=== PATIENT | female | born 1970 | race Caucasian/White ===

== ENCOUNTER → 2016-09-25 | Outpatient (REF) | payer OTHER ==
[~2016-09-25] MED LIST: AMIT25TA PO; AVASINJ IV; CYMB60CA3 PO; DICY1CAP8 PO; DIPH25CA PO; DOCU100C PO; HYDR12.55 PO; HYDR25TAB PO; LINZ145C PO; LISI40TAB PO; MIRA3350 PO; MULT1TAB10 PO; OXYC-299 PO; PANT40TA2 PO; PEG1POW PO; PERC5TAB6 PO; PROP40TA PO; PROT1TAB2 PO; PROTPAK PO; ULTR50TA PO; VITA100072 PO; VITMTA PO; XELO1TAB PO; [UNRECOGNIZED DRUG - CODE] OR; gas x OR; inderal OR; percocet OR; vitamin D OR
== END ==
LOC: M LAB REF 13:01
PROVIDERS: ATTEND Internal Medicine Medical Oncology
DX: C18.9 Malignant neoplasm of colon, unspecified (principal)

== ENCOUNTER 2016-10-09 16:52 | Inpatient (IN) | payer OTHER ==
[~2016-10-09] VITALS: Ht 157.5 cm; Wt 60.0 kg
[2016-10-09] MEDS ORDERED: ONDANSETRON 4MG/2ML VIAL (J2405) As Ordered ONE (18:41)
[2016-10-09] MEDS ORDERED: MORPHINE 4 MG/ML 1ML SYRINGE As Ordered ONE ×4 (18:41→23:43)
[2016-10-09 18:54] LABS: BASO # 0.1 K/mm3 (0.0-0.2); BASO % 1.6 % (0.0-1.0); EOS # 0.3 K/mm3 (0.0-0.50); EOS % 3.8 % (0.0-3.0); LARGE UNSTAINED CELL # 0.3 K/mm3 (0.0-0.4); LARGE UNSTAINED CELL % 4.2 % (0.0-4.0); LYMPH # 2.4 K/mm3 (1.5-4.5); LYMPH % 29.1 % (24.0-44.0); MEAN CORPUSCULAR HEMOGLOBIN 35.5 pg (27.0-33.0); MEAN CORPUSCULAR HGB CONC 33.8 g/dl (32.0-36.5); MONO # 0.6 K/mm3 (0.0-0.8); MONO % 8.2 % (0.0-5.0); NEUTROPHILS # 3.8 K/mm3 (1.8-7.7); NEUTROPHILS % 53.1 % (36.0-66.0); PLATELET COUNT, AUTOMATED 276 k/mm3 (150-450); RED CELL DISTRIBUTION WIDTH 16.9 % (11.5-14.5); WHITE BLOOD COUNT 7.2 K/mm3 (4.0-10.0)
[2016-10-09 19:07] LABS: ALBUMIN 4.3 GM/DL (3.2-5.2); ALBUMIN/GLOBULIN RATIO 1.39 (1.00-1.93); ALKALINE PHOSPHATASE 69 U/L (45-117); ALT/SGPT 23 U/L (12-78); ANION GAP 15 MEQ/L (8-16); AST/SGOT 24 U/L (15-37); BILIRUBIN,DIRECT < 0.1 MG/DL (0.0-0.2); BILIRUBIN,TOTAL 0.4 MG/DL (0.2-1.0); BLOOD UREA NITROGEN 9 MG/DL (7-18); CALCIUM LEVEL 9.7 MG/DL (8.5-10.1); CARBON DIOXIDE LEVEL 22 MEQ/L (21-32); CHLORIDE LEVEL 102 MEQ/L (98-107); CREATININE FOR GFR 1.15 MG/DL (0.55-1.02); GLOMERULAR FILTRATION RATE 53.8 (>58); GLUCOSE, FASTING 107 MG/DL (70-105); POTASSIUM SERUM 3.7 MEQ/L (3.5-5.1); SODIUM LEVEL 139 MEQ/L (136-145); TOTAL PROTEIN 7.4 GM/DL (6.4-8.2)
[2016-10-09 19:10] LABS: ADD MORPHOLOGY? YES
[2016-10-09 19:11] LABS: ANISOCYTOSIS 1+
[2016-10-09] MEDS ORDERED: GASTROGRAFIN SOLUTION 30ML (Q9963) As Ordered ONE (19:36)
[2016-10-09] MEDS ORDERED: ISOVUE-370 76% 100ML VIAL (Q9967) As Ordered ONE (21:21)
--- NOTE | 2016-10-09 22:30 | REPUSA ---
CT of the abdomen and pelvis with contrast Clinical statement: Pain. Technique: Multiple axial CT images were obtained from the base of the lungs through the floor of the pelvis utilizing 5 mm axial slices after administration of oral and nonionic intravenous contrast. C oronal and sagittal reconstructions were also obtained. Comparison: 06/19/2016. Findings: Chest: The visualized lung bases are clear. Abdomen: The liver, spleen, pancreas, right kidney, gallbladder, and adrenal glands are unremarkable. There is hypoperfusion of the left kidney with moderately severe left-sided hydronephrosis. There is a left hydroureter extending to the region just above the iliac bifurcation. At this site, there is a left retroperitoneal soft tissue mass measuring 3.0 x 3.3 cm, causing mass effect on the ureter. In retrospect, this lesion was likely present on the prior study but only measure 2.2 x 1.9 cm, and was far less appreciable at that time. On the prior exam there is no evidence of hydronephrosis. No kidn ey stones identified. The aorta is within normal limits. There is no evidence of abdominal lymphadeno fide or ascites. Pelvis: The bowel is unremarkable, with no obstructive or inflammatory changes. The appendix is carmen l. The urinary bladder is within normal limits. The other pelvic structures appear grossly intact. Th ere is no evidence of pelvic lymphadenopathy or ascites. Bones: There are no suspicious osseous abnormalities seen. Impression: 1. Moderately severe left-sided hydronephrosis and hydroureter, with the site of obstruction secondar y to a left retroperitoneal mass which has increased in size since the prior study of 06/19/2016. Biop sy of this mass should be considered. 2. The right renal collecting system is unremarkable at this time. 3. No obstructive or inflammatory bowel changes.
[2016-10-09] MEDS ORDERED: LISI40TAB PO (23:40)
[2016-10-09] MEDS ORDERED: LINZ290C PO (23:40)
[2016-10-09] MEDS ORDERED: OXYC-299 PO (23:40)
[2016-10-09] MEDS ORDERED: HYDR25TAB PO (23:40)
[2016-10-10] VITALS (8 sets, daily range): BP systolic 131–162; BP diastolic 63–95
[2016-10-10] MEDS ORDERED: ONDANSETRON 4MG/2ML VIAL (J2405) IV PRN ×2 (00:45→17:45)
[2016-10-10] MEDS ORDERED: PERCOCET 5MG/325MG TAB PO PRN (00:45)
[2016-10-10] MEDS ORDERED: HYDROmorphone 2 MG TAB PO PRN (00:45)
[2016-10-10] MEDS ORDERED: PERCOCET 5MG/325MG TAB As Ordered ONE (01:04)
--- NOTE | 2016-10-10 01:31 | EDDOCDS ---
Physician Documentation [facility] Name: Tresa Goff Age: 46 yrs Sex: Female : 1970 Arrival Date: 10/09/2016 Time: 16:52 Bed Admit Hold Private MD: Kyle Hodgson MD Disposition: 10/09 23:19 Critical Care: Critical care not applicable. pc Disposition: 10/09/16 23:22 Hospitalization ordered by Keena Segura for Inpatient Admission. Preliminary diagnosis are Other hydronephrosis - compressive at level of left iliac bifurcation due to retroperitoneal soft tissue mass, Malignant neoplasm of colon - metastatic to liver, lung. - Bed requested for 5 Clark. - Status is Inpatient Admission. cf2 - Condition is Stable. - Problem is new. - Symptoms have improved. HPI: 18:25 This 46 yrs old Female presents to ER via Walkin/Carried/Asstd with pc complaints of constipation. 18:25 The history is obtained from the patient. She was seen by her GI clinic today for pc ongoing constipation. She has colon Ca, now metastatic to her lung, liver and multiple intraabdominal lymph nodes. She has been constipated for 3 weeks and was started on both lactulose and Linzess 2 weeks ago but has not had a bowel movement in 12 days. She has nausea but has not had any vomiting. The PA that saw her at the clinic today sent her in for a CT scan to rule out an obstruction, despite the lack of clinical evidence of the same but has not done any plain films to date. Historical: - Allergies: Chantix; - Home Meds: 1. Cymbalta 60 mg Oral cpDR 1 cap once daily (Last dose: 10/08/2016 18:30) 2. hydrochlorothiazide 25 mg Oral tab every other day (Last dose: 10/09/2016 07:00) 3. inderal 40mg twice a day (Last dose: 10/09/2016 07:00) 4. Linzess oral 1 cap as needed Has been taking whenever she goes 2-3 days without a BM &#13(Last dose: 10/09/2016 07:00) 5. lisinopril 40 mg Oral tab 1 tab once daily (Last dose: 10/09/2016 07:00) 6. OxyContin 10 mg Oral Tb12 1 tab every 12 hours (Last dose: 10/09/2016 06:30) 7. Percocet 5-325 mg Oral tab every 4-6 hours (Last dose: 10/09/2016 14:00) 8. Protonix 40 mg Oral TbEC 1 tab 2 times per day (Last dose: 10/09/2016 07:00) 9. Avastin intravenous monthly Dec last dose 10. Stool Softener oral nightly 11. multivitamin Oral tab daily - PMHx: Depression; Hypertension; IBS; Cancer, Colon; - PSHx: Hemorrhoidectomy; Breast Augmentation; Colon Resection; infusaport; - The history from nurses notes was reviewed: and I agree with what is documented. - Social history: Smoking status: Electronic cigarettes No barriers to communication noted, The patient speaks fluent Cameroonian, Speaks appropriately for age, Preferred Language: Cam[place]onian. - : The pt / caregiver states he / she is not on anticoagulants. Home medication list is obtained from the patient. - Hospitalizations: : No recent hospitalization is reported. - Exposure Risk Screening:: None identified. - Immunization history:: All immunizations up-to-date. - Family history: Not pertinent. - Social history:: the patient is a non-smoker, the patient drinks alcohol, socially. [employer]: 17:48 2, Living 2, LMP N/A - lf1 ROS: 18:29 All systems are negative except as listed. pc Exam: 18:29 General Appearance: the patient is in anxious, sitting cross-legged, leaning forward pc with forehead on the stretcher. 18:29 EENT: normal eye inspection, ears, nose and throat normal, pharynx normal, mucous membranes moist 18:29 Neck: The exam reveals no acute abnormalities. ROM is normal and painless. No nuchal rigidity is noted.. 18:29 Respiratory: no respiratory distress, normal breath sounds. 18:29 CVS: regular pulse rate, regular rhythm, normal S1 and S2, no murmurs, strong peripheral pulses. 18:29 Abdomen: soft, no organomegaly, severe tenderness to light palpation in all quadrants, voluntary guarding is elicited in all quadrants, bowel sounds diminished. 18:29 Back: normal inspection. 18:29 Skin: skin color is normal, warm, dry. 18:29 Extremities: The extremities have a grossly normal appearance, are non-tender, without acute ROM abnormalities. 18:29 Neuro: oriented x 3, cranial nerves normal as tested, no motor deficits, no sensory deficits. Vital Signs: 16:54 BP 193 / 106; Pulse 94; Resp 18 S; Temp 99.0(O); Pulse Ox 99% on R/A; Weight 60.33 kg / dd6 133 lbs (R); Height 5 ft. 2 in. (157.48 cm) (R); 18:48 BP 170 / 101; Pulse 92; Resp 25; Pulse Ox 100% on R/A; jmv 19:24 BP 179 / 117 (auto/); nn1 19:25 Pulse 80 MON; Pulse Ox 100% ; nn1 22:45 BP 136 / 94; Pulse 119; Resp 20; Temp 98.8(O); Pulse Ox 96% on R/A; Pain 4/10; jmv 10/10 01:29 BP 132 / 78; Pulse 98; Resp 16; Temp 98.5; Pulse Ox 99% on R/A; Pain 3/10; cf2 10/09 16:54 Body Mass Index 24.33 (60.33 kg, 157.48 cm) dd6 10/09 18:48 RN notified of BP jmv 22:45 PT states that when she moves her pain lvl is about an 8/10 notified RN [facility] MDM: 18:08 Abdomen, Flat\E\Upright,PA Chest Ordered. EDMS 18:26 Financial registration complete. gb 18:29 Differential Diagnosis: abdominal pain, constipation, metastatic colon Ca. Plan: albs, pc meds, imaging. 18:34 IV Saline Lock ordered. pc 18:35 morphine 4 mg IVP every 30 minutes; Document pain score/vitals after each dose (Hold if pc SBP < 90mmHg) x2 ordered. 18:35 Ondansetron 4 mg IVP once ordered. pc 18:36 CBC with Diff Ordered. EDMS 18:36 MED Profile Ordered. EDMS 18:36 Liver Profile Ordered. EDMS 19:13 RBC MORPH PROF NO CHARGE Ordered. EDMS 19:13 CBC with Diff Reviewed. pc 19:13 MED Profile Reviewed. pc 19:13 Liver Profile Reviewed. pc 19:13 RBC MORPH PROF NO CHARGE Reviewed. pc 19:27 CT ABD & PELVIS: IV and Oral Contrast Ordered. EDMS 19:35 Diatrizoate Meglumine & Sodium Liquid 10 ml PO once; mix in 290cc of water; 1st cup at nn1 1950; 2nd cup at 2020 ordered. 19:47 [facility] Payment Agreement was scanned into [employer] and attached to record. gb 22:38 Vital Signs ordered. pc 22:42 morphine 4 mg IVP every 30 minutes; Document pain score/vitals after each dose (Hold if pc SBP < 90mmHg) x2 ordered. 22:51 BED REQUEST+ADM ordered. EDMS 22:51 Data reviewed: old medical records, vital signs, nurses notes, lab test results, all pc radiology studies and available results. Test interpretation: LAB - all labs as ordered have been reviewed, interpreted and considered in the overall management of the clinical presentation; X-RAY - interpreted by Radiologist and personally reviewed, 3-view abdomen series; no acute disease, interpreted by Radiologist and personally reviewed, Abdomen/Pelvis CT; severe left hydronephrosis due to ureteric compression from a 3.5cm retroperitoneal soft tissue mass at the level of the iliac bifurcation. Liver lesions noted but not reported by Radiology. 23:19 The patient has been re-examined and re-evaluated. The patient's symptoms have mildly pc improved after treatment. Physician consultation: Dr. Errol Garcia regarding patient's condition, and he advises she requires admission fro pain control, for an IR consult with view to a left Nephrostomy tube tomorrow and he will see in consult. 23:19 Physician consultation: Dr. Keena Segura regarding admission. Disposition: The pc historical points, examination findings, and any diagnostic results supporting the provided diagnosis, were discussed with the patient or legal guardian. The need for further work-up and/or treatment in the hospital was explained. 10/10 00:16 Admission / Observation Status ordered. EDMS 00:42 NPO DIET ordered. EDMS 00:43 BASIC METABOLIC PROFILE Ordered. EDMS 00:43 COMPLETE BLOOD COUNT Ordered. EDMS 01:07 oxyCODONE-acetaminophen 5 mg-325 mg 1 tabs PO once ordered. cf2 Administered Medications: 10/09 18:54 Drug: morphine 4 mg [morphine 4 mg/mL intravenous cartridge (1 mL)] Route: IVP; Site: mb9 right antecubital; 18:54 Drug: Ondansetron 4 mg [ondansetron HCl 2 mg/mL intravenous solution (2 mL)] Route: mb9 IVP; Site: right antecubital; 19:27 Drug: morphine 4 mg [morphine 4 mg/mL intravenous cartridge (1 mL)] Route: IVP; Site: nn1 right antecubital; 21:11 Drug: Diatrizoate Meglumine & Sodium 10 ml [diatrizoate meglumine and diat.sodium 66 nn1 %-10 % oral solution (10 mL)] Route: PO; 23:10 Drug: morphine 4 mg [morphine 4 mg/mL intravenous cartridge (1 mL)] Route: IVP; Site: cf2 left antecubital; 23:59 Drug: morphine 4 mg [morphine 4 mg/mL intravenous cartridge (1 mL)] Route: IVP; Site: cf2 left antecubital; 10/10 01:08 Drug: oxyCODONE-acetaminophen 1 tabs [oxycodone-acetaminophen 5 mg-325 mg tablet (1 cf2 tabs)] Route: PO; Signatures: Dispatcher [employer] EDMS Balbir Lubin MD MD pc [facility] RN Kristin Chaves, Reg Reg gb Oralia Mccabe RN RN lf1 Dennis Sears RN RN mb9 Rosa Stanton RN RN nn1 Karyn Durán,RN RN cf2 The chart was reviewed and I authenticate all verbal orders and agree with the evaluation and treatment provided.Corrections: (The following items were deleted from the chart) 10/09 18:29 17:48 PMHx: colon camcer; lf1 pc 18:40 17:48 Home Meds: Xeloda 3-500mg in am and 2 500 mg at hs x14 days ( start tomorrow) mb9 oral tab; lf1 Attachments: 19:47 [facility] Payment Agreement gb MTDD
--- NOTE | 2016-10-10 01:31 | EDDOCDS ---
Nurse's Notes [facility] Name: Tresa Goff Age: 46 yrs Sex: Female : 1970 Arrival Date: 10/09/2016 Time: 16:52 Bed Admit Hold Private MD: Kyle Hodgson MD Diagnosis: Other hydronephrosis-compressive at level of left iliac bifurcation due to retroperitoneal soft tissue mass;Malignant neoplasm of colon-metastatic to liver, lung Presentation: 10/09 17:39 Presenting complaint: Patient states: Lower left abdominal pain that began 3 weeks ago. lf1 Pt reports that she has been constipated for 11 days and was seen in [facility] [place] office and told to report to the ED for evaluation. Pt reports history of Colorectal Cancer and previous resection of that area. Pain is currently 10/10 with nausea. Adult Sepsis Screening: The patient does not have new or worsening altered mentation. Patient has a respiratory rate of greater than or equal to 22 (1 point). Systolic blood pressure is greater than 100. Patient has a qSOFA score of 1- Negative Sepsis Screen. Suicide/Homicide risk assessment- the patient denies having any suicidal and/or homicidal ideations and does not present with any other emotional, behavioral or mental health complaints. Status: Patient is not a registered nurse surgical services or dependent. Transition of care: patient was received from a primary care office; [facility] . 17:39 Acuity: YUSUF Level 2 lf1 17:39 Method Of Arrival: Walkin/Carried/Asstd 1 17:57 Acuity: YUSUF Level 3 kcs Triage Assessment: 17:48 General: Appears distressed, ill, Behavior is anxious, restless. Pain: Location: left lf1 upper quadrant and left lower quadrant Pain currently is 10 out of 10 on a pain scale. Quality of pain is described as throbbing. HIV screening NA for this visit Offered previously. Neurological: Level of Consciousness is awake, alert, Oriented to person, place, time. EENT: No deficits noted. Respiratory: Respiratory effort is pursed lip, Respiratory pattern is hyperventilation. GI: Reports constipation, lower abdominal pain, upper abdominal pain, nausea. Derm: Skin is clammy. 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 Cymbalta 60 mg Oral cpDR 1 cap once daily (Last dose: 10/08/2016 18:30) 2. hydrochlorothiazide 25 mg Oral tab every other day (Last dose: 10/09/2016 07:00) 3. inderal 40mg twice a day (Last dose: 10/09/2016 07:00) 4. Linzess oral 1 cap as needed Has been taking whenever she goes 2-3 days without a BM &#13(Last dose: 10/09/2016 07:00) 5. lisinopril 40 mg Oral tab 1 tab once daily (Last dose: 10/09/2016 07:00) 6. OxyContin 10 mg Oral Tb12 1 tab every 12 hours (Last dose: 10/09/2016 06:30) 7. Percocet 5-325 mg Oral tab every 4-6 hours (Last dose: 10/09/2016 14:00) 8. Protonix 40 mg Oral TbEC 1 tab 2 times per day (Last dose: 10/09/2016 07:00) 9. Avastin intravenous monthly Dec last dose 10. Stool Softener oral nightly 11. multivitamin Oral tab daily - PMHx: Depression; Hypertension; IBS; Cancer, Colon; - PSHx: Hemorrhoidectomy; Breast Augmentation; Colon Resection; infusaport; - The history from nurses notes was reviewed: and I agree with what is documented. - Social history: Smoking status: Electronic cigarettes No barriers to communication noted, The patient speaks fluent Moroccan, Speaks appropriately for age, Preferred Language: Moroccan. - : The pt / caregiver states he / she is not on anticoagulants. Home medication list is obtained from the patient. - Hospitalizations: : No recent hospitalization is reported. - Exposure Risk Screening:: None identified. - Immunization history:: All immunizations up-to-date. - Family history: Not pertinent. - Social history:: the patient is a non-smoker, the patient drinks alcohol, socially. Screenin/25 01:08 Screening information is obtained from the patient. Fall risk: No risks identified. cf2 Assistance ADL's: requires no assistance with activities of daily living. Abuse/DV Screen: The patient / caregiver reports he/she is: not in a situation that causes fear, pain or injury. Nutritional screening: No deficits noted. Advance Directives: Further advance directive information is declined. home support is adequate. Assessment: 10/09 18:20 General: Appears distressed, Behavior is fussy. mb9 18:20 Pain: Location: abdomen Pain currently is 10 out of 10 on a pain scale. Respiratory: mb9 Airway is patent Respiratory effort is even, unlabored, Breath sounds are clear bilaterally. GI: Abdomen is flat, non- distended other this RN is unable to assess pt's abd at this time. pt is bent over the at the waist with a heating pad on her abd. pt reports the pain is to much to lye flat at this time. 19:15 General: Patient doubled over in pain. Patient reports morphine did not help with pain, nn1 states pain medications have not been relieving pain. . Pain: Location: abdomen Pain currently is 10 out of 10 on a pain scale. GI: Abdomen is non- distended Reports gaseousness. Derm: Skin is pink, warm & dry. 19:44 General: Patient drinking gastrografin per orders. Patient reports mild relief of pain nn1 at this time. . 21:11 General: Appears in no apparent distress, comfortable, Behavior is appropriate for age, nn1 cooperative, Patient reports feeling more comfortable at this time. Patient awaiting CT. . 21:41 General: Patient to CT. Reports pain became worse when she had to lie flat for scans. nn1 Patient has heating pad and pillows, positioned for comfort. . Respiratory: Airway is patent Respiratory effort is even, unlabored, Respiratory pattern is regular. Derm: Skin is pink, warm & dry. 10/10 01:08 GI: Abd is soft Abd is tender to palpation X 4 quads. cf2 Vital Signs: 10/09 16:54 BP 193 / 106; Pulse 94; Resp 18 S; Temp 99.0(O); Pulse Ox 99% on R/A; Weight 60.33 kg dd6 (R); Height 5 ft. 2 in. (157.48 cm) (R); 18:48 BP 170 / 101; Pulse 92; Resp 25; Pulse Ox 100% on R/A; jmv 19:24 BP 179 / 117 (auto/); nn1 19:25 Pulse 80 MON; Pulse Ox 100% ; nn1 22:45 BP 136 / 94; Pulse 119; Resp 20; Temp 98.8(O); Pulse Ox 96% on R/A; Pain 4/10; jmv 10/10 01:29 BP 132 / 78; Pulse 98; Resp 16; Temp 98.5; Pulse Ox 99% on R/A; Pain 3/10; cf2 10/09 16:54 Body Mass Index 24.33 (60.33 kg, 157.48 cm) dd6 10/09 18:48 RN notified of BP jmv 22:45 PT states that when she moves her pain lvl is about an 8/10 notified RN meeta Vitals: 16:54 Log In Time: October 09, 2016 at 16:52. dd6 ED Course: 16:53 Patient visited by Willie Campbell PCA. dd6 16:53 Kyle Hodgson is Private Physician. dd6 16:53 Patient moved to Waiting dd6 16:54 Patient moved to Pre RCE dd6 17:43 Triage Initiated lf1 17:58 gang leader notified of pt. status, will move pt. s soon as bed is cleaned. . lf1 18:11 Balbir Lubin MD is Attending Physician. pc 18:11 Patient moved to 6 pc 18:18 Patient visited by Balbir Lubin MD. pc 18:50 Patient visited by Dennis Sears RN. mb9 18:55 Inserted saline lock: 18 gauge in left antecubital area and blood collected. The mb9 patient tolerated the procedure well. 19:03 Patient visited by Jc Hagen PCA. kb5 19:47 [facility] Payment Agreement was scanned into [employer] and attached to record. gb 20:05 Patient visited by Balbir Lubin MD. pc 21:06 Patient visited by Rosa Stanton,ANI. nn1 21:42 Patient visited by Rosa Stanton,ANI. nn1 22:30 Patient visited by Torie Lancaster, RN. sls1 22:47 Patient visited by Hilton Condon PCA. jmv 22:50 Karyn Durán,RN is Primary Nurse. cf2 22:51 Patient visited by Karyn Durán,RN. cf2 23:22 Keena Segura is Hospitalizing Provider. pc 23:24 Patient moved to 7 jmv 23:24 CT ABD & PELVIS: IV and Oral Contrast Returned. EDMS 23:25 Patient visited by Karyn Durán RN. cf2 23:27 Patient moved to Admit Hold tmm1 10/10 01:07 Patient visited by Karyn Durán RN. cf2 01:08 No procedures done that require assistance. cf2 01:09 Patient visited by Karyn Durán RN. cf2 01:09 The patient / caregiver is instructed regarding the plan of care and ED course. cf2 01:26 Patient visited by Karyn Durán RN. cf2 01:28 Patient visited by Karyn Durán RN. cf2 01:31 Patient visited by Karyn Durán RN. cf2 Administered Medications: 10/09 18:54 Drug: morphine 4 mg [morphine 4 mg/mL intravenous cartridge (1 mL)] Route: IVP; Site: mb9 right antecubital; 18:54 Drug: Ondansetron 4 mg [ondansetron HCl 2 mg/mL intravenous solution (2 mL)] Route: mb9 IVP; Site: right antecubital; 19:27 Drug: morphine 4 mg [morphine 4 mg/mL intravenous cartridge (1 mL)] Route: IVP; Site: nn1 right antecubital; 21:11 Drug: Diatrizoate Meglumine & Sodium 10 ml [diatrizoate meglumine and diat.sodium 66 nn1 %-10 % oral solution (10 mL)] Route: PO; 23:10 Drug: morphine 4 mg [morphine 4 mg/mL intravenous cartridge (1 mL)] Route: IVP; Site: cf2 left antecubital; 23:59 Drug: morphine 4 mg [morphine 4 mg/mL intravenous cartridge (1 mL)] Route: IVP; Site: cf2 left antecubital; 10/10 01:08 Drug: oxyCODONE-acetaminophen 1 tabs [oxycodone-acetaminophen 5 mg-325 mg tablet (1 cf2 tabs)] Route: PO; Order Results: Lab Order: CBC with Diff; SPEC'M 10/09/16 18:30 Test: WHITE BLOOD COUNT; Value: 7.2; Range: 4.0-10.0; Units: K/mm3; Status: F Test: RED BLOOD COUNT; Value: 4.26; Range: 4.00-5.40; Units: M/mm3; Status: F Test: HEMOGLOBIN; Value: 15.1; Range: 12.0-16.0; Units: g/dl; Status: F Test: HEMATOCRIT; Value: 44.7; Range: 36.0-47.0; Units: %; Status: F Test: MEAN CORPUSCULAR VOLUME; Value: 105.0; Range: 80.0-96.0; Abnormal: Above high normal; Units: fl; Status: F Test: MEAN CORPUSCULAR HEMOGLOBIN; Value: 35.5; Range: 27.0-33.0; Abnormal: Above high normal; Units: pg; Status: F Test: MEAN CORPUSCULAR HGB CONC; Value: 33.8; Range: 32.0-36.5; Units: g/dl; Status: F Test: RED CELL DISTRIBUTION WIDTH; Value: 16.9; Range: 11.5-14.5; Abnormal: Above high normal; Units: %; Status: F Test: PLATELET COUNT, AUTOMATED; Value: 276; Range: 150-450; Units: k/mm3; Status: F Test: NEUTROPHILS %; Value: 53.1; Range: 36.0-66.0; Units: %; Status: F Test: LYMPH %; Value: 29.1; Range: 24.0-44.0; Units: %; Status: F Test: MONO %; Value: 8.2; Range: 0.0-5.0; Abnormal: Above high normal; Units: %; Status: F Test: EOS %; Value: 3.8; Range: 0.0-3.0; Abnormal: Above high normal; Units: %; Status: F Test: BASO %; Value: 1.6; Range: 0.0-1.0; Abnormal: Above high normal; Units: %; Status: F Test: LARGE UNSTAINED CELL %; Value: 4.2; Range: 0.0-4.0; Abnormal: Above high normal; Units: %; Status: F Test: NEUTROPHILS #; Value: 3.8; Range: 1.8-7.7; Units: K/mm3; Status: F Test: LYMPH #; Value: 2.4; Range: 1.5-4.5; Units: K/mm3; Status: F Test: MONO #; Value: 0.6; Range: 0.0-0.8; Units: K/mm3; Status: F Test: EOS #; Value: 0.3; Range: 0.0-0.50; Units: K/mm3; Status: F Test: BASO #; Value: 0.1; Range: 0.0-0.2; Units: K/mm3; Status: F Test: LARGE UNSTAINED CELL #; Value: 0.3; Range: 0.0-0.4; Units: K/mm3; Status: F Lab Order: MED Profile; SPEC'M 10/09/16 18:30 Test: GLUCOSE, FASTING; Value: 107; Range: 70-105; Abnormal: Above high normal; Units: MG/DL; Status: F Test: BLOOD UREA NITROGEN; Value: 9; Range: 7-18; Units: MG/DL; Status: F Test: CREATININE FOR GFR; Value: 1.15; Range: 0.55-1.02; Abnormal: Above high normal; Units: MG/DL; Status: F Test: GLOMERULAR FILTRATION RATE; Value: 53.8; Range: >58; Abnormal: Below low normal; Status: F Test: SODIUM LEVEL; Value: 139; Range: 136-145; Units: MEQ/L; Status: F Test: POTASSIUM SERUM; Value: 3.7; Range: 3.5-5.1; Units: MEQ/L; Status: F Test: CHLORIDE LEVEL; Value: 102; Range: 98-107; Units: MEQ/L; Status: F Test: CARBON DIOXIDE LEVEL; Value: 22; Range: 21-32; Units: MEQ/L; Status: F Test: ANION GAP; Value: 15; Range: 8-16; Units: MEQ/L; Status: F Test: CALCIUM LEVEL; Value: 9.7; Range: 8.5-10.1; Units: MG/DL; Status: F Test Note: ; Units are mL/min/1.73 m2 Chronic Kidney Disease Staging per NKF: Stage I & II GFR >=60 Normal to Mildly Decreased Stage III GFR 30-59 Moderately Decreased Stage IV GFR 15-29 Severely Decreased Stage V GFR <15 Very Little GFR Left ESRD GFR <15 on RESEARCH ENVIRONMENTAL ENGINEER Lab Order: Liver Profile; SPEC'M 10/09/16 18:30 Test: AST/SGOT; Value: 24; Range: 15-37; Units: U/L; Status: F Test: ALT/SGPT; Value: 23; Range: 12-78; Units: U/L; Status: F Test: ALKALINE PHOSPHATASE; Value: 69; Range: 45-117; Units: U/L; Status: F Test: BILIRUBIN,TOTAL; Value: 0.4; Range: 0.2-1.0; Units: MG/DL; Status: F Test: BILIRUBIN,DIRECT; Value: < 0.1; Range: 0.0-0.2; Units: MG/DL; Status: F Test: TOTAL PROTEIN; Value: 7.4; Range: 6.4-8.2; Units: GM/DL; Status: F Test: ALBUMIN; Value: 4.3; Range: 3.2-5.2; Units: GM/DL; Status: F Test: ALBUMIN/GLOBULIN RATIO; Value: 1.39; Range: 1.00-1.93; Status: F Lab Order: RBC MORPH PROF NO CHARGE; SPEC'M 10/09/16 18:30 Test: ANISOCYTOSIS; Value: 1+; Status: F Test: MACROCYTOSIS; Value: 1+; Status: F Test: PLATELET ESTIMATE; Value: NORMAL; Range: NORMAL; Status: F Radiology Order: CT ABD & PELVIS: IV and Oral Contrast Test: CT ABD & PELVIS: IV and Oral Contrast REASON FOR EXAMINATION: known colon Ca, increased pain; ; CT of the abdomen and pelvis with contrast; Clinical statement: Pain.; Technique: Multiple axial CT images were obtained from the base of the lungs through the floor of the; pelvis utilizing 5 mm axial slices after administration of oral and nonionic intravenous contrast. C; oronal and sagittal reconstructions were also obtained.; Comparison: 06/19/2016.; Findings:; Chest: The visualized lung bases are clear.; Abdomen: The liver, spleen, pancreas, right kidney, gallbladder, and adrenal glands are unremarkable.; There is hypoperfusion of the left kidney with moderately severe left-sided hydronephrosis. There is; a left hydroureter extending to the region just above the iliac bifurcation. At this site, there is; a left retroperitoneal soft tissue mass measuring 3.0 x 3.3 cm, causing mass effect on the ureter. In; retrospect, this lesion was likely present on the prior study but only measure 2.2 x 1.9 cm, and was; far less appreciable at that time. On the prior exam there is no evidence of hydronephrosis. No kidn; ey stones identified. The aorta is within normal limits. There is no evidence of abdominal lymphadeno; fide or ascites.; Pelvis: The bowel is unremarkable, with no obstructive or inflammatory changes. The appendix is carmen; l. The urinary bladder is within normal limits. The other pelvic structures appear grossly intact. Th; ere is no evidence of pelvic lymphadenopathy or ascites.; Bones: There are no suspicious osseous abnormalities seen.; Impression:; 1. Moderately severe left-sided hydronephrosis and hydroureter, with the site of obstruction secondar; y to a left retroperitoneal mass which has increased in size since the prior study of 06/19/2016. Biop; sy of this mass should be considered.; 2. The right renal collecting system is unremarkable at this time.; 3. No obstructive or inflammatory bowel changes.; ; Outcome: 10/09 23:22 Decision to Hospitalize by Provider. pc 10/10 01:08 CT Study completed. Property :Personal belongings accompany Pt. cf2 01:29 Discharge Assessment: Patient awake, alert and oriented x 3. No cognitive and/or cf2 functional deficits noted. Patient verbalized understanding of disposition instructions. Patient awake and alert. patient administered narcotics - yes. Patient was admitted to the hospital or transferred to another facility. The following High Risk Discharge criteria are identified: None. Admitted 5 [place]. Condition: stable. 01:31 Patient left the ED. cf2 Signatures: Dispatcher [employer] EDMS Balbir Lubin MD MD pc Sleeman, Kacey RN RN Kristin Pearson, Reg Reg gb Jc Hagen, STONE PAVER STONE PAVER kb5 Oralia MccabeRN RN lf1 Willie Campbell, STONE PAVER STONE PAVER dd6 Torie Lancaster RN RN sls1 Mary Paniagua, STONE PAVER STONE PAVER tmm1 Dennis Sears,RN RN mb9 Rosa StantonRN RN nn1 Karyn DuránRN RN cf2 Hilton Condon, STONE PAVER STONE PAVER jmv Corrections: (The following items were deleted from the chart) 10/09 18:29 17:48 PMHx: colon camcer; lf1 pc 18:40 17:48 Home Meds: Xeloda 3-500mg in am and 2 500 mg at hs x14 days ( start tomorrow) mb9 oral tab; lf1 18:50 18:48 BP 170 / 101; Pulse 92bpm; Resp 25bpm; Pulse Ox 100% RA; meeta hodgev MTDD
--- NOTE | 2016-10-10 01:44 | HPEPDOC ---
General Date of Admission Oct 10, 2016 at 00:13 Primary Care Physician: Kyle Hodgson MD Attending Physician: KEENA SEGURA Chief Complaint The patient is a 46-year-old female admitted with a reason for visit of Hydronephrosis Of Left Kidney. Source: Patient, Family Exam Limitations: No limitations History of Present Illness Ms. Goff is a 46-year-old female who comes emergency department with progressively worsening left-sided flank pain that began approximately 3 weeks ago. She felt that this was originally a flareup of her IBS, and she has been taking progressively more doses of opiate pain medication, therefore she has now become constipated, and feels that it has probably been about 11 days since her last bowel movement, and she had presumed that the increasing pain was from this superimposed on her IBS. She reports that she has tried a variety of constipation medications, none of which truly give her relief. Finally, she could not take it anymore and came into the ED for evaluation. A CT scan of the abdomen and pelvis was performed which revealed a left retroperitoneal mass causing left hydroureter and hydronephrosis. Dr. Garcia of urology was contacted by the ED physician, and it sounds like the plan is to admit the patient and place a left percutaneous nephrostomy drain. The patient used to see Dr. Patel as her oncologist, however her new oncologist is now Dr. Ervin CAREY. the patient just had a restaging PET scan in August which was suspicious for metastatic disease to the lungs and to her liver, she apparently is scheduled to start a new round of chemotherapy on Saturday. I would recommend contacting Dr. Mueller in the morning for more guidance on how to proceed with evaluating this new retroperitoneal mass Home Medications Scheduled Duloxetine Hcl (Cymbalta) 60 Mg Cap 60 MG PO DAILY (Reported) TAKES AT DINNERTIME Hydrochlorothiazide (Hydrochlorothiazide) 25 Mg Tab 25 MG PO Q2D (Reported) Linaclotide Base (Linzess) 290 Mcg Cap 290 MCG PO DAILY (Reported) Lisinopril (Lisinopril) 40 Mg Tab 40 MG PO DAILY (Reported) Oxycodone HCl (Oxycontin) 10 Mg Tab 10 MG PO BID (Reported) Pantoprazole Sodium (Pantoprazole Sodium) 40 Mg Tab 40 MG PO BID (Reported) Propranolol HCl (Propranolol HCl) 40 Mg Tab 40 MG PO BID (Reported) Scheduled PRN Oxycodone/Acetaminophen (Percocet 5-325 mg) 1 Tab Tab 1 TAB PO Q6H PRN PRN PAIN (Reported) Allergies Coded Allergies: No Known Drug Allergy (Unverified Allergy, Unknown, 12/21/12) Varenicline ([facility] Past Medical History Medical History Stage IV adenocarcinoma of the colon, a recent PET scan and August 2016 revealed metastases to liver and lung History of migraines Hypertension Hyperlipidemia IBS constipation type Chemotherapy associated neuropathy Surgical History Breast augmentation 2002 Hemorrhoidectomies 2 Colon resection Fdthsl-h-[id number] placement Family History Family History Father had hypertension, diabetes, dementia. Mother had hypertension, diabetes, thyroid disease. She has a sister with melanoma Social History * Smoker: non-smoker Alcohol: rarely Drugs: denies Psychosocial History: No pertinent psych hx Review of Symptoms Constitutional: Reports: Malaise, Denies: Chills, Fever, Night Sweats ENT: Denies: Dysphagia, Ear Pain, Head Aches Skin: Denies: Breakdown, Lesions, Rash Pulmonary: Denies: Cough, Dyspnea Cardiovascular: Denies: Chest Pain, Lt Headedness, Orthopnea, Palpitations, Paroxysmal Noc. Dyspnea Gastrointestinal: Reports: Abdominal Pain, Constipation, Nausea, Denies: Diarrhea, Vomiting Genitourinary: Denies: Dysuria, Frequency, Incontinence, Retention Hematologic: Denies: Bleeding Excessively, Bruising Psych: Reports: Mood Normal, Denies: Depression, Memory Issues Physical Examination General Exam: Positive: Alert, Cooperative, Mild Distress Eye Exam: Positive: Conjunctiva & lids normal, EOMI, Negative: Sclera icteric ENT Exam: Positive: Atraumatic, Mucous membr. moist/pink, Pharynx Normal Neck Exam: Positive: Supple, Negative: JVD, thyromegaly Chest Exam: Positive: Clear to auscultation, Normal air movement Heart Exam: Positive: Normal S1, Normal S2, Regular Rhythm, Tachycardic, Negative: Murmurs, Rubs Abdomen Exam: Positive: BS Hypoactive, Soft, Tenderness (especially along the left flank), Negative: Hepatospenomegaly, Mass Extremity Exam: Positive: Normal pulses, Negative: Clubbing, Cyanosis, Edema Skin Exam: Positive: Nl turgor and temperature, Negative: Breakdown, Lesion Psych Exam: Positive: Mental status NL, Mood NL, Oriented x 3 Vital Signs Blood pressure 177/94, pulse 82, respirations 20, temperature 98.0, pulse ox 95 % on room air, weight 45 kg, height 5 feet 2 inches, BMI 18 Laboratory Data Labs 24H Laboratory Tests 2 10/09/16 18:30: Aspartate Amino Transf (AST/SGOT) 24, Alanine Aminotransferase (ALT/SGPT) 23, Alkaline Phosphatase 69, Total Bilirubin 0.4, Direct Bilirubin < 0.1, Albumin 4.3, Albumin/Globulin Ratio 1.39, Anion Gap 15, Anisocytosis 1+, White Blood Count 7.2, Red Blood Count 4.26, Hemoglobin 15.1, Hematocrit 44.7, Mean Corpuscular Volume 105.0H, Mean Corpuscular Hemoglobin 35.5H, Mean Corpuscular Hemoglobin Concent 33.8, Red Cell Distribution Width 16.9H, Platelet Count 276, Neutrophils (%) (Auto) 53.1, Lymphocytes (%) (Auto) 29.1, Monocytes (%) (Auto) 8.2H, Eosinophils (%) (Auto) 3.8H, Basophils (%) (Auto) 1.6H, Neutrophils # ( Auto) 3.8, Lymphocytes # (Auto) 2.4, Monocytes # (Auto) 0.6, Eosinophils # (Auto ) 0.3, Basophils # (Auto) 0.1, Calcium Level 9.7, Glomerular Filtration Rate 53.8L, Large Unclassified Cells # 0.3, Large Unclassified Cells % 4.2H, Macrocytosis 1+, Platelet Estimate NORMAL, Total Protein 7.4 CBC/BMP Laboratory Tests 10/09/16 18:30 Red Blood Count 4.26, Mean Corpuscular Volume 105.0 H, Mean Corpuscular Hemoglobin 35.5 H, Mean Corpuscular Hemoglobin Concent 33.8, Red Cell Distribution Width 16.9 H, Neutrophils (%) (Auto) 53.1, Lymphocytes (%) (Auto) 29.1, Monocytes (%) (Auto) 8.2 H, Eosinophils (%) (Auto) 3.8 H, Basophils (%) ( Auto) 1.6 H, Neutrophils # (Auto) 3.8, Lymphocytes # (Auto) 2.4, Monocytes # ( Auto) 0.6, Eosinophils # (Auto) 0.3, Basophils # (Auto) 0.1 Assessment/Plan Problems: (1) Hydronephrosis of left kidney Status: Acute (2) Retroperitoneal mass Status: Acute (3) Acute kidney injury Status: Acute (4) Abdominal pain Status: Acute (5) Hyperlipidemia Status: Chronic (6) Hypertension Status: Chronic (7) Pulmonary nodules Status: Chronic (8) History of colon cancer, stage IV Status: Chronic (9) Irritable bowel syndrome with constipation Status: Chronic Plan / VTE VTE Prophylaxis Ordered?: Yes (Lovenox) Plan Plan Will admit the patient to [facility]. Urology was artery contacted by the ED physician, and it appears the plan is to place a percutaneous nephrostomy drain. Pain control at this time will be achieved with her usual home dose of Oxycodone 10 mg by mouth twice a day, with Percocet and oral Dilaudid as necessary for breakthrough pain. She was administered IV Dilaudid during her previous hospitalization, and this proved to be much too strong for her. Regarding her constipation, and does not appear that she has significant amount of retained stool on CT scan, and it is anticipated that she will require fewer narcotics after the placement of the nephrostomy drain, therefore she'll be given Senokot S twice a day at this time; more aggressive measures can be taken if it continues to be an issue. I would recommend contacting Dr. Mueller in the morning as the patient is scheduled to start chemotherapy next week, to determine if any additional measures need to be taken to evaluate this left retroperitoneal mass and/or if her chemotherapy plan would need to be adjusted based on her current situation. Otherwise, we'll keep the patient nothing by mouth at this time in anticipation of procedure. CESILIA is secondary to acute obstruction of left ureter by retroperitoneal mass, no additional medical measures regarding this will be necessary. She has not had any leukocytosis, fevers, or other constitutional symptoms indicating a pyelonephritis, therefore no empiric antibiotics will be started at this time GME ATTESTATION GME ATTESTATION My preceptor for this patient encounter was physically present in the building during the encounter and was fully available. As needed, all aspects of the patient interview, examination, medical decision making process, and medical care plan development were reviewed and approved by the preceptor. Preceptor is aware and concurs with the plan as stated in the body of this note and will attest to such by his/her cosignature. ATTENDING NOTE I, Keena Segura, have seen and examined the above patient and agree with the assessment and plan as documented above by Dr. eRed. IRA REED DO Oct 10, 2016 01:13 KEENA SEGURA Oct 10, 2016 02:29
--- NOTE | 2016-10-10 06:07 | REP ---
ABDOMINAL SERIES: Supine erect views of the abdomen demonstrate no free air and no evidence for bowel obstruction. Surgical sutures are seen in the pelvis. An accompanying view of the chest demonstrates no acute infiltrate. The heart is normal in size. There is a left MediPort catheter with the tip in the superior vena cava. IMPRESSION: No evidence of free air or obstruction. Signed by Tio العلي MD 10/11/2016 12:45 P
[2016-10-10] MEDS ORDERED: MIRA33504 PO (06:40)
[2016-10-10 07:31] LABS: RED CELL DISTRIBUTION WIDTH 15.2 % (11.5-14.5); WHITE BLOOD COUNT 6.5 K/mm3 (4.0-10.0)
[2016-10-10 07:44] LABS: CALCIUM LEVEL 9.3 MG/DL (8.5-10.1); CREATININE FOR GFR 1.19 MG/DL (0.55-1.02); GLOMERULAR FILTRATION RATE 51.8 (>58); POTASSIUM SERUM 3.6 MEQ/L (3.5-5.1)
[2016-10-10 07:48] LABS: MEAN CORPUSCULAR HEMOGLOBIN 36.4 pg (27.0-33.0); MEAN CORPUSCULAR VOLUME 103.8 fl (80.0-96.0)
[2016-10-10] MEDS: ENOXAPARIN 40 MG/0.4 ML SYRINGE (J1650) SC SCH ×2 (08:58→09:00)
[2016-10-10] MEDS: PROPRANOLOL 20 MG TAB PO SCH ×2 (08:59→21:00)
[2016-10-10] MEDS: PANTOPRAZOLE 40MG TAB (PROTONIX) PO SCH ×2 (08:59→20:59)
[2016-10-10] MEDS: LISINOPRIL 40 MG TAB PO SCH (08:59)
[2016-10-10] MEDS: SENOKOT S TAB PO SCH ×2 (08:59→20:59)
[2016-10-10] MEDS: PERCOCET 5MG/325MG TAB PO PRN ×3 (09:00→19:44)
[2016-10-10] MEDS ORDERED: oxyCODONE 10 MG CR TAB PO SCH (09:00)
[2016-10-10] MEDS: MORPHINE 4 MG/ML 1ML SYRINGE IV PRN ×3 (10:53→19:03)
--- NOTE | 2016-10-10 11:46 | IPNPDOC ---
Assessment/Plan Date Seen The patient was seen on 10/10/16. Problems Problems: (1) Hydronephrosis of left kidney Status: Acute Problem Specific Plan: Consult Specialist, Monitor Clinically Problem Text: I contacted Dr Garcia, who states he will see the pt. He wants IR to do nephrostomy tube placement. This is ordered and I spoke to Dr Hinson who will do the procedure today. Pt getting pain control. I contacted the pt's oncologist Dr Mueller who states she would still be planning on initiating chemotherapy on Saturday if the pt is out of the hospital. (2) Retroperitoneal mass Status: Acute Problem Specific Plan: Consult Specialist, Monitor Clinically Problem Text: See above. (3) Acute kidney injury Status: Acute Problem Specific Plan: Consult Specialist, Monitor Clinically Problem Text: See above. (4) Abdominal pain Status: Acute Problem Specific Plan: Consult Specialist, Monitor Clinically Problem Text: See above. (5) History of colon cancer, stage IV Status: Chronic Problem Specific Plan: Monitor Clinically Problem Text: Pt follows with her oncologist Dr Mueller and also in [place]. Recent PET scan in August with mets to liver and lung. She was planning on starting chemotherapy on Saturday. I contacted the pt's oncologist Dr Mueller who states she would still be planning on initiating chemotherapy on Saturday if the pt is out of the hospital. (6) Hyperlipidemia Status: Chronic (7) Hypertension Status: Chronic (8) Pulmonary nodules Status: Chronic (9) Irritable bowel syndrome with constipation Status: Chronic Plan / VTE VTE Prophylaxis Ordered?: Yes (Lovenox) Subjective Review of Systems CC/HPI The patient is a 46-year-old female admitted with a reason for visit of Hydronephrosis Of Left Kidney. Events since last encounter Pt with abd pain. Denies CP, SOB. Constitutional: Denies: Chills, Fever Pulmonary: Denies: Dyspnea Cardiovascular: Denies: Chest Pain, Palpitations Gastrointestinal: Reports: Abdominal Pain, Denies: Nausea, Vomiting Objective Physical Examination General Exam: Positive: Alert, Cooperative, No Acute Distress Eye Exam: Positive: Conjunctiva & lids normal, EOMI, Negative: Sclera icteric ENT Exam: Positive: Atraumatic, Mucous membr. moist/pink, Pharynx Normal Neck Exam: Positive: Supple, Negative: JVD, thyromegaly Chest Exam: Positive: Clear to auscultation, Normal air movement Heart Exam: Positive: Normal S1, Normal S2, Regular Rhythm, Negative: Murmurs, Rubs Abdomen Exam: Positive: BS Hypoactive, Soft, Tenderness (Diffuse, especially along the left flank), Negative: Hepatospenomegaly, Mass Extremity Exam: Positive: Normal pulses, Negative: Clubbing, Cyanosis, Edema Skin Exam: Positive: Nl turgor and temperature, Negative: Breakdown, Lesion Psych Exam: Positive: Mental status NL, Mood NL, Oriented x 3 Vital Signs/I&O Vital Signs Date Time Temp Pulse Resp B/P Pulse Ox O2 Delivery O2 Flow Rate FiO2 10/10/16 11:03 18 10/10/16 08:59 102 156/63 10/10/16 06:16 96.9 98 Room Air I&O- Last 24 Hours up to 6 AM 10/10/16 06:00 Intake Total 0 ml Balance 0 ml Laboratory Data Labs 24H Laboratory Tests 2 10/09/16 18:30: Aspartate Amino Transf (AST/SGOT) 24, Alanine Aminotransferase (ALT/SGPT) 23, Alkaline Phosphatase 69, Total Bilirubin 0.4, Direct Bilirubin < 0.1, Albumin 4.3, Albumin/Globulin Ratio 1.39, Anion Gap 15, Anisocytosis 1+, White Blood Count 7.2, Red Blood Count 4.26, Hemoglobin 15.1, Hematocrit 44.7, Mean Corpuscular Volume 105.0H, Mean Corpuscular Hemoglobin 35.5H, Mean Corpuscular Hemoglobin Concent 33.8, Red Cell Distribution Width 16.9H, Platelet Count 276, Neutrophils (%) (Auto) 53.1, Lymphocytes (%) (Auto) 29.1, Monocytes (%) (Auto) 8.2H, Eosinophils (%) (Auto) 3.8H, Basophils (%) (Auto) 1.6H, Neutrophils # ( Auto) 3.8, Lymphocytes # (Auto) 2.4, Monocytes # (Auto) 0.6, Eosinophils # (Auto ) 0.3, Basophils # (Auto) 0.1, Calcium Level 9.7, Glomerular Filtration Rate 53.8L, Large Unclassified Cells # 0.3, Large Unclassified Cells % 4.2H, Macrocytosis 1+, Platelet Estimate NORMAL, Total Protein 7.4 10/10/16 06:34: Anion Gap 11, Calcium Level 9.3, Glomerular Filtration Rate 51.8L, Blood Urea Nitrogen 9, Creatinine 1.19H, Sodium Level 140, Potassium Level 3.6, Chloride Level 101, Carbon Dioxide Level 28 CBC/BMP Laboratory Tests 10/09/16 18:30 Red Blood Count 4.26, Mean Corpuscular Volume 105.0 H, Mean Corpuscular Hemoglobin 35.5 H, Mean Corpuscular Hemoglobin Concent 33.8, Red Cell Distribution Width 16.9 H, Neutrophils (%) (Auto) 53.1, Lymphocytes (%) (Auto) 29.1, Monocytes (%) (Auto) 8.2 H, Eosinophils (%) (Auto) 3.8 H, Basophils (%) ( Auto) 1.6 H, Neutrophils # (Auto) 3.8, Lymphocytes # (Auto) 2.4, Monocytes # ( Auto) 0.6, Eosinophils # (Auto) 0.3, Basophils # (Auto) 0.1 10/10/16 06:34 Red Blood Count 4.08, Mean Corpuscular Volume 103.8 H, Mean Corpuscular Hemoglobin 36.4 H, Mean Corpuscular Hemoglobin Concent 35.0, Red Cell Distribution Width 15.2 H, Calcium Level 9.3 Benito Gutierrez Oct 10, 2016 11:46
[2016-10-10] MEDS ORDERED: cefTRIAXone SOD 1 GM VIAL (J0696) As Ordered ONE (16:08)
[2016-10-10] MEDS ORDERED: SODIUM BICARBONATE 8.4% INJ 50MEQ 50 ML VIAL As Ordered ONE (16:32)
[2016-10-10] MEDS ORDERED: ISOVUE-300 61% 50ML VIAL (Q9967) As Ordered ONE (16:33)
[2016-10-10] MEDS ORDERED: fentaNYL 100 MCG/2 ML INJECTION (J3010) As Ordered ONE ×2 (16:34→17:40)
[2016-10-10] MEDS ORDERED: MIDAZOLAM INJ 2 MG/2 ML VIAL (J2250) As Ordered ONE (16:34)
[2016-10-10] MEDS ORDERED: LIDOCAINE 2% MDV 20 ML VIAL As Ordered ONE (16:36)
[2016-10-10] MEDS: fentaNYL 100 MCG/2 ML INJECTION (J3010) IV PRN ×3 (17:43→18:24)
[2016-10-10] MEDS ORDERED: LR 1,000 ML IV SCH (17:45)
[2016-10-10] MEDS ORDERED: METOCLOPRAMIDE INJ 10MG/2ML VIAL (J2765) IV PRN (17:45)
--- NOTE | 2016-10-10 18:14 | REPKIM ---
CLINICAL HISTORY: Patient with metastatic colon ca, hepatic lesions, left pelvic mass presents with left flank pain and hydronephrosis. The referring service has asked a nephrostomy catheter placement on the left. PROCEDURE: 1. Ultrasound of the left kidney 2. Nephrostogram 3. Nephrostomy urinary diversion tube placement INTERVENTIONALIST: Augusto Hinson MD SEDATION: Sedation and analgesia was provided by the Anesthesiology Dept. EBL: 5 mL CONTRAST: 10 mL Isovue 300 FLUORO TIME: 3.9 minutes DEVICE USED: Nephrostomy Resolve catheter 8.5F Lot#[id number] Description of procedure: The risks, benefits, and alternatives of the procedure were discussed with the patient and informed written consent was obtained. The patient was brought to the interventional radiology suite where a timeout procedure was performed. Patient received 1gm Rocephin IV. The patient was placed in the prone position. The left kristen was prepped and draped in the usual sterile fashion. Ultrasound of the left kidney showed severe hydronephrosis and thinning of the renal cortex. Using ultrasound and fluoroscopic guidance, a 21-gauge Accustick needle was percutaneously introduced into the mid to lower pole posterior calyx. Using this access, an Accustick catheter was introduced with its tip positioned in the renal pelvis. Initial aspirate revealed cloudy urine. A sample blood tinged urine. A sample of urine sent for c/s. Contrast was injected. This showed the proximal ureter is tortuous with complete obstruction involving the distal ureter at the L5 level. An 8.5-Palauan nephrostomy catheter was introduced over the guidewire. The guidewire was withdrawn and the distal end of the catheter was formed in the renal pelvis. Contrast was gently hand injected confirming satisfactory catheter positioning. The nephrostomy drainage catheter was then secured to the skin with 2-0 suture and covered with a sterile dressing. The nephrostomy urinary diversion catheter was flushed and connected to a gravity bag. The patient tolerated the procedure well with no immediate complications. This procedure was performed using ultrasound and fluoroscopy. Dr. Hinson was present. IMPRESSION: 1. Severe hydronephrosis and thinning of the renal cortex on the left. 2. Nephrostogram demonstrates complete obstruction involving the distal ureter at the L5 level. Patient with a history of metastatic colon ca with left pelvic mass in the left retroperitoneal lymph node region. 3. Successful placement of 8.5-Palauan percutaneous nephrostomy urinary diversion tube on the left. Plan: A sample of urine sent for UA and culture. Findings discussed via phone with Dr. Rivera. Routine catheter exchange in approximately 10 weeks or earlier if signs of tube dysfunction were to occur. cc: DO Errol Lopez MD Florence P Arnold, MD [facility] CENTERJames
[2016-10-10] MEDS: DULoxetine 30 MG CAP (CYMBALTA) PO SCH (19:03)
[2016-10-10] MEDS: oxyCODONE 15 MG CR TAB PO SCH (21:00)
[2016-10-11] MEDS: PERCOCET 5MG/325MG TAB PO PRN ×3 (05:25→17:39)
[2016-10-11] MEDS: cefTRIAXone SOD 1 GM in D5W MINI-BAG PLUS 50 ML IV SCH (05:25)
[2016-10-11 06:00] VITALS: BP 124/81
[2016-10-11 06:57] LABS: MEAN CORPUSCULAR HEMOGLOBIN 36.1 pg (27.0-33.0); MEAN CORPUSCULAR HGB CONC 33.3 g/dl (32.0-36.5); MEAN CORPUSCULAR VOLUME 108.4 fl (80.0-96.0); RED CELL DISTRIBUTION WIDTH 16.6 % (11.5-14.5); WHITE BLOOD COUNT 7.8 K/mm3 (4.0-10.0)
[2016-10-11 07:06] LABS: CALCIUM LEVEL 9.4 MG/DL (8.5-10.1); CREATININE FOR GFR 1.14 MG/DL (0.55-1.02); GLOMERULAR FILTRATION RATE 54.4 (>58); POTASSIUM SERUM 4.2 MEQ/L (3.5-5.1)
[2016-10-11] MEDS: PANTOPRAZOLE 40MG TAB (PROTONIX) PO SCH ×2 (08:30→21:12)
[2016-10-11] MEDS: oxyCODONE 15 MG CR TAB PO SCH ×2 (08:30→21:13)
[2016-10-11] MEDS: SENOKOT S TAB PO SCH ×2 (08:31→21:12)
[2016-10-11] MEDS: PROPRANOLOL 20 MG TAB PO SCH ×2 (08:31→21:14)
--- NOTE | 2016-10-11 08:39 | IPNPDOC ---
Assessment/Plan Date Seen The patient was seen on 10/11/16. Problems Problems: (1) UTI (urinary tract infection) Status: Acute Problem Text: D2 ceftriaxone 125 U/A TNTC WBC 10/10 UCX P (2) Hydronephrosis of left kidney Status: Acute Problem Specific Plan: Consult Specialist, Monitor Clinically Problem Text: I contacted Dr Garcia, who states he will see the pt. He wants IR to do nephrostomy tube placement. This is ordered and I spoke to Dr Hinson who will do the procedure today. Pt getting pain control. I contacted the pt's oncologist Dr Mueller who states she would still be planning on initiating chemotherapy on Saturday if the pt is out of the hospital. 10/11 - Pt is s/p nephrostomy tube placement, on IV rocephin, UC pending. Afebrile, nl WBC. d/w Dr. Garcia-stable to d/c per him, plan d/c in AM pending UCX results (3) Retroperitoneal mass Status: Acute Problem Specific Plan: Consult Specialist, Monitor Clinically Problem Text: See above. (4) Acute kidney injury Status: Acute Response to Treatment: Stable Problem Specific Plan: Consult Specialist, Monitor Clinically Problem Text: Minimal change in renal function since arrival. (5) Abdominal pain Status: Acute Problem Specific Plan: Consult Specialist, Monitor Clinically Problem Text: See above. (6) History of colon cancer, stage IV Status: Chronic Problem Specific Plan: Monitor Clinically Problem Text: Pt follows with her oncologist Dr Mueller and also in [place]. Recent PET scan in August with mets to liver and lung. She was planning on starting chemotherapy on Saturday. I contacted the pt's oncologist Dr Mueller who states she would still be planning on initiating chemotherapy on Saturday if the pt is out of the hospital. (7) Hypertension Status: Chronic (8) Irritable bowel syndrome with constipation Status: Chronic Plan / VTE VTE Prophylaxis Ordered?: Yes (Lovenox) Subjective Review of Systems CC/HPI Pt without new concerns. Pain is controlled. She is tolerating a regular diet. drainage from urostomy bag serosanguinous General: Denies: Fatigue Constitutional: Denies: Chills, Fever ENT: Denies: Head Aches Pulmonary: Denies: Cough, Dyspnea Cardiovascular: Denies: Chest Pain, Palpitations Gastrointestinal: Denies: Diarrhea, Nausea, Vomiting Musculoskeletal: Denies: Neck Pain Neurological: Denies: Weakness Psych: Reports: Mood Normal Objective Physical Examination General Exam: Positive: Alert, Cooperative, No Acute Distress Neck Exam: Positive: Supple Chest Exam: Positive: Clear to auscultation, Normal air movement Heart Exam: Positive: Normal S1, Normal S2, Regular Rhythm, Negative: Murmurs, Rubs Abdomen Exam: Positive: Normal bowel sounds, Other (nephrostomy tube L mid back ), Soft, Tenderness (Diffuse, especially along the left flank), Negative: Hepatospenomegaly, Mass Extremity Exam: Positive: Normal pulses, Negative: Clubbing, Cyanosis, Edema Skin Exam: Positive: Nl turgor and temperature, Negative: Breakdown, Lesion Psych Exam: Positive: Mental status NL, Mood NL, Oriented x 3 Vital Signs/I&O Vital Signs Date Time Temp Pulse Resp B/P Pulse Ox O2 Delivery O2 Flow Rate FiO2 10/11/16 08:31 126/78 10/11/16 08:30 18 10/11/16 06:00 95.3 82 100 Room Air I&O- Last 24 Hours up to 6 AM 10/11/16 06:00 Intake Total 410 ml Output Total 0 ml Balance 410 ml Laboratory Data Labs 24H Laboratory Tests 2 10/11/16 06:34: Anion Gap 6L, Blood Urea Nitrogen 8, Creatinine 1.14H, Sodium Level 140, Potassium Level 4.2, Chloride Level 102, Carbon Dioxide Level 32, Calcium Level 9.4, Glomerular Filtration Rate 54.4L CBC/BMP Laboratory Tests 10/11/16 06:34 Calcium Level 9.4, Red Blood Count 3.89 L, Mean Corpuscular Volume 108.4 H, Mean Corpuscular Hemoglobin 36.1 H, Mean Corpuscular Hemoglobin Concent 33.3, Red Cell Distribution Width 16.6 H Microbiology Microbiology 10/10/16 Urine Culture, Received Pending CAITLIN BREAUX PA-C Oct 11, 2016 08:39 Abraham Bui M.D. Oct 11, 2016 16:58
[2016-10-11] MEDS ORDERED: hydroCHLOROthiazide 25 MG TAB PO SCH (09:00)
[2016-10-11] MEDS: LISINOPRIL 40 MG TAB PO SCH (09:00)
[2016-10-11] MEDS: ENOXAPARIN 40 MG/0.4 ML SYRINGE (J1650) SC SCH (09:00)
[2016-10-11 14:00] VITALS: BP 111/68
[2016-10-11] MEDS: DULoxetine 30 MG CAP (CYMBALTA) PO SCH (17:39)
[2016-10-11 22:00] VITALS: BP 109/63
[2016-10-12] MEDS: PERCOCET 5MG/325MG TAB PO PRN ×4 (01:43→15:36)
--- NOTE | 2016-10-12 02:32 | EDDOCDS ---
Nurse's Notes [facility] Name: Tresa Goff Age: 46 yrs Sex: Female : 1970 Arrival Date: 10/09/2016 Time: 16:52 Bed Admit Hold Private MD: Kyle Hodgson MD Diagnosis: Other hydronephrosis-compressive at level of left iliac bifurcation due to retroperitoneal soft tissue mass;Malignant neoplasm of colon-metastatic to liver, lung Presentation: 10/09 17:39 Presenting complaint: Patient states: Lower left abdominal pain that began 3 weeks ago. lf1 Pt reports that she has been constipated for 11 days and was seen in [facility] office and told to report to the ED for evaluation. Pt reports history of Colorectal Cancer and previous resection of that area. Pain is currently 10/10 with nausea. Adult Sepsis Screening: The patient does not have new or worsening altered mentation. Patient has a respiratory rate of greater than or equal to 22 (1 point). Systolic blood pressure is greater than 100. Patient has a qSOFA score of 1- Negative Sepsis Screen. Suicide/Homicide risk assessment- the patient denies having any suicidal and/or homicidal ideations and does not present with any other emotional, behavioral or mental health complaints. 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 Transition of care: patient was received from a primary care office; [facility] . 17:39 Acuity: YUSUF Level 2 lf1 17:39 Method Of Arrival: Walkin/Carried/Asstd 1 17:57 Acuity: YUSUF Level 3 kcs Triage Assessment: 17:48 General: Appears distressed, ill, Behavior is anxious, restless. Pain: Location: left lf1 upper quadrant and left lower quadrant Pain currently is 10 out of 10 on a pain scale. Quality of pain is described as throbbing. HIV screening NA for this visit Offered previously. Neurological: Level of Consciousness is awake, alert, Oriented to person, place, time. EENT: No deficits noted. Respiratory: Respiratory effort is pursed lip, Respiratory pattern is hyperventilation. GI: Reports constipation, lower abdominal pain, upper abdominal pain, nausea. Derm: Skin is clammy. 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 Cymbalta 60 mg Oral cpDR 1 cap once daily (Last dose: 10/08/2016 18:30) 2. hydrochlorothiazide 25 mg Oral tab every other day (Last dose: 10/09/2016 07:00) 3. inderal 40mg twice a day (Last dose: 10/09/2016 07:00) 4. Linzess oral 1 cap as needed Has been taking whenever she goes 2-3 days without a BM &#13(Last dose: 10/09/2016 07:00) 5. lisinopril 40 mg Oral tab 1 tab once daily (Last dose: 10/09/2016 07:00) 6. OxyContin 10 mg Oral Tb12 1 tab every 12 hours (Last dose: 10/09/2016 06:30) 7. Percocet 5-325 mg Oral tab every 4-6 hours (Last dose: 10/09/2016 14:00) 8. Protonix 40 mg Oral TbEC 1 tab 2 times per day (Last dose: 10/09/2016 07:00) 9. Avastin intravenous monthly Dec last dose 10. Stool Softener oral nightly 11. multivitamin Oral tab daily - PMHx: Depression; Hypertension; IBS; Cancer, Colon; - PSHx: Hemorrhoidectomy; Breast Augmentation; Colon Resection; infusaport; - The history from nurses notes was reviewed: and I agree with what is documented. - Social history: Smoking status: Electronic cigarettes No barriers to communication noted, The patient speaks fluent Bermudian, Speaks appropriately for age, Preferred Language: Bermudian. - : The pt / caregiver states he / she is not on anticoagulants. Home medication list is obtained from the patient. - Hospitalizations: : No recent hospitalization is reported. - Exposure Risk Screening:: None identified. - Immunization history:: All immunizations up-to-date. - Family history: Not pertinent. - Social history:: the patient is a non-smoker, the patient drinks alcohol, socially. Screenin/25 01:08 Screening information is obtained from the patient. Fall risk: No risks identified. cf2 Assistance ADL's: requires no assistance with activities of daily living. Abuse/DV Screen: The patient / caregiver reports he/she is: not in a situation that causes fear, pain or injury. Nutritional screening: No deficits noted. Advance Directives: Further advance directive information is declined. home support is adequate. Assessment: 10/09 18:20 General: Appears distressed, Behavior is fussy. mb9 18:20 Pain: Location: abdomen Pain currently is 10 out of 10 on a pain scale. Respiratory: mb9 Airway is patent Respiratory effort is even, unlabored, Breath sounds are clear bilaterally. GI: Abdomen is flat, non- distended other this RN is unable to assess pt's abd at this time. pt is bent over the at the waist with a heating pad on her abd. pt reports the pain is to much to lye flat at this time. 19:15 General: Patient doubled over in pain. Patient reports morphine did not help with pain, nn1 states pain medications have not been relieving pain. . Pain: Location: abdomen Pain currently is 10 out of 10 on a pain scale. GI: Abdomen is non- distended Reports gaseousness. Derm: Skin is pink, warm & dry. 19:44 General: Patient drinking gastrografin per orders. Patient reports mild relief of pain nn1 at this time. . 21:11 General: Appears in no apparent distress, comfortable, Behavior is appropriate for age, nn1 cooperative, Patient reports feeling more comfortable at this time. Patient awaiting CT. . 21:41 General: Patient to CT. Reports pain became worse when she had to lie flat for scans. nn1 Patient has heating pad and pillows, positioned for comfort. . Respiratory: Airway is patent Respiratory effort is even, unlabored, Respiratory pattern is regular. Derm: Skin is pink, warm & dry. 10/10 01:08 GI: Abd is soft Abd is tender to palpation X 4 quads. cf2 Vital Signs: 10/09 16:54 BP 193 / 106; Pulse 94; Resp 18 S; Temp 99.0(O); Pulse Ox 99% on R/A; Weight 60.33 kg dd6 (R); Height 5 ft. 2 in. (157.48 cm) (R); 18:48 BP 170 / 101; Pulse 92; Resp 25; Pulse Ox 100% on R/A; jmv 19:24 BP 179 / 117 (auto/); nn1 19:25 Pulse 80 MON; Pulse Ox 100% ; nn1 22:45 BP 136 / 94; Pulse 119; Resp 20; Temp 98.8(O); Pulse Ox 96% on R/A; Pain 4/10; jmv 10/10 01:29 BP 132 / 78; Pulse 98; Resp 16; Temp 98.5; Pulse Ox 99% on R/A; Pain 3/10; cf2 10/09 16:54 Body Mass Index 24.33 (60.33 kg, 157.48 cm) dd6 10/09 18:48 RN notified of BP jmv 22:45 PT states that when she moves her pain lvl is about an 8/10 notified RN meeta Vitals: 16:54 Log In Time: October 09, 2016 at 16:52. dd6 ED Course: 16:53 Patient visited by Willie Campbell PCA. dd6 16:53 Kyle Hodgson is Private Physician. dd6 16:53 Patient moved to Waiting dd6 16:54 Patient moved to Pre RCE dd6 17:43 Triage Initiated lf1 17:58 play leader notified of pt. status, will move pt. s soon as bed is cleaned. . lf1 18:11 Balbir Lubin MD is Attending Physician. pc 18:11 Patient moved to 6 pc 18:18 Patient visited by Balbir Lubin MD. pc 18:50 Patient visited by Dennis Sears RN. mb9 18:55 Inserted saline lock: 18 gauge in left antecubital area and blood collected. The mb9 patient tolerated the procedure well. 19:03 Patient visited by Jc Hagen PCA. kb5 19:47 [facility] Payment Agreement was scanned into [employer] and attached to record. gb 20:05 Patient visited by Balbir Lubin MD. pc 21:06 Patient visited by Rosa Stanton,ANI. nn1 21:42 Patient visited by Rosa Stanton,ANI. nn1 22:30 Patient visited by Torie Lancaster, RN. sls1 22:47 Patient visited by Hilton Condon PCA. jmv 22:50 Karyn Durán,RN is Primary Nurse. cf2 22:51 Patient visited by Karyn Durán,RN. cf2 23:22 Keena Segura is Hospitalizing Provider. pc 23:24 Patient moved to 7 jmv 23:24 CT ABD & PELVIS: IV and Oral Contrast Returned. EDMS 23:25 Patient visited by Karyn Durán RN. cf2 23:27 Patient moved to Admit Hold tmm1 10/10 01:07 Patient visited by Karyn Durán RN. cf2 01:08 No procedures done that require assistance. cf2 01:09 Patient visited by Karyn Durán RN. cf2 01:09 The patient / caregiver is instructed regarding the plan of care and ED course. cf2 01:26 Patient visited by Karyn Durán RN. cf2 01:28 Patient visited by Karyn Durán RN. cf2 01:31 Patient visited by Karyn Durán RN. cf2 Administered Medications: 10/09 18:54 Drug: morphine 4 mg [morphine 4 mg/mL intravenous cartridge (1 mL)] Route: IVP; Site: mb9 right antecubital; 18:54 Drug: Ondansetron 4 mg [ondansetron HCl 2 mg/mL intravenous solution (2 mL)] Route: mb9 IVP; Site: right antecubital; 19:27 Drug: morphine 4 mg [morphine 4 mg/mL intravenous cartridge (1 mL)] Route: IVP; Site: nn1 right antecubital; 21:11 Drug: Diatrizoate Meglumine & Sodium 10 ml [diatrizoate meglumine and diat.sodium 66 nn1 %-10 % oral solution (10 mL)] Route: PO; 23:10 Drug: morphine 4 mg [morphine 4 mg/mL intravenous cartridge (1 mL)] Route: IVP; Site: cf2 left antecubital; 23:59 Drug: morphine 4 mg [morphine 4 mg/mL intravenous cartridge (1 mL)] Route: IVP; Site: cf2 left antecubital; 10/10 01:08 Drug: oxyCODONE-acetaminophen 1 tabs [oxycodone-acetaminophen 5 mg-325 mg tablet (1 cf2 tabs)] Route: PO; Order Results: Lab Order: CBC with Diff; SPEC'M 10/09/16 18:30 Test: WHITE BLOOD COUNT; Value: 7.2; Range: 4.0-10.0; Units: K/mm3; Status: F Test: RED BLOOD COUNT; Value: 4.26; Range: 4.00-5.40; Units: M/mm3; Status: F Test: HEMOGLOBIN; Value: 15.1; Range: 12.0-16.0; Units: g/dl; Status: F Test: HEMATOCRIT; Value: 44.7; Range: 36.0-47.0; Units: %; Status: F Test: MEAN CORPUSCULAR VOLUME; Value: 105.0; Range: 80.0-96.0; Abnormal: Above high normal; Units: fl; Status: F Test: MEAN CORPUSCULAR HEMOGLOBIN; Value: 35.5; Range: 27.0-33.0; Abnormal: Above high normal; Units: pg; Status: F Test: MEAN CORPUSCULAR HGB CONC; Value: 33.8; Range: 32.0-36.5; Units: g/dl; Status: F Test: RED CELL DISTRIBUTION WIDTH; Value: 16.9; Range: 11.5-14.5; Abnormal: Above high normal; Units: %; Status: F Test: PLATELET COUNT, AUTOMATED; Value: 276; Range: 150-450; Units: k/mm3; Status: F Test: NEUTROPHILS %; Value: 53.1; Range: 36.0-66.0; Units: %; Status: F Test: LYMPH %; Value: 29.1; Range: 24.0-44.0; Units: %; Status: F Test: MONO %; Value: 8.2; Range: 0.0-5.0; Abnormal: Above high normal; Units: %; Status: F Test: EOS %; Value: 3.8; Range: 0.0-3.0; Abnormal: Above high normal; Units: %; Status: F Test: BASO %; Value: 1.6; Range: 0.0-1.0; Abnormal: Above high normal; Units: %; Status: F Test: LARGE UNSTAINED CELL %; Value: 4.2; Range: 0.0-4.0; Abnormal: Above high normal; Units: %; Status: F Test: NEUTROPHILS #; Value: 3.8; Range: 1.8-7.7; Units: K/mm3; Status: F Test: LYMPH #; Value: 2.4; Range: 1.5-4.5; Units: K/mm3; Status: F Test: MONO #; Value: 0.6; Range: 0.0-0.8; Units: K/mm3; Status: F Test: EOS #; Value: 0.3; Range: 0.0-0.50; Units: K/mm3; Status: F Test: BASO #; Value: 0.1; Range: 0.0-0.2; Units: K/mm3; Status: F Test: LARGE UNSTAINED CELL #; Value: 0.3; Range: 0.0-0.4; Units: K/mm3; Status: F Lab Order: MED Profile; SPEC'M 10/09/16 18:30 Test: GLUCOSE, FASTING; Value: 107; Range: 70-105; Abnormal: Above high normal; Units: MG/DL; Status: F Test: BLOOD UREA NITROGEN; Value: 9; Range: 7-18; Units: MG/DL; Status: F Test: CREATININE FOR GFR; Value: 1.15; Range: 0.55-1.02; Abnormal: Above high normal; Units: MG/DL; Status: F Test: GLOMERULAR FILTRATION RATE; Value: 53.8; Range: >58; Abnormal: Below low normal; Status: F Test: SODIUM LEVEL; Value: 139; Range: 136-145; Units: MEQ/L; Status: F Test: POTASSIUM SERUM; Value: 3.7; Range: 3.5-5.1; Units: MEQ/L; Status: F Test: CHLORIDE LEVEL; Value: 102; Range: 98-107; Units: MEQ/L; Status: F Test: CARBON DIOXIDE LEVEL; Value: 22; Range: 21-32; Units: MEQ/L; Status: F Test: ANION GAP; Value: 15; Range: 8-16; Units: MEQ/L; Status: F Test: CALCIUM LEVEL; Value: 9.7; Range: 8.5-10.1; Units: MG/DL; Status: F Test Note: ; Units are mL/min/1.73 m2 Chronic Kidney Disease Staging per NKF: Stage I & II GFR >=60 Normal to Mildly Decreased Stage III GFR 30-59 Moderately Decreased Stage IV GFR 15-29 Severely Decreased Stage V GFR <15 Very Little GFR Left ESRD GFR <15 on OIL PROGRAM COMPLIANCE SPECIALIST Lab Order: Liver Profile; SPEC'M 10/09/16 18:30 Test: AST/SGOT; Value: 24; Range: 15-37; Units: U/L; Status: F Test: ALT/SGPT; Value: 23; Range: 12-78; Units: U/L; Status: F Test: ALKALINE PHOSPHATASE; Value: 69; Range: 45-117; Units: U/L; Status: F Test: BILIRUBIN,TOTAL; Value: 0.4; Range: 0.2-1.0; Units: MG/DL; Status: F Test: BILIRUBIN,DIRECT; Value: < 0.1; Range: 0.0-0.2; Units: MG/DL; Status: F Test: TOTAL PROTEIN; Value: 7.4; Range: 6.4-8.2; Units: GM/DL; Status: F Test: ALBUMIN; Value: 4.3; Range: 3.2-5.2; Units: GM/DL; Status: F Test: ALBUMIN/GLOBULIN RATIO; Value: 1.39; Range: 1.00-1.93; Status: F Lab Order: RBC MORPH PROF NO CHARGE; SPEC'M 10/09/16 18:30 Test: ANISOCYTOSIS; Value: 1+; Status: F Test: MACROCYTOSIS; Value: 1+; Status: F Test: PLATELET ESTIMATE; Value: NORMAL; Range: NORMAL; Status: F Radiology Order: CT ABD & PELVIS: IV and Oral Contrast Test: CT ABD & PELVIS: IV and Oral Contrast REASON FOR EXAMINATION: known colon Ca, increased pain; ; CT of the abdomen and pelvis with contrast; Clinical statement: Pain.; Technique: Multiple axial CT images were obtained from the base of the lungs through the floor of the; pelvis utilizing 5 mm axial slices after administration of oral and nonionic intravenous contrast. C; oronal and sagittal reconstructions were also obtained.; Comparison: 06/19/2016.; Findings:; Chest: The visualized lung bases are clear.; Abdomen: The liver, spleen, pancreas, right kidney, gallbladder, and adrenal glands are unremarkable.; There is hypoperfusion of the left kidney with moderately severe left-sided hydronephrosis. There is; a left hydroureter extending to the region just above the iliac bifurcation. At this site, there is; a left retroperitoneal soft tissue mass measuring 3.0 x 3.3 cm, causing mass effect on the ureter. In; retrospect, this lesion was likely present on the prior study but only measure 2.2 x 1.9 cm, and was; far less appreciable at that time. On the prior exam there is no evidence of hydronephrosis. No kidn; ey stones identified. The aorta is within normal limits. There is no evidence of abdominal lymphadeno; fide or ascites.; Pelvis: The bowel is unremarkable, with no obstructive or inflammatory changes. The appendix is carmen; l. The urinary bladder is within normal limits. The other pelvic structures appear grossly intact. Th; ere is no evidence of pelvic lymphadenopathy or ascites.; Bones: There are no suspicious osseous abnormalities seen.; Impression:; 1. Moderately severe left-sided hydronephrosis and hydroureter, with the site of obstruction secondar; y to a left retroperitoneal mass which has increased in size since the prior study of 06/19/2016. Biop; sy of this mass should be considered.; 2. The right renal collecting system is unremarkable at this time.; 3. No obstructive or inflammatory bowel changes.; ; Outcome: 10/09 23:22 Decision to Hospitalize by Provider. pc 10/10 01:08 CT Study completed. Property :Personal belongings accompany Pt. cf2 01:29 Discharge Assessment: Patient awake, alert and oriented x 3. No cognitive and/or cf2 functional deficits noted. Patient verbalized understanding of disposition instructions. Patient awake and alert. patient administered narcotics - yes. Patient was admitted to the hospital or transferred to another facility. The following High Risk Discharge criteria are identified: None. Admitted 5 [place]. Condition: stable. 01:31 Patient left the ED. cf2 Signatures: Dispatcher [employer] EDMS Balbir Lubin MD MD pc Sleeman, Kacey RN RN Kristin Pearson, Reg Reg gb Jc Hagen, CLOUD AUTOMATION TESTER CLOUD AUTOMATION TESTER kb5 Oralia MccabeRN RN lf1 Willie Campbell, CLOUD AUTOMATION TESTER CLOUD AUTOMATION TESTER dd6 Torie Lancaster RN RN sls1 Mary Paniagua, CLOUD AUTOMATION TESTER CLOUD AUTOMATION TESTER tmm1 Dennis Sears,RN RN mb9 Rosa StantonRN RN nn1 Karyn DuránRN RN cf2 Hilton Condon, CLOUD AUTOMATION TESTER CLOUD AUTOMATION TESTER jmv Corrections: (The following items were deleted from the chart) 10/09 18:29 17:48 PMHx: colon camcer; lf1 pc 18:40 17:48 Home Meds: Xeloda 3-500mg in am and 2 500 mg at hs x14 days ( start tomorrow) mb9 oral tab; lf1 18:50 18:48 BP 170 / 101; Pulse 92bpm; Resp 25bpm; Pulse Ox 100% RA; meeta hodgev Chart Complete MTDD
--- NOTE | 2016-10-12 02:32 | EDDOCDS ---
Physician Documentation [facility] Name: Tresa Goff Age: 46 yrs Sex: Female : 1970 Arrival Date: 10/09/2016 Time: 16:52 Bed Admit Hold Private MD: Kyle Hodgson MD Disposition: 10/09 23:19 Critical Care: Critical care not applicable. pc Disposition: 10/09/16 23:22 Hospitalization ordered by Keena Segura for Inpatient Admission. Preliminary diagnosis are Other hydronephrosis - compressive at level of left iliac bifurcation due to retroperitoneal soft tissue mass, Malignant neoplasm of colon - metastatic to liver, lung. - Bed requested for 5 Clark. - Status is Inpatient Admission. cf2 - Condition is Stable. - Problem is new. - Symptoms have improved. HPI: 18:25 This 46 yrs old Female presents to ER via Walkin/Carried/Asstd with pc complaints of constipation. 18:25 The history is obtained from the patient. She was seen by her GI clinic today for pc ongoing constipation. She has colon Ca, now metastatic to her lung, liver and multiple intraabdominal lymph nodes. She has been constipated for 3 weeks and was started on both lactulose and Linzess 2 weeks ago but has not had a bowel movement in 12 days. She has nausea but has not had any vomiting. The PA that saw her at the clinic today sent her in for a CT scan to rule out an obstruction, despite the lack of clinical evidence of the same but has not done any plain films to date. Historical: - Allergies: Chantix; - Home Meds: 1. Cymbalta 60 mg Oral cpDR 1 cap once daily (Last dose: 10/08/2016 18:30) 2. hydrochlorothiazide 25 mg Oral tab every other day (Last dose: 10/09/2016 07:00) 3. inderal 40mg twice a day (Last dose: 10/09/2016 07:00) 4. Linzess oral 1 cap as needed Has been taking whenever she goes 2-3 days without a BM &#13(Last dose: 10/09/2016 07:00) 5. lisinopril 40 mg Oral tab 1 tab once daily (Last dose: 10/09/2016 07:00) 6. OxyContin 10 mg Oral Tb12 1 tab every 12 hours (Last dose: 10/09/2016 06:30) 7. Percocet 5-325 mg Oral tab every 4-6 hours (Last dose: 10/09/2016 14:00) 8. Protonix 40 mg Oral TbEC 1 tab 2 times per day (Last dose: 10/09/2016 07:00) 9. Avastin intravenous monthly Dec last dose 10. Stool Softener oral nightly 11. multivitamin Oral tab daily - PMHx: Depression; Hypertension; IBS; Cancer, Colon; - PSHx: Hemorrhoidectomy; Breast Augmentation; Colon Resection; infusaport; - The history from nurses notes was reviewed: and I agree with what is documented. - Social history: Smoking status: Electronic cigarettes No barriers to communication noted, The patient speaks fluent [place], Speaks appropriately for age, Preferred Language: [place]. - : The pt / caregiver states he / she is not on anticoagulants. Home medication list is obtained from the patient. - Hospitalizations: : No recent hospitalization is reported. - Exposure Risk Screening:: None identified. - Immunization history:: All immunizations up-to-date. - Family history: Not pertinent. - Social history:: the patient is a non-smoker, the patient drinks alcohol, socially. 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 pc Exam: 18:29 General Appearance: the patient is in anxious, sitting cross-legged, leaning forward pc with forehead on the stretcher. 18:29 EENT: normal eye inspection, ears, nose and throat normal, pharynx normal, mucous membranes moist 18:29 Neck: The exam reveals no acute abnormalities. ROM is normal and painless. No nuchal rigidity is noted.. 18:29 Respiratory: no respiratory distress, normal breath sounds. 18:29 CVS: regular pulse rate, regular rhythm, normal S1 and S2, no murmurs, strong peripheral pulses. 18:29 Abdomen: soft, no organomegaly, severe tenderness to light palpation in all quadrants, voluntary guarding is elicited in all quadrants, bowel sounds diminished. 18:29 Back: normal inspection. 18:29 Skin: skin color is normal, warm, dry. 18:29 Extremities: The extremities have a grossly normal appearance, are non-tender, without acute ROM abnormalities. 18:29 Neuro: oriented x 3, cranial nerves normal as tested, no motor deficits, no sensory deficits. Vital Signs: 16:54 BP 193 / 106; Pulse 94; Resp 18 S; Temp 99.0(O); Pulse Ox 99% on R/A; Weight 60.33 kg / dd6 133 lbs (R); Height 5 ft. 2 in. (157.48 cm) (R); 18:48 BP 170 / 101; Pulse 92; Resp 25; Pulse Ox 100% on R/A; jmv 19:24 BP 179 / 117 (auto/); nn1 19:25 Pulse 80 MON; Pulse Ox 100% ; nn1 22:45 BP 136 / 94; Pulse 119; Resp 20; Temp 98.8(O); Pulse Ox 96% on R/A; Pain 4/10; jmv 10/10 01:29 BP 132 / 78; Pulse 98; Resp 16; Temp 98.5; Pulse Ox 99% on R/A; Pain 3/10; cf2 10/09 16:54 Body Mass Index 24.33 (60.33 kg, 157.48 cm) dd6 10/09 18:48 RN notified of BP jmv 22:45 PT states that when she moves her pain lvl is about an 8/[address] [facility] MDM: 18:08 Abdomen, Flat\E\Upright,PA Chest Ordered. EDMS 18:26 Financial registration complete. gb 18:29 Differential Diagnosis: abdominal pain, constipation, metastatic colon Ca. Plan: albs, pc meds, imaging. 18:34 IV Saline Lock ordered. pc 18:35 morphine 4 mg IVP every 30 minutes; Document pain score/vitals after each dose (Hold if pc SBP < 90mmHg) x2 ordered. 18:35 Ondansetron 4 mg IVP once ordered. pc 18:36 CBC with Diff Ordered. EDMS 18:36 MED Profile Ordered. EDMS 18:36 Liver Profile Ordered. EDMS 19:13 RBC MORPH PROF NO CHARGE Ordered. EDMS 19:13 CBC with Diff Reviewed. pc 19:13 MED Profile Reviewed. pc 19:13 Liver Profile Reviewed. pc 19:13 RBC MORPH PROF NO CHARGE Reviewed. pc 19:27 CT ABD & PELVIS: IV and Oral Contrast Ordered. EDMS 19:35 Diatrizoate Meglumine & Sodium Liquid 10 ml PO once; mix in 290cc of water; 1st cup at nn1 1950; 2nd cup at 2020 ordered. 19:47 [facility] [place] Agreement was scanned into [employer] and attached to record. gb 22:38 Vital Signs ordered. pc 22:42 morphine 4 mg IVP every 30 minutes; Document pain score/vitals after each dose (Hold if pc SBP < 90mmHg) x2 ordered. 22:51 BED REQUEST+ADM ordered. EDMS 22:51 Data reviewed: old medical records, vital signs, nurses notes, lab test results, all pc radiology studies and available results. Test interpretation: LAB - all labs as ordered have been reviewed, interpreted and considered in the overall management of the clinical presentation; X-RAY - interpreted by Radiologist and personally reviewed, 3-view abdomen series; no acute disease, interpreted by Radiologist and personally reviewed, Abdomen/Pelvis CT; severe left hydronephrosis due to ureteric compression from a 3.5cm retroperitoneal soft tissue mass at the level of the iliac bifurcation. Liver lesions noted but not reported by Radiology. 23:19 The patient has been re-examined and re-evaluated. The patient's symptoms have mildly pc improved after treatment. Physician consultation: Dr. Errol Garcia regarding patient's condition, and he advises she requires admission fro pain control, for an IR consult with view to a left Nephrostomy tube tomorrow and he will see in consult. 23:19 Physician consultation: Dr. Keena Segura regarding admission. Disposition: The pc historical points, examination findings, and any diagnostic results supporting the provided diagnosis, were discussed with the patient or legal guardian. The need for further work-up and/or treatment in the hospital was explained. 10/10 00:16 Admission / Observation Status ordered. EDMS 00:42 NPO DIET ordered. EDMS 00:43 BASIC METABOLIC PROFILE Ordered. EDMS 00:43 COMPLETE BLOOD COUNT Ordered. EDMS 01:07 oxyCODONE-acetaminophen 5 mg-325 mg 1 tabs PO once ordered. cf2 Administered Medications: 10/09 18:54 Drug: morphine 4 mg [morphine 4 mg/mL intravenous cartridge (1 mL)] Route: IVP; Site: mb9 right antecubital; 18:54 Drug: Ondansetron 4 mg [ondansetron HCl 2 mg/mL intravenous solution (2 mL)] Route: mb9 IVP; Site: right antecubital; 19:27 Drug: morphine 4 mg [morphine 4 mg/mL intravenous cartridge (1 mL)] Route: IVP; Site: nn1 right antecubital; 21:11 Drug: Diatrizoate Meglumine & Sodium 10 ml [diatrizoate meglumine and diat.sodium 66 nn1 %-10 % oral solution (10 mL)] Route: PO; 23:10 Drug: morphine 4 mg [morphine 4 mg/mL intravenous cartridge (1 mL)] Route: IVP; Site: cf2 left antecubital; 23:59 Drug: morphine 4 mg [morphine 4 mg/mL intravenous cartridge (1 mL)] Route: IVP; Site: cf2 left antecubital; 10/10 01:08 Drug: oxyCODONE-acetaminophen 1 tabs [oxycodone-acetaminophen 5 mg-325 mg tablet (1 cf2 tabs)] Route: PO; Signatures: Dispatcher [employer] EDMS Balbir Lubin MD MD pc [facility] RN Kristin Chaves, Reg Reg gb Oralia Mccabe RN RN lf1 Dennis Sears RN RN mb9 Rosa Stanton RN RN nn1 Karyn Durán,RN RN cf2 The chart was reviewed and I authenticate all verbal orders and agree with the evaluation and treatment provided.Corrections: (The following items were deleted from the chart) 10/09 18:29 17:48 PMHx: colon camcer; lf1 pc 18:40 17:48 Home Meds: Xeloda 3-500mg in am and 2 500 mg at hs x14 days ( start tomorrow) mb9 oral tab; lf1 Attachments: 19:47 [facility] [place] gb Chart Complete MTDD
--- NOTE | 2016-10-12 02:32 | EDDOCDS ---
Physician Documentation [facility] Name: Tresa Goff Age: 46 yrs Sex: Female : 1970 Arrival Date: 10/09/2016 Time: 16:52 Bed Admit Hold Private MD: Kyle Hodgson MD Disposition: 10/09 23:19 Critical Care: Critical care not applicable. pc Disposition: 10/09/16 23:22 Hospitalization ordered by Keena Segura for Inpatient Admission. Preliminary diagnosis are Other hydronephrosis - compressive at level of left iliac bifurcation due to retroperitoneal soft tissue mass, Malignant neoplasm of colon - metastatic to liver, lung. - Bed requested for 5 Clark. - Status is Inpatient Admission. cf2 - Condition is Stable. - Problem is new. - Symptoms have improved. HPI: 18:25 This 46 yrs old Female presents to ER via Walkin/Carried/Asstd with pc complaints of constipation. 18:25 The history is obtained from the patient. She was seen by her GI clinic today for pc ongoing constipation. She has colon Ca, now metastatic to her lung, liver and multiple intraabdominal lymph nodes. She has been constipated for 3 weeks and was started on both lactulose and Linzess 2 weeks ago but has not had a bowel movement in 12 days. She has nausea but has not had any vomiting. The PA that saw her at the clinic today sent her in for a CT scan to rule out an obstruction, despite the lack of clinical evidence of the same but has not done any plain films to date. Historical: - Allergies: Chantix; - Home Meds: 1. Cymbalta 60 mg Oral cpDR 1 cap once daily (Last dose: 10/08/2016 18:30) 2. hydrochlorothiazide 25 mg Oral tab every other day (Last dose: 10/09/2016 07:00) 3. inderal 40mg twice a day (Last dose: 10/09/2016 07:00) 4. Linzess oral 1 cap as needed Has been taking whenever she goes 2-3 days without a BM &#13(Last dose: 10/09/2016 07:00) 5. lisinopril 40 mg Oral tab 1 tab once daily (Last dose: 10/09/2016 07:00) 6. OxyContin 10 mg Oral Tb12 1 tab every 12 hours (Last dose: 10/09/2016 06:30) 7. Percocet 5-325 mg Oral tab every 4-6 hours (Last dose: 10/09/2016 14:00) 8. Protonix 40 mg Oral TbEC 1 tab 2 times per day (Last dose: 10/09/2016 07:00) 9. Avastin intravenous monthly Dec last dose 10. Stool Softener oral nightly 11. multivitamin Oral tab daily - PMHx: Depression; Hypertension; IBS; Cancer, Colon; - PSHx: Hemorrhoidectomy; Breast Augmentation; Colon Resection; infusaport; - The history from nurses notes was reviewed: and I agree with what is documented. - Social history: Smoking status: Electronic cigarettes No barriers to communication noted, The patient speaks fluent [place], Speaks appropriately for age, Preferred Language: [place]. - : The pt / caregiver states he / she is not on anticoagulants. Home medication list is obtained from the patient. - Hospitalizations: : No recent hospitalization is reported. - Exposure Risk Screening:: None identified. - Immunization history:: All immunizations up-to-date. - Family history: Not pertinent. - Social history:: the patient is a non-smoker, the patient drinks alcohol, socially. 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 pc Exam: 18:29 General Appearance: the patient is in anxious, sitting cross-legged, leaning forward pc with forehead on the stretcher. 18:29 EENT: normal eye inspection, ears, nose and throat normal, pharynx normal, mucous membranes moist 18:29 Neck: The exam reveals no acute abnormalities. ROM is normal and painless. No nuchal rigidity is noted.. 18:29 Respiratory: no respiratory distress, normal breath sounds. 18:29 CVS: regular pulse rate, regular rhythm, normal S1 and S2, no murmurs, strong peripheral pulses. 18:29 Abdomen: soft, no organomegaly, severe tenderness to light palpation in all quadrants, voluntary guarding is elicited in all quadrants, bowel sounds diminished. 18:29 Back: normal inspection. 18:29 Skin: skin color is normal, warm, dry. 18:29 Extremities: The extremities have a grossly normal appearance, are non-tender, without acute ROM abnormalities. 18:29 Neuro: oriented x 3, cranial nerves normal as tested, no motor deficits, no sensory deficits. Vital Signs: 16:54 BP 193 / 106; Pulse 94; Resp 18 S; Temp 99.0(O); Pulse Ox 99% on R/A; Weight 60.33 kg / dd6 133 lbs (R); Height 5 ft. 2 in. (157.48 cm) (R); 18:48 BP 170 / 101; Pulse 92; Resp 25; Pulse Ox 100% on R/A; jmv 19:24 BP 179 / 117 (auto/); nn1 19:25 Pulse 80 MON; Pulse Ox 100% ; nn1 22:45 BP 136 / 94; Pulse 119; Resp 20; Temp 98.8(O); Pulse Ox 96% on R/A; Pain 4/10; jmv 10/10 01:29 BP 132 / 78; Pulse 98; Resp 16; Temp 98.5; Pulse Ox 99% on R/A; Pain 3/10; cf2 10/09 16:54 Body Mass Index 24.33 (60.33 kg, 157.48 cm) dd6 10/09 18:48 RN notified of BP jmv 22:45 PT states that when she moves her pain lvl is about an 8/10 notified RN [facility] MDM: 18:08 Abdomen, Flat\E\Upright,PA Chest Ordered. EDMS 18:26 Financial registration complete. gb 18:29 Differential Diagnosis: abdominal pain, constipation, metastatic colon Ca. Plan: albs, pc meds, imaging. 18:34 IV Saline Lock ordered. pc 18:35 morphine 4 mg IVP every 30 minutes; Document pain score/vitals after each dose (Hold if pc SBP < 90mmHg) x2 ordered. 18:35 Ondansetron 4 mg IVP once ordered. pc 18:36 CBC with Diff Ordered. EDMS 18:36 MED Profile Ordered. EDMS 18:36 Liver Profile Ordered. EDMS 19:13 RBC MORPH PROF NO CHARGE Ordered. EDMS 19:13 CBC with Diff Reviewed. pc 19:13 MED Profile Reviewed. pc 19:13 Liver Profile Reviewed. pc 19:13 RBC MORPH PROF NO CHARGE Reviewed. pc 19:27 CT ABD & PELVIS: IV and Oral Contrast Ordered. EDMS 19:35 Diatrizoate Meglumine & Sodium Liquid 10 ml PO once; mix in 290cc of water; 1st cup at nn1 1950; 2nd cup at 2020 ordered. 19:47 [facility] [place] was scanned into [employer] and attached to record. gb 22:38 Vital Signs ordered. pc 22:42 morphine 4 mg IVP every 30 minutes; Document pain score/vitals after each dose (Hold if pc SBP < 90mmHg) x2 ordered. 22:51 BED REQUEST+ADM ordered. EDMS 22:51 Data reviewed: old medical records, vital signs, nurses notes, lab test results, all pc radiology studies and available results. Test interpretation: LAB - all labs as ordered have been reviewed, interpreted and considered in the overall management of the clinical presentation; X-RAY - interpreted by Radiologist and personally reviewed, 3-view abdomen series; no acute disease, interpreted by Radiologist and personally reviewed, Abdomen/Pelvis CT; severe left hydronephrosis due to ureteric compression from a 3.5cm retroperitoneal soft tissue mass at the level of the iliac bifurcation. Liver lesions noted but not reported by Radiology. 23:19 The patient has been re-examined and re-evaluated. The patient's symptoms have mildly pc improved after treatment. Physician consultation: Dr. Errol Garcia regarding patient's condition, and he advises she requires admission fro pain control, for an IR consult with view to a left Nephrostomy tube tomorrow and he will see in consult. 23:19 Physician consultation: Dr. Keena Segura regarding admission. Disposition: The pc historical points, examination findings, and any diagnostic results supporting the provided diagnosis, were discussed with the patient or legal guardian. The need for further work-up and/or treatment in the hospital was explained. 10/10 00:16 Admission / Observation Status ordered. EDMS 00:42 NPO DIET ordered. EDMS 00:43 BASIC METABOLIC PROFILE Ordered. EDMS 00:43 COMPLETE BLOOD COUNT Ordered. EDMS 01:07 oxyCODONE-acetaminophen 5 mg-325 mg 1 tabs PO once ordered. cf2 Administered Medications: 10/09 18:54 Drug: morphine 4 mg [morphine 4 mg/mL intravenous cartridge (1 mL)] Route: IVP; Site: mb9 right antecubital; 18:54 Drug: Ondansetron 4 mg [ondansetron HCl 2 mg/mL intravenous solution (2 mL)] Route: mb9 IVP; Site: right antecubital; 19:27 Drug: morphine 4 mg [morphine 4 mg/mL intravenous cartridge (1 mL)] Route: IVP; Site: nn1 right antecubital; 21:11 Drug: Diatrizoate Meglumine & Sodium 10 ml [diatrizoate meglumine and diat.sodium 66 nn1 %-10 % oral solution (10 mL)] Route: PO; 23:10 Drug: morphine 4 mg [morphine 4 mg/mL intravenous cartridge (1 mL)] Route: IVP; Site: cf2 left antecubital; 23:59 Drug: morphine 4 mg [morphine 4 mg/mL intravenous cartridge (1 mL)] Route: IVP; Site: cf2 left antecubital; 10/10 01:08 Drug: oxyCODONE-acetaminophen 1 tabs [oxycodone-acetaminophen 5 mg-325 mg tablet (1 cf2 tabs)] Route: PO; Signatures: Dispatcher [employer] EDMS Balbir Lubin MD MD pc [facility] RN Kristin Chaves, Reg Reg gb Oralia Mccabe RN RN lf1 Dennis Sears RN RN mb9 Rosa Stanton RN RN nn1 Karyn Durán,RN RN cf2 The chart was reviewed and I authenticate all verbal orders and agree with the evaluation and treatment provided.Corrections: (The following items were deleted from the chart) 10/09 18:29 17:48 PMHx: colon camcer; lf1 pc 18:40 17:48 Home Meds: Xeloda 3-500mg in am and 2 500 mg at hs x14 days ( start tomorrow) mb9 oral tab; lf1 Attachments: 19:47 [facility] [place] gb Chart Complete MTDD
[2016-10-12 06:00] VITALS: BP 110/60
[2016-10-12] MEDS: cefTRIAXone SOD 1 GM in D5W MINI-BAG PLUS 50 ML IV SCH (06:02)
[2016-10-12 07:12] LABS: CALCIUM LEVEL 9.3 MG/DL (8.5-10.1); CREATININE FOR GFR 1.14 MG/DL (0.55-1.02); GLOMERULAR FILTRATION RATE 54.4 (>58); POTASSIUM SERUM 3.8 MEQ/L (3.5-5.1)
[2016-10-12 07:15] LABS: MEAN CORPUSCULAR HEMOGLOBIN 35.9 pg (27.0-33.0); MEAN CORPUSCULAR HGB CONC 33.7 g/dl (32.0-36.5); MEAN CORPUSCULAR VOLUME 106.3 fl (80.0-96.0); RED CELL DISTRIBUTION WIDTH 16.4 % (11.5-14.5); WHITE BLOOD COUNT 7.8 K/mm3 (4.0-10.0)
[2016-10-12] MEDS ORDERED: OXYC15TA66 PO (09:33)
[2016-10-12] MEDS ORDERED: CEFD300CAP PO (09:33)
[2016-10-12] MEDS ORDERED: PERCOCET PO (09:33)
[2016-10-12 09:37] VITALS: BP 110/60
[2016-10-12] MEDS: PANTOPRAZOLE 40MG TAB (PROTONIX) PO SCH (09:37)
[2016-10-12] MEDS: PROPRANOLOL 20 MG TAB PO SCH (09:37)
[2016-10-12] MEDS: oxyCODONE 15 MG CR TAB PO SCH (09:37)
[2016-10-12] MEDS: LISINOPRIL 40 MG TAB PO SCH (09:37)
[2016-10-12] MEDS: SENOKOT S TAB PO SCH (09:37)
[2016-10-12] MEDS: ENOXAPARIN 40 MG/0.4 ML SYRINGE (J1650) SC SCH (09:38)
[2016-10-12 14:00] VITALS: BP 111/70
--- NOTE | 2016-10-12 15:54 | DSES ---
DATE OF ADMISSION: 10/10/2016 DATE OF DISCHARGE: 10/12/2016 PRIMARY CARE PHYSICIAN: Dr. Kyle Hodgson CONSULTANTS: Interventional radiology. HISTORY: This is a 46-year-old female patient of Dr. Hodgson's, who is admitted to the hospital after coming to the emergency room complaining of worsening left flank pain that began approximately 3 weeks ago. She had attributed this to irritable bowel syndrome (IBS). She had been taking more opiate pain medications. Upon evaluation in the emergency room, CT of the abdomen and pelvis was performed, suggestive of a left retroperitoneal mass, causing left hydroureter and hydronephrosis. Dr. Garcia of urology was contacted by the emergency room. He recommended admission and placement of a left percutaneous nephrostomy tube by interventional radiology. Dr. Montenegro, her previous oncologist, and now Dr. Mueller, were made aware of her admission. She is scheduled to start a new round of chemotherapy on October 15, secondary to suspicion for metastatic disease based on PET scan. She has a known history of stage IV adenocarcinoma to the colon with metastasis to the liver and lung. During her hospitalization, she has remained medically stable. Percutaneous nephrostomy tube was placed. Culture was sent to the lab. The results of this are pending, although I did speak with the lab this morning. After 24 hours there was no growth. The shop laborer feels at this point there is also no growth, although they will continue to monitor the culture. I will followup on this tomorrow. She has been afebrile without any leukocytosis since admission. She has been on intravenous (IV) Rocephin. I will transition her to cefdinir at time of discharge. Her pain is controlled with OxyContin 15 mg twice a day as well as oxycodone one to two tablets as needed for breakthrough pain, which she is using sporadically. I have counseled her on the importance of a routine bowel are regimen to maintain regular bowel movements. Encouraged routine activity to help promote this. She does have followup again scheduled for October 15, with Dr. Mueller, her oncologist. She does not have any other questions or concerns. DIAGNOSES: 1. Stage IV metastatic colon cancer. 2. Hydronephrosis of the left kidney secondary to a retroperitoneal mass. 3. Acute kidney injury. 4. Urinary tract infection. 5. Abdominal pain. 6. Hypertension. DISCHARGE MEDICATIONS: - OxyContin 15 mg by mouth twice a day - oxycodone 5/325 one tablet every 4 hours as needed for pain - cefdinir 300 mg by mouth twice a day - Cymbalta 60 mg by mouth daily - hydrochlorothiazide 25 mg every other day - Linzess 290 mcg by mouth daily - lisinopril 40 mg by mouth daily - Protonix 40 mg by mouth twice a day - MiraLax one capful daily as needed for constipation - propranolol 40 mg by mouth twice a day DISCHARGE PLAN: Followup with Dr. Hodgson in 1 week. Followup with her oncologist as scheduled. Her activity should be as tolerated. She should use caution with lifting, turning, tugging, pulling. Advised no lifting over 10 pounds secondary to the nephrostomy tube. I have requested nursing to consult and educate her on percutaneous nephrostomy tube dressing changes as well as bag drainage. Her diet should be regular.
== END 2016-10-12 15:40 | disposition home or self-care (01) | DRG 690 ==
LOC: M ED 16:52 → M ED INP 10-10 00:13 → M MS5PR 10-10 01:50
PROVIDERS: ADMIT Hospitalist; ATTEND Family Medicine
PROC: 0T9130Z Drainage of Left Kidney with Drainage Device, Percutaneous Approach (ICD-10-PCS; principal; 2016-10-10)
PROC: 0T913ZX Drainage of Left Kidney, Percutaneous Approach, Diagnostic (ICD-10-PCS; 2016-10-10)
DX: N13.6 Pyonephrosis (principal); C78.7 Secondary malignant neoplasm of liver and intrahepatic bile duct; C34.90 Malignant neoplasm of unspecified part of unspecified bronchus or lung; C18.9 Malignant neoplasm of colon, unspecified; N17.9 Acute kidney failure, unspecified; E78.5 Hyperlipidemia, unspecified; I10 Essential (primary) hypertension; K58.1 Irritable bowel syndrome with constipation; Z79.891 Long term (current) use of opiate analgesic; Z79.899 Other long term (current) drug therapy; Z90.49 Acquired absence of other specified parts of digestive tract

== ENCOUNTER → 2016-10-15 | Outpatient (REF) | payer OTHER ==
[~2016-10-15] MED LIST changes: +CEFD300CAP PO; +LINZ290C PO; +MIRA33504 PO; +OXYC15TA66 PO; +PERCOCET PO
== END ==
LOC: M LAB REF 12:27
PROVIDERS: ATTEND Internal Medicine Medical Oncology
DX: C18.9 Malignant neoplasm of colon, unspecified (principal)

== ENCOUNTER → 2016-11-13 | Outpatient (REF) | payer OTHER | LOC: M LAB REF 11:28 | PROVIDERS: ATTEND Internal Medicine Medical Oncology | DX: C18.9 Malignant neoplasm of colon, unspecified (principal) ==

== ENCOUNTER → 2016-12-13 | Outpatient (CLI) | payer OTHER ==
[~2016-12-13] MED LIST changes: +CIPROFLOXACIN 500 MG TAB As Ordered ONE; +ISOVUE-300 61% 50ML VIAL (Q9967) As Ordered ONE; +LIDOCAINE 2% MDV 20 ML VIAL As Ordered ONE; +SODIUM BICARBONATE 8.4% INJ 50MEQ 50 ML VIAL As Ordered ONE
--- NOTE | 2016-12-13 16:12 | REPKIM ---
CLINICAL HISTORY: Patient with metastatic colon ca, hepatic lesions, left sided hydronephrosis due to retroperitoneal pelvic (lymphatic) mass has a nephrostomy urinary diversion tube. Patient is s/p chemotherapy. Patient presents for a follow up Nephrostogram and nephrostomy tube change. PROCEDURE PERFORMED: Nephrostogram, Nephrostomy Drainage Catheter Change INTERVENTIONALIST: Augusto Hinson MD CONSENT: The risks, benefits and alternatives to the procedure were explained to the patient and informed written consent was obtained. EBL: 2 mL MEDICATIONS: Local Lidocaine and Cipro CONTRAST: 14 mL Isovue 300 FLUORO TIME: 0.7 minutes DEVICE USED: 8.5F Resolve catheter Lot #[id number] PROCEDURE/FINDINGS: NEPHROSTOGRAM: The patient was brought to the interventional radiology suite where a timeout procedure was performed. The patient was placed in the prone position. The existing indwelling catheter and left flank prepped and draped in the usual sterile fashion. Contrast was injected through the existing nephrostomy catheter and DSA images were obtained. This showed the pelvicalyceal system has decompressed. There is persistent obstruction involving the distal ureter at the L5 level. There is no antegrade flow of contrast into the urinary bladder. NEPHROSTOMY DRAINAGE CATHETER CHANGE: A guidewire was advanced into the renal pelvis. The existing PCN was unlocked and removed. Then a new 8.5-Korean nephrostomy drainage catheter was advanced over the guidewire. The guidewire was removed and the distal loop of the catheter formed in the renal pelvic. Contrast was gently hand injected, confirming satisfactory drainage catheter positioning. The nephrostomy urinary diversion catheter was flushed and connected to a gravity bag. The patient tolerated the procedure well with no immediate complications. This procedure was performed using fluoroscopy. IMPRESSION: 1. Nephrostogram demonstrates the pelvicalyceal system has decompressed. There is persistent distal ureter obstruction at the L5 level. 2. Successful nephrostomy urinary diversion tube change on the left as discussed above. Plan: Routine maintenance catheter check/change in approximately 10 weeks or earlier if signs of tube dysfunction were to occur. cc: DO Errol Lopez MD Florence P Arnold, MD MTDD
== END | disposition home or self-care (01) ==
LOC: M IRPRO 09:34
DX: N13.39 Other hydronephrosis (principal); C18.9 Malignant neoplasm of colon, unspecified; C79.9 Secondary malignant neoplasm of unspecified site
CPT/HCPCS: 50435; C1729; C1769; Q9967

== ENCOUNTER → 2016-12-18 | Outpatient (REF) | payer OTHER ==
[~2016-12-18] MED LIST changes: -CIPROFLOXACIN 500 MG TAB As Ordered ONE; -ISOVUE-300 61% 50ML VIAL (Q9967) As Ordered ONE; -LIDOCAINE 2% MDV 20 ML VIAL As Ordered ONE; -SODIUM BICARBONATE 8.4% INJ 50MEQ 50 ML VIAL As Ordered ONE
== END ==
LOC: M LAB REF 12:43
PROVIDERS: ATTEND Internal Medicine Medical Oncology
DX: C18.9 Malignant neoplasm of colon, unspecified (principal)

== ENCOUNTER → 2017-01-01 | Outpatient (CLI) | payer OTHER ==
[~2017-01-01] MED LIST changes: +GASTROGRAFIN SOLUTION 30ML (Q9963) As Ordered ONE; +ISOVUE-370 76% 100ML VIAL (Q9967) As Ordered ONE
--- NOTE | 2017-01-02 05:54 | REP ---
Clinical: History of colorectal cancer for follow up. Technique: Axial contrast enhanced images from the lung bases to the pubic symphysis using oral and 100 ml Isovue 370 intravenous contrast material with coronal and sagittal re-formations. Comparison: 10/09/2016, 06/19/2016 Findings: Lung bases demonstrate nodular density in the right lower lobe (image 11 and left lower lobe (image 3) concerning for metastatic disease. Two vague hypodense lesions within the right lobe measuring roughly 1.5 and 1.0 cm diameter representing a change compared to 06/19/2016 and concerning for hepatic metastatic disease. Spleen, pancreas, gallbladder, bilateral adrenal glands and right kidney are normal. Left kidney demonstrates hydronephrosis with nephrostomy via the left flank. Evaluation of the enteric system demonstrates partial resection and anastomoses at the level of the rectosigmoid with adjacent subtle stranding and possible small nonspecific lymph nodes. There is no evidence for bowel obstruction. Normal terminal ileum and appendix identified in the right lower quadrant. The pelvis demonstrates normal bladder and age-appropriate uterus/adnexa. No pelvic fluid. Atherosclerotic changes of the aorta and vasculature noted without aneurysm. Within the pelvis at the level of the bifurcation of the left internal/external iliac artery is a mass/area of conglomerate pathologic lymph nodes currently measuring approximately 2.8 cm maximal diameter and is similar to 10/09/2016 (images 68 - 74). This area of mass/adenopathy is the presumed cause for left obstructive hydroureteronephrosis. Impression: 1. Two vague hepatic hypodensities suspicious for metastatic disease representing change compared to 06/19/2016. 2. Small pulmonary nodules suspicious for metastatic disease. 3. Conglomerate pathologic adenopathy/mass in the left hemipelvis measuring approximately 2.8 cm maximal diameter and causing obstructive hydroureteronephrosis. 4. Subtle stranding adjacent to the sigmoid colon in the region of prior resection is nonspecific. Signed by Radhames Roberts MD 01/02/2017 05:45 A
--- NOTE | 2017-01-03 01:38 | REP ---
Clinical: History of colorectal cancer for follow up. Comparison: 01/19/2015. Technique: Axial contrast enhanced images from the thoracic inlet to the upper abdomen using 100 ml Isovue 370 intravenous contrast material with coronal and sagittal re-formations. Findings: Chronic COPD/emphysematous changes are appreciated including predominately by apical bullae and scattered fibrosis/scarring. Few small scattered solid nodular densities are appreciated bilaterally (images 28, 31, 47, 53, 67, 69, 74, 79, 87). Most prominent such lesion is identified in the left lower lobe (image 79) and measures approximately 8 mm diameter. No focal consolidation, pleural effusion or pneumothorax. No obvious significant axillary or hilar/mediastinal adenopathy noted. Heart and pericardium appear relatively normal / stable. Surrounding musculoskeletal structures without focal osseous abnormality. Bilateral mammoplasty noted. Limited upper abdomen demonstrates stable bilateral adrenal glands and evidence for left hydronephrosis and nephrostomy. Impression: 1. Chronic COPD/emphysematous changes and scattered scarring. 2. Small scattered solid densities measuring up to 8 mm concerning for metastatic disease given the patient's history of colorectal cancer. Signed by Radhames Roberts MD 01/03/2017 01:30 A
== END ==
LOC: M RAD 08:01
PROVIDERS: ATTEND Internal Medicine Medical Oncology
DX: Z85.038 Personal history of other malignant neoplasm of large intestine (principal); J44.9 Chronic obstructive pulmonary disease, unspecified; R91.8 Other nonspecific abnormal finding of lung field
CPT/HCPCS: 71260; 74178; Q9963; Q9967

== ENCOUNTER → 2017-01-02 | Outpatient (REF) | payer OTHER ==
[~2017-01-02] MED LIST changes: -GASTROGRAFIN SOLUTION 30ML (Q9963) As Ordered ONE; -ISOVUE-370 76% 100ML VIAL (Q9967) As Ordered ONE
== END ==
LOC: M LAB REF 13:15
PROVIDERS: ATTEND Internal Medicine Medical Oncology
DX: C18.9 Malignant neoplasm of colon, unspecified (principal)

== ENCOUNTER → 2017-01-10 | Outpatient (CLI) | payer OTHER ==
[~2017-01-10] MED LIST changes: +CIPROFLOXACIN 500 MG TAB As Ordered ONE; +ISOVUE-300 61% 50ML VIAL (Q9967) As Ordered ONE; +SODIUM BICARBONATE 8.4% INJ 50MEQ 50 ML VIAL As Ordered ONE
--- NOTE | 2017-01-10 18:28 | REPKIM ---
CLINICAL HISTORY: Patient with metastatic colon ca, hepatic lesions, left sided hydronephrosis due to retroperitoneal pelvic (lymphatic) mass has a nephrostomy urinary diversion tube. Patient is receiving ongoing chemotherapy. Patient presents with left flank pain and hematuria. PROCEDURE PERFORMED: Nephrostogram, Nephrostomy Drainage Catheter Change INTERVENTIONALIST: Augusto Hinson MD SECURITY SYSTEM TECHNICIAN: PARDEEP Nielson IV CONSENT: The risks, benefits and alternatives to the procedure were explained to the patient and informed written consent was obtained. EBL: 1 mL MEDICATIONS: Local Lidocaine and Cipro 500 mg PO CONTRAST: 7 mL Isovue 300 FLUORO TIME: 0.8 minutes DEVICE USED: 10F Resolve catheter Lot #[id number] PROCEDURE/FINDINGS: NEPHROSTOGRAM: The patient was brought to the interventional radiology suite where a timeout procedure was performed. The patient was placed in the prone position. The existing indwelling catheter and left flank prepped and draped in the usual sterile fashion. A sample of the urine from the left kidney sent for c/s. Contrast was injected through the existing nephrostomy catheter and images were obtained. This showed the existing nephrostomy catheter is patent with its tip in the accessed calyx. There is persistent obstruction involving the distal ureter at the L5 level. There is no antegrade flow of contrast into the urinary bladder. NEPHROSTOMY DRAINAGE CATHETER CHANGE/UPSIZE: A guidewire was advanced into the renal pelvis. The existing PCN was unlocked and removed. Then a 10-Azeri nephrostomy drainage catheter was advanced over the guidewire. The guidewire was removed and the distal loop of the catheter formed in the renal pelvic. Contrast was gently hand injected, confirming satisfactory drainage catheter positioning. The nephrostomy urinary diversion catheter was flushed and connected to a gravity bag. The patient tolerated the procedure well with no immediate complications. This procedure was performed using fluoroscopy. IMPRESSION: Successful nephrostomy urinary diversion tube change/upsize on the left as discussed above. Nephrostogram demonstrates persistent distal ureter obstruction at the L5 level. A sample of urine sent for culture. Plan: Routine maintenance catheter check/change in approximately 8-10 weeks or earlier if signs of tube dysfunction were to occur. cc: DO Errol Lopez MD Florence P Arnold, MD MTDD
== END | disposition home or self-care (01) ==
LOC: M IRPRO 08:10
DX: N13.1 Hydronephrosis with ureteral stricture, not elsewhere classified (principal); R10.9 Unspecified abdominal pain; R31.9 Hematuria, unspecified
CPT/HCPCS: 50435; 87070; 87075; 87205; C1729; C1769; Q9967

== ENCOUNTER → 2017-01-29 | Outpatient (REF) | payer OTHER ==
[~2017-01-29] MED LIST changes: -CIPROFLOXACIN 500 MG TAB As Ordered ONE; -ISOVUE-300 61% 50ML VIAL (Q9967) As Ordered ONE; -SODIUM BICARBONATE 8.4% INJ 50MEQ 50 ML VIAL As Ordered ONE
== END ==
LOC: M LAB REF 13:10
PROVIDERS: ATTEND Internal Medicine Medical Oncology
DX: C18.9 Malignant neoplasm of colon, unspecified (principal)

== ENCOUNTER → 2017-02-12 | Outpatient (REF) | payer OTHER ==
[2017-02-12 13:27] LABS: MAGNESIUM LEVEL 1.3 MG/DL (1.8-2.4)
[2017-02-12 13:41] LABS: CARCINOEMBRYONIC ANTIGEN 3.2 NG/ML (<2.5)
== END ==
LOC: M LAB REF 12:19
PROVIDERS: ATTEND Internal Medicine Medical Oncology
DX: C18.9 Malignant neoplasm of colon, unspecified (principal)

== ENCOUNTER → 2017-02-26 | Outpatient (REF) | payer OTHER | LOC: M LAB REF 13:52 | PROVIDERS: ATTEND Internal Medicine Medical Oncology | DX: C26.0 Malignant neoplasm of intestinal tract, part unspecified (principal) ==

== ENCOUNTER → 2017-03-05 | Outpatient (CLI) | payer OTHER ==
[~2017-03-05] MED LIST changes: +GASTROGRAFIN SOLUTION 30ML (Q9963) As Ordered ONE; +ISOVUE-370 76% 100ML VIAL (Q9967) As Ordered ONE
== END ==
LOC: M RAD 07:26
PROVIDERS: ATTEND Internal Medicine Medical Oncology
DX: Z85.038 Personal history of other malignant neoplasm of large intestine (principal); K76.89 Other specified diseases of liver; J44.9 Chronic obstructive pulmonary disease, unspecified
CPT/HCPCS: 71260; 74178; Q9963; Q9967

== ENCOUNTER → 2017-03-06 | Outpatient (CLI) | payer OTHER ==
[~2017-03-06] MED LIST changes: +CIPROFLOXACIN 500 MG TAB As Ordered ONE; -GASTROGRAFIN SOLUTION 30ML (Q9963) As Ordered ONE; +ISOVUE-300 61% 50ML VIAL (Q9967) As Ordered ONE; -ISOVUE-370 76% 100ML VIAL (Q9967) As Ordered ONE
--- NOTE | 2017-03-06 19:29 | REPKIM ---
CLINICAL HISTORY: Colon ca, left sided hydronephrosis due to what appears to be retroperitoneal pelvic conglomerate LNs has a nephrostomy urinary diversion tube. Patient is receiving ongoing chemotherapy. The nephrostomy catheter needs to be changed for maintenance. PROCEDURE PERFORMED: Nephrostogram, Nephrostomy Drainage Catheter Change INTERVENTIONALIST: Augusto Hinson MD CONSENT: The risks, benefits and alternatives to the procedure were explained to the patient and informed written consent was obtained. EBL: 1 mL MEDICATIONS: Local Lidocaine and Cipro 500 mg PO CONTRAST: 10 mL Isovue 300 FLUORO TIME: 1.0 minute DEVICE USED: 10F Resolve catheter PROCEDURE/FINDINGS: NEPHROSTOGRAM: The patient was brought to the interventional radiology suite where a timeout procedure was performed. The patient was placed in the prone position. The existing indwelling catheter and left flank prepped and draped in the usual sterile fashion. Contrast was injected through the existing nephrostomy catheter and images were obtained. This showed the existing nephrostomy catheter is patent with its tip in the renal pelvis. The pelvicalyceal system has decompressed. There is persistent obstruction involving the distal ureter at the L5 level. There is no free antegrade flow of contrast into the urinary bladder. NEPHROSTOMY DRAINAGE CATHETER CHANGE: A guidewire was advanced into the renal pelvis. The existing PCN was unlocked and removed. Then a new 10-Frisian nephrostomy drainage catheter was advanced over the guidewire. The guidewire was removed and the distal loop of the catheter formed in the renal pelvic. Contrast was gently hand injected, confirming satisfactory drainage catheter positioning. The nephrostomy urinary diversion catheter was flushed and connected to a gravity bag. The patient tolerated the procedure well with no immediate complications. This procedure was performed using fluoroscopy. IMPRESSION: Successful nephrostomy urinary diversion tube change on the left as discussed above. Nephrostogram demonstrates persistent distal ureter obstruction at the L5 level. Plan: Routine maintenance catheter check/change in approximately 8-10 weeks or earlier if signs of tube dysfunction were to occur. cc: DO Kacy Lopez MD [facility] HOSPITALJames
== END | disposition home or self-care (01) ==
LOC: M IRPRO 12:29
DX: N13.1 Hydronephrosis with ureteral stricture, not elsewhere classified (principal); C18.9 Malignant neoplasm of colon, unspecified
CPT/HCPCS: 50435; C1729; C1769; Q9967

== ENCOUNTER → 2017-03-12 | Outpatient (REF) | payer OTHER ==
[~2017-03-12] MED LIST changes: -CIPROFLOXACIN 500 MG TAB As Ordered ONE; -ISOVUE-300 61% 50ML VIAL (Q9967) As Ordered ONE
== END ==
LOC: M LAB REF 13:14
PROVIDERS: ATTEND Internal Medicine Medical Oncology
DX: C18.9 Malignant neoplasm of colon, unspecified (principal)

== ENCOUNTER → 2017-03-22 | Outpatient (CLI) | payer OTHER ==
[~2017-03-22] MED LIST changes: +BIOT50004 PO; +CHOL4POW4 PO; +DEXI60CA2 PO; -DOCU100C PO; +DOCU100C16 PO; +DOXY-278 PO; +LOMO2.5T PO; +MISO100T22 PO; +MULTCAP11 PO; +OXYC-141 PO; -OXYC-299 PO; +OXYC1TAB23 PO; +PERC5TAB12 PO; -PERC5TAB6 PO; +PROC10TA PO; +SUCR1TA PO; -ULTR50TA PO; +ULTR50TA8 PO; +[UNRECOGNIZED DRUG - CODE] IM
--- NOTE | 2017-03-22 16:17 | REP ---
Clinical: Pain. Thrombus. Technique: العلي scale and color Doppler evaluation using linear high frequency transducer. Findings: Ultrasound examination of the right upper extremity deep venous structures demonstrates normal compressibility, flow, and sonographic characteristics through the visualized jugular, subclavian, axillary, and brachial veins. Cephalic vein is incompletely evaluated due to a presumed decreased caliber. A small thrombus is identified in the antecubital fossa likely basilic vein thrombus. Impression: Small thrombus in the basilic vein within the antecubital fossa should be correlated with the patient's symptoms. Signed by Radhames Roberts MD 03/22/2017 04:09 P
== END ==
LOC: M RAD 15:17
PROVIDERS: ATTEND Family Medicine
DX: I82.619 Acute embolism and thrombosis of superficial veins of unspecified upper extremity (principal)

== ENCOUNTER → 2017-04-09 | Outpatient (REF) | payer OTHER ==
[2017-04-09 14:37] LABS: MAGNESIUM LEVEL 1.8 MG/DL (1.8-2.4)
[2017-04-12 09:59] LABS: CARCINOEMBRYONIC ANTIGEN 1.8 NG/ML (<2.5)
== END ==
LOC: M LAB REF 13:39
PROVIDERS: ATTEND Internal Medicine Medical Oncology
DX: C18.9 Malignant neoplasm of colon, unspecified (principal)

== ENCOUNTER → 2017-04-25 | Outpatient (CLI) | payer OTHER ==
[~2017-04-25] MED LIST changes: +CIPROFLOXACIN 500 MG TAB As Ordered ONE; +ISOVUE-300 61% 50ML VIAL (Q9967) As Ordered ONE
--- NOTE | 2017-04-26 17:03 | REP ---
The procedure was performed under the direct supervision of Dr. العلي CLINICAL HISTORY: Colon cancer, Hydronephrosis PROCEDURE: Fluoro guidance for left nephrostomy drainage catheter exchange. Medications: Cipro 500 mg p.o. EBL: Less than 1 ml FLUORO TIME: 2.9 minutesCONTRAST: 10 ml of Isovue 300DEVICE USED: 10 F Nephrostomy (Resolve) catheter The risks and benefits of the procedure were explained to the patient and informed consent was obtained. The patient was brought into the interventional radiology suite. A time out procedure was performed. The patient was placed in the prone position . The existing indwelling catheter and the area surrounding the insertion site were prepped and draped in a sterile fashion. Contrast was injected through the existing 10-Hungarian Nephrostomy catheter. The catheter is in good position. The existing catheter was unlocked and removed over the guide wire. A new 10-Hungarian nephrostomy catheter was advanced over the guide wire. The guidewire was removed and the distal loop of the nephrostomy drainage catheter was formed and locked in the renal pelvis. Contrast was injected, confirming satisfactory drainage catheter position. The drainage catheter exit site was covered with sterile dressing. The nephrostomy drainage catheter was flushed and connected to gravity drainage bag. The patient tolerated the procedure well and there were no immediate complications. This procedure was performed using fluoroscopy. Impression: Successful exchange of nephrostomy urinary diversion tube on the left as discussed above. Plan: Routine catheter exchange and approximately 10-12 weeks or earlier if signs of tube dysfunction were to occur. Reviewed by MARY ALICE Rivera 04/25/2017 04:44 PSigned by Tio العلي MD 04/26/2017 04:54 P
== END ==
LOC: M RADPRO 07:37
PROVIDERS: ATTEND Radiology Diagnostic Radiology
DX: C18.9 Malignant neoplasm of colon, unspecified (principal); N13.30 Unspecified hydronephrosis; Z87.891 Personal history of nicotine dependence; Z88.8 Allergy status to other drugs, medicaments and biological substances; Z79.899 Other long term (current) drug therapy
CPT/HCPCS: 50435; 75984; C1729; C1769; Q9967

== ENCOUNTER → 2017-05-07 | Outpatient (REF) | payer OTHER ==
[~2017-05-07] MED LIST changes: -CIPROFLOXACIN 500 MG TAB As Ordered ONE; -ISOVUE-300 61% 50ML VIAL (Q9967) As Ordered ONE
[2017-05-07 14:15] LABS: MAGNESIUM LEVEL 1.5 MG/DL (1.8-2.4)
[2017-05-07 14:25] LABS: CARCINOEMBRYONIC ANTIGEN 1.8 NG/ML (<2.5)
== END ==
LOC: M LAB REF 13:39
PROVIDERS: ATTEND Internal Medicine Medical Oncology
DX: C18.9 Malignant neoplasm of colon, unspecified (principal)

== ENCOUNTER → 2017-05-29 | Outpatient (REF) | payer OTHER | LOC: M LAB REF 21:00 | PROVIDERS: ATTEND Internal Medicine Medical Oncology | DX: C18.9 Malignant neoplasm of colon, unspecified (principal) ==

== ENCOUNTER → 2017-06-04 | Outpatient (CLI) | payer OTHER ==
--- NOTE | 2017-06-05 06:04 | REP ---
KUB: Two views presented. History: Sitz marker study. Day 5 post injection. Findings: Two views of the abdomen demonstrate a left-sided percutaneous nephrostomy tube and umbilical jewelry. There is an anastomotic suture line in the central pelvis suggesting a colon anastomosis. No sitz markers are visible on today's radiographs in the abdomen. Impression: None of the sitz markers are visible. Bowel gas pattern is unremarkable. Percutaneous left nephrostomy tube and anastomotic suture line visible. Signed by Rodo Aguirre MD 06/05/2017 09:08 A
== END ==
LOC: M RAD 08:00
PROVIDERS: ATTEND Internal Medicine Gastroenterology
DX: C19 Malignant neoplasm of rectosigmoid junction (principal)

== ENCOUNTER → 2017-06-04 | Outpatient (REF) | payer OTHER ==
[2017-06-04 14:26] LABS: MAGNESIUM LEVEL 1.2 MG/DL (1.8-2.4)
[2017-06-04 14:41] LABS: CARCINOEMBRYONIC ANTIGEN 2.3 NG/ML (<2.5)
== END ==
LOC: M LAB REF 13:57
PROVIDERS: ATTEND Internal Medicine Medical Oncology
DX: C18.9 Malignant neoplasm of colon, unspecified (principal)

== ENCOUNTER → 2017-06-07 | Outpatient (CLI) | payer OTHER ==
[~2017-06-07] MED LIST changes: +GASTROGRAFIN SOLUTION 30ML (Q9963) As Ordered ONE; +ISOVUE-370 76% 100ML VIAL (Q9967) As Ordered ONE
--- NOTE | 2017-06-07 13:56 | REP ---
CT CHEST WITH IV CONTRAST: HISTORY: Metastatic colon carcinoma post-treatment. Comparison chest CT study March 05, 2017 and January 19, [address] CONTRAST DOSE: 100 mL of Isovue [address] FINDINGS: Lung window settings demonstrate multiple bilateral noncalcified lung nodules which are generally ginette bronchovascular an irregularly marginated. In general these appear slightly larger than on the March 05, 2017 study suggesting progression of metastatic disease. They are all small however, the largest measuring 8 mm. Most of these are new when compared with 2014 prior study. No new lesion is seen since the most recent prior study. No pleural or pericardial effusion is seen. No hilar or mediastinal mass or adenopathy is observed. A left-sided [id number] catheter is seen. The patient is status post bilateral breast augmentation. Bone window settings show no bony destructive lesion. There is advanced emphysematous change and with bolus formation in the apices bilaterally. Some pleuroparenchymal fibrosis is noted in the right apex unchanged. IMPRESSION: Multiple bilateral pulmonary nodules slightly increased in size but not number when compared with the March 05, 2017 prior study. Progressive pulmonary metastases must be suspected. Signed by Rodo Aguirre MD 06/07/2017 03:22 P
--- NOTE | 2017-06-07 14:19 | REP ---
CT ABDOMEN PELVIS WITHOUT AND WITH IV CONTRAST, WITH ORAL CONTRAST: HISTORY: Metastatic colon carcinoma post treatment. Comparison study March 05, 2017. Comparison PET/CT September 05, 2016. The patient is status post left colon resection. CT CONTRAST DOSE: 100 mL of Isovue 370 intravenously. FINDINGS: The previously visible left common iliac mary ellen mass measures 18 mm in AP dimension x 24 mm right to left x 21 mm craniocaudal. This is unchanged in AP dimension but appears wider in right to left dimension than on the prior study. There are two new adjacent lymph nodes which each measure 7 mm. There are two or three left periaortic and celiac axis lymph nodes which are normal in size and unchanged. The previously noted right hepatic lobe liver lesion measures 12 x 13 mm. This is a little larger. There is a new lesion medial to this in the right lobe of the liver measuring 14 mm. There is a 1 cm lesion posteriorly in the right lobe which was visible previously and unchanged. No other focal liver lesion is appreciated. There is a percutaneous nephrostomy catheter in place in the left renal pelvis as before. The kidneys enhance symmetrically. No renal mass is observed. Pelvic CT images demonstrate retroversion and retroflexion of the uterus as before. No uterine abnormality is seen. Left colonic anastomoses is unremarkable. No pelvic adenopathy is appreciated. IMPRESSION: There is one new small liver lesion consistent with progression of metastatic disease. Slight progression is seen in the left common iliac mary ellen mass. Signed by Rodo Aguirre MD 06/07/2017 03:22 P
== END ==
LOC: M RAD 10:59
PROVIDERS: ATTEND Internal Medicine Medical Oncology
DX: C18.9 Malignant neoplasm of colon, unspecified (principal); K76.9 Liver disease, unspecified; R91.8 Other nonspecific abnormal finding of lung field
CPT/HCPCS: 71260; 74178; Q9963; Q9967

== ENCOUNTER → 2017-06-18 | Outpatient (REF) | payer OTHER ==
[~2017-06-18] MED LIST changes: -GASTROGRAFIN SOLUTION 30ML (Q9963) As Ordered ONE; -ISOVUE-370 76% 100ML VIAL (Q9967) As Ordered ONE
[2017-06-18 10:29] LABS: CARCINOEMBRYONIC ANTIGEN 2.6 NG/ML (<2.5)
[2017-06-18 11:08] LABS: MAGNESIUM LEVEL 1.1 MG/DL (1.8-2.4)
== END ==
LOC: M LAB REF 09:53
PROVIDERS: ATTEND Internal Medicine Medical Oncology
DX: Z85.038 Personal history of other malignant neoplasm of large intestine (principal)

== ENCOUNTER 2017-07-01 18:51 | Inpatient (IN) | payer OTHER ==
[~2017-07-01] VITALS: Ht 157.5 cm; Wt 48.6 kg
[~2017-07-01 18:51] MED LIST changes: -BIOT50004 PO; -CHOL4POW4 PO; -DEXI60CA2 PO; -LOMO2.5T PO; -MISO100T22 PO; -OXYC1TAB23 PO; -PROC10TA PO; -SUCR1TA PO
[2017-07-01] MEDS ORDERED: DEXI60CA2 PO (19:17)
[2017-07-01] MEDS ORDERED: SUCR1TA PO (19:17)
[2017-07-01] MEDS: MORPHINE 4 MG/ML 1ML SYRINGE IV PRN ×3 (20:01→20:25)
[2017-07-01] MEDS ORDERED: ONDANSETRON 4MG/2ML VIAL (J2405) IV ONE (20:30)
[2017-07-01] MEDS ORDERED: NS 500 ML IV ONE (21:00)
[2017-07-01] MEDS ORDERED: HYDROmorphone HCL 1 MG/ML SYRINGE (J1170) IV ONE (21:15)
[2017-07-01 21:16] LABS: BASO # 0.1 10^3/uL (0.0-0.2); BASO % 0.5 % (0.0-1.0); EOS % 0.3 % (0.0-3.0); IMMATURE GRANULOCYTE % 0.8 % (0-0); LYMPH # 1.8 10^3/uL (1.5-4.5); LYMPH % 16.6 % (24.0-44.0); MEAN CORPUSCULAR HEMOGLOBIN 31.1 pg (27.0-33.0); MEAN CORPUSCULAR HGB CONC 33.5 g/dl (32.0-36.5); MEAN CORPUSCULAR VOLUME 92.8 fl (80.0-96.0); MONO % 8.8 % (0.0-5.0); NEUTROPHILS # 7.9 10^3/uL (1.8-7.7); PLATELET COUNT, AUTOMATED 775 10^3/uL (150-450); RED CELL DISTRIBUTION WIDTH 18.8 % (11.5-14.5); WHITE BLOOD COUNT 10.9 10^3/uL (4.0-10.0)
[2017-07-01 21:31] LABS: ALBUMIN 2.6 GM/DL (3.2-5.2); ALBUMIN/GLOBULIN RATIO 0.79 (1.00-1.93); ALKALINE PHOSPHATASE 157 U/L (45-117); ALT/SGPT 14 U/L (12-78); ANION GAP 11 MEQ/L (8-16); AST/SGOT 16 U/L (15-37); BILIRUBIN,DIRECT < 0.1 MG/DL (0.0-0.2); BILIRUBIN,TOTAL 0.3 MG/DL (0.2-1.0); BLOOD UREA NITROGEN 6 MG/DL (7-18); CARBON DIOXIDE LEVEL 24 MEQ/L (21-32); CHLORIDE LEVEL 100 MEQ/L (98-107); CREATININE FOR GFR 0.81 MG/DL (0.55-1.02); GLOMERULAR FILTRATION RATE > 60.0 (>58); GLUCOSE, FASTING 116 MG/DL (70-105); POTASSIUM SERUM 3.8 MEQ/L (3.5-5.1); SODIUM LEVEL 135 MEQ/L (136-145); TOTAL PROTEIN 5.9 GM/DL (6.4-8.2)
[2017-07-01] MEDS ORDERED: ISOVUE-370 76% 100ML VIAL (Q9967) As Ordered ONE (22:08)
[2017-07-01] MEDS ORDERED: MORPHINE 4 MG/ML 1ML SYRINGE IV ONE ×2 (22:45→23:30)
--- NOTE | 2017-07-01 22:50 | REPUSA ---
CT of the abdomen and pelvis with contrast Clinical statement: Pain. Colon cancer. Technique: Multiple axial CT images were obtained from the base of the lungs through the floor of the pelvis utilizing 5 mm axial slices after administration of oral and nonionic intravenous contrast. C oronal and sagittal reconstructions were also obtained. Comparison: 10/09/2016. Findings: Chest: The visualized lung bases are clear. Abdomen: There are two hypodense solid lesions within segment of the liver. The larger lesion loca alejandra in the more posteriorly measures 1.9 x 1.5 cm. There is a lesion posteriorly, measuring 1.3 x 2.2 cm. The central lesion measures 1.4 x 1.3 cm. These lesions of stable in size since the prior study. The spleen, pancreas, kidneys, gallbladder, and adrenal glands are unremarkable. An external left ne phrostomy catheter is in place. The aorta demonstrates moderate atherosclerosis without evidence of a neurysm or dissection. There is no evidence of abdominal lymphadenopathy or ascites. Pelvis: The bowel is unremarkable, with no obstructive or inflammatory changes. The urinary bladder i s within normal limits. The other pelvic structures appear grossly intact. There is no evidence of pe lvic lymphadenopathy or ascites. Bones: There are no suspicious osseous abnormalities seen. Impression: 1. Left renal nephrostomy tube is in place. No evidence of hydronephrosis. The right renal collecting system is unremarkable. 2. Several hyperdense lesions in the lower right lobe of the liver. These are stable. Continued follo w-up is recommended. 3. No obstructive or inflammatory bowel changes. 4. No evidence of lymphadenopathy.
[2017-07-01] MEDS ORDERED: NS 1,000 ML IV SCH (23:56)
[2017-07-02] VITALS (8 sets, daily range): BP systolic 141–171; BP diastolic 87–106
[2017-07-02] MEDS ORDERED: VITMTA PO (00:19)
[2017-07-02] MEDS ORDERED: PROC10TA PO (00:19)
[2017-07-02] MEDS ORDERED: OXYC15TA66 PO (00:19)
[2017-07-02] MEDS ORDERED: CHOL4POW4 PO (00:19)
[2017-07-02] MEDS ORDERED: BIOT50004 PO (00:19)
[2017-07-02] MEDS ORDERED: MISO100T22 PO (00:19)
[2017-07-02] MEDS ORDERED: LOMO2.5T PO (00:19)
[2017-07-02] MEDS ORDERED: OXYC1TAB23 PO (00:19)
[2017-07-02] MEDS ORDERED: miSOPROStol 100 MCG TAB (S0191) PO PRN (00:45)
[2017-07-02] MEDS ORDERED: NS 1,000 ML IV SCH (00:45)
[2017-07-02] MEDS ORDERED: MORPHINE 4 MG/ML 1ML SYRINGE IV ONE (00:45)
[2017-07-02] MEDS ORDERED: diphenhydrAMINE INJ 50MG/ML VIAL (J1200) IV PRN (01:00)
[2017-07-02] MEDS ORDERED: NALOXONE INJ 0.4 MG/1 ML VIAL (J2310) IV PRN (01:00)
[2017-07-02] MEDS ORDERED: ONDANSETRON 4MG/2ML VIAL (J2405) IV PRN (01:00)
[2017-07-02] MEDS ORDERED: NALBUPHINE HCL 10 MG/ML AMP (J2300) IV PRN (01:00)
[2017-07-02] MEDS ORDERED: EPIDURAL/PCA KEYS XX PRN (01:00)
[2017-07-02] MEDS ORDERED: ACETAMINOPHEN TAB 650MG DOSE (2X325MG) PO PRN (01:00)
[2017-07-02] MEDS: cefTRIAXone SOD 1 GM in D5W 50 ML IV SCH (01:04)
[2017-07-02] MEDS: KCL 20MEQ in NS 1000ML 1,000 ML IV SCH ×3 (03:53→19:50)
[2017-07-02] MEDS: MORPHINE 1MG/ML IN 0.9% NACL 100ML IV BAG IV PRN ×2 (03:55→13:44)
[2017-07-02 05:38] LABS: BASO # 0.1 10^3/uL (0.0-0.2); BASO % 0.4 % (0.0-1.0); EOS % 0.4 % (0.0-3.0); LYMPH # 1.8 10^3/uL (1.5-4.5); LYMPH % 15.6 % (24.0-44.0); MEAN CORPUSCULAR HEMOGLOBIN 30.3 pg (27.0-33.0); MEAN CORPUSCULAR VOLUME 94.7 fl (80.0-96.0); MONO # 0.8 10^3/uL (0.0-0.8); MONO % 6.9 % (0.0-5.0); NEUTROPHILS # 8.5 10^3/uL (1.8-7.7); NEUTROPHILS % 75.7 % (36.0-66.0); PLATELET COUNT, AUTOMATED 699 10^3/uL (150-450); RED CELL DISTRIBUTION WIDTH 19.1 % (11.5-14.5); WHITE BLOOD COUNT 11.2 10^3/uL (4.0-10.0)
[2017-07-02 06:10] LABS: ANION GAP 5 MEQ/L (8-16); BLOOD UREA NITROGEN 5 MG/DL (7-18); CALCIUM LEVEL 8.9 MG/DL (8.5-10.1); CARBON DIOXIDE LEVEL 29 MEQ/L (21-32); CHLORIDE LEVEL 102 MEQ/L (98-107); CREATININE FOR GFR 0.81 MG/DL (0.55-1.02); GLOMERULAR FILTRATION RATE > 60.0 (>58); GLUCOSE, FASTING 114 MG/DL (70-105); POTASSIUM SERUM 3.7 MEQ/L (3.5-5.1); SODIUM LEVEL 136 MEQ/L (136-145); T UPTAKE 35 % (30-39); THYROXINE (T4) 7.7 UG/DL (4.5-12.0)
--- NOTE | 2017-07-02 07:40 | HPE ---
DATE OF ADMISSION: 07/02/2017 Time patient was seen was at 0030 hours. PRIMARY CARE PROVIDER: Dr. Hodgson GASTROINTESTINAL (GI) PHYSICIAN: Dr. Sung ONCOLOGIST: Dr. Mueller CHIEF COMPLAINT: Severe abdominal pain. 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 Per patient she does have chronic abdominal pain from irritable bowel syndrome which is both the diarrhea and constipation type. In addition, back in September she also had a nephrostomy tube placed in due to scar tissue in the ureter. However, this pain is different per patient. She describes it as the most severe pain she has ever had and it happened four days ago after she had a bowel movement. The patient stated that she initially had constipation for two weeks and after the bowel movement the pain started. However, the patient denies any black or tarry stools. She admits to some redness on the stool due to hemorrhoids which she does have chronically. Otherwise, her last chemotherapy was two weeks ago with Fluorouracil ( 5-FU) and classified chemomedications. The patient describes the pain as gas like. Also she states that she has not been eating well for many months and has not had any solid foods for about a month. She also complains about difficulty to urinate and there is some burning on urination. The patient complains about being unable to completely empty her bladder. She does have an appointment to see Dr. Sung tomorrow to followup on her GI symptoms. Otherwise she denies any fever or chills, denies any chest pain , admits to chronic shortness of breath from cancer and chemotherapy. The patient received morphine 4 mg three times in the emergency room, also Dilaudid 1 mg, as well as half liter of normal saline bolus and Zofran 4 mg. ALLERGIES: No known drug allergies. Home medications: Biotin 5000 mcg 1 PO daily Cholestyramine 4 G PO bid PRN for diarrhea Dexilant 60 mg po daily Lomotil 1 tab po qid prn Cymbalta 60 mg PO qpm HCTZ 12.5 mg po daily Linzess 290 mcg po daily prn Lisinopril 20 mg po daily Misoprostol 100 mcg po qid prn multivitatmin 1 tab po qhs oxycodone 15 mg po q8h percocet 2 tab po q 4h PRN Prochlorperazine 10 mg PO q6H prn Propranolol 40 mg PO bid Carafate 1 Gm PO AC PRN PAST MEDICAL HISTORY: 1. Irritable bowel syndrome both diarrhea and constipation type. 2. Stage IV adenocarcinoma of the colon with metastases to the liver and lung. 3. Hypertension. 4. Hyperlipidemia. 5. Hydronephrosis status post nephrostomy tube placement. PAST SURGICAL HISTORY: 1. Colonoscopy with Dr. Sung in 2015. 2. Colon resection. 3. Infusaport placement. 4. Breast augmentation. 5. Hemorrhoidectomy times two. 6. Nephrostomy tube placement in September and she was supposed to have a replacement this . SOCIAL HISTORY: The patient smokes Vapor and uses 6 mg nicotine each time. She denies any alcohol usage. FAMILY HISTORY: The patient stated that hypertension, diabetes, dementia runs in the family. Father also has a thyroid disease. Sister had a melanoma. REVIEW OF SYSTEMS: The patient states she lost 40 pounds in three months while she on chemotherapy. She denies any fever or chills, denies any sick contacts or recent traveling . HEENT: Denies any changes with vision, smell, hearing or taste that is abnormal from the chemotherapy. Denies any trouble swallowing. CARDIOVASCULAR: Denies any chest pain, admits to chronic shortness of breath. PULMONARY: Admits to chronic shortness of breath. The patient does have metastases to the lungs. GASTROINTESTINAL: The patient does have chronic irritable bowel syndrome and this causes her chronic abdominal pain. She admits to hemorrhoids as well. Admits to chronic nausea due to chemotherapy and she could not tolerated any solid food for at least one month. GENITOURINARY (): The patient did have hydronephrosis due to tumor and has been in the process to have a stent placed so she can have the nephrostomy tube removed; she denies any blood in the urine; however. MUSCULOSKELETAL: Denies any pain anywhere else. ENDOCRINE: Denies any heat or cold intolerance. Denies any polydipsia or polyuria. HEMATOLOGY/ONCOLOGY: The patient does have Stage IV adenocarcinoma of the colon. She has metastases to the liver and lung and has been undergoing chemotherapy with the last therapy roughly two weeks ago. She follows with Dr. Mueller. PSYCHIATRIC: Denies any anxiety or depression. NEUROLOGY: The patient does have chemotherapy induced neuropathy with numbness and tingling in the extremities. PHYSICAL EXAMINATION: VITAL SIGNS: Temperature 97.9, pulse 125, respirations 20, blood pressure 155/ 108 with oxygen satting at 99% on room air. GENERAL: The patient is a frail looking middle aged female who looks slightly older than her stated age. She was awake, alert and oriented times three. She does not appear to be in distress. HEENT/NECK: Normocephalic atraumatic. Extraocular muscles intact. Moist mucous membranes. Neck is supple. No neck lymphadenopathy. CARDIOVASCULAR: Tachycardic, normal S1, S2. No murmurs. LUNGS: Clear to auscultation bilaterally. No wheezes, rales or rhonchi. ABDOMEN: Positive bowel sounds . Soft, moderately tender to palpation in all four quadrants. No peritoneal signs. No ecchymosis. EXTREMITIES: No edema, clubbing or cyanosis. SKIN: Warm and dry. NEUROLOGIC: Cranial nerves II - XII intact. No focal neurological deficits. LABORATORY DATA: WBC 10.9, hemoglobin 12.9, hematocrit 38.7, platelet count elevated 775. MCV 92.8, immature granulocyte percentage was 0.8, neutrophil percentage 73, lymphocytes 16.6, monocyte 8.8, 0.1 immature granulocyte number and 7.9 neutrophil number. Sodium 135, potassium 3.8, chloride 100, bicarbonate 24, anion gap 11, BUN 6, creatinine 0.81, GFR greater than 60, fasting glucose 116, lactic acid 2.8, total bilirubin 0.3, direct bilirubin less than 0.1. AST 16, ALT 14, alkaline phosphatase 157, total protein 5.9, albumin 5.6, lactase 445. Urinalysis shows turbid urine, 2+ protein, 1+ blood, 3+ leukocyte esterase. WBC was too many to count, RBC 28, 2+ bacteria. The patient had a CT of the abdomen with intravenous (IV) contrast only showing left renal nephrostomy tube in place. No evidence of hydronephrosis. Right renal collecting system is unremarkable. Several hyperdense lesions in the lower right lobe of the liver which are stable. No evidence of lymph abnormality. No obstructive or inflammatory bowel changes. ASSESSMENT AND PLAN: This is a 47-year-old female with past medical history of stage IV colon cancer with metastases to the liver and lung undergoing chemotherapy, irritable bowel syndrome, hydronephrosis status post nephrostomy tube placement back in September who presented with: 1. Worsening abdominal pain likely secondary to underlying cancer versus irritable bowel syndrome. Dr. Smith from general surgery has been consulted and recommended continued current therapy and supportive management and pain management, likely no surgery. He also recommended a clear liquid diet, continue the patient on intravenous (IV) fluids and advance her diet as tolerated. The patient has been placed on pain controlled anesthesia (AUDIT CONTROL CLERK) as well for better pain control. 2. Possible pyelonephritis with a positive urinalysis (UA). UA has been repeated ; however, she does have elevated platelets at 775 and elevated CRP. The patient also has elevated lactic acid at 2.8. Will start the patient on Losartan 1 gram IV every 24 hours and continue to monitor the patient. Continue to followup with blood culture and urine culture. If cultures are negative will consider to hold antibiotics. 3. Tachycardic with a heart rate of 125. This is likely secondary to pain. Will continue AUDIT CONTROL CLERK. 4. Elevated red cell distribution width (RDW) and platelet count. This is likely secondary to cancer versus an infection versus inflammatory etiologies. Continue to trend with daily complete blood count (CBC). 5. Elevated lipase at 445. This is likely secondary to prerenal azotemia from poor oral intake. 6. Stage IV adenocarcinoma of the colon with metastases to the liver and lungs. Continue to monitor. The patient's previous chemotherapy was roughly two weeks ago. The patient does follow with Dr. Mueller. 7. History of hypertension. Will hold blood pressure medications for now due to suspected pyelonephritis and will continue them as needed if the patient's kidney function does not worsen. 8. Hyperlipidemia. The patient is not on any medication. Continue to monitor. Will likely need further outpatient records. 9. Chemotherapy associated neuropathy. Continue to monitor. 10. History of hydronephrosis status post nephrostomy tube placement. The patient will have it replaced this , will continue to monitor. The patient stated that she will possibly have a stent placed as well. 11. Deep venous thrombosis (DVT) prophylaxis. On Lovenox. 12. Fluids, electrolytes and diet. Continue the patient on normal saline at a rate of 100 mL per hour. Continue to keep potassium around 4. The patient may have a clear liquid diet and advance as tolerated. DISPOSITION: The patient has severe abdominal pain that was intractable. The patient has been placed on AUDIT CONTROL CLERK. Will continue to monitor her, continue supportive therapy per general surgery for now. At this time will treat the suspected pyelonephritis with antibiotics. The patient has been discussed with attending, Dr. Harris. My preceptor for this patient encounter was Dr. Harris. The preceptor was physically present in the building during the encounter and was fully available as needed. All aspects of the patient interview, examination, medical decision making process, and medical care plan development were reviewed and approved by the preceptor. The preceptor is aware and concurs with the plan as stated in the body of this note and will attest to such by his/her co-signature. I have both independently examined this patient as well as reviewed the H&P. I have discussed in detail with the resident the findings and plan of treatment as documented in the residents note. I will continue to follow the patient and offer further guidance to the patients care as necessary during this hospital stay. Meghan BARROS
--- NOTE | 2017-07-02 07:43 | CR ---
SURGICAL CONSULTATION: Date of consultation is 07/02/2017. Reason for consultation is abdominal pain. History of the present illness: The patient is a pleasant, 47-year-old woman who presented to the emergency department complaining of severe abdominal pain for 4 days, worsening in intensity. Her history is significant for a sigmoid colectomy in August of 2014 for an advanced colon carcinoma with involved pericolonic lymph nodes and soft tissues. She underwent 6 months of chemotherapy by her report and was then placed on maintenance chemotherapy, which was continued. She subsequently was found to have metastatic disease. She had developed obstruction of her left ureter and had a nephrostomy tube placed. She was also apparently noted to have lung and liver metastases and she went back on a more rigorous chemotherapy in October of 2016. This had been continued through her most recent dose, which was on 06/18/2017. Patient also reports a history of irritable bowel syndrome with both diarrhea and constipation as features. She has variable symptoms. She reports that she had gone for perhaps a week without a bowel movement and then had one 4 days ago, which is what apparently triggered her current increase in pain. She describes having had the bowel movement but that it was mushy like pudding and has had pain since then. She denies any fevers or chills. She has had some nausea and vomiting. She reports that the pain has just been worsening over the last few days. She reports that her appetite has been off significantly and she has been taking very little orally for at least 2 days. She has not noticed any passage of blood. ALLERGY: Patient reports a problem with increased blood pressure on VARENICLINE. Her home medications include: - OxyContin 15 mg by mouth every 8 hours - and Percocet 5/325 tablets two every 4 hours, which she has been taking regularly. She is also on: - Cymbalta - propranolol - lisinopril - hydrochlorothiazide - Linzess - Dexilant - Carafate - cholestyramine as needed - misoprostol - Lomotil as needed - prochlorperazine as needed for nausea - Biotin - and a multivitamin. Surgical history is significant for her sigmoid resection. She has had a left nephrostomy tube placed. She has had bilateral breast augmentation. She has had prior hemorrhoidectomy. Medical history is significant for her metastatic colon cancer. She has a history of hypertension, asthma, headaches, and anxiety and depression. Her physical exam shows a reported height of 5 feet 2 inches with a weight of 45 kg. Her most recent vital signs show her to be afebrile with a tachycardia in the 120s and respiratory rate of 16-18. Blood pressure has been approximately 140-150 systolic. Patient is sitting propped up on the stretcher holding a pillow over her abdomen. She is alert and conversant. She seems knowledgeable about her medical condition. Sclerae are anicteric. Mucous membranes are perhaps somewhat tacky. The neck is supple. Heart exam reveals her to be somewhat tachycardiac, perhaps at a 100-110. She has generally clear breath sounds. The abdomen is nondistended. She does have some bowel sounds present. She exhibits significant voluntary guarding and is very apprehensive about palpation of her abdomen. Her abdomen is soft. I do not identify a hernia. Extremities are thin. Laboratory studies today show a white count of 10.9 with a differential showing 73% neutrophils, 70% lymphocytes, 9% monocytes. Hemoglobin is 13 with a hematocrit of 38 and platelet count is 775,000. Chemistry profile shows sodium of 135 and otherwise normal electrolytes. Her BUN is 6 with a creatinine 0.8 and her glucose is 116. Liver function tests are normal with the exception of an alkaline phosphatase of 157. Total protein is 5.9 with an albumin of 2.6. Her lipase is 445. Lactic acid is 2.8. Her urinalysis I believe done off of her nephrostomy tube urine shows a specific gravity 1.01 with 2+ protein, 1+ blood, 3+ leukocyte esterase, too numerous to count white cells and 28 red cells per high-power field. Imaging: Patient had a CT scan of the abdomen and pelvis. This showed some postoperative changes with evidence for a colorectal anastomosis. She has several hypodense lesions in the liver. There is a nephrostomy tube in place in the left kidney with no evidence of hydronephrosis. The small and large bowel are without obvious obstruction and there is no sign of free fluid or free air to suggest perforation. Impression is severe abdominal pain of not entirely clear etiology. She has chronic pain at baseline and uses OxyContin and regular dosing of Percocet for this. She reports problems with both diarrhea and constipation as part of her irritable bowel syndrome. She indicates that she feels her problem is spasms of the bowel following her most recent bowel movement, which was 4 days ago. She certainly has no radiographic evidence of an acute abdominal process that would require any sort of surgical intervention. There is a question as to whether there may be a urinary tract infection on the left associated with her nephrostomy but I doubt this is the etiology of her discomfort. Recommendations: I would focus on management of her pain primarily. I think it would be alright to allow her some clear liquids and if she tolerates these for one or two meals then to advance her diet as she sees fit. I will leave the decision regarding antibiotics to the hospitalist. PAPO
[2017-07-02] MEDS: PROPRANOLOL 20 MG TAB PO SCH ×2 (08:34→20:01)
[2017-07-02] MEDS: SENOKOT S TAB PO SCH ×2 (08:34→20:04)
[2017-07-02] MEDS: PANTOPRAZOLE 40MG TAB (PROTONIX) PO SCH (08:35)
[2017-07-02] MEDS: ENOXAPARIN 40 MG/0.4 ML SYRINGE (J1650) SC SCH (08:36)
[2017-07-02] MEDS ORDERED: ENTER DRUG NAME HERE (PATIENT'S OWN MED) PO SCH (09:00)
--- NOTE | 2017-07-02 10:02 | IPNPDOC ---
Subjective Date Seen The patient was seen on 07/02/17. Subjective Chief Complaint/HPI The patient is a 47-year-old female admitted with a reason for visit of Uti, Abdominal Pain. Events since last encounter Pt c/o poorly controlled abd pain which dramatically worsened 4 days prior to her presentation and after having a large pudding like BM. States that she has not eaten well and a month, probably during that time hasn't even had a meal, but her lack of appetite got particularly worse after her abd pain increased. She assoc this with chemo, nausea, altered food taste. General: Denies: Fatigue Constitutional: Denies: Chills, Fever ENT: Denies: Head Aches Pulmonary: Denies: Dyspnea, Cough Cardiovascular: Denies: Chest Pain, Palpitations Gastrointestinal: Denies: Nausea, Vomiting, Diarrhea Neurological: Denies: Weakness Psych: Reports: Mood Normal Objective Physical Examination General Exam: Positive: Alert, No Acute Distress ENT Exam: Positive: Mucous membr. moist/pink Chest Exam: Positive: Clear to auscultation, Normal air movement Heart Exam: Positive: Tachycardic, Regular Rhythm Telemetry: Positive: Tachycardia Abdomen Exam: Positive: Normal bowel sounds, Soft, Tenderness (diffusely with gentle palpation. ) Extremity Exam: Negative: Edema Psych Exam: Positive: Mental status NL, Mood NL Assessment /Plan Problems (1) Abdominal pain Status: Acute Response to Treatment: Stable Discussed With: Nurse, Patient Problem Specific Plan: Consult Specialist, Monitor Clinically, Repeat Labs Problem Text: Pt with intactable abd pain on BEAD INSPECTOR morphine which she is tolerating, she has maxed out her dose and c/o poor pain control, however on exam the only potential indication for poor pain control is tachycardia. She appears comfortable in bed, converses appropriate, and there is no guarding of the abdomen. I will address this further with my attending today. Dr Smith has seen the pt, rec medical mgmt, not surgical intervention appropriate. Rec clear liquids for 2 meals then advance her diet as tolerated. She is eager to eat. (2) Metastatic colon cancer in female Status: Chronic Response to Treatment: Stable Problem Specific Plan: Monitor Clinically Problem Text: Follows with Onc in outpt setting. (3) Tachycardia Status: Acute Discussed With: Nurse, Patient Problem Text: Propranolol 40 mg twice daily, rate remains in the 120s, this is her home dose medication and may need to be titrated. (4) History of hydronephrosis Status: Chronic Response to Treatment: Stable Problem Specific Plan: Monitor Clinically Problem Text: Has stent in place, scan appears without any persistent hydronephrosis. (5) UTI (urinary tract infection) Status: Acute Problem Text: Ceftriaxone IV D2 - cultures pending. Plan/VTE VTE Prophylaxis Ordered?: Yes Plan Anticipated Discharge: Home Family Medicine Attending Note: I saw and examined Ms. Goff, discussed with YUE Hernandez. Agree with their note as documented. Her pain seems to be out of proportion with her objective signs and exam. Unfortunately, I suspect this means that is in some way related to her cancer rather than a urinary issue. I added dicyclomine to her regimen as well as advancing her diet at surgery's recommendation and the patient's request. I also consulted Pain Management for assistance on finding a regimen that she can be made more comfortable on and can be converted to orals so she can be discharged in time for her anticipated trip to [place] that is planned for 8 days from now. VS, I&O, 24H, [facility] Vital Signs/I&O Vital Signs Date Time Temp Pulse Resp B/P (MAP) Pulse Ox O2 Delivery O2 Flow Rate FiO2 07/02/17 08:34 134 153/96 07/02/17 08:01 22 98 Room Air 07/02/17 08:00 98.3 07/02/17 00:10 98.0 Laboratory Data 24H LABS Laboratory Tests 2 07/01/17 19:18: Immature Granulocyte % (Auto) 0.8H, White Blood Count 10.9H, Red Blood Count 4.15, Hemoglobin 12.9, Hematocrit 38.5, Mean Corpuscular Volume 92.8, Mean Corpuscular Hemoglobin 31.1, Mean Corpuscular Hemoglobin Concent 33.5, Red Cell Distribution Width 18.8H, Platelet Count 775H, Neutrophils (%) (Auto) 73.0H, Lymphocytes (%) (Auto) 16.6L, Monocytes (%) (Auto) 8.8H, Eosinophils (%) (Auto) 0.3, Basophils (%) (Auto) 0.5, Neutrophils # (Auto) 7.9H, Lymphocytes # (Auto) 1.8, Monocytes # (Auto) 1.0H, Eosinophils # (Auto) 0.0, Basophils # (Auto) 0.1, Immature Granulocyte # (Auto) 0.1H, Nucleated Red Blood Cells % (auto) 0.0, Anion Gap 11, Glomerular Filtration Rate > 60.0, Lactic Acid Level 2.8*H, Calcium Level 9.0, Aspartate Amino Transf (AST/SGOT) 16, Alanine Aminotransferase (ALT/SGPT) 14, Alkaline Phosphatase 157H, Total Bilirubin 0.3, Direct Bilirubin < 0.1, Total Protein 5.9L, Albumin 2.6L, Albumin/Globulin Ratio 0.79L, Lipase 445H 07/01/17 22:08: Urine Appearance TURBIDH, Urine Color YELLOW, Urine pH 7.0, Urine Specific [place] 1.014, Urine Protein 2+H, Urine Glucose (UA) NEGATIVE, Urine Ketones NEGATIVE, Urine Urobilinogen 0.2, Urine Bilirubin NEGATIVE, Urine Leukocyte Esterase 3+H, Urine Blood 1+H, Urine Nitrite NEGATIVE, Urine WBC (Auto) TNTCH, Urine RBC (Auto) 28H, Urine Hyaline Casts (Auto) 0, Urine Bacteria (Auto) 2+H, Urine Squamous Epithelial Cells 0, Urine Sperm (Auto) 07/02/17 05:22: Immature Granulocyte % (Auto) 1.0H, White Blood Count 11.2H, Red Blood Count 3.96L, Hemoglobin 12.0, Hematocrit 37.5, Mean Corpuscular Volume 94.7, Mean Corpuscular Hemoglobin 30.3, Mean Corpuscular Hemoglobin Concent 32.0, Red Cell Distribution Width 19.1H, Platelet Count 699H, Neutrophils (%) (Auto) 75.7H, Lymphocytes (%) (Auto) 15.6L, Monocytes (%) (Auto) 6.9H, Eosinophils (%) (Auto) 0.4, Basophils (%) (Auto) 0.4, Neutrophils # (Auto) 8.5H, Lymphocytes # (Auto) 1.8, Monocytes # (Auto) 0.8, Eosinophils # (Auto) 0.0, Basophils # (Auto) 0.1, Immature Granulocyte # (Auto) 0.1H, Nucleated Red Blood Cells % (auto) 0.0, Anion Gap 5L, Glomerular Filtration Rate > 60.0, Calcium Level 8.9, Blood Urea Nitrogen 5L, Creatinine 0.81, Sodium Level 136, Potassium Level 3.7, Chloride Level 102, Carbon Dioxide Level 29, Thyroid Stimulating Hormone (TSH) 2.510, Free Thyroxine Index 2.7, Thyroxine (T4) 7.7, Triiodothyronine (T3) Uptake 35 07/02/17 05:55: Urine Appearance HAZY, Urine Color YELLOW, Urine pH 8.0, Urine Specific [place] 1.016, Urine Protein NEGATIVE, Urine Glucose (UA) NEGATIVE, Urine Ketones NEGATIVE, Urine Urobilinogen 0.2, Urine Bilirubin NEGATIVE, Urine Leukocyte Esterase 3+H, Urine Blood 2+H, Urine Nitrite NEGATIVE, Urine WBC (Auto) 56H, Urine RBC (Auto) 9H, Urine Hyaline Casts (Auto) 0, Urine Bacteria (Auto) 1+H, Urine Squamous Epithelial Cells 0, Urine Sperm (Auto) , Urine Mucus (Auto) SMALL CBC/BMP Laboratory Tests 07/01/17 19:18 Red Blood Count 4.15, Mean Corpuscular Volume 92.8, Mean Corpuscular Hemoglobin 31.1, Mean Corpuscular Hemoglobin Concent 33.5, Red Cell Distribution Width 18.8 H, Neutrophils (%) (Auto) 73.0 H, Lymphocytes (%) (Auto) 16.6 L, Monocytes (%) (Auto) 8.8 H, Eosinophils (%) (Auto) 0.3, Basophils (%) (Auto) 0.5, Neutrophils # (Auto) 7.9 H, Lymphocytes # (Auto) 1.8, Monocytes # (Auto) 1.0 H, Eosinophils # (Auto) 0.0, Basophils # (Auto) 0.1 07/02/17 05:22 Red Blood Count 3.96 L, Mean Corpuscular Volume 94.7, Mean Corpuscular Hemoglobin 30.3, Mean Corpuscular Hemoglobin Concent 32.0, Red Cell Distribution Width 19.1 H, Neutrophils (%) (Auto) 75.7 H, Lymphocytes (%) (Auto ) 15.6 L, Monocytes (%) (Auto) 6.9 H, Eosinophils (%) (Auto) 0.4, Basophils (%) (Auto) 0.4, Neutrophils # (Auto) 8.5 H, Lymphocytes # (Auto) 1.8, Monocytes # ( Auto) 0.8, Eosinophils # (Auto) 0.0, Basophils # (Auto) 0.1, Calcium Level 8.9 Microbiology Microbiology 07/02/17 Blood Culture, Received Pending 07/02/17 Blood Culture, Received Pending 07/02/17 Urine Culture, Received Pending 07/01/17 Urine Culture, Received Pending CAITLIN BREAUX PA-C Jul 02, 2017 10:02 Jarek San MD Jul 03, 2017 07:20
[2017-07-02] MEDS: MORPHINE 30 MG TAB **MSIR PO PRN ×2 (17:49→22:30)
[2017-07-02] MEDS: DICYCLOMINE 10 MG CAP PO SCH (18:00)
--- NOTE | 2017-07-02 18:22 | CR ---
DATE OF CONSULTATION: 07/02/2017 REFERRING PHYSICIAN: Jarek San MD CHIEF COMPLAINT: Abdominal pain. HISTORY OF PRESENT ILLNESS: Tresa is a pleasant 47-year-old female who was admitted early this morning with severe abdominal pain. 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 The patient is opioid tolerant and at home receiving 105 mg of oxycodone daily. The patient states that this has not been helping over the past month. She is taking 12 tablets of Percocet 5/325, exceeding acetaminophen daily safe intake. She is using OxyContin 15 mg three times a day. Upon entry into room the patient is writhing in pain holding her stomach. Family is at bedside. IV access has been lost due to infiltrate within the past 1/2 hour. The patient does have an Urubit-I-Mnoy. Describes pain as wave like spasms across her abdomen. Last bowel movement was 4 days ago and after this bowel movement she began to have excruciating pain. She does have a nephrostomy tube in place. PAST MEDICAL HISTORY: Irritable bowel syndrome, both diarrhea and constipation type. Stage IV adenocarcinoma of the colon with metastasis to the liver and lung. Hypertension. Hyperlipidemia. Hydronephrosis, status post nephrostomy tube placement. PAST SURGICAL HISTORY: Colonoscopy with Dr. Sung in 2015. Colon resection. Yxakav-X-Dkak placement. Breast augmentation. Hemorrhoidectomy times two. Nephrostomy tube placement in September 2016. That is apparently due for replacement soon. SOCIAL HISTORY: Supportive family. Denies illicit drug use. Denies alcohol use. Smokes Vapor and uses 6 mg of nicotine each time. FAMILY HISTORY: Hypertension, diabetes, dementia, thyroid disease, melanoma. REVIEW OF SYSTEMS: Recent loss of approximately 40 pounds. Denies fever or chills. HEENT: Denies vision or hearing changes. Cardiovascular: Denies chest pain. Does report some shortness of breath. Pulmonary: Chronic shortness of breath. Gastrointestinal: Chronic irritable bowel syndrome. Hemorrhoids. Constant nausea. Unable to tolerate solids over the past month. : History of hydronephrosis with nephrostomy tube. Endocrine: Denies heat or cold intolerance. Denies polydipsia or polyuria. Neurology: Reporting neuropathy with numbness and tingling in the extremities. PHYSICAL EXAMINATION: Awake, alert, in obvious pain, pleasant. Vitals: 98.4, 92, 18, BP 150/90, pulse ox is 100% on room air. Cardiac: S1, S2. Normal rate and rhythm. Respiratory: Lung sounds clear. Respirations nonlabored. Abdomen is soft and nontender. ASSESSMENT: 1. Abdominal pain. 2. Metastatic adenocarcinoma cancer (CA) of the colon. PLAN: Recommend MSIR 30 mg by mouth stat and may repeat times one in 4 hours if no improvement. Recommend valium 5 mg every 6 hours as needed. Consider using this on a scheduled basis. 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 Thank you for allowing us to participate in your patient's care. If we can be of any further assistance please do not hesitate to contact me at the pain center. Sincerely, [facility]
[2017-07-02] MEDS: diazePAM 5 MG TAB PO PRN (18:48)
[2017-07-02] MEDS: MORPHINE 2 MG/ML 1ML SYRINGE IV PRN (19:51)
[2017-07-02] MEDS: DULoxetine 30 MG CAP (CYMBALTA) PO SCH (20:01)
[2017-07-02] MEDS: SIMETHICONE 80 MG CHEW TAB PO PRN (20:01)
[2017-07-02] MEDS: PROCHLORPERAZINE 5 MG TAB (S0183) PO PRN (20:01)
[2017-07-02] MEDS: MULTIVITAMINS/MINERALS THERAP 1 TAB PO SCH (20:04)
[2017-07-02] MEDS: oxyCODONE 20 MG CR TAB PO SCH (21:06)
[2017-07-03] VITALS (8 sets, daily range): BP systolic 147–181; BP diastolic 95–110
[2017-07-03] MEDS: cefTRIAXone SOD 1 GM in D5W 50 ML IV SCH (00:11)
[2017-07-03] MEDS: MORPHINE 2 MG/ML 1ML SYRINGE IV PRN ×2 (00:11→08:02)
[2017-07-03] MEDS: DICYCLOMINE 10 MG CAP PO SCH ×4 (00:11→17:46)
[2017-07-03] MEDS: KCL 20MEQ in NS 1000ML 1,000 ML IV SCH ×3 (05:28→22:22)
[2017-07-03] MEDS: oxyCODONE 20 MG CR TAB PO SCH ×2 (05:28→14:01)
[2017-07-03 05:55] LABS: BASO # 0.1 10^3/uL (0.0-0.2); BASO % 0.6 % (0.0-1.0); EOS # 0.1 10^3/uL (0.0-0.50); EOS % 0.4 % (0.0-3.0); IMMATURE GRANULOCYTE % 0.6 % (0-0); LYMPH % 15.8 % (24.0-44.0); MEAN CORPUSCULAR HEMOGLOBIN 30.6 pg (27.0-33.0); MEAN CORPUSCULAR HGB CONC 32.1 g/dl (32.0-36.5); MEAN CORPUSCULAR VOLUME 95.1 fl (80.0-96.0); MONO % 8.2 % (0.0-5.0); NEUTROPHILS # 9.4 10^3/uL (1.8-7.7); NEUTROPHILS % 74.4 % (36.0-66.0); PLATELET COUNT, AUTOMATED 561 10^3/uL (150-450); RED CELL DISTRIBUTION WIDTH 19.5 % (11.5-14.5); WHITE BLOOD COUNT 12.6 10^3/uL (4.0-10.0)
[2017-07-03 06:03] LABS: ANION GAP 6 MEQ/L (8-16); BLOOD UREA NITROGEN 3 MG/DL (7-18); CALCIUM LEVEL 8.4 MG/DL (8.5-10.1); CARBON DIOXIDE LEVEL 26 MEQ/L (21-32); CHLORIDE LEVEL 109 MEQ/L (98-107); CREATININE FOR GFR 0.46 MG/DL (0.55-1.02); GLOMERULAR FILTRATION RATE > 60.0 (>58); GLUCOSE, FASTING 100 MG/DL (70-105); MAGNESIUM LEVEL 1.5 MG/DL (1.8-2.4); POTASSIUM SERUM 4.3 MEQ/L (3.5-5.1); SODIUM LEVEL 141 MEQ/L (136-145)
[2017-07-03] MEDS: diazePAM 5 MG TAB PO PRN ×2 (08:22→14:41)
[2017-07-03] MEDS: PANTOPRAZOLE 40MG TAB (PROTONIX) PO SCH (08:22)
[2017-07-03] MEDS: SENOKOT S TAB PO SCH ×2 (08:23→21:48)
[2017-07-03] MEDS: ENOXAPARIN 40 MG/0.4 ML SYRINGE (J1650) SC SCH (08:23)
[2017-07-03] MEDS: PROPRANOLOL 20 MG TAB PO SCH ×2 (08:28→21:48)
[2017-07-03] MEDS: PROCHLORPERAZINE 5 MG TAB (S0183) PO PRN (08:28)
--- NOTE | 2017-07-03 09:32 | IPNPDOC ---
Subjective Date Seen The patient was seen on 07/03/17. Subjective Chief Complaint/HPI The patient is a 47-year-old female admitted with a reason for visit of Uti, Abdominal Pain. Events since last encounter Pt continues to have significant abd pain. Pt was seen by pain mgmt yesterday who made some changes to medication regimen. Pt denies SOB, CP. Constitutional: Denies: Chills, Fever Pulmonary: Denies: Dyspnea Cardiovascular: Denies: Chest Pain Gastrointestinal: Reports: Abdominal Pain Objective Physical Examination General Exam: Positive: Alert, No Acute Distress ENT Exam: Positive: Mucous membr. moist/pink Chest Exam: Positive: Clear to auscultation, Normal air movement Heart Exam: Positive: Tachycardic, Regular Rhythm Telemetry: Positive: Tachycardia Abdomen Exam: Positive: Normal bowel sounds, Soft, Tenderness (diffusely with gentle palpation. ) Extremity Exam: Negative: Edema Psych Exam: Positive: Mental status NL, Mood NL Assessment /Plan Problems (1) Abdominal pain Status: Acute Response to Treatment: Stable Discussed With: Nurse, Patient Problem Specific Plan: Consult Specialist, Monitor Clinically, Repeat Labs Problem Text: 07/03 - Pt was seen by pain management who gave MSIR 30 mg one time, started morphine 2mg q4 prn for breakthrough pain, started OxyContin 20 mg three times a day, and started valium 5 mg every 6 hours as needed. Pain management discussed possibly increasing the morphine to 4mg q4h prn. Pt continues have abd pain, and feels pain meds not covering her pain. Will increase the morphine to 4 mg q 4hrs per pain mgmt's recommendation. Also will have nursing contact pain mgmt to notify that pt's pain is not controlled to see if they can reassess and give additional input. Pt with intactable abd pain on SHEET METAL OPERATOR morphine which she is tolerating, she has maxed out her dose and c/o poor pain control, however on exam the only potential indication for poor pain control is tachycardia. She appears comfortable in bed, converses appropriate, and there is no guarding of the abdomen. I will address this further with my attending today. Dr Smith has seen the pt, rec medical mgmt, not surgical intervention appropriate. Rec clear liquids for 2 meals then advance her diet as tolerated. She is eager to eat. (2) Metastatic colon cancer in female Status: Chronic Response to Treatment: Stable Problem Specific Plan: Monitor Clinically Problem Text: Follows with Onc in outpt setting. (3) Hypomagnesemia Status: Acute Problem Specific Plan: Monitor Clinically, Repeat Labs Problem Text: 07/03 - Mag 1.5. Will give mag runs x 2. Recheck mag in AM. (4) Tachycardia Status: Acute Discussed With: Nurse, Patient Problem Text: 07/03 - HR appears to be trending down over the past day and appears between 90s to 140s past 24 hrs. Propranolol 40 mg twice daily, rate remains in the 120s, this is her home dose medication and may need to be titrated. (5) History of hydronephrosis Status: Chronic Response to Treatment: Stable Problem Specific Plan: Monitor Clinically Problem Text: Has stent in place, scan appears without any persistent hydronephrosis. (6) UTI (urinary tract infection) Status: Acute Problem Text: Ceftriaxone IV D2 - cultures pending. Plan/VTE VTE Prophylaxis Ordered?: Yes Plan Anticipated Discharge: Home Family Medicine Attending Note: I saw and examined Ms. Goff, discussed with YUE Bonds. Agree with their note as documented. I asked Mrs. Goff how she was doing on the new pain regimen as recommended by pain management. She reports she is still in significant discomfort although it has improved things a little bit. She states that the MS Contin she received as a one-time dose last night seemed to do better than anything for her pain. Based on this I' m going to convert her regimen entirely to morphine. We will see how this does for her and make further adjustments as needed. (manager of digital) VS, I&O, 24H, Fishbone Vital Signs/I&O Vital Signs Date Time Temp Pulse Resp B/P (MAP) Pulse Ox O2 Delivery O2 Flow Rate FiO2 07/03/17 08:28 105 162/102 07/03/17 08:12 18 07/03/17 08:02 Room Air 07/03/17 08:00 99.3 95 07/02/17 00:10 98.0 I&O- Last 24 Hours up to 6 AM 07/04/17 06:00 Intake Total 240 ml Output Total 475 ml Balance -235 ml Laboratory Data 24H LABS Laboratory Tests 2 07/03/17 05:30: Immature Granulocyte % (Auto) 0.6H, White Blood Count 12.6H, Red Blood Count 3.50L, Hemoglobin 10.7L, Hematocrit 33.3L, Mean Corpuscular Volume 95.1, Mean Corpuscular Hemoglobin 30.6, Mean Corpuscular Hemoglobin Concent 32.1, Red Cell Distribution Width 19.5H, Platelet Count 561H, Neutrophils (%) (Auto) 74.4H, Lymphocytes (%) (Auto) 15.8L, Monocytes (%) (Auto) 8.2H, Eosinophils (%) (Auto) 0.4, Basophils (%) (Auto) 0.6, Neutrophils # (Auto) 9.4H, Lymphocytes # (Auto) 2.0, Monocytes # (Auto) 1.0H, Eosinophils # (Auto) 0.1, Basophils # (Auto) 0.1, Immature Granulocyte # (Auto) 0.1H, Nucleated Red Blood Cells % (auto) 0.0, Anion Gap 6L, Glomerular Filtration Rate > 60.0, Blood Urea Nitrogen 3L, Creatinine 0.46L, Sodium Level 141, Potassium Level 4.3, Chloride Level 109H, Carbon Dioxide Level 26, Calcium Level 8.4L, Magnesium Level 1.5L CBC/BMP Laboratory Tests 07/03/17 05:30 Red Blood Count 3.50 L, Mean Corpuscular Volume 95.1, Mean Corpuscular Hemoglobin 30.6, Mean Corpuscular Hemoglobin Concent 32.1, Red Cell Distribution Width 19.5 H, Neutrophils (%) (Auto) 74.4 H, Lymphocytes (%) (Auto ) 15.8 L, Monocytes (%) (Auto) 8.2 H, Eosinophils (%) (Auto) 0.4, Basophils (%) (Auto) 0.6, Neutrophils # (Auto) 9.4 H, Lymphocytes # (Auto) 2.0, Monocytes # ( Auto) 1.0 H, Eosinophils # (Auto) 0.1, Basophils # (Auto) 0.1, Calcium Level 8.4 L Microbiology Microbiology 07/02/17 Blood Culture - Preliminary, Resulted No growth after 24 hours . All specim... 07/02/17 Blood Culture - Preliminary, Resulted No growth after 24 hours . All specim... 07/02/17 Urine Culture, Received Pending 07/01/17 Urine Culture, Received Pending Benito Gutierrez Jul 03, 2017 09:32 Jarek San MD Jul 05, 2017 14:02
[2017-07-03] MEDS: MORPHINE 4 MG/ML 1ML SYRINGE IV PRN ×3 (10:39→20:07)
[2017-07-03] MEDS: MAG SULF 1GM/100ML (MAG RUN) 1 GM in APPROPRIATE DILUENT 1 EA IV SCH ×2 (10:44→12:15)
[2017-07-03] MEDS: diazePAM 5 MG TAB PO SCH (18:19)
[2017-07-03] MEDS: MULTIVITAMINS/MINERALS THERAP 1 TAB PO SCH (21:48)
[2017-07-03] MEDS: DULoxetine 30 MG CAP (CYMBALTA) PO SCH (21:48)
[2017-07-03] MEDS: MORPHINE 30 MG SA TAB PO SCH (21:49)
[2017-07-04] VITALS: BP 172/106
[2017-07-04] MEDS: cefTRIAXone SOD 1 GM in D5W 50 ML IV SCH (00:14)
[2017-07-04] MEDS: HYOSCYAMINE SULFATE 0.125 MG SUBL TABLET SL SCH ×4 (00:15→18:34)
[2017-07-04] MEDS: diazePAM 5 MG TAB PO SCH ×4 (00:15→18:34)
[2017-07-04] MEDS: MORPHINE 4 MG/ML 1ML SYRINGE IV PRN (00:17)
[2017-07-04] MEDS ORDERED: MORPHINE 2 MG/ML 1ML SYRINGE IV ONE (01:30)
[2017-07-04 04:00] VITALS: BP 175/105
[2017-07-04] MEDS: MORPHINE 10 MG/ML 1ML VIAL IV PRN ×8 (04:05→19:58)
[2017-07-04 07:03] LABS: MEAN CORPUSCULAR HEMOGLOBIN 30.9 pg (27.0-33.0); MEAN CORPUSCULAR HGB CONC 32.6 g/dl (32.0-36.5); PLATELET COUNT, AUTOMATED 484 10^3/uL (150-450); WHITE BLOOD COUNT 16.3 10^3/uL (4.0-10.0)
[2017-07-04 07:07] LABS: POSITIVE DIFF POS FLAG
[2017-07-04 07:08] LABS: ADD MANUAL DIFFER YES; DIFF SLIDE NUMBER 47
[2017-07-04 07:18] LABS: ANION GAP 6 MEQ/L (8-16); BLOOD UREA NITROGEN 2 MG/DL (7-18); CALCIUM LEVEL 8.3 MG/DL (8.5-10.1); CARBON DIOXIDE LEVEL 27 MEQ/L (21-32); CHLORIDE LEVEL 105 MEQ/L (98-107); CREATININE FOR GFR 0.47 MG/DL (0.55-1.02); GLOMERULAR FILTRATION RATE > 60.0 (>58); GLUCOSE, FASTING 91 MG/DL (70-105); POTASSIUM SERUM 4.4 MEQ/L (3.5-5.1); SODIUM LEVEL 138 MEQ/L (136-145)
[2017-07-04 08:00] VITALS: BP 145/99
[2017-07-04] MEDS: KCL 20MEQ in NS 1000ML 1,000 ML IV SCH ×3 (08:00→16:59)
[2017-07-04] MEDS: PROPRANOLOL 20 MG TAB PO SCH ×2 (08:11→21:12)
[2017-07-04] MEDS: ENOXAPARIN 40 MG/0.4 ML SYRINGE (J1650) SC SCH (08:11)
[2017-07-04] MEDS: PANTOPRAZOLE 40MG TAB (PROTONIX) PO SCH (08:12)
[2017-07-04] MEDS: MORPHINE 30 MG SA TAB PO SCH ×3 (08:12→21:11)
[2017-07-04] MEDS: SENOKOT S TAB PO SCH ×2 (08:12→21:10)
--- NOTE | 2017-07-04 09:49 | IPNPDOC ---
Subjective Date Seen The patient was seen on 07/04/17. Subjective Chief Complaint/HPI The patient is a 47-year-old female admitted with a reason for visit of Uti, Abdominal Pain. Events since last encounter Pt cont to c/o persistently poor pain control. She states she gets relief from morphine 6 mg, but that it doesn't last long enough. Pain Mgmt has seen the pt and is managing pain control at this time. She notes that her pain is in her abd in the usual location. Last BM was 7 days ago. She is not eating well. She also is unable to get much sleep d/t poor pain control. General: Denies: Fatigue Constitutional: Denies: Chills, Fever ENT: Denies: Head Aches Pulmonary: Denies: Dyspnea, Cough Cardiovascular: Denies: Chest Pain, Palpitations Gastrointestinal: Reports: Abdominal Pain, Denies: Nausea, Vomiting Psych: Reports: Mood Normal Objective Physical Examination General Exam: Positive: Alert, No Acute Distress ENT Exam: Positive: Mucous membr. moist/pink Chest Exam: Positive: Clear to auscultation, Normal air movement Heart Exam: Positive: Tachycardic (rate 106), Regular Rhythm Telemetry: Positive: Tachycardia Abdomen Exam: Positive: BS Hypoactive, Soft, Tenderness (diffusely with gentle palpation. ) Extremity Exam: Negative: Edema Psych Exam: Positive: Mental status NL, Mood NL Assessment /Plan Problems (1) Abdominal pain Status: Acute Response to Treatment: Stable Discussed With: Nurse, Patient Problem Specific Plan: Consult Specialist, Monitor Clinically, Repeat Labs Problem Text: 07/04 - Pt cont to c/o poor pain control, Ace LAW, spoke with Pain Mgmt this morning, who rec increased the morphine IV 6 mg from every 3 h to every 2 h as needed for pain relief. I have made this change as requested. 07/03 - Pt was seen by pain management who gave MSIR 30 mg one time, started morphine 2mg q4 prn for breakthrough pain, started OxyContin 20 mg three times a day, and started valium 5 mg every 6 hours as needed. Pain management discussed possibly increasing the morphine to 4mg q4h prn. Pt continues have abd pain, and feels pain meds not covering her pain. Will increase the morphine to 4 mg q 4hrs per pain mgmt's recommendation. Also will have nursing contact pain mgmt to notify that pt's pain is not controlled to see if they can reassess and give additional input. Pt with intactable abd pain on FIRE ALARM INSTALLER morphine which she is tolerating, she has maxed out her dose and c/o poor pain control, however on exam the only potential indication for poor pain control is tachycardia. She appears comfortable in bed, converses appropriate, and there is no guarding of the abdomen. I will address this further with my attending today. Dr Smith has seen the pt, rec medical mgmt, not surgical intervention appropriate. Rec clear liquids for 2 meals then advance her diet as tolerated. She is eager to eat. (2) Metastatic colon cancer in female Status: Chronic Response to Treatment: Stable Problem Specific Plan: Monitor Clinically Problem Text: Follows with Onc in outpt setting. (3) Hypomagnesemia Status: Acute Problem Specific Plan: Monitor Clinically, Repeat Labs Problem Text: 07/04 - Mg 1.9 07/03 - Mag 1.5. Will give mag runs x 2. Recheck mag in AM. (4) Tachycardia Status: Acute Discussed With: Nurse, Patient Problem Text: 07/03 - HR appears to be trending down over the past day and appears between 90s to 140s past 24 hrs. Propranolol 40 mg twice daily, rate remains in the 120s, this is her home dose medication and may need to be titrated. (5) History of hydronephrosis Status: Chronic Response to Treatment: Stable Problem Specific Plan: Monitor Clinically Problem Text: Has stent in place, scan appears without any persistent hydronephrosis. (6) UTI (urinary tract infection) Status: Acute Problem Text: Ceftriaxone IV D3 - cultures pending. Her WBC is trending upward as well, no fevers documented. May need to consider reimaging her abd. Plan/VTE VTE Prophylaxis Ordered?: Yes Plan Anticipated Discharge: Home Family Medicine Attending Note: I saw and examined Ms. Goff, discussed with YUE Hernandez. Agree with their note as documented. Ms. Goff reports that the MS Contin is helping better than the OxyContin was. She reported to Caitlin earlier that the when necessary morphine was not lasting long enough. The frequency of this was changed. My intention is to calculate the amount of when necessary morphine she received over the last 24 hours tomorrow. I'll add much of this to her long-acting morphine and see if we can reduce her reliance on short acting. 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 mechanic) VS, I&O, 24H, Fishbone Vital Signs/I&O Vital Signs Date Time Temp Pulse Resp B/P (MAP) Pulse Ox O2 Delivery O2 Flow Rate FiO2 07/04/17 08:12 16 07/04/17 08:11 101 161/105 07/04/17 07:13 98 Room Air 07/04/17 04:00 98.9 07/02/17 00:10 98.0 Laboratory Data 24H LABS Laboratory Tests 2 07/04/17 06:37: Nucleated Red Blood Cells % (auto) 0.0, Neutrophils 91H, Lymphocytes (Manual) 8L , Monocytes (Manual) 1, Platelet Estimate NORMAL, Red Blood Cell Morphology NORMAL, Anion Gap 6L, Glomerular Filtration Rate > 60.0, Blood Urea Nitrogen 2L , Creatinine 0.47L, Sodium Level 138, Potassium Level 4.4, Chloride Level 105, Carbon Dioxide Level 27, Calcium Level 8.3L, Magnesium Level 1.9 CBC/BMP Laboratory Tests 07/04/17 06:37 Red Blood Count 3.59 L, Mean Corpuscular Volume 95.0, Mean Corpuscular Hemoglobin 30.9, Mean Corpuscular Hemoglobin Concent 32.6, Red Cell Distribution Width 19.0 H, Calcium Level 8.3 L Microbiology Microbiology 07/02/17 Blood Culture - Preliminary, Resulted No Growth after 48 hours. All Specime... 07/02/17 Blood Culture - Preliminary, Resulted No Growth after 48 hours. All Specime... 07/02/17 Urine Culture - Preliminary, Resulted Enterobacter Cloacae Complex 07/01/17 Urine Culture, Received Pending CAITLIN BREAUX PA-C Jul 04, 2017 09:49 Jarek San MD Jul 05, 2017 14:04
[2017-07-04 12:00] VITALS: BP 158/95
[2017-07-04 16:00] VITALS: BP 140/93
--- NOTE | 2017-07-04 17:40 | REP ---
The procedure was performed under the direct supervision of Dr. العلي CLINICAL HISTORY: Colon cancer left ureteral obstruction PROCEDURE: Left nephrostomy catheter exchange. EBL: Zero FLUORO TIME: 2 minutesCONTRAST: 48 mlDEVICE USED: 10 F Nephrostomy (Resolve) catheter Lot# [id number] The risks and benefits of the procedure were explained to the patient and informed consent was obtained. The patient was brought into the interventional radiology suite. A time of procedure was performed. The patient was placed in the right lateral recumbent position . The existing indwelling catheter and the area surrounding the insertion site were prepped and draped in a sterile fashion. Contrast was injected through the existing left Nephrostomy catheter. Images demonstrate the catheter to be in good placement. The existing catheter was unlocked and removed over the guide wire. A new 10-Telugu valve catheter was advanced over the guide wire. The guidewire was removed and the distal loop of the nephrostomy drainage catheter was formed and locked in the renal pelvis. Contrast was injected, confirming satisfactory drainage catheter positioned. The drainage catheter exit site was covered with sterile dressing. The nephrostomy drainage catheter was flushed and connected to gravity drainage bag. The patient tolerated the procedure well and there were no immediate complications. This procedure was performed using fluoroscopy. Impression: Successful exchange of nephrostomy urinary diversion tube on the left As discussed above. Plan: Routine catheter exchange and approximately 10-12 weeks or earlier if signs of tube dysfunction were to occur. Reviewed by MARY ALICE Rivera 07/04/2017 05:00 PSigned by Tio العلي MD 07/04/2017 05:31 P
[2017-07-04] MEDS: SUCRALFATE 1 GM TAB PO PRN (18:34)
[2017-07-04 20:00] VITALS: BP 120/83
[2017-07-04] MEDS: MULTIVITAMINS/MINERALS THERAP 1 TAB PO SCH (21:11)
[2017-07-04] MEDS: DULoxetine 30 MG CAP (CYMBALTA) PO SCH (21:12)
[2017-07-05] VITALS: BP 125/89
[2017-07-05] MEDS: cefTRIAXone SOD 1 GM in D5W 50 ML IV SCH (00:02)
[2017-07-05] MEDS: diazePAM 5 MG TAB PO SCH ×4 (00:03→18:19)
[2017-07-05] MEDS: HYOSCYAMINE SULFATE 0.125 MG SUBL TABLET SL SCH ×4 (00:03→18:18)
[2017-07-05] MEDS: MORPHINE 10 MG/ML 1ML VIAL IV PRN ×9 (00:10→20:04)
[2017-07-05] MEDS: KCL 20MEQ in NS 1000ML 1,000 ML IV SCH ×3 (01:47→16:53)
[2017-07-05 04:00] VITALS: BP 119/74
[2017-07-05 06:01] LABS: ANION GAP 4 MEQ/L (8-16); BLOOD UREA NITROGEN 2 MG/DL (7-18); CARBON DIOXIDE LEVEL 28 MEQ/L (21-32); CHLORIDE LEVEL 108 MEQ/L (98-107); CREATININE FOR GFR 0.46 MG/DL (0.55-1.02); GLOMERULAR FILTRATION RATE > 60.0 (>58); GLUCOSE, FASTING 91 MG/DL (70-105); MAGNESIUM LEVEL 1.8 MG/DL (1.8-2.4); POTASSIUM SERUM 4.5 MEQ/L (3.5-5.1); SODIUM LEVEL 140 MEQ/L (136-145)
[2017-07-05 06:05] LABS: BASO # 0.1 10^3/uL (0.0-0.2); BASO % 0.4 % (0.0-1.0); EOS # 0.2 10^3/uL (0.0-0.50); EOS % 1.1 % (0.0-3.0); IMMATURE GRANULOCYTE % 0.8 % (0-0); LYMPH # 1.6 10^3/uL (1.5-4.5); LYMPH % 12.2 % (24.0-44.0); MEAN CORPUSCULAR HEMOGLOBIN 31.1 pg (27.0-33.0); MEAN CORPUSCULAR HGB CONC 32.2 g/dl (32.0-36.5); MEAN CORPUSCULAR VOLUME 96.6 fl (80.0-96.0); MONO # 1.4 10^3/uL (0.0-0.8); MONO % 10.7 % (0.0-5.0); NEUTROPHILS # 9.9 10^3/uL (1.8-7.7); NEUTROPHILS % 74.8 % (36.0-66.0); PLATELET COUNT, AUTOMATED 387 10^3/uL (150-450); RED CELL DISTRIBUTION WIDTH 19.3 % (11.5-14.5); WHITE BLOOD COUNT 13.3 10^3/uL (4.0-10.0)
[2017-07-05 08:00] VITALS: BP 126/87
[2017-07-05] MEDS: SENOKOT S TAB PO SCH ×2 (08:32→21:40)
[2017-07-05] MEDS: PANTOPRAZOLE 40MG TAB (PROTONIX) PO SCH (08:32)
[2017-07-05] MEDS: MORPHINE 30 MG SA TAB PO SCH (08:33)
[2017-07-05] MEDS: ENOXAPARIN 40 MG/0.4 ML SYRINGE (J1650) SC SCH (08:33)
[2017-07-05] MEDS: PROPRANOLOL 20 MG TAB PO SCH ×2 (08:45→21:40)
[2017-07-05] MEDS ORDERED: BISACODYL 10 MG SUPP PR ONE (10:30)
--- NOTE | 2017-07-05 10:38 | IPNPDOC ---
Subjective Date Seen The patient was seen on 07/05/17. Subjective Chief Complaint/HPI The patient is a 47-year-old female admitted with a reason for visit of Uti, Abdominal Pain. Events since last encounter Pt c/o continued poor pain control. She states that her pain relief lasts about 90 minutes and she isn't due for another dose of as needed pain relief for 120 minutes. She also c/o inability to pass gas, alhtough she feels as though she needs to. General: Denies: Fatigue Constitutional: Denies: Fever Pulmonary: Denies: Dyspnea, Cough Cardiovascular: Denies: Chest Pain, Palpitations Gastrointestinal: Reports: Abdominal Pain, Denies: Nausea, Vomiting Neurological: Reports: Weakness Psych: Reports: Mood Normal Objective Physical Examination General Exam: Positive: Alert, No Acute Distress ENT Exam: Positive: Mucous membr. moist/pink Chest Exam: Positive: Clear to auscultation, Normal air movement Heart Exam: Positive: Tachycardic (rate 106), Regular Rhythm Telemetry: Positive: Tachycardia Abdomen Exam: Positive: Normal bowel sounds, Soft, Tenderness (diffusely with gentle palpation. ) Extremity Exam: Negative: Edema Psych Exam: Positive: Mental status NL, Mood NL Assessment /Plan Problems (1) Abdominal pain Status: Acute Response to Treatment: Stable Discussed With: Nurse, Patient Problem Specific Plan: Consult Specialist, Monitor Clinically, Repeat Labs Problem Text: 07/05 - Pt mgmt adjusted per Dr San yesterday. She is on MS Contin 30 mg q8, will change to 45 mg, cont IV 6 mg q2h, she used 66 mg of IV morphine in the last 24 hours. 07/04 - Pt cont to c/o poor pain control, Ace LAW, spoke with Pain Mgmt this morning, who rec increased the morphine IV 6 mg from every 3 h to every 2 h as needed for pain relief. I have made this change as requested. 07/03 - Pt was seen by pain management who gave MSIR 30 mg one time, started morphine 2mg q4 prn for breakthrough pain, started OxyContin 20 mg three times a day, and started valium 5 mg every 6 hours as needed. Pain management discussed possibly increasing the morphine to 4mg q4h prn. Pt continues have abd pain, and feels pain meds not covering her pain. Will increase the morphine to 4 mg q 4hrs per pain mgmt's recommendation. Also will have nursing contact pain mgmt to notify that pt's pain is not controlled to see if they can reassess and give additional input. Pt with intactable abd pain on SERVOMECHANISM ASSEMBLER morphine which she is tolerating, she has maxed out her dose and c/o poor pain control, however on exam the only potential indication for poor pain control is tachycardia. She appears comfortable in bed, converses appropriate, and there is no guarding of the abdomen. I will address this further with my attending today. Dr Smith has seen the pt, rec medical mgmt, not surgical intervention appropriate. Rec clear liquids for 2 meals then advance her diet as tolerated. She is eager to eat. (2) Metastatic colon cancer in female Status: Chronic Response to Treatment: Stable Problem Specific Plan: Monitor Clinically Problem Text: Follows with Onc in outpt setting. (3) Hypomagnesemia Status: Acute Problem Specific Plan: Monitor Clinically, Repeat Labs Problem Text: 07/04 - Mg 1.9 07/03 - Mag 1.5. Will give mag runs x 2. Recheck mag in AM. (4) Tachycardia Status: Acute Discussed With: Nurse, Patient Problem Text: 07/03 - HR appears to be trending down over the past day and appears between 90s to 140s past 24 hrs. Propranolol 40 mg twice daily, rate remains in the 120s, this is her home dose medication and may need to be titrated. (5) History of hydronephrosis Status: Chronic Response to Treatment: Stable Problem Specific Plan: Monitor Clinically Problem Text: Has stent in place, scan appears without any persistent hydronephrosis. (6) UTI (urinary tract infection) Status: Acute Problem Text: Ceftriaxone IV D3 - cultures pending. Her WBC is trending upward as well, no fevers documented. May need to consider reimaging her abd. Plan/VTE VTE Prophylaxis Ordered?: Yes Plan Anticipated Discharge: Home Family Medicine Attending Note: I saw and examined Ms. Goff, discussed with YUE Hernandez. Agree with their note as documented. I saw her this afternoon after her first dose of the 45 mg MS Contin. She was resting comfortably when I entered the room. She was easily arousable. She reported she had not slept in some time and was comfortable enough that she could sleep well. She has only used one dose of when necessary morphine. I think were certainly on the right track with her regimen. We'll continue to monitor. 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) VS, I&O, 24H, Aryabone Vital Signs/I&O Vital Signs Date Time Temp Pulse Resp B/P (MAP) Pulse Ox O2 Delivery O2 Flow Rate FiO2 07/05/17 08:59 18 94 Room Air 07/05/17 08:45 103 126/87 07/05/17 08:00 97.6 07/02/17 00:10 98.0 I&O- Last 24 Hours up to 6 AM 07/06/17 05:59 Intake Total 800 ml Balance 800 ml Laboratory Data 24H LABS Laboratory Tests 2 07/05/17 05:31: Immature Granulocyte % (Auto) 0.8H, White Blood Count 13.3H, Red Blood Count 3.25L, Hemoglobin 10.1L, Hematocrit 31.4L, Mean Corpuscular Volume 96.6H, Mean Corpuscular Hemoglobin 31.1, Mean Corpuscular Hemoglobin Concent 32.2, Red Cell Distribution Width 19.3H, Platelet Count 387, Neutrophils (%) (Auto) 74.8H, Lymphocytes (%) (Auto) 12.2L, Monocytes (%) (Auto) 10.7H, Eosinophils (%) (Auto ) 1.1, Basophils (%) (Auto) 0.4, Neutrophils # (Auto) 9.9H, Lymphocytes # (Auto ) 1.6, Monocytes # (Auto) 1.4H, Eosinophils # (Auto) 0.2, Basophils # (Auto) 0.1 , Immature Granulocyte # (Auto) 0.1H, Nucleated Red Blood Cells % (auto) 0.0, Anion Gap 4L, Glomerular Filtration Rate > 60.0, Blood Urea Nitrogen 2L, Creatinine 0.46L, Sodium Level 140, Potassium Level 4.5, Chloride Level 108H, Carbon Dioxide Level 28, Calcium Level 8.0L, Magnesium Level 1.8 CBC/BMP Laboratory Tests 07/05/17 05:31 Red Blood Count 3.25 L, Mean Corpuscular Volume 96.6 H, Mean Corpuscular Hemoglobin 31.1, Mean Corpuscular Hemoglobin Concent 32.2, Red Cell Distribution Width 19.3 H, Neutrophils (%) (Auto) 74.8 H, Lymphocytes (%) (Auto ) 12.2 L, Monocytes (%) (Auto) 10.7 H, Eosinophils (%) (Auto) 1.1, Basophils (% ) (Auto) 0.4, Neutrophils # (Auto) 9.9 H, Lymphocytes # (Auto) 1.6, Monocytes # (Auto) 1.4 H, Eosinophils # (Auto) 0.2, Basophils # (Auto) 0.1, Calcium Level 8.0 L Microbiology Microbiology 07/02/17 Blood Culture - Preliminary, Resulted No Growth after 72 hours. All specime... 07/02/17 Blood Culture - Preliminary, Resulted No Growth after 72 hours. All specime... 07/02/17 Urine Culture - Final, Complete Enterobacter Cloacae Complex Enterococcus Faecalis 07/01/17 Urine Culture - Final, Complete Enterobacter Cloacae Complex CAITLIN BREAUX PA-C Jul 05, 2017 10:38 Jarek San MD Jul 05, 2017 15:11
[2017-07-05 12:00] VITALS: BP 124/84
[2017-07-05] MEDS: MORPHINE 15 MG SA TAB PO SCH ×2 (13:04→21:39)
[2017-07-05 16:00] VITALS: BP 125/84
[2017-07-05] MEDS ORDERED: LevoFLOXacin 500 MG TABLET PO ONE (16:30)
[2017-07-05] MEDS: SUCRALFATE 1 GM TAB PO PRN (19:53)
[2017-07-05 20:00] VITALS: BP 109/78
[2017-07-05] MEDS: DULoxetine 30 MG CAP (CYMBALTA) PO SCH (21:38)
[2017-07-05] MEDS: MULTIVITAMINS/MINERALS THERAP 1 TAB PO SCH (21:39)
[2017-07-06] VITALS: BP 127/76
[2017-07-06] MEDS: KCL 20MEQ in NS 1000ML 1,000 ML IV SCH ×4 (00:34→23:52)
[2017-07-06] MEDS: diazePAM 5 MG TAB PO SCH ×5 (00:34→23:51)
[2017-07-06] MEDS: HYOSCYAMINE SULFATE 0.125 MG SUBL TABLET SL SCH ×5 (00:34→23:51)
[2017-07-06] MEDS: MORPHINE 10 MG/ML 1ML VIAL IV PRN ×4 (01:03→11:52)
[2017-07-06 04:00] VITALS: BP 127/78
[2017-07-06] MEDS: MORPHINE 15 MG SA TAB PO SCH (05:42)
[2017-07-06 05:58] LABS: BASO % 0.3 % (0.0-1.0); EOS # 0.2 10^3/uL (0.0-0.50); EOS % 1.6 % (0.0-3.0); IMMATURE GRANULOCYTE % 0.6 % (0-0); LYMPH # 1.6 10^3/uL (1.5-4.5); LYMPH % 12.9 % (24.0-44.0); MEAN CORPUSCULAR HEMOGLOBIN 31.5 pg (27.0-33.0); MEAN CORPUSCULAR HGB CONC 32.2 g/dl (32.0-36.5); MEAN CORPUSCULAR VOLUME 97.7 fl (80.0-96.0); MONO # 1.1 10^3/uL (0.0-0.8); NEUTROPHILS # 9.1 10^3/uL (1.8-7.7); NEUTROPHILS % 75.6 % (36.0-66.0); PLATELET COUNT, AUTOMATED 341 10^3/uL (150-450); RED CELL DISTRIBUTION WIDTH 19.1 % (11.5-14.5)
[2017-07-06 06:24] LABS: ANION GAP 5 MEQ/L (8-16); BLOOD UREA NITROGEN 4 MG/DL (7-18); CALCIUM LEVEL 8.1 MG/DL (8.5-10.1); CARBON DIOXIDE LEVEL 26 MEQ/L (21-32); CHLORIDE LEVEL 109 MEQ/L (98-107); CREATININE FOR GFR 0.41 MG/DL (0.55-1.02); GLOMERULAR FILTRATION RATE > 60.0 (>58); GLUCOSE, FASTING 95 MG/DL (70-105); MAGNESIUM LEVEL 1.6 MG/DL (1.8-2.4); POTASSIUM SERUM 4.9 MEQ/L (3.5-5.1); SODIUM LEVEL 140 MEQ/L (136-145)
[2017-07-06 08:00] VITALS: BP 125/68
[2017-07-06] MEDS: ENOXAPARIN 40 MG/0.4 ML SYRINGE (J1650) SC SCH (09:04)
[2017-07-06] MEDS: PANTOPRAZOLE 40MG TAB (PROTONIX) PO SCH (09:04)
[2017-07-06] MEDS: SENOKOT S TAB PO SCH ×2 (09:04→21:04)
[2017-07-06] MEDS: PROPRANOLOL 20 MG TAB PO SCH ×2 (09:04→21:04)
[2017-07-06] MEDS: SIMETHICONE 80 MG CHEW TAB PO PRN (09:06)
[2017-07-06] MEDS ORDERED: BISACODYL 10 MG SUPP PR PRN (09:30)
[2017-07-06 12:00] VITALS: BP 137/85
[2017-07-06] MEDS ORDERED: fentaNYL 75 MCG/HR PATCH TOP SCH (13:00)
[2017-07-06] MEDS ORDERED: FENTANYL REMOVAL DOCUMENTATION MISC XX SCH (13:00)
[2017-07-06] MEDS ORDERED: MAGNESIUM CITRATE 300 ML BTL PO ONE (14:00)
[2017-07-06] MEDS ORDERED: MAGNESIUM CITRATE 300 ML BTL PO PRN (15:00)
[2017-07-06] MEDS: MORPHINE 10MG/0.5ML ORAL CONCENTRATE SOLUTION U/D SL PRN ×3 (15:29→23:03)
[2017-07-06 20:00] VITALS: BP 118/79
[2017-07-06] MEDS: DULoxetine 30 MG CAP (CYMBALTA) PO SCH (21:03)
[2017-07-06] MEDS: MULTIVITAMINS/MINERALS THERAP 1 TAB PO SCH (21:04)
--- NOTE | 2017-07-06 22:32 | IPNPDOC ---
Subjective Date Seen The patient was seen on 07/06/17. Subjective Chief Complaint/HPI The patient is a 47-year-old female admitted with a reason for visit of Uti, Abdominal Pain. Events since last encounter Patient is uncomfortable this morning, sitting upright on her bed. Patient complains of abdominal pain throughout her entire abdomen and also flank pain. She states that she feels that she is constipated and has a lot of pain from gas. She feels that pain medications are not addressing the underlying problem. She wonders whether taking a bowel prep to clean out her bowels would be appropriate. She feels that after urinating, she has more pain in the abdomen. Patient still plans on going to [place] on Saturday. General: Denies: Normal Appetite (she has no appetite, does not feel like eating) Constitutional: Denies: Chills, Fever, Night Sweats Pulmonary: Denies: Dyspnea, Cough Cardiovascular: Denies: Chest Pain, Palpitations, Orthopnea, Paroxysmal Noc. Dyspnea, Lt Headedness Gastrointestinal: Reports: Abdominal Pain, Constipation Genitourinary: Reports: Retention (feels that she is retaining urine after urination) Objective Physical Examination General Exam: Positive: Alert, No Acute Distress ENT Exam: Positive: Mucous membr. moist/pink Chest Exam: Positive: Clear to auscultation, Normal air movement Heart Exam: Positive: Tachycardic (rate 106), Regular Rhythm Telemetry: Positive: Tachycardia Abdomen Exam: Positive: Normal bowel sounds, Soft, Tenderness (diffusely with gentle palpation. ) Extremity Exam: Negative: Edema Psych Exam: Positive: Mental status NL, Mood NL Assessment /Plan Problems (1) Abdominal pain Status: Acute Response to Treatment: Stable Discussed With: Nurse, Patient Problem Specific Plan: Consult Specialist, Monitor Clinically, Repeat Labs Problem Text: 07/07/17 - The fentanyl didn't really work for her. It took her pain down to perhaps 7/10 at the best. We discussed options and I will put her back on MS Contin which seemed to work better for her than anything. I will put her on MS Contin 60mg TID with Roxanol 10mg SL Q2h prn breakthrough pain. Will see how this works for her. 07/06/2017- anticipate discharge pending adequate pain control. We will start transitioning her off of IV pain medications. We will start trial of fentanyl patch and Roxanol. 07/05 - Pt mgmt adjusted per Dr San yesterday. She is on MS Contin 30 mg q8, will change to 45 mg, cont IV 6 mg q2h, she used 66 mg of IV morphine in the last 24 hours. 07/04 - Pt cont to c/o poor pain control, Ace LAW, spoke with Pain Mgmt this morning, who rec increased the morphine IV 6 mg from every 3 h to every 2 h as needed for pain relief. I have made this change as requested. 07/03 - Pt was seen by pain management who gave MSIR 30 mg one time, started morphine 2mg q4 prn for breakthrough pain, started OxyContin 20 mg three times a day, and started valium 5 mg every 6 hours as needed. Pain management discussed possibly increasing the morphine to 4mg q4h prn. Pt continues have abd pain, and feels pain meds not covering her pain. Will increase the morphine to 4 mg q 4hrs per pain mgmt's recommendation. Also will have nursing contact pain mgmt to notify that pt's pain is not controlled to see if they can reassess and give additional input. Pt with intactable abd pain on WATER WE[employer] DRILL[employer] morphine which she is tolerating, she has maxed out her dose and c/o poor pain control, however on exam the only potential indication for poor pain control is tachycardia. She appears comfortable in bed, converses appropriate, and there is no guarding of the abdomen. I will address this further with my attending today. Dr Smith has seen the pt, rec medical mgmt, not surgical intervention appropriate. Rec clear liquids for 2 meals then advance her diet as tolerated. She is eager to eat. (2) Irritable bowel syndrome Status: Chronic Discussed With: Patient Problem Text: She continues to have abdominal cramping after she has a BM or urinates. I have tried her on dicyclomine 10mg QID (which she also takes at home ), but this didn't help. I tried I Levsin 0.125 mg by mouth TID, but this didn' t help much. I increased it to 0.25mg TID with still not much response. I will try maxing this out at 0.5mg TID. If this doesn't help, then we should probably stop the bowel antispasmodics. I have a suspicion that the problem is in her pelvic diaphragm or tay muscle anyway. (3) Metastatic colon cancer in female Status: Chronic Response to Treatment: Stable Problem Specific Plan: Monitor Clinically Problem Text: Follows with Onc in outpt setting. Dr. Mueller will do further investigations of the etiology of her symptoms after she returns from her trip. (4) Hypomagnesemia Status: Acute Problem Specific Plan: Monitor Clinically, Repeat Labs Problem Text: Mg is good today, but has been fluctuating. Continue to monitor. (5) Tachycardia Status: Acute Discussed With: Nurse, Patient Problem Text: She continues to have a mild, probably physiologic from pain, tachycardia. Continue to monitor. (6) History of hydronephrosis Status: Chronic Response to Treatment: Stable Problem Specific Plan: Monitor Clinically Problem Text: Has stent in place, scan appears without any persistent hydronephrosis. (7) UTI (urinary tract infection) Status: Acute Problem Text: Culture from her nephrostomy showed Enterobacter cloaca any Enterobacter faecalis. As far as I can tell she was given only 1 dose of Levaquin 2 days ago. I don't understand why she is not still on antibiotics, therefore I will restart them today. Plan/VTE VTE Prophylaxis Ordered?: Yes (Lovenox) Plan Anticipated Discharge: Home VS, I&O, 24H, Fishbone Vital Signs/I&O Vital Signs Date Time Temp Pulse Resp B/P (MAP) Pulse Ox O2 Delivery O2 Flow Rate FiO2 07/06/17 06:54 22 07/06/17 06:36 97 07/06/17 04:00 97.5 97 127/78 (94) Room Air 07/02/17 00:10 98.0 Laboratory Data 24H LABS Laboratory Tests 2 07/06/17 05:40: Immature Granulocyte % (Auto) 0.6H, White Blood Count 12.0H, Red Blood Count 3.11L, Hemoglobin 9.8L, Hematocrit 30.4L, Mean Corpuscular Volume 97.7H, Mean Corpuscular Hemoglobin 31.5, Mean Corpuscular Hemoglobin Concent 32.2, Red Cell Distribution Width 19.1H, Platelet Count 341, Neutrophils (%) (Auto) 75.6H, Lymphocytes (%) (Auto) 12.9L, Monocytes (%) (Auto) 9.0H, Eosinophils (%) (Auto) 1.6, Basophils (%) (Auto) 0.3, Neutrophils # (Auto) 9.1H, Lymphocytes # (Auto) 1.6, Monocytes # (Auto) 1.1H, Eosinophils # (Auto) 0.2, Basophils # (Auto) 0.0, Immature Granulocyte # (Auto) 0.1H, Nucleated Red Blood Cells % (auto) 0.0, Anion Gap 5L, Glomerular Filtration Rate > 60.0, Blood Urea Nitrogen 4#L, Creatinine 0.41L, Sodium Level 140, Potassium Level 4.9, Chloride Level 109H, Carbon Dioxide Level 26, Calcium Level 8.1L, Magnesium Level 1.6L CBC/BMP Laboratory Tests 07/06/17 05:40 Red Blood Count 3.11 L, Mean Corpuscular Volume 97.7 H, Mean Corpuscular Hemoglobin 31.5, Mean Corpuscular Hemoglobin Concent 32.2, Red Cell Distribution Width 19.1 H, Neutrophils (%) (Auto) 75.6 H, Lymphocytes (%) (Auto ) 12.9 L, Monocytes (%) (Auto) 9.0 H, Eosinophils (%) (Auto) 1.6, Basophils (%) (Auto) 0.3, Neutrophils # (Auto) 9.1 H, Lymphocytes # (Auto) 1.6, Monocytes # ( Auto) 1.1 H, Eosinophils # (Auto) 0.2, Basophils # (Auto) 0.0, Calcium Level 8.1 L Microbiology Microbiology 07/02/17 Blood Culture - Preliminary, Resulted No Growth after 72 hours. All specime... 07/02/17 Blood Culture - Preliminary, Resulted No Growth after 72 hours. All specime... 07/02/17 Urine Culture - Final, Complete Enterobacter Cloacae Complex Enterococcus Faecalis 07/01/17 Urine Culture - Final, Complete Enterobacter Cloacae Complex GME ATTESTATION GME ATTESTATION My preceptor for this patient encounter was physically present in the building during the encounter and was fully available. As needed, all aspects of the patient interview, examination, medical decision making process, and medical care plan development were reviewed and approved by the preceptor. Preceptor is aware and concurs with the plan as stated in the body of this note and will attest to such by his/her cosignature. SAMANTHA VARMA DO Jul 06, 2017 08:42 Jarek San MD Jul 07, 2017 22:19
[2017-07-07] VITALS: BP 132/88
[2017-07-07 04:00] VITALS: BP 133/86
[2017-07-07] MEDS: MORPHINE 10MG/0.5ML ORAL CONCENTRATE SOLUTION U/D SL PRN ×5 (05:27→17:00)
[2017-07-07] MEDS: HYOSCYAMINE SULFATE 0.125 MG SUBL TABLET SL SCH ×4 (05:34→21:57)
[2017-07-07] MEDS: diazePAM 5 MG TAB PO SCH ×3 (05:36→17:00)
[2017-07-07] MEDS: SIMETHICONE 80 MG CHEW TAB PO PRN (07:45)
[2017-07-07 08:00] VITALS: BP 129/89
[2017-07-07] MEDS: SENOKOT S TAB PO SCH ×2 (08:40→21:52)
[2017-07-07] MEDS: PANTOPRAZOLE 40MG TAB (PROTONIX) PO SCH (08:41)
[2017-07-07] MEDS: PROPRANOLOL 20 MG TAB PO SCH ×2 (08:41→21:59)
[2017-07-07 12:00] VITALS: BP 129/88
--- NOTE | 2017-07-07 12:28 | IPNPDOC ---
Subjective Date Seen The patient was seen on 07/07/17. Subjective Chief Complaint/HPI The patient is a 47-year-old female admitted with a reason for visit of Uti, Abdominal Pain. Events since last encounter The fentanyl patch did not work well for her. We gave a full 24 hours, but she still thought she was better off with the MS Contin. I will adjust her regimen and will continue to try to control her pain adequately for her to be discharged in time to catch a flight Saturday. General: Denies: Normal Appetite Constitutional: Denies: Chills, Fever ENT: Reports: Head Aches Pulmonary: Denies: Dyspnea, Cough Cardiovascular: Denies: Chest Pain, Palpitations Gastrointestinal: Reports: Nausea, Abdominal Pain Genitourinary: Denies: Dysuria Psych: Reports: Mood Normal, Anxiety Objective Physical Examination General Exam: Positive: Alert, No Acute Distress ENT Exam: Positive: Mucous membr. moist/pink Chest Exam: Positive: Clear to auscultation, Normal air movement Heart Exam: Positive: Regular Rhythm Telemetry: Positive: Tachycardia Abdomen Exam: Positive: Normal bowel sounds, Soft, Tenderness (diffusely with gentle palpation. It is difficult to tell, but I think it is decreasing some.) Extremity Exam: Negative: Edema Psych Exam: Positive: Mental status NL, Mood NL Assessment /Plan Problems (1) Abdominal pain Status: Acute Response to Treatment: Stable Discussed With: Nurse, Patient Problem Specific Plan: Consult Specialist, Monitor Clinically, Repeat Labs Problem Text: 07/07/17 - The fentanyl did not work very well for her. I put her back on MS Contin with MSIR for breakthrough and we will have to carefully titrate for the right dose. - anticipate discharge pending adequate pain control. We will start transitioning her off of IV pain medications. We will start trial of fentanyl patch and Roxanol. 07/05 - Pt mgmt adjusted per Dr San yesterday. She is on MS Contin 30 mg q8, will change to 45 mg, cont IV 6 mg q2h, she used 66 mg of IV morphine in the last 24 hours. 07/04 - Pt cont to c/o poor pain control, Ace LAW, spoke with Pain Mgmt this morning, who rec increased the morphine IV 6 mg from every 3 h to every 2 h as needed for pain relief. I have made this change as requested. 07/03 - Pt was seen by pain management who gave MSIR 30 mg one time, started morphine 2mg q4 prn for breakthrough pain, started OxyContin 20 mg three times a day, and started valium 5 mg every 6 hours as needed. Pain management discussed possibly increasing the morphine to 4mg q4h prn. Pt continues have abd pain, and feels pain meds not covering her pain. Will increase the morphine to 4 mg q 4hrs per pain mgmt's recommendation. Also will have nursing contact pain mgmt to notify that pt's pain is not controlled to see if they can reassess and give additional input. Pt with intactable abd pain on STONE OPERATOR morphine which she is tolerating, she has maxed out her dose and c/o poor pain control, however on exam the only potential indication for poor pain control is tachycardia. She appears comfortable in bed, converses appropriate, and there is no guarding of the abdomen. I will address this further with my attending today. Dr Smith has seen the pt, rec medical mgmt, not surgical intervention appropriate. Rec clear liquids for 2 meals then advance her diet as tolerated. She is eager to eat. (2) Metastatic colon cancer in female Status: Chronic Response to Treatment: Stable Problem Specific Plan: Monitor Clinically Problem Text: Follows with Onc in outpt setting. (3) Hypomagnesemia Status: Acute Problem Specific Plan: Monitor Clinically, Repeat Labs Problem Text: Her magnesium levels are back in the normal range. No change her current regimen. (4) Tachycardia Status: Acute Discussed With: Nurse, Patient Problem Text: I believe that much of this tachycardia is physiologic from her pain. Were working on pain control. (5) History of hydronephrosis Status: Chronic Response to Treatment: Stable Problem Specific Plan: Monitor Clinically Problem Text: Has stent in place, scan appears without any persistent hydronephrosis. (6) UTI (urinary tract infection) Status: Resolved Problem Text: Ceftriaxone IV D3 - cultures pending. Her WBC is trending upward as well, no fevers documented. May need to consider reimaging her abd. Plan/VTE VTE Prophylaxis Ordered?: Yes Plan Anticipated Discharge: Home VS, I&O, 24H, Fishbone Vital Signs/I&O Vital Signs Date Time Temp Pulse Resp B/P (MAP) Pulse Ox O2 Delivery O2 Flow Rate FiO2 07/07/17 12:00 97.0 105 23 129/88 (102) 96 Room Air 07/02/17 00:10 98.0 I&O- Last 24 Hours up to 6 AM 07/08/17 05:59 Intake Total 1290 ml Output Total 1000 ml Balance 290 ml Laboratory Data 24H LABS Laboratory Tests 2 07/07/17 05:59: Magnesium Level 2.1 Microbiology Microbiology 07/02/17 Blood Culture - Final, Complete NO GROWTH AFTER 5 DAYS 07/02/17 Blood Culture - Final, Complete NO GROWTH AFTER 5 DAYS 07/02/17 Urine Culture - Final, Complete Enterobacter Cloacae Complex Enterococcus Faecalis 07/01/17 Urine Culture - Final, Complete Enterobacter Cloacae Complex Jarek San MD Jul 07, 2017 12:28
[2017-07-07] MEDS: ENOXAPARIN 40 MG/0.4 ML SYRINGE (J1650) SC SCH (15:39)
[2017-07-07] MEDS: MORPHINE 30 MG SA TAB PO SCH ×2 (15:40→21:58)
[2017-07-07 16:00] VITALS: BP 134/80
[2017-07-07] MEDS: CETIRIZINE (ZyrTEC) 10 MG TAB PO SCH (17:43)
[2017-07-07 20:00] VITALS: BP 135/91
[2017-07-07] MEDS: MULTIVITAMINS/MINERALS THERAP 1 TAB PO SCH (21:52)
[2017-07-07] MEDS: DULoxetine 30 MG CAP (CYMBALTA) PO SCH (21:58)
[2017-07-08] VITALS (7 sets, daily range): BP systolic 101–149; BP diastolic 64–96
[2017-07-08] MEDS: MORPHINE 10MG/0.5ML ORAL CONCENTRATE SOLUTION U/D SL PRN ×3 (00:25→14:45)
[2017-07-08] MEDS: LevoFLOXacin 500 MG TABLET PO SCH (05:26)
[2017-07-08] MEDS: diazePAM 5 MG TAB PO SCH ×4 (05:27→17:19)
[2017-07-08 05:58] LABS: MEAN CORPUSCULAR HEMOGLOBIN 30.7 pg (27.0-33.0); MEAN CORPUSCULAR HGB CONC 31.9 g/dl (32.0-36.5); MEAN CORPUSCULAR VOLUME 96.2 fl (80.0-96.0); PLATELET COUNT, AUTOMATED 368 10^3/uL (150-450); RED CELL DISTRIBUTION WIDTH 18.4 % (11.5-14.5); WHITE BLOOD COUNT 9.1 10^3/uL (4.0-10.0)
[2017-07-08 06:29] LABS: ANION GAP 6 MEQ/L (8-16); BLOOD UREA NITROGEN 3 MG/DL (7-18); CALCIUM LEVEL 8.5 MG/DL (8.5-10.1); CARBON DIOXIDE LEVEL 28 MEQ/L (21-32); CHLORIDE LEVEL 105 MEQ/L (98-107); CREATININE FOR GFR 0.45 MG/DL (0.55-1.02); GLOMERULAR FILTRATION RATE > 60.0 (>58); GLUCOSE, FASTING 84 MG/DL (70-105); MAGNESIUM LEVEL 1.9 MG/DL (1.8-2.4); POTASSIUM SERUM 4.4 MEQ/L (3.5-5.1); SODIUM LEVEL 139 MEQ/L (136-145)
[2017-07-08] MEDS: PROPRANOLOL 20 MG TAB PO SCH ×2 (08:20→21:58)
[2017-07-08] MEDS: SENOKOT S TAB PO SCH ×3 (08:21→21:57)
[2017-07-08] MEDS: CETIRIZINE (ZyrTEC) 10 MG TAB PO SCH (08:21)
[2017-07-08] MEDS: MORPHINE 30 MG SA TAB PO SCH (08:21)
[2017-07-08] MEDS: PANTOPRAZOLE 40MG TAB (PROTONIX) PO SCH (08:22)
[2017-07-08] MEDS: ENOXAPARIN 40 MG/0.4 ML SYRINGE (J1650) SC SCH (08:22)
[2017-07-08] MEDS: HYOSCYAMINE SULFATE 0.125 MG SUBL TABLET SL SCH ×3 (09:52→21:58)
[2017-07-08] MEDS ORDERED: MORPHINE 30 MG SA TAB PO SCH (16:00)
--- NOTE | 2017-07-08 16:16 | IPNPDOC ---
Subjective Date Seen The patient was seen on 07/08/17. Subjective Chief Complaint/HPI The patient is a 47-year-old female admitted with a reason for visit of Uti, Abdominal Pain. Events since last encounter The patient was reported to have hallucinations by the patient's nurse last night. She was taken off of Valium. This morning, nurse states that she still seems a little bit drowsy. Patient reports feeling better this morning. She continues to have abdominal pain. She rates her pain as 6.5 out of 10 on a pain scale. Patient believes that her pain could be better controlled. She also continues to have poor appetite. She thinks that she will eat better if she would be allowed to eat small snacks throughout the day as opposed to larger meals. I encouraged her to have her bring her snacks and also for her to ask her snacks from the nursing staff. Patient continues to have small loose bowel movements. Patient is still wanting to be discharged before Saturday so that she can prepare for her trip to [place] on Saturday. I think this is reasonable pending adequate pain control. Constitutional: Denies: Chills, Fever, Night Sweats Pulmonary: Denies: Dyspnea, Cough Cardiovascular: Denies: Chest Pain, Palpitations, Orthopnea, Paroxysmal Noc. Dyspnea, Lt Headedness Gastrointestinal: Reports: Abdominal Pain, Denies: Diarrhea, Constipation Genitourinary: Denies: Dysuria, Frequency, Incontinence, Retention Objective Physical Examination General Exam: Positive: Alert, No Acute Distress ENT Exam: Positive: Mucous membr. moist/pink Chest Exam: Positive: Clear to auscultation, Normal air movement Heart Exam: Positive: Tachycardic (rate 106), Regular Rhythm Telemetry: Positive: Tachycardia Abdomen Exam: Positive: Normal bowel sounds, Soft, Tenderness (diffusely with gentle palpation. ) Extremity Exam: Negative: Edema Psych Exam: Positive: Mental status NL, Mood NL Assessment /Plan Problems (1) Abdominal pain Status: Acute Response to Treatment: Stable Discussed With: Nurse, Patient Problem Specific Plan: Consult Specialist, Monitor Clinically, Repeat Labs Problem Text: 07/08/2017- Because of her excessive sedation and hallucinations with current pain regimen, we will reduce her night dose of MS Contin to 45 mg. The remaining doses will continue at 60 mg throughout the day. She will continue with Roxanol q2h PRN for breakthrough pain. If pain control is adequate throughout today, I believe it is reasonable to have the patient discharged tomorrow morning. Patient understands that she is becoming more tolerant towards stronger doses of medications and that complete resolution of pain is unrealistic. 07/07/17 - The fentanyl didn't really work for her. It took her pain down to perhaps 7/10 at the best. We discussed options and I will put her back on MS Contin which seemed to work better for her than anything. I will put her on MS Contin 60mg TID with Roxanol 10mg SL Q2h prn breakthrough pain. Will see how this works for her. 07/06/2017- anticipate discharge pending adequate pain control. We will start transitioning her off of IV pain medications. We will start trial of fentanyl patch and Roxanol. 07/05 - Pt mgmt adjusted per Dr San yesterday. She is on MS Contin 30 mg q8, will change to 45 mg, cont IV 6 mg q2h, she used 66 mg of IV morphine in the last 24 hours. 07/04 - Pt cont to c/o poor pain control, Ace LAW, spoke with Pain Mgmt this morning, who rec increased the morphine IV 6 mg from every 3 h to every 2 h as needed for pain relief. I have made this change as requested. 07/03 - Pt was seen by pain management who gave MSIR 30 mg one time, started morphine 2mg q4 prn for breakthrough pain, started OxyContin 20 mg three times a day, and started valium 5 mg every 6 hours as needed. Pain management discussed possibly increasing the morphine to 4mg q4h prn. Pt continues have abd pain, and feels pain meds not covering her pain. Will increase the morphine to 4 mg q 4hrs per pain mgmt's recommendation. Also will have nursing contact pain mgmt to notify that pt's pain is not controlled to see if they can reassess and give additional input. Pt with intactable abd pain on INK[employer] MACHINE morphine which she is tolerating, she has maxed out her dose and c/o poor pain control, however on exam the only potential indication for poor pain control is tachycardia. She appears comfortable in bed, converses appropriate, and there is no guarding of the abdomen. I will address this further with my attending today. Dr Smith has seen the pt, rec medical mgmt, not surgical intervention appropriate. Rec clear liquids for 2 meals then advance her diet as tolerated. She is eager to eat. (2) Irritable bowel syndrome Status: Chronic Discussed With: Patient Problem Text: 07/08/2017- patient continued on Levsin at 0.5 mg. 07/07/2017 She continues to have abdominal cramping after she has a BM or urinates. I have tried her on dicyclomine 10mg QID (which she also takes at home ), but this didn't help. I tried I Levsin 0.125 mg by mouth TID, but this didn' t help much. I increased it to 0.25mg TID with still not much response. I will try maxing this out at 0.5mg TID. If this doesn't help, then we should probably stop the bowel antispasmodics. I have a suspicion that the problem is in her pelvic diaphragm or tay muscle anyway. (3) Metastatic colon cancer in female Status: Chronic Response to Treatment: Stable Problem Specific Plan: Monitor Clinically Problem Text: Follows with Onc in outpt setting. Dr. Mueller will do further investigations of the etiology of her symptoms after she returns from her trip. (4) Hypomagnesemia Status: Acute Problem Specific Plan: Monitor Clinically, Repeat Labs Problem Text: 07/08/2017- magnesium WNL. We will continue to monitor. Slightly decreased from yesterday. Item Value Date Time Magnesium Level 2.1 MG/DL 07/07/17 0559 Magnesium Level 1.9 MG/DL 07/08/17 0534 Mg is good today, but has been fluctuating. Continue to monitor. (5) Tachycardia Status: Acute Discussed With: Nurse, Patient Problem Text: She continues to have a mild, probably physiologic from pain, tachycardia. Continue to monitor. (6) History of hydronephrosis Status: Chronic Response to Treatment: Stable Problem Specific Plan: Monitor Clinically Problem Text: Has stent in place, scan appears without any persistent hydronephrosis. (7) UTI (urinary tract infection) Status: Acute Problem Text: Culture from her nephrostomy showed Enterobacter cloaca any Enterobacter faecalis. As far as I can tell she was given only 1 dose of Levaquin 2 days ago. I don't understand why she is not still on antibiotics, therefore I will restart them today. Plan/VTE VTE Prophylaxis Ordered?: Yes (Lovenox) Plan Anticipated Discharge: Home Patient will be transferred from ICU to medical unit. Anticipated discharge tomorrow morning given adequate pain control. VS, I&O, 24H, Fishbone Vital Signs/I&O Vital Signs Date Time Temp Pulse Resp B/P (MAP) Pulse Ox O2 Delivery O2 Flow Rate FiO2 07/08/17 08:21 15 94 Room Air 07/08/17 08:20 102 125/88 07/08/17 04:00 96.7 07/02/17 00:10 98.0 Laboratory Data 24H LABS Laboratory Tests 2 07/08/17 05:34: Nucleated Red Blood Cells % (auto) 0.0, Anion Gap 6L, Glomerular Filtration Rate > 60.0, Blood Urea Nitrogen 3L, Creatinine 0.45L, Sodium Level 139, Potassium Level 4.4, Chloride Level 105, Carbon Dioxide Level 28, Calcium Level 8.5, Magnesium Level 1.9 CBC/BMP Laboratory Tests 07/08/17 05:34 Red Blood Count 3.16 L, Mean Corpuscular Volume 96.2 H, Mean Corpuscular Hemoglobin 30.7, Mean Corpuscular Hemoglobin Concent 31.9 L, Red Cell Distribution Width 18.4 H, Calcium Level 8.5 Microbiology Microbiology 07/02/17 Blood Culture - Final, Complete NO GROWTH AFTER 5 DAYS 07/02/17 Blood Culture - Final, Complete NO GROWTH AFTER 5 DAYS 07/02/17 Urine Culture - Final, Complete Enterobacter Cloacae Complex Enterococcus Faecalis 07/01/17 Urine Culture - Final, Complete Enterobacter Cloacae Complex GME ATTESTATION GME ATTESTATION My preceptor for this patient encounter was physically present in the building during the encounter and was fully available. As needed, all aspects of the patient interview, examination, medical decision making process, and medical care plan development were reviewed and approved by the preceptor. Preceptor is aware and concurs with the plan as stated in the body of this note and will attest to such by his/her cosignature. ATTENDING NOTE Family Medicine Attending Note: I saw Ms. Goff this morning; I discussed her care with Dr. Lopez and I agree with his note as documented. Per overnight night nurse, patient was very sedated - he states her RR was 10 at times and she was confused. Will decrease PM dose of MS Contin and make sure doses are spaced Q8H apart. Continue SL morphine as needed. (KES) SAMANTHA LOPEZ DO Jul 08, 2017 09:59 NATHAN CALDERON MD Jul 08, 2017 16:56
[2017-07-08] MEDS ORDERED: MORPHINE 15 MG SA TAB PO SCH (21:00)
[2017-07-08] MEDS: MULTIVITAMINS/MINERALS THERAP 1 TAB PO SCH ×2 (21:00→21:57)
[2017-07-08] MEDS ORDERED: methylPREDNISolone INJ 125 MG/2 ML VIAL (J2930) IV ONE (21:30)
[2017-07-08] MEDS: DULoxetine 30 MG CAP (CYMBALTA) PO SCH (21:57)
[2017-07-08] MEDS ORDERED: MORPHINE 15 MG SA TAB PO ONE (23:00)
[2017-07-09] VITALS: BP 116/75
[2017-07-09] MEDS: MORPHINE 10MG/0.5ML ORAL CONCENTRATE SOLUTION U/D SL PRN ×7 (00:54→20:53)
[2017-07-09 04:00] VITALS: BP 115/71
[2017-07-09] MEDS: diazePAM 5 MG TAB PO SCH ×2 (06:24)
[2017-07-09] MEDS: LevoFLOXacin 500 MG TABLET PO SCH (06:24)
[2017-07-09] MEDS: MORPHINE 30 MG SA TAB PO SCH ×2 (06:24→14:12)
[2017-07-09 08:00] VITALS: BP 110/77
[2017-07-09] MEDS ORDERED: diazePAM 5 MG TAB PO PRN (09:00)
[2017-07-09 09:05] LABS: BASO % 0.1 % (0.0-1.0); IMMATURE GRANULOCYTE % 0.2 % (0-0); LYMPH # 0.5 10^3/uL (1.5-4.5); MEAN CORPUSCULAR HEMOGLOBIN 30.8 pg (27.0-33.0); MEAN CORPUSCULAR HGB CONC 32.1 g/dl (32.0-36.5); MEAN CORPUSCULAR VOLUME 95.9 fl (80.0-96.0); MONO % 0.3 % (0.0-5.0); NEUTROPHILS % 93.4 % (36.0-66.0); PLATELET COUNT, AUTOMATED 387 10^3/uL (150-450); RED CELL DISTRIBUTION WIDTH 18.1 % (11.5-14.5); WHITE BLOOD COUNT 8.6 10^3/uL (4.0-10.0)
--- NOTE | 2017-07-09 09:09 | IPNPDOC ---
Subjective Date Seen The patient was seen on 07/09/17. Subjective Chief Complaint/HPI The patient is a 47-year-old female admitted with a reason for visit of Uti, Abdominal Pain. Events since last encounter Continues with abdominal pain. describes as spasm and stabbing sensation. + fecal urgency, unrelieved with defecation. + sensation of incomplete emptying of bladder. Constitutional: Denies: Chills, Fever, Night Sweats Pulmonary: Denies: Dyspnea, Cough Cardiovascular: Denies: Chest Pain, Palpitations, Orthopnea, Paroxysmal Noc. Dyspnea, Lt Headedness Gastrointestinal: Reports: Abdominal Pain, Denies: Nausea, Vomiting, Diarrhea, Constipation Genitourinary: Reports: Retention (incomplete emptying), Denies: Dysuria, Frequency, Incontinence Objective Physical Examination General Exam: Positive: Alert, No Acute Distress ENT Exam: Positive: Mucous membr. moist/pink Chest Exam: Positive: Clear to auscultation, Normal air movement Heart Exam: Positive: Tachycardic (rate 106), Regular Rhythm Telemetry: Positive: Tachycardia Abdomen Exam: Positive: Normal bowel sounds, Soft, Tenderness (LLQ and RLQ) Extremity Exam: Negative: Edema Psych Exam: Positive: Mental status NL, Mood NL Assessment /Plan Problems (1) Facial rash Status: Acute Problem Text: 07/09/17 progressive since 07/09 AM-favor 2 levo; therefore, dc-change to ceftriaxone 1 IV QD x 3D, +TA 0.1 o BID (2) UTI (urinary tract infection) Status: Acute Problem Text: c probable 2 urinary retention 07/09 220 cc D2/10 levo 07/02/17 UCX from her nephrostomy Enterobacter cloaca and faecalis-both sens to levo 07/02/17 BCX x 2 NG (3) Abdominal pain Status: Acute Response to Treatment: Stable Discussed With: Nurse, Patient Problem Specific Plan: Consult Specialist, Monitor Clinically, Repeat Labs Problem Text: Continue MS Contin 60/60/45 07/09/2017: increased Roxanol 10 q2H to 15 q1H prn given "no benefit" c 10 mg Long discussion held with patient and family on trip to [place] scheduled for 07/10/17 in the am. Reviewed risks given illness, pain and sedation.confusion with medication. Advised against trip at this time. Patient would like to see how today goes and consider DC later in the day. 07/08/2017- Because of her excessive sedation and hallucinations with current pain regimen, we will reduce her night dose of MS Contin to 45 mg. The remaining doses will continue at 60 mg throughout the day. She will continue with Roxanol q2h PRN for breakthrough pain. If pain control is adequate throughout today, I believe it is reasonable to have the patient discharged tomorrow morning. Patient understands that she is becoming more tolerant towards stronger doses of medications and that complete resolution of pain is unrealistic. 07/07/17 - The fentanyl didn't really work for her. It took her pain down to perhaps 7/10 at the best. We discussed options and I will put her back on MS Contin which seemed to work better for her than anything. I will put her on MS Contin 60mg TID with Roxanol 10mg SL Q2h prn breakthrough pain. Will see how this works for her. 07/06/2017- anticipate discharge pending adequate pain control. We will start transitioning her off of IV pain medications. We will start trial of fentanyl patch and Roxanol. 07/05 - Pt mgmt adjusted per Dr San yesterday. She is on MS Contin 30 mg q8, will change to 45 mg, cont IV 6 mg q2h, she used 66 mg of IV morphine in the last 24 hours. 07/04 - Pt cont to c/o poor pain control, Ace LAW, spoke with Pain Mgmt this morning, who rec increased the morphine IV 6 mg from every 3 h to every 2 h as needed for pain relief. I have made this change as requested. 07/03 - Pt was seen by pain management who gave MSIR 30 mg one time, started morphine 2mg q4 prn for breakthrough pain, started OxyContin 20 mg three times a day, and started valium 5 mg every 6 hours as needed. Pain management discussed possibly increasing the morphine to 4mg q4h prn. Pt continues have abd pain, and feels pain meds not covering her pain. Will increase the morphine to 4 mg q 4hrs per pain mgmt's recommendation. Also will have nursing contact pain mgmt to notify that pt's pain is not controlled to see if they can reassess and give additional input. Pt with intactable abd pain on SALES AGENT morphine which she is tolerating, she has maxed out her dose and c/o poor pain control, however on exam the only potential indication for poor pain control is tachycardia. She appears comfortable in bed, converses appropriate, and there is no guarding of the abdomen. I will address this further with my attending today. Dr Smith has seen the pt, rec medical mgmt, not surgical intervention appropriate. Rec clear liquids for 2 meals then advance her diet as tolerated. She is eager to eat. (4) Irritable bowel syndrome Status: Chronic Discussed With: Patient Problem Text: mixed [id number] by chronic narcotic use 07/09/17: increase hyoscyamine 0.5 to QID (MDD is 1.5 mg), increase diazepam 2.5 q6H prn during day (5 at night) (5) Metastatic colon cancer in female Status: Chronic Response to Treatment: Stable Problem Specific Plan: Monitor Clinically Problem Text: Follows with Onc in outpt setting. Dr. Mueller will do further investigations of the etiology of her symptoms after she returns from her trip. (6) Tachycardia Status: Acute Discussed With: Nurse, Patient Problem Text: She continues to have a mild, probably physiologic from pain, tachycardia. Continue to monitor. (7) History of hydronephrosis Status: Chronic Response to Treatment: Stable Problem Specific Plan: Monitor Clinically Problem Text: Has stent in place, scan appears without any persistent hydronephrosis. Plan/VTE VTE Prophylaxis Ordered?: Yes (Lovenox) Plan Anticipated Discharge: Home VS, I&O, 24H, Fishbone Vital Signs/I&O Vital Signs Date Time Temp Pulse Resp B/P (MAP) Pulse Ox O2 Delivery O2 Flow Rate FiO2 07/09/17 07:55 16 Room Air 07/09/17 04:00 99.0 108 115/71 (86) 92 Laboratory Data 24H LABS Laboratory Tests 2 07/09/17 06:25: Magnesium Level 1.8 07/09/17 08:43: Microbiology Microbiology 07/02/17 Blood Culture - Final, Complete NO GROWTH AFTER 5 DAYS 07/02/17 Blood Culture - Final, Complete NO GROWTH AFTER 5 DAYS 07/02/17 Urine Culture - Final, Complete Enterobacter Cloacae Complex Enterococcus Faecalis 07/01/17 Urine Culture - Final, Complete Enterobacter Cloacae Complex Marcy Moffett Jul 09, 2017 09:09 Abraham Bui M.D. Jul 09, 2017 15:54
[2017-07-09] MEDS: PROPRANOLOL 20 MG TAB PO SCH ×2 (09:22→20:52)
[2017-07-09] MEDS: SENOKOT S TAB PO SCH ×2 (09:22→20:52)
[2017-07-09] MEDS: CETIRIZINE (ZyrTEC) 10 MG TAB PO SCH (09:22)
[2017-07-09] MEDS: ENOXAPARIN 40 MG/0.4 ML SYRINGE (J1650) SC SCH (09:23)
[2017-07-09] MEDS: PANTOPRAZOLE 40MG TAB (PROTONIX) PO SCH (09:23)
[2017-07-09 09:26] LABS: ALBUMIN/GLOBULIN RATIO 0.59 (1.00-1.93); ALKALINE PHOSPHATASE 136 U/L (45-117); ALT/SGPT 16 U/L (12-78); ANION GAP 7 MEQ/L (8-16); AST/SGOT 22 U/L (15-37); BILIRUBIN,TOTAL 0.2 MG/DL (0.2-1.0); BLOOD UREA NITROGEN 4 MG/DL (7-18); CARBON DIOXIDE LEVEL 30 MEQ/L (21-32); CHLORIDE LEVEL 102 MEQ/L (98-107); GLOMERULAR FILTRATION RATE > 60.0 (>58); GLUCOSE, FASTING 157 MG/DL (70-105); SODIUM LEVEL 139 MEQ/L (136-145); TOTAL PROTEIN 5.4 GM/DL (6.4-8.2)
[2017-07-09] MEDS: HYOSCYAMINE SULFATE 0.125 MG SUBL TABLET SL SCH ×2 (12:25→19:09)
[2017-07-09] MEDS: MULTIVITAMINS/MINERALS THERAP 1 TAB PO SCH (20:51)
[2017-07-09] MEDS: DULoxetine 30 MG CAP (CYMBALTA) PO SCH (20:51)
[2017-07-09] MEDS: TRIAMCINOLONE ACET 0.1% OINTMENT 15 GM TOP SCH (20:52)
[2017-07-09 21:00] VITALS: BP 120/57
[2017-07-09] MEDS: MORPHINE 15 MG SA TAB PO SCH (22:17)
[2017-07-10] VITALS (8 sets, daily range): BP systolic 132–161; BP diastolic 62–98
[2017-07-10] MEDS: HYOSCYAMINE SULFATE 0.125 MG SUBL TABLET SL SCH ×5 (00:25→23:30)
[2017-07-10] MEDS: MORPHINE 10MG/0.5ML ORAL CONCENTRATE SOLUTION U/D SL PRN ×5 (01:17→18:25)
[2017-07-10] MEDS: MORPHINE 30 MG SA TAB PO SCH ×3 (06:24→15:03)
[2017-07-10] MEDS: PHENAZOPYRIDINE 100 MG TAB PO SCH ×4 (08:59→21:14)
[2017-07-10] MEDS: cefTRIAXone SOD 1 GM in D5W 50 ML IV SCH (09:02)
[2017-07-10] MEDS: CETIRIZINE (ZyrTEC) 10 MG TAB PO SCH (09:03)
[2017-07-10] MEDS: PANTOPRAZOLE 40MG TAB (PROTONIX) PO SCH (09:03)
[2017-07-10] MEDS: TRIAMCINOLONE ACET 0.1% OINTMENT 15 GM TOP SCH ×2 (09:03→21:16)
[2017-07-10] MEDS: ENOXAPARIN 40 MG/0.4 ML SYRINGE (J1650) SC SCH (09:04)
[2017-07-10] MEDS: SENOKOT S TAB PO SCH ×2 (09:05→21:15)
[2017-07-10] MEDS: PROPRANOLOL 20 MG TAB PO SCH ×2 (09:07→21:14)
[2017-07-10] MEDS: diazePAM 2 MG TAB PO PRN (09:36)
--- NOTE | 2017-07-10 09:52 | IPNPDOC ---
Subjective Date Seen The patient was seen on 07/10/17. Subjective Chief Complaint/HPI The patient is a 47-year-old female admitted with a reason for visit of Uti, Abdominal Pain. Assessment /Plan Assessment Duplicate note entered in error; see other note from 07/10/17. VS, I&O, 24H, Fishbone Vital Signs/I&O Vital Signs Date Time Temp Pulse Resp B/P (MAP) Pulse Ox O2 Delivery O2 Flow Rate FiO2 07/10/17 09:30 20 07/10/17 09:07 108 162/103 07/10/17 06:00 98.4 96 Room Air I&O- Last 24 Hours up to 6 AM 07/11/17 06:00 Intake Total 50 ml Balance 50 ml Laboratory Data Microbiology Microbiology 07/02/17 Blood Culture - Final, Complete NO GROWTH AFTER 5 DAYS 07/02/17 Blood Culture - Final, Complete NO GROWTH AFTER 5 DAYS 07/02/17 Urine Culture - Final, Complete Enterobacter Cloacae Complex Enterococcus Faecalis 07/01/17 Urine Culture - Final, Complete Enterobacter Cloacae Complex Mracy Moffett Jul 10, 2017 09:52 NATHAN CALDERON MD Jul 11, 2017 15:13
[2017-07-10] MEDS ORDERED: SODIUM CHLORIDE 0.9% INJ 10 ML SYR IV PRN (10:00)
--- NOTE | 2017-07-10 10:07 | IPNPDOC ---
Subjective Date Seen The patient was seen on 07/10/17. Subjective Chief Complaint/HPI The patient is a 47-year-old female admitted with a reason for visit of Uti, Abdominal Pain. Events since last encounter Continues with pain. States pain is uncontrolled. Was sedated and slept all night per nursing staff, to point they are requesting REFUGIO monitoring. Valium decreased to 1 mg. c/o sharp, spasm type pain in abdomen. Also with rash to face. States that rash is similar to chemo induced rash in the past. Has been previously treated with Benadryl in the past. Constitutional: Denies: Chills, Fever, Night Sweats Skin: Reports: Rash Pulmonary: Denies: Dyspnea, Cough Cardiovascular: Denies: Chest Pain, Palpitations, Orthopnea, Paroxysmal Noc. Dyspnea, Lt Headedness Gastrointestinal: Reports: Abdominal Pain, Denies: Nausea, Vomiting Musculoskeletal: Denies: Neck Pain, Back Pain, Shoulder Pain, Arm Pain, Hand Pain, Leg Pain, Foot Pain, Joint Pain, Muscle Pain, Spasms, Other Symptoms Neurological: Denies: Weakness, Numbness, Change in speech, Confusion Psych: Reports: Mood Normal, Anxiety, Denies: Depression, Memory Issues Objective Physical Examination General Exam: Positive: Alert, No Acute Distress ENT Exam: Positive: Mucous membr. moist/pink Chest Exam: Positive: Clear to auscultation, Normal air movement Heart Exam: Positive: Tachycardic (rate 106), Regular Rhythm Telemetry: Positive: Tachycardia Abdomen Exam: Positive: Normal bowel sounds, Soft, Tenderness (LLQ and RLQ) Extremity Exam: Negative: Edema Skin Exam: Positive: Rash (Erythema of bilateral cheeks and hands noted) Psych Exam: Positive: Mental status NL, Mood NL Assessment /Plan Problems (1) Facial rash Status: Acute Problem Text: 07/10/17: Benadryl 25 mg po q 6 hrs ordered. 07/09/17 progressive since 07/09 AM - possible drug reaction to levofloxacin, which was discontinued on 07/09/17; apply triamcinolone 0.1 mg BID (2) UTI (urinary tract infection) Status: Acute Problem Text: 07/10/17: started on Rocephin 1 gm IV q 24 hours. Pyridium for bladder spasms. 07/09: D2 levofloxacin; levofloxacin discontinued due to development of rash 07/02/17 UCX from her nephrostomy Enterobacter cloaca and faecalis-both sens to levo 07/02/17 BCX x 2 NG (3) Abdominal pain Status: Acute Response to Treatment: Stable Discussed With: Nurse, Patient Problem Specific Plan: Consult Specialist, Monitor Clinically, Repeat Labs Problem Text: Continue MS Contin 60/60/45 07/09/2017: increased Roxanol 10 q2H to 15 q1H prn given "no benefit" c 10 mg Long discussion held with patient and family on trip to [place] scheduled for 07/10/17 in the am. Reviewed risks given illness, pain and sedation.confusion with medication. Advised against trip at this time. Patient would like to see how today goes and consider DC later in the day. 07/08/2017- Because of her excessive sedation and hallucinations with current pain regimen, we will reduce her night dose of MS Contin to 45 mg. The remaining doses will continue at 60 mg throughout the day. She will continue with Roxanol q2h PRN for breakthrough pain. If pain control is adequate throughout today, I believe it is reasonable to have the patient discharged tomorrow morning. Patient understands that she is becoming more tolerant towards stronger doses of medications and that complete resolution of pain is unrealistic. 07/07/17 - The fentanyl didn't really work for her. It took her pain down to perhaps 7/10 at the best. We discussed options and I will put her back on MS Contin which seemed to work better for her than anything. I will put her on MS Contin 60mg TID with Roxanol 10mg SL Q2h prn breakthrough pain. Will see how this works for her. 07/06/2017- anticipate discharge pending adequate pain control. We will start transitioning her off of IV pain medications. We will start trial of fentanyl patch and Roxanol. 07/05 - Pt mgmt adjusted per Dr San yesterday. She is on MS Contin 30 mg q8, will change to 45 mg, cont IV 6 mg q2h, she used 66 mg of IV morphine in the last 24 hours. 07/04 - Pt cont to c/o poor pain control, Ace LAW, spoke with Pain Mgmt this morning, who rec increased the morphine IV 6 mg from every 3 h to every 2 h as needed for pain relief. I have made this change as requested. 07/03 - Pt was seen by pain management who gave MSIR 30 mg one time, started morphine 2mg q4 prn for breakthrough pain, started OxyContin 20 mg three times a day, and started valium 5 mg every 6 hours as needed. Pain management discussed possibly increasing the morphine to 4mg q4h prn. Pt continues have abd pain, and feels pain meds not covering her pain. Will increase the morphine to 4 mg q 4hrs per pain mgmt's recommendation. Also will have nursing contact pain mgmt to notify that pt's pain is not controlled to see if they can reassess and give additional input. Pt with intactable abd pain on PARTS IDENTIFICATION TECHNICIAN morphine which she is tolerating, she has maxed out her dose and c/o poor pain control, however on exam the only potential indication for poor pain control is tachycardia. She appears comfortable in bed, converses appropriate, and there is no guarding of the abdomen. I will address this further with my attending today. Dr Smith has seen the pt, rec medical mgmt, not surgical intervention appropriate. Rec clear liquids for 2 meals then advance her diet as tolerated. She is eager to eat. (4) Irritable bowel syndrome Status: Chronic Discussed With: Patient Problem Text: Mixed type; chronic; likely worsened by chronic narcotic use 07/10/17: Diazepam decreased to 1 mg due to significant sedation 07/09/17: increase hyoscyamine 0.5 to QID (MDD is 1.5 mg), decrease diazepam 2.5 q6H prn during day (5 at night) (5) Metastatic colon cancer in female Status: Chronic Response to Treatment: Stable Problem Specific Plan: Monitor Clinically Problem Text: Follows with Onc in outpt setting - Dr. Mueller. (6) Tachycardia Status: Acute Discussed With: Nurse, Patient Problem Text: She continues to have a mild, probably physiologic from pain, tachycardia. Continue to monitor. (7) History of hydronephrosis Status: Chronic Response to Treatment: Stable Problem Specific Plan: Monitor Clinically Problem Text: Has stent in place, scan appears without any persistent hydronephrosis. Plan/VTE VTE Prophylaxis Ordered?: Yes (Lovenox) Plan Anticipated Discharge: Home Family Medicine Attending Note: I saw and examined Ms. Goff early this morning ; I discussed her care with LUDIVINA De La Fuente and I agree with her note as documented. Ms. Goff continues to have significant abdominal pain despite trying several different pain regimens (morphine PARTS IDENTIFICATION TECHNICIAN, fentanyl patches, MS contin) but is also becoming very sedated overnight. Patient feels pain is similar to her IBS pain, and does seem to be exacerbated by BMs. Levsin has not been effective for symptoms. She follows with Dr. Sung as an outpatient- I have consulted him to see if anything else can be done to help control her pain. (KES) VS, I&O, 24H, Fishbone Vital Signs/I&O Vital Signs Date Time Temp Pulse Resp B/P (MAP) Pulse Ox O2 Delivery O2 Flow Rate FiO2 07/10/17 09:30 20 07/10/17 09:07 108 162/103 07/10/17 06:00 98.4 96 Room Air I&O- Last 24 Hours up to 6 AM 07/11/17 06:00 Intake Total 50 ml Output Total 0 ml Balance 50 ml Laboratory Data Microbiology Microbiology 07/02/17 Blood Culture - Final, Complete NO GROWTH AFTER 5 DAYS 07/02/17 Blood Culture - Final, Complete NO GROWTH AFTER 5 DAYS 07/02/17 Urine Culture - Final, Complete Enterobacter Cloacae Complex Enterococcus Faecalis 07/01/17 Urine Culture - Final, Complete Enterobacter Cloacae Complex Marcy Moffett Jul 10, 2017 10:07 NATHAN CALDERON MD Jul 10, 2017 15:02
[2017-07-10 10:58] LABS: BASO % 0.2 % (0.0-1.0); EOS # 0.1 10^3/uL (0.0-0.50); EOS % 0.4 % (0.0-3.0); IMMATURE GRANULOCYTE % 0.4 % (0-0); LYMPH # 1.6 10^3/uL (1.5-4.5); LYMPH % 13.6 % (24.0-44.0); MEAN CORPUSCULAR HEMOGLOBIN 31.2 pg (27.0-33.0); MEAN CORPUSCULAR HGB CONC 32.2 g/dl (32.0-36.5); MEAN CORPUSCULAR VOLUME 96.9 fl (80.0-96.0); MONO % 8.5 % (0.0-5.0); NEUTROPHILS # 9.2 10^3/uL (1.8-7.7); NEUTROPHILS % 76.9 % (36.0-66.0); PLATELET COUNT, AUTOMATED 421 10^3/uL (150-450); RED CELL DISTRIBUTION WIDTH 18.2 % (11.5-14.5); WHITE BLOOD COUNT 11.9 10^3/uL (4.0-10.0)
[2017-07-10] MEDS: diphenhydrAMINE 25 MG CAP PO PRN (11:16)
[2017-07-10 11:55] LABS: ALBUMIN 2.1 GM/DL (3.2-5.2); ALBUMIN/GLOBULIN RATIO 0.68 (1.00-1.93); ALKALINE PHOSPHATASE 137 U/L (45-117); ALT/SGPT 19 U/L (12-78); ANION GAP 10 MEQ/L (8-16); AST/SGOT 28 U/L (15-37); BILIRUBIN,TOTAL 0.1 MG/DL (0.2-1.0); BLOOD UREA NITROGEN 6 MG/DL (7-18); CALCIUM LEVEL 8.9 MG/DL (8.5-10.1); CARBON DIOXIDE LEVEL 28 MEQ/L (21-32); CHLORIDE LEVEL 106 MEQ/L (98-107); CREATININE FOR GFR 0.66 MG/DL (0.55-1.02); GLOMERULAR FILTRATION RATE > 60.0 (>58); GLUCOSE, FASTING 111 MG/DL (70-105); POTASSIUM SERUM 3.8 MEQ/L (3.5-5.1); SODIUM LEVEL 144 MEQ/L (136-145); TOTAL PROTEIN 5.2 GM/DL (6.4-8.2)
[2017-07-10] MEDS: DULoxetine 30 MG CAP (CYMBALTA) PO SCH (21:15)
[2017-07-10] MEDS: MULTIVITAMINS/MINERALS THERAP 1 TAB PO SCH (21:15)
[2017-07-10] MEDS: MORPHINE 15 MG SA TAB PO SCH (21:15)
[2017-07-11] MEDS: MORPHINE 10MG/0.5ML ORAL CONCENTRATE SOLUTION U/D SL PRN ×7 (04:38→20:14)
[2017-07-11] MEDS: diazePAM 2 MG TAB PO PRN ×3 (04:46→18:15)
[2017-07-11 06:00] VITALS: BP 144/98
[2017-07-11] MEDS: MORPHINE 30 MG SA TAB PO SCH ×2 (06:16→14:07)
[2017-07-11] MEDS: HYOSCYAMINE SULFATE 0.125 MG SUBL TABLET SL SCH ×3 (06:16→18:15)
[2017-07-11] MEDS: PHENAZOPYRIDINE 100 MG TAB PO SCH ×3 (06:16→22:00)
[2017-07-11] MEDS: CETIRIZINE (ZyrTEC) 10 MG TAB PO SCH (08:58)
[2017-07-11] MEDS: TRIAMCINOLONE ACET 0.1% OINTMENT 15 GM TOP SCH ×2 (08:58→22:49)
[2017-07-11] MEDS: SENOKOT S TAB PO SCH ×2 (08:58→22:48)
[2017-07-11] MEDS: PANTOPRAZOLE 40MG TAB (PROTONIX) PO SCH (08:58)
[2017-07-11] MEDS: PROPRANOLOL 20 MG TAB PO SCH ×2 (08:58→22:48)
[2017-07-11] MEDS: SODIUM CHLORIDE 0.9% INJ 10 ML SYR IV SCH (08:58)
[2017-07-11] MEDS: cefTRIAXone SOD 1 GM in D5W 50 ML IV SCH (08:59)
[2017-07-11] MEDS: ENOXAPARIN 40 MG/0.4 ML SYRINGE (J1650) SC SCH (08:59)
[2017-07-11 14:00] VITALS: BP 136/96
--- NOTE | 2017-07-11 19:06 | IPNPDOC ---
Subjective Date Seen The patient was seen on 07/11/17. Subjective Chief Complaint/HPI The patient is a 47-year-old female admitted with a reason for visit of Uti, Abdominal Pain. Events since last encounter Patient was evaluated by gastroenterology who thought that that she may have carcinomatosis. MRI was ordered and she is awaiting to have an abdominal MRI tonight. Patient had urinary retention last night which required straight cath to relieve. Patient had been able to void today. She continues to have abdominal pain which she states is not adequately controlled. Constitutional: Denies: Chills, Fever, Night Sweats Pulmonary: Denies: Dyspnea, Cough Cardiovascular: Denies: Chest Pain, Palpitations, Orthopnea, Paroxysmal Noc. Dyspnea, Lt Headedness Gastrointestinal: Reports: Abdominal Pain Genitourinary: Reports: Retention (resolved) Objective Physical Examination General Exam: Positive: Alert, No Acute Distress (she appears confortable despite reporting intense abd pain) Eye Exam: Positive: EOMI Chest Exam: Positive: Clear to auscultation, Normal air movement Heart Exam: Positive: Rate Normal, Regular Rhythm, Normal S1, Normal S2, Negative: Murmurs, Rubs Abdomen Exam: Positive: Tenderness Skin Exam: Positive: Rash (Erythema of bilateral cheeks and hands noted) Neuro Exam: Positive: Normal Speech, Sensation Intact Psych Exam: Positive: Mental status NL, Mood NL Assessment /Plan Problems (1) UTI (urinary tract infection) Status: Acute Problem Text: 07/11/17: patient had urinary retention last night, symptoms had resolved today. Continue Rocephin 1gm IV q24hr day #2. 07/10/17: started on Rocephin 1 gm IV q 24 hours. Pyridium for bladder spasms. 07/09: D2 levofloxacin; levofloxacin discontinued due to development of rash 07/02/17 UCX from her nephrostomy Enterobacter cloaca and faecalis-both sens to levo 07/02/17 BCX x 2 NG (2) Abdominal pain Status: Acute Response to Treatment: Stable Discussed With: Nurse, Patient Problem Specific Plan: Consult Specialist, Monitor Clinically, Repeat Labs Problem Text: 07/11/17: Continue MS Contin 60/60/45 and Roxanol 15 q1h. No adjustment to pain medication today. 07/09/2017: increased Roxanol 10 q2H to 15 q1H prn given "no benefit" c 10 mg Long discussion held with patient and family on trip to [place] scheduled for 07/10/17 in the am. Reviewed risks given illness, pain and sedation.confusion with medication. Advised against trip at this time. Patient would like to see how today goes and consider DC later in the day. 07/08/2017- Because of her excessive sedation and hallucinations with current pain regimen, we will reduce her night dose of MS Contin to 45 mg. The remaining doses will continue at 60 mg throughout the day. She will continue with Roxanol q2h PRN for breakthrough pain. If pain control is adequate throughout today, I believe it is reasonable to have the patient discharged tomorrow morning. Patient understands that she is becoming more tolerant towards stronger doses of medications and that complete resolution of pain is unrealistic. 07/07/17 - The fentanyl didn't really work for her. It took her pain down to perhaps 7/10 at the best. We discussed options and I will put her back on MS Contin which seemed to work better for her than anything. I will put her on MS Contin 60mg TID with Roxanol 10mg SL Q2h prn breakthrough pain. Will see how this works for her. 07/06/2017- anticipate discharge pending adequate pain control. We will start transitioning her off of IV pain medications. We will start trial of fentanyl patch and Roxanol. 07/05 - Pt mgmt adjusted per Dr San yesterday. She is on MS Contin 30 mg q8, will change to 45 mg, cont IV 6 mg q2h, she used 66 mg of IV morphine in the last 24 hours. 07/04 - Pt cont to c/o poor pain control, Ace LAW, spoke with Pain Mgmt this morning, who rec increased the morphine IV 6 mg from every 3 h to every 2 h as needed for pain relief. I have made this change as requested. 07/03 - Pt was seen by pain management who gave MSIR 30 mg one time, started morphine 2mg q4 prn for breakthrough pain, started OxyContin 20 mg three times a day, and started valium 5 mg every 6 hours as needed. Pain management discussed possibly increasing the morphine to 4mg q4h prn. Pt continues have abd pain, and feels pain meds not covering her pain. Will increase the morphine to 4 mg q 4hrs per pain mgmt's recommendation. Also will have nursing contact pain mgmt to notify that pt's pain is not controlled to see if they can reassess and give additional input. Pt with intactable abd pain on LABORER SHIPYARD morphine which she is tolerating, she has maxed out her dose and c/o poor pain control, however on exam the only potential indication for poor pain control is tachycardia. She appears comfortable in bed, converses appropriate, and there is no guarding of the abdomen. I will address this further with my attending today. Dr Smith has seen the pt, rec medical mgmt, not surgical intervention appropriate. Rec clear liquids for 2 meals then advance her diet as tolerated. She is eager to eat. (3) Facial rash Status: Acute Problem Text: 09/10/17: continue with benadryl. She continues to have facial rash that is tolerable. 07/10/17: Benadryl 25 mg po q 6 hrs ordered. 07/09/17 progressive since 07/09 AM - possible drug reaction to levofloxacin, which was discontinued on 07/09/17; apply triamcinolone 0.1 mg BID (4) Irritable bowel syndrome Status: Chronic Discussed With: Patient Problem Text: 07/11/17: May consider the addition of Movantic or Relistor, will defer to gastroenterology input. Mixed type; chronic; likely worsened by chronic narcotic use 07/10/17: Diazepam decreased to 1 mg due to significant sedation 07/09/17: increase hyoscyamine 0.5 to QID (MDD is 1.5 mg), decrease diazepam 2.5 q6H prn during day (5 at night) (5) Metastatic colon cancer in female Status: Chronic Response to Treatment: Stable Problem Specific Plan: Monitor Clinically Problem Text: Follows with Onc in outpt setting - Dr. Mueller. (6) Tachycardia Status: Acute Discussed With: Nurse, Patient Problem Text: She continues to have a mild, probably physiologic from pain, tachycardia. Continue to monitor. (7) History of hydronephrosis Status: Chronic Response to Treatment: Stable Problem Specific Plan: Monitor Clinically Problem Text: Has stent in place, scan appears without any persistent hydronephrosis. Plan/VTE VTE Prophylaxis Ordered?: Yes VS, I&O, 24H, Fishbone Vital Signs/I&O Vital Signs Date Time Temp Pulse Resp B/P (MAP) Pulse Ox O2 Delivery O2 Flow Rate FiO2 10/26/17 16:17 20 07/11/17 09:00 Room Air 07/11/17 08:58 112 144/98 07/11/17 06:00 98.4 97 I&O- Last 24 Hours up to 6 AM 07/12/17 06:00 Intake Total 0 ml Output Total 675 ml Balance -675 ml Laboratory Data Microbiology Microbiology 07/02/17 Blood Culture - Final, Complete NO GROWTH AFTER 5 DAYS 07/02/17 Blood Culture - Final, Complete NO GROWTH AFTER 5 DAYS 07/02/17 Urine Culture - Final, Complete Enterobacter Cloacae Complex Enterococcus Faecalis 07/01/17 Urine Culture - Final, Complete Enterobacter Cloacae Complex GME ATTESTATION GME ATTESTATION My preceptor for this patient encounter was physically present in the building during the encounter and was fully available. As needed, all aspects of the patient interview, examination, medical decision making process, and medical care plan development were reviewed and approved by the preceptor. Preceptor is aware and concurs with the plan as stated in the body of this note and will attest to such by his/her cosignature. ATTENDING NOTE Patient was seen and examined in the morning on 07/11/17; I discussed her care with Dr. Lopez and I agree with his note as documented. GI consulted and ordered MRI as above. (KES) SAMANTHA LOPEZ DO Jul 11, 2017 18:45 NATHAN CALDERON MD Jul 12, 2017 12:23
[2017-07-11] MEDS ORDERED: PROHANCE 279.3MG/ML 15ML VIAL (A9576) As Ordered ONE (20:56)
[2017-07-11 22:00] VITALS: BP 135/90
[2017-07-11] MEDS: MULTIVITAMINS/MINERALS THERAP 1 TAB PO SCH (22:48)
[2017-07-11] MEDS: diphenhydrAMINE 25 MG CAP PO PRN (22:48)
[2017-07-11] MEDS: DULoxetine 30 MG CAP (CYMBALTA) PO SCH (22:49)
[2017-07-11] MEDS: MORPHINE 15 MG SA TAB PO SCH (22:49)
[2017-07-12] MEDS: diazePAM 2 MG TAB PO PRN ×4 (00:31→20:39)
[2017-07-12] MEDS: HYOSCYAMINE SULFATE 0.125 MG SUBL TABLET SL SCH ×4 (00:31→18:41)
[2017-07-12] MEDS: MORPHINE 10MG/0.5ML ORAL CONCENTRATE SOLUTION U/D SL PRN ×4 (03:45→20:38)
[2017-07-12] MEDS: MORPHINE 30 MG SA TAB PO SCH ×2 (06:44→14:26)
--- NOTE | 2017-07-12 09:55 | REP ---
MRI ABDOMEN WITH AND WITHOUT CONTRAST: TECHNIQUE: Multiple images obtained in the axial and coronal planes prior to and following the intravenous administration of 10 mL of gadolinium. Correlation made with prior CT exams most recently 07/01/2017. There are moderate bilateral pleural effusion with adjuvant bibasilar atelectasis/infiltrate. Three liver lesions are seen in the inferior aspect of the right lobe, demonstrating mildly hyperintense signal on T2 and hypointense on T1, with heterogeneous enhancement. These are compatible with metastatic lesions. The largest is the most superior and posterior lesion measuring 2.4 cm in maximum diameter. The other two are slightly smaller. No other lesion is seen in the left lobe inferiorly along the fissure for ligamentum teres, measuring 1.8 cm in maximum diameter. Gallbladder is grossly unremarkable. Common bile duct is upper limits of normal in diameter at 7 mm. No pancreatic duct dilatation is seen. Pancreas demonstrates no mass. Spleen and adrenals demonstrate no mass. Right kidney appears unremarkable except for a tiny cyst in the lower pole. There is left renal atrophy with a cyst in the upper pole and a nephrostomy tube present. Subcentimeter periaortic lymph nodes are present. There is a 1 cm lymph node anterior to the aortic bifurcation. This has increased in size since prior studies and may be pathologic. No ascites is seen. IMPRESSION: Moderate bilateral pleural effusions with adjacent atelectasis/infiltrate. Four liver lesions present, three in the right lobe and one in the left lobe, compatible with metastatic lesions. There are subcentimeter periaortic lymph nodes present. There is one lymph node measuring 1 cm in short axis dimension anterior to the aortic bifurcation which has increased in size since prior studies and may be pathologic. Signed by Tio العلي MD 07/12/2017 05:44 P
--- NOTE | 2017-07-12 10:29 | REP ---
MRI PELVIS WITH AND WITHOUT CONTRAST: TECHNIQUE: Multiple sequences obtained in the axial, sagittal, and coronal planes prior to and following the intravenous administration of 10 mL of gadolinium. Correlation made with prior CT exams of the pelvis most recently 07/01/2017 as well as MRI of the pelvis 06/20/2016. Soft tissue mass in the left common iliac artery is again noted, with irregular margins, measuring 2.2 x 3.8 cm. This demonstrates slight increase in size compared to prior CT of 03/05/2017. There is a mass of the left ovary which demonstrates heterogeneous internal signal, hypointense on T1 and slightly hyperintense on T2 with a few small cystic areas in the right side of the mass. There is mild peripheral rim enhancement and some mild heterogeneous internal enhancement. There is mild adjacent free fluid. Differential diagnosis would include benign and malignant etiologies. There is no other evidence of pelvic adenopathy. Urinary bladder is grossly unremarkable. Osseous structures demonstrate no focal bone lesion. IMPRESSION: Left common iliac soft tissue mass as discussed above with very mild increase in size compared to prior CT of February 2017. Left ovarian mass is new since that February 2017 exam and has been present on more recent CT exams. This measures 3.4 x 3.3 x 4.4 cm. Differential diagnosis would include benign and malignant etiologies. There is mild free fluid. Signed by Tio العلي MD 07/12/2017 05:45 P
[2017-07-12] MEDS: cefTRIAXone SOD 1 GM in D5W 50 ML IV SCH (10:31)
[2017-07-12] MEDS: PROPRANOLOL 20 MG TAB PO SCH ×2 (10:32→20:38)
[2017-07-12] MEDS: PANTOPRAZOLE 40MG TAB (PROTONIX) PO SCH (10:32)
[2017-07-12] MEDS: SIMETHICONE 80 MG CHEW TAB PO PRN (10:32)
[2017-07-12] MEDS: SENOKOT S TAB PO SCH ×2 (10:33→20:39)
[2017-07-12] MEDS: diphenhydrAMINE 25 MG CAP PO PRN (10:33)
[2017-07-12] MEDS: TRIAMCINOLONE ACET 0.1% OINTMENT 15 GM TOP SCH ×2 (10:33→20:40)
[2017-07-12] MEDS: CETIRIZINE (ZyrTEC) 10 MG TAB PO SCH (10:33)
[2017-07-12] MEDS: ENOXAPARIN 40 MG/0.4 ML SYRINGE (J1650) SC SCH (10:33)
[2017-07-12] MEDS: SODIUM CHLORIDE 0.9% INJ 10 ML SYR IV SCH (10:44)
--- NOTE | 2017-07-12 15:35 | CR ---
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 The pain is the worst she has ever experienced. It is 10 out of 10 in intensity. The pain occurred suddenly after having a bowel movement. Pain seems to be a little worse on the left side. The patient has been undergoing chemotherapy for her metastatic colon cancer. Patient had a nephrostomy tube on the left due to ureteral involvement of a mass. An MRI of the abdomen and pelvis revealed a complex mass involving the left ovary. MEDICAL HISTORY: 1. Irritable bowel syndrome. 2. Stage IV adenocarcinoma of the colon with mets to the lung and liver. 3. Hypertension. 4. Hyperlipidemia. 5. Hydronephrosis. SURGICAL HISTORY: 1. Colonoscopy 2015 2. Colon resection. 3. Lldyvp-A-Scly placement. 4. Breast augmentation. 5. Hemorrhoidectomy times two. 6. Nephrostomy tube placed September 2016. SOCIAL HISTORY: The patient smokes e-cigarettes. She denies alcohol use. FAMILY HISTORY: Noncontributory. PHYSICAL EXAMINATION: Pulse 122, respiratory rate 18, blood pressure 136/84. She is in no apparent distress. Cachectic appearing female. Head and neck exam normal. Lungs are clear. Heart regular rate and rhythm. Mild tachycardia. Abdomen is soft, she is diffusely tender, but there is no rebound, no guarding, it is nondistended. Extremities nontender. MRI 3 to 4 cm complex lesion involving the left ovary. This mass is new since the prior imaging study earlier 2016. ASSESSMENT: 47-year-old with metastatic stage IV colon cancer presents with abdominal pain and a left ovarian mass. Differential diagnosis includes hemorrhagic cyst of the ovary, or Krukenberg tumor (GI primary metastatic to the ovary). There is a small chance of ovarian torsion. However, I I think torsion is a fairly low likelihood based on the clinical presentation. I would recommend pelvic ultrasound to better delineate characteristics of the left ovarian mass. We will subsequently followup after the imaging returns. PAPO
--- NOTE | 2017-07-12 16:16 | IPNPDOC ---
Subjective Date Seen The patient was seen on 07/12/17. Subjective Chief Complaint/HPI The patient is a 47-year-old female admitted with a reason for visit of Uti, Abdominal Pain. Events since last encounter Patient was seen at patient's bedside this morning. She continues to complain of intense pain in the abdomen. She continues to take Roxanol almost every hour , but reports little relief to her pain symptoms. Pain is located across her lower abdomen, especially in the LLQ. Pain is unchanged from previous days. Patient had a MRI of the abdomen last night. Patient continues to be seen by gastroenterology. She continues to have small bowel movements. Denies urinary retention or dysuria. General: Reports: Normal Appetite, Denies: Chills, Night Sweats, Fatigue, Malaise Skin: Reports: Rash (facial- stable) Pulmonary: Denies: Dyspnea, Cough Cardiovascular: Denies: Chest Pain, Palpitations, Orthopnea, Paroxysmal Noc. Dyspnea, Lt Headedness Gastrointestinal: Reports: Abdominal Pain Genitourinary: Denies: Dysuria, Frequency, Incontinence, Retention Objective Physical Examination General Exam: Positive: Alert, No Acute Distress (she appears confortable despite reporting intense abd pain) Eye Exam: Positive: EOMI Chest Exam: Positive: Clear to auscultation, Normal air movement Heart Exam: Positive: Rate Normal, Regular Rhythm, Normal S1, Normal S2, Negative: Murmurs, Rubs Abdomen Exam: Positive: Tenderness Skin Exam: Positive: Rash (Erythema of bilateral cheeks and hands noted) Neuro Exam: Positive: Normal Speech, Sensation Intact Psych Exam: Positive: Mental status NL, Mood NL Assessment /Plan Problems (1) Ovarian mass, left Status: Chronic Problem Specific Plan: Consult Specialist Problem Text: 07/12/17: Noted on MRI of the pelvis, 3.4 x 3.3 x 4.4 cm. LASTER HAND was consulted. Pelvic US was ordered to further classify the mass. (2) Abdominal pain Status: Acute Response to Treatment: Stable Discussed With: Nurse, Patient Problem Specific Plan: Consult Specialist, Monitor Clinically, Repeat Labs Problem Text: 07/12/17: Continue current pain regimen of MS Contin 60/60/45 and Roxanol 15 q1h. Valium changed to 1mg q4hp. 07/11/17: Continue MS Contin 60/60/45 and Roxanol 15 q1h. No adjustment to pain medication today. 07/09/2017: increased Roxanol 10 q2H to 15 q1H prn given "no benefit" c 10 mg Long discussion held with patient and family on trip to [place] scheduled for 07/10/17 in the am. Reviewed risks given illness, pain and sedation.confusion with medication. Advised against trip at this time. Patient would like to see how today goes and consider DC later in the day. 07/08/2017- Because of her excessive sedation and hallucinations with current pain regimen, we will reduce her night dose of MS Contin to 45 mg. The remaining doses will continue at 60 mg throughout the day. She will continue with Roxanol q2h PRN for breakthrough pain. If pain control is adequate throughout today, I believe it is reasonable to have the patient discharged tomorrow morning. Patient understands that she is becoming more tolerant towards stronger doses of medications and that complete resolution of pain is unrealistic. 07/07/17 - The fentanyl didn't really work for her. It took her pain down to perhaps 7/10 at the best. We discussed options and I will put her back on MS Contin which seemed to work better for her than anything. I will put her on MS Contin 60mg TID with Roxanol 10mg SL Q2h prn breakthrough pain. Will see how this works for her. 07/06/2017- anticipate discharge pending adequate pain control. We will start transitioning her off of IV pain medications. We will start trial of fentanyl patch and Roxanol. 07/05 - Pt mgmt adjusted per Dr San yesterday. She is on MS Contin 30 mg q8, will change to 45 mg, cont IV 6 mg q2h, she used 66 mg of IV morphine in the last 24 hours. 07/04 - Pt cont to c/o poor pain control, Ace LAW, spoke with Pain Mgmt this morning, who rec increased the morphine IV 6 mg from every 3 h to every 2 h as needed for pain relief. I have made this change as requested. 07/03 - Pt was seen by pain management who gave MSIR 30 mg one time, started morphine 2mg q4 prn for breakthrough pain, started OxyContin 20 mg three times a day, and started valium 5 mg every 6 hours as needed. Pain management discussed possibly increasing the morphine to 4mg q4h prn. Pt continues have abd pain, and feels pain meds not covering her pain. Will increase the morphine to 4 mg q 4hrs per pain mgmt's recommendation. Also will have nursing contact pain mgmt to notify that pt's pain is not controlled to see if they can reassess and give additional input. Pt with intactable abd pain on INPUT OUTPUT CLERK morphine which she is tolerating, she has maxed out her dose and c/o poor pain control, however on exam the only potential indication for poor pain control is tachycardia. She appears comfortable in bed, converses appropriate, and there is no guarding of the abdomen. I will address this further with my attending today. Dr Smith has seen the pt, rec medical mgmt, not surgical intervention appropriate. Rec clear liquids for 2 meals then advance her diet as tolerated. She is eager to eat. (3) UTI (urinary tract infection) Status: Acute Problem Text: 07/12/17: Continue Rocephin, day #3/3; discontinue after today's dose. Patient continues to urinate, no urinary symptoms. 07/11/17: patient had urinary retention last night, symptoms had resolved today. Continue Rocephin 1gm IV q24hr day #2. 07/10/17: started on Rocephin 1 gm IV q 24 hours. Pyridium for bladder spasms. 07/09: D2 levofloxacin; levofloxacin discontinued due to development of rash 07/02/17 UCX from her nephrostomy Enterobacter cloaca and faecalis-both sens to levo 07/02/17 BCX x 2 NG (4) Facial rash Status: Acute Problem Text: 07/12/17: Seems slightly improved from yesterday. Patient is tolerating well. Cont Benadryl. 07/11/17: continue with benadryl. She continues to have facial rash that is tolerable. 07/10/17: Benadryl 25 mg po q 6 hrs ordered. 07/09/17 progressive since 07/09 AM - possible drug reaction to levofloxacin, which was discontinued on 07/09/17; apply triamcinolone 0.1 mg BID (5) Irritable bowel syndrome Status: Chronic Discussed With: Patient Problem Text: 07/12/17: Patient had MRI of the pelvis and abd. Will defer to gastroenterology input. 07/11/17: May consider the addition of Movantic or Relistor, will defer to gastroenterology input. Mixed type; chronic; likely worsened by chronic narcotic use 07/10/17: Diazepam decreased to 1 mg due to significant sedation 07/09/17: increase hyoscyamine 0.5 to QID (MDD is 1.5 mg), decrease diazepam 2.5 q6H prn during day (5 at night) (6) Metastatic colon cancer in female Status: Chronic Response to Treatment: Stable Problem Specific Plan: Monitor Clinically Problem Text: Follows with Onc in outpt setting - Dr. Mueller. (7) Tachycardia Status: Acute Discussed With: Nurse, Patient Problem Text: She continues to have a mild, probably physiologic from pain, tachycardia. Continue to monitor. (8) History of hydronephrosis Status: Chronic Response to Treatment: Stable Problem Specific Plan: Monitor Clinically Problem Text: Has stent in place, scan appears without any persistent hydronephrosis. Plan/VTE VTE Prophylaxis Ordered?: Yes Plan Family Medicine Attending Note: Patient seen and examined this morning; I discussed her care with Dr. Lopez and I agree with his note as documented. Dr. Barnard consulted today for left ovarian mass as possible source of her pain. I increased valium frequency this morning. (KES) VS, I&O, 24H, Fishbone Vital Signs/I&O Vital Signs Date Time Temp Pulse Resp B/P (MAP) Pulse Ox O2 Delivery O2 Flow Rate FiO2 07/12/17 14:26 20 07/12/17 10:32 122 136/94 07/11/17 23:08 Room Air 07/11/17 22:00 98.1 92 I&O- Last 24 Hours up to 6 AM 07/13/17 06:00 Intake Total 120 ml Output Total 425 ml Balance -305 ml Laboratory Data Microbiology Microbiology 07/02/17 Blood Culture - Final, Complete NO GROWTH AFTER 5 DAYS 07/02/17 Blood Culture - Final, Complete NO GROWTH AFTER 5 DAYS 07/02/17 Urine Culture - Final, Complete Enterobacter Cloacae Complex Enterococcus Faecalis SAMANTHA LOPEZ DO Jul 12, 2017 16:16 NATHAN CALDERON MD Jul 12, 2017 16:40
--- NOTE | 2017-07-12 18:55 | REP ---
Pelvic sonography: History: Left ovarian complex mass. Comparison pelvic sonography October 2010 showed no abnormality. Comparison MRI study of the pelvis July 11, 2017 showed a left adnexal mass in this patient with history of known metastatic colon carcinoma. Sonographic findings: Transabdominal and transvaginal scanning are performed. A retroverted uterus is seen without normal dimensions of 5.7 x 3.0 x 3.4 cm. Endometrial echo 0.2 cm thick. No focal uterine mass is seen. The right ovary could not be visualized. The left adnexa measures 4.0 x 3.4 x 3.5 cm. The lesion is predominately solid with a few small anechoic cystic areas within it. We are unable to see normal ovaries separate from this. No free fluid is seen. This 4.0 cm predominately solid area in the left adnexa is felt to correspond with the MR findings. Impression: Somewhat limited exam. Right ovary could not be visualized. There is a left adnexal, predominantly solid, mass lesion measuring 4.0 x 3.4 x 3.5 cm. We were not able to separately identify the normal left ovary. This is felt to correspond with the left adnexal lesion seen on pelvic MRI. No free fluid. Retroverted uterus. Signed by Rodo Aguirre MD 07/12/2017 07:19 P
[2017-07-12] MEDS: DULoxetine 30 MG CAP (CYMBALTA) PO SCH (20:39)
[2017-07-12] MEDS: MULTIVITAMINS/MINERALS THERAP 1 TAB PO SCH (20:39)
[2017-07-12] MEDS: MORPHINE 15 MG SA TAB PO SCH (21:06)
[2017-07-12 22:00] VITALS: BP 129/86
[2017-07-13] MEDS: HYOSCYAMINE SULFATE 0.125 MG SUBL TABLET SL SCH ×5 (00:55→22:50)
[2017-07-13 06:00] VITALS: BP 119/83
[2017-07-13] MEDS: MORPHINE 30 MG SA TAB PO SCH ×2 (06:07→14:52)
[2017-07-13] MEDS: diazePAM 2 MG TAB PO PRN ×5 (06:07→22:50)
[2017-07-13] MEDS: SODIUM CHLORIDE 0.9% INJ 10 ML SYR IV SCH (09:00)
[2017-07-13] MEDS: PANTOPRAZOLE 40MG TAB (PROTONIX) PO SCH (10:42)
[2017-07-13] MEDS: diphenhydrAMINE 25 MG CAP PO PRN (10:42)
[2017-07-13] MEDS: SENOKOT S TAB PO SCH ×2 (10:42→22:25)
[2017-07-13] MEDS: PHENAZOPYRIDINE 100 MG TAB PO SCH ×2 (10:42→18:41)
[2017-07-13] MEDS: PROPRANOLOL 20 MG TAB PO SCH ×2 (10:42→22:24)
[2017-07-13] MEDS: CETIRIZINE (ZyrTEC) 10 MG TAB PO SCH (10:42)
[2017-07-13] MEDS: MORPHINE 10MG/0.5ML ORAL CONCENTRATE SOLUTION U/D SL PRN ×3 (10:43→22:28)
[2017-07-13] MEDS: ENOXAPARIN 40 MG/0.4 ML SYRINGE (J1650) SC SCH (10:44)
[2017-07-13] MEDS: TRIAMCINOLONE ACET 0.1% OINTMENT 15 GM TOP SCH ×2 (10:44→22:31)
[2017-07-13 14:00] VITALS: BP 142/88
--- NOTE | 2017-07-13 20:48 | IPNPDOC ---
Subjective Date Seen The patient was seen on 07/13/17. Subjective Chief Complaint/HPI The patient is a 47-year-old female admitted with a reason for visit of Uti, Abdominal Pain. Events since last encounter Patient was seen at bedside this morning, reports better pain control last night with the changing in timing of pain medications. She states that she talked with Dr. Barnard this morning who discussed the possible option of pursing surgery to remove her L ovary. He aims to perform the surgery on Saturday pending approval from oncology. We had discussed the possibility of surgery last night and it seemed that the patient was on board with undergoing a surgical procedure if it had been offered. We have also discussed attempting OMT when she was in the hospital which she remains open to trying. Constitutional: Denies: Chills, Fever, Night Sweats Cardiovascular: Denies: Chest Pain, Palpitations, Orthopnea, Paroxysmal Noc. Dyspnea, Lt Headedness Gastrointestinal: Reports: Abdominal Pain, Denies: Nausea, Vomiting, Diarrhea, Constipation Genitourinary: Denies: Dysuria, Frequency, Incontinence, Retention Objective Physical Examination General Exam: Positive: Alert, No Acute Distress (she appears confortable despite reporting intense abd pain) Eye Exam: Positive: EOMI Chest Exam: Positive: Clear to auscultation, Normal air movement Heart Exam: Positive: Rate Normal, Regular Rhythm, Normal S1, Normal S2, Negative: Murmurs, Rubs Abdomen Exam: Positive: Tenderness Skin Exam: Positive: Rash (Erythema of bilateral cheeks and hands noted) Neuro Exam: Positive: Normal Speech, Sensation Intact Psych Exam: Positive: Mental status NL, Mood NL Assessment /Plan Problems (1) Ovarian mass, left Status: Chronic Problem Specific Plan: Consult Specialist Problem Text: 07/13/17: Possible surgical excision discussed with patient planned for Saturday pending oncology input. 07/12/17: Noted on MRI of the pelvis, 3.4 x 3.3 x 4.4 cm. GRANTS ANALYST was consulted. Pelvic US was ordered to further classify the mass. (2) Abdominal pain Status: Acute Response to Treatment: Stable Discussed With: Nurse, Patient Problem Specific Plan: Consult Specialist, Monitor Clinically, Repeat Labs Problem Text: Continue current pain regimen of MS Contin 60/60/45 and Roxanol 15 q1h. Valium 1mg q4hp. 07/11/17: Continue MS Contin 60/60/45 and Roxanol 15 q1h. No adjustment to pain medication today. 07/09/2017: increased Roxanol 10 q2H to 15 q1H prn given "no benefit" c 10 mg Long discussion held with patient and family on trip to [place] scheduled for 07/10/17 in the am. Reviewed risks given illness, pain and sedation.confusion with medication. Advised against trip at this time. Patient would like to see how today goes and consider DC later in the day. 07/08/2017- Because of her excessive sedation and hallucinations with current pain regimen, we will reduce her night dose of MS Contin to 45 mg. The remaining doses will continue at 60 mg throughout the day. She will continue with Roxanol q2h PRN for breakthrough pain. If pain control is adequate throughout today, I believe it is reasonable to have the patient discharged tomorrow morning. Patient understands that she is becoming more tolerant towards stronger doses of medications and that complete resolution of pain is unrealistic. 07/07/17 - The fentanyl didn't really work for her. It took her pain down to perhaps 7/10 at the best. We discussed options and I will put her back on MS Contin which seemed to work better for her than anything. I will put her on MS Contin 60mg TID with Roxanol 10mg SL Q2h prn breakthrough pain. Will see how this works for her. 07/06/2017- anticipate discharge pending adequate pain control. We will start transitioning her off of IV pain medications. We will start trial of fentanyl patch and Roxanol. 07/05 - Pt mgmt adjusted per Dr San yesterday. She is on MS Contin 30 mg q8, will change to 45 mg, cont IV 6 mg q2h, she used 66 mg of IV morphine in the last 24 hours. 07/04 - Pt cont to c/o poor pain control, Ace LAW, spoke with Pain Mgmt this morning, who rec increased the morphine IV 6 mg from every 3 h to every 2 h as needed for pain relief. I have made this change as requested. 07/03 - Pt was seen by pain management who gave MSIR 30 mg one time, started morphine 2mg q4 prn for breakthrough pain, started OxyContin 20 mg three times a day, and started valium 5 mg every 6 hours as needed. Pain management discussed possibly increasing the morphine to 4mg q4h prn. Pt continues have abd pain, and feels pain meds not covering her pain. Will increase the morphine to 4 mg q 4hrs per pain mgmt's recommendation. Also will have nursing contact pain mgmt to notify that pt's pain is not controlled to see if they can reassess and give additional input. Pt with intactable abd pain on C ARCHITECT morphine which she is tolerating, she has maxed out her dose and c/o poor pain control, however on exam the only potential indication for poor pain control is tachycardia. She appears comfortable in bed, converses appropriate, and there is no guarding of the abdomen. I will address this further with my attending today. Dr Smith has seen the pt, rec medical mgmt, not surgical intervention appropriate. Rec clear liquids for 2 meals then advance her diet as tolerated. She is eager to eat. (3) UTI (urinary tract infection) Status: Acute Problem Text: 07/12/17: Continue Rocephin, day #3/3; discontinue after today's dose. Patient continues to urinate, no urinary symptoms. 07/11/17: patient had urinary retention last night, symptoms had resolved today. Continue Rocephin 1gm IV q24hr day #2. 07/10/17: started on Rocephin 1 gm IV q 24 hours. Pyridium for bladder spasms. 07/09: D2 levofloxacin; levofloxacin discontinued due to development of rash 07/02/17 UCX from her nephrostomy Enterobacter cloaca and faecalis-both sens to levo 07/02/17 BCX x 2 NG (4) Facial rash Status: Acute Problem Text: Improving. Patient is tolerating well. Cont Benadryl. 07/11/17: continue with benadryl. She continues to have facial rash that is tolerable. 07/10/17: Benadryl 25 mg po q 6 hrs ordered. 07/09/17 progressive since 07/09 AM - possible drug reaction to levofloxacin, which was discontinued on 07/09/17; apply triamcinolone 0.1 mg BID (5) Irritable bowel syndrome Status: Chronic Discussed With: Patient Problem Text: Patient had MRI of the pelvis and abd. Will defer to gastroenterology input. 07/11/17: May consider the addition of Movantic or Relistor, will defer to gastroenterology input. Mixed type; chronic; likely worsened by chronic narcotic use 07/10/17: Diazepam decreased to 1 mg due to significant sedation 07/09/17: increase hyoscyamine 0.5 to QID (MDD is 1.5 mg), decrease diazepam 2.5 q6H prn during day (5 at night) (6) Metastatic colon cancer in female Status: Chronic Response to Treatment: Stable Problem Specific Plan: Monitor Clinically Problem Text: Follows with Onc in outpt setting - Dr. Mueller. (7) Tachycardia Status: Acute Discussed With: Nurse, Patient Problem Text: She continues to have a mild, probably physiologic from pain, tachycardia. Continue to monitor. (8) History of hydronephrosis Status: Chronic Response to Treatment: Stable Problem Specific Plan: Monitor Clinically Problem Text: Has stent in place, scan appears without any persistent hydronephrosis. Plan/VTE VTE Prophylaxis Ordered?: Yes VS, I&O, 24H, Fishbone Vital Signs/I&O Vital Signs Date Time Temp Pulse Resp B/P (MAP) Pulse Ox O2 Delivery O2 Flow Rate FiO2 07/13/17 11:13 18 07/13/17 10:42 101 119/83 07/13/17 06:00 99.5 93 Room Air I&O- Last 24 Hours up to 6 AM 07/14/17 06:00 Intake Total 600 ml Balance 600 ml GME ATTESTATION GME ATTESTATION My preceptor for this patient encounter was physically present in the building during the encounter and was fully available. As needed, all aspects of the patient interview, examination, medical decision making process, and medical care plan development were reviewed and approved by the preceptor. Preceptor is aware and concurs with the plan as stated in the body of this note and will attest to such by his/her cosignature. SAMANTHA VARMA DO Jul 13, 2017 11:48
[2017-07-13 22:00] VITALS: BP 136/89
[2017-07-13] MEDS: DULoxetine 30 MG CAP (CYMBALTA) PO SCH (22:24)
[2017-07-13] MEDS: MULTIVITAMINS/MINERALS THERAP 1 TAB PO SCH (22:25)
[2017-07-13] MEDS: MORPHINE 15 MG SA TAB PO SCH (22:26)
[2017-07-14] MEDS: PHENAZOPYRIDINE 100 MG TAB PO SCH ×3 (01:00→17:12)
[2017-07-14] MEDS: diazePAM 2 MG TAB PO PRN ×5 (02:53→21:32)
[2017-07-14] MEDS: MORPHINE 10MG/0.5ML ORAL CONCENTRATE SOLUTION U/D SL PRN ×6 (02:54→21:35)
[2017-07-14] MEDS: diphenhydrAMINE 25 MG CAP PO PRN (03:08)
[2017-07-14 06:00] VITALS: BP 137/91
[2017-07-14] MEDS: HYOSCYAMINE SULFATE 0.125 MG SUBL TABLET SL SCH ×3 (06:58→17:12)
[2017-07-14] MEDS: MORPHINE 30 MG SA TAB PO SCH ×2 (06:58→13:14)
[2017-07-14] MEDS: SODIUM CHLORIDE 0.9% INJ 10 ML SYR IV SCH (09:00)
[2017-07-14] MEDS: ENOXAPARIN 40 MG/0.4 ML SYRINGE (J1650) SC SCH (09:29)
[2017-07-14] MEDS: PROPRANOLOL 20 MG TAB PO SCH ×2 (09:29→21:21)
[2017-07-14] MEDS: CETIRIZINE (ZyrTEC) 10 MG TAB PO SCH (09:29)
[2017-07-14] MEDS: TRIAMCINOLONE ACET 0.1% OINTMENT 15 GM TOP SCH ×2 (09:30→21:26)
[2017-07-14] MEDS: PANTOPRAZOLE 40MG TAB (PROTONIX) PO SCH (09:30)
[2017-07-14] MEDS: SENOKOT S TAB PO SCH ×2 (09:40→21:20)
[2017-07-14] MEDS: SIMETHICONE 80 MG CHEW TAB PO PRN (09:40)
[2017-07-14] MEDS ORDERED: FLEET ENEMA PR PRN (12:30)
[2017-07-14 14:00] VITALS: BP 154/83
--- NOTE | 2017-07-14 16:35 | IPNPDOC ---
Subjective Date Seen The patient was seen on 07/14/17. Subjective Chief Complaint/HPI The patient is a 47-year-old female admitted with a reason for visit of Uti, Abdominal Pain. Events since last encounter Patient is seen today at bedside. She states that she is still having a lot of abdominal pain, she rates it as a 9 out of 10. The pain is so intense that she says she cannot eat. Only thing that makes it better is the heating pad and putting pressure on her abdomen. She states that the combination of MS Contin, Roxanol, and Valium yesterday morning did help throughout the day. However this combination has not worked for her since. She does state that she is not taking the Roxanol every hour, as she feels it only works well with the MS Contin and volume combined. However now she is not getting the same relief as she did yesterday. She is also complaining of a new pain on the left, along the dermatome of L1 and L2. She states that this pain is more of a pressure inside and has had some slight burning and neuropathic pain shooting down her anterior left leg. General: Denies: Chills, Night Sweats Constitutional: Reports: Weakness Skin: Reports: Rash (patient states that the rash on her cheeks and hands is healing from her last bout of chemotherapy.), Denies: Lesions Pulmonary: Denies: Dyspnea, Cough Cardiovascular: Denies: Chest Pain Gastrointestinal: Reports: Abdominal Pain, Denies: Diarrhea, Constipation (patient states that she has not had a bowel movement in a few days, but she is also not eating anything.) Genitourinary: Denies: Dysuria, Frequency Musculoskeletal: Reports: Leg Pain (left, burning sensation along the lateral feet femoral cutaneous nerve distribution) Objective Physical Examination General Exam: Positive: Alert, No Acute Distress (quite emphatically of abdominal pain. She states that it is so intense she cannot move.), Mild Distress Chest Exam: Positive: Clear to auscultation, Normal air movement Heart Exam: Positive: Rate Normal, Regular Rhythm, Normal S1, Normal S2, Negative: Murmurs, Rubs Abdomen Exam: Positive: Normal bowel sounds, Tenderness Skin Exam: Positive: Rash (Erythema of bilateral cheeks and hands noted, healing from chemotherapy as stated by patient.) Neuro Exam: Positive: Normal Speech, Sensation Intact Psych Exam: Positive: Mental status NL, Mood NL Assessment /Plan Problems (1) Ovarian mass, left Status: Chronic Problem Specific Plan: Consult Specialist Problem Text: 07/14/2017: Possible surgical excision by Dr. Barnard planned for Saturday. 07/13/17: Possible surgical excision discussed with patient planned for Saturday pending oncology input. 07/12/17: Noted on MRI of the pelvis, 3.4 x 3.3 x 4.4 cm. VESSEL CAPTAIN was consulted. Pelvic US was ordered to further classify the mass. (2) Abdominal pain Status: Acute Response to Treatment: Stable Discussed With: Nurse, Patient Problem Specific Plan: Consult Specialist, Monitor Clinically, Repeat Labs Problem Text: 07/14/2017: As patient is continuing to complain of pain, her Roxanol was increased to 20 mg every hour. She is also told to take it every hour until she gets ahead of pain, because apparently she has not been taking the Roxanol every hour. Continue with MS Contin 60/60/45. Valium is still ordered 1 mg every 4 hours when necessary. 07/13/2017: Continue current pain regimen of MS Contin 60/60/45 and Roxanol 15 q1h. Valium 1mg q4hp. 07/11/17: Continue MS Contin 60/60/45 and Roxanol 15 q1h. No adjustment to pain medication today. 07/09/2017: increased Roxanol 10 q2H to 15 q1H prn given "no benefit" c 10 mg Long discussion held with patient and family on trip to [place] scheduled for 07/10/17 in the am. Reviewed risks given illness, pain and sedation.confusion with medication. Advised against trip at this time. Patient would like to see how today goes and consider DC later in the day. 07/08/2017- Because of her excessive sedation and hallucinations with current pain regimen, we will reduce her night dose of MS Contin to 45 mg. The remaining doses will continue at 60 mg throughout the day. She will continue with Roxanol q2h PRN for breakthrough pain. If pain control is adequate throughout today, I believe it is reasonable to have the patient discharged tomorrow morning. Patient understands that she is becoming more tolerant towards stronger doses of medications and that complete resolution of pain is unrealistic. 07/07/17 - The fentanyl didn't really work for her. It took her pain down to perhaps 7/10 at the best. We discussed options and I will put her back on MS Contin which seemed to work better for her than anything. I will put her on MS Contin 60mg TID with Roxanol 10mg SL Q2h prn breakthrough pain. Will see how this works for her. 07/06/2017- anticipate discharge pending adequate pain control. We will start transitioning her off of IV pain medications. We will start trial of fentanyl patch and Roxanol. 07/05 - Pt mgmt adjusted per Dr San yesterday. She is on MS Contin 30 mg q8, will change to 45 mg, cont IV 6 mg q2h, she used 66 mg of IV morphine in the last 24 hours. 07/04 - Pt cont to c/o poor pain control, Ace LAW, spoke with Pain Mgmt this morning, who rec increased the morphine IV 6 mg from every 3 h to every 2 h as needed for pain relief. I have made this change as requested. 07/03 - Pt was seen by pain management who gave MSIR 30 mg one time, started morphine 2mg q4 prn for breakthrough pain, started OxyContin 20 mg three times a day, and started valium 5 mg every 6 hours as needed. Pain management discussed possibly increasing the morphine to 4mg q4h prn. Pt continues have abd pain, and feels pain meds not covering her pain. Will increase the morphine to 4 mg q 4hrs per pain mgmt's recommendation. Also will have nursing contact pain mgmt to notify that pt's pain is not controlled to see if they can reassess and give additional input. Pt with intactable abd pain on CLICKER OPERATOR morphine which she is tolerating, she has maxed out her dose and c/o poor pain control, however on exam the only potential indication for poor pain control is tachycardia. She appears comfortable in bed, converses appropriate, and there is no guarding of the abdomen. I will address this further with my attending today. Dr Smith has seen the pt, rec medical mgmt, not surgical intervention appropriate. Rec clear liquids for 2 meals then advance her diet as tolerated. She is eager to eat. (3) UTI (urinary tract infection) Status: Resolved Problem Text: 07/12/17: Continue Rocephin, day #3/3; discontinue after today's dose. Patient continues to urinate, no urinary symptoms. 07/11/17: patient had urinary retention last night, symptoms had resolved today. Continue Rocephin 1gm IV q24hr day #2. 07/10/17: started on Rocephin 1 gm IV q 24 hours. Pyridium for bladder spasms. 07/09: D2 levofloxacin; levofloxacin discontinued due to development of rash 07/02/17 UCX from her nephrostomy Enterobacter cloaca and faecalis-both sens to levo 07/02/17 BCX x 2 NG (4) Facial rash Status: Acute Problem Text: Improving. Patient is tolerating well. Cont Benadryl. 07/11/17: continue with benadryl. She continues to have facial rash that is tolerable. 07/10/17: Benadryl 25 mg po q 6 hrs ordered. 07/09/17 progressive since 07/09 AM - possible drug reaction to levofloxacin, which was discontinued on 07/09/17; apply triamcinolone 0.1 mg BID (5) Irritable bowel syndrome Status: Chronic Discussed With: Patient Problem Text: Patient had MRI of the pelvis and abd. Will defer to gastroenterology input. 07/11/17: May consider the addition of Movantic or Relistor, will defer to gastroenterology input. Mixed type; chronic; likely worsened by chronic narcotic use 07/10/17: Diazepam decreased to 1 mg due to significant sedation 07/09/17: increase hyoscyamine 0.5 to QID (MDD is 1.5 mg), decrease diazepam 2.5 q6H prn during day (5 at night) (6) Metastatic colon cancer in female Status: Chronic Response to Treatment: Stable Problem Specific Plan: Monitor Clinically Problem Text: Follows with Onc in outpt setting - Dr. Mueller. (7) Tachycardia Status: Acute Discussed With: Nurse, Patient Problem Text: She continues to have a mild, probably physiologic from pain, tachycardia. Continue to monitor. (8) History of hydronephrosis Status: Chronic Response to Treatment: Stable Problem Specific Plan: Monitor Clinically Problem Text: Has stent in place, scan appears without any persistent hydronephrosis. Plan/VTE VTE Prophylaxis Ordered?: Yes VS, I&O, 24H, Fishbone Vital Signs/I&O Vital Signs Date Time Temp Pulse Resp B/P (MAP) Pulse Ox O2 Delivery O2 Flow Rate FiO2 07/14/17 14:00 98.4 95 16 154/83 (052) 94 Room Air I&O- Last 24 Hours up to 6 AM 07/15/17 06:00 Intake Total 420 ml Output Total 625 ml Balance -205 ml GME ATTESTATION GME ATTESTATION My preceptor for this patient encounter was physically present in the building during the encounter and was fully available. As needed, all aspects of the patient interview, examination, medical decision making process, and medical care plan development were reviewed and approved by the preceptor. Preceptor is aware and concurs with the plan as stated in the body of this note and will attest to such by his/her cosignature. CEDRICK PALMER DO Jul 14, 2017 16:35
[2017-07-14] MEDS: DULoxetine 30 MG CAP (CYMBALTA) PO SCH (21:20)
[2017-07-14] MEDS: MULTIVITAMINS/MINERALS THERAP 1 TAB PO SCH (21:20)
[2017-07-14] MEDS: DOCUSATE SODIUM 100 MG CAP PO SCH (21:20)
[2017-07-14] MEDS: MORPHINE 15 MG SA TAB PO SCH (21:22)
[2017-07-14 22:00] VITALS: BP 136/86
[2017-07-15] MEDS: HYOSCYAMINE SULFATE 0.125 MG SUBL TABLET SL SCH ×4 (01:01→18:10)
[2017-07-15] MEDS: PHENAZOPYRIDINE 100 MG TAB PO SCH ×3 (01:02→18:10)
[2017-07-15] MEDS: diazePAM 2 MG TAB PO PRN ×5 (01:36→18:15)
[2017-07-15] MEDS: MORPHINE 10MG/0.5ML ORAL CONCENTRATE SOLUTION U/D SL PRN ×8 (01:38→19:43)
[2017-07-15 06:00] VITALS: BP 126/81
[2017-07-15] MEDS: MORPHINE 30 MG SA TAB PO SCH ×2 (06:09→14:03)
[2017-07-15] MEDS: diphenhydrAMINE 25 MG CAP PO PRN (06:16)
[2017-07-15 08:00] VITALS: BP 131/83
[2017-07-15] MEDS: DOCUSATE SODIUM 100 MG CAP PO SCH ×2 (08:46→22:06)
[2017-07-15] MEDS: PANTOPRAZOLE 40MG TAB (PROTONIX) PO SCH (08:48)
[2017-07-15] MEDS: CETIRIZINE (ZyrTEC) 10 MG TAB PO SCH (08:48)
[2017-07-15] MEDS: PROPRANOLOL 20 MG TAB PO SCH ×2 (08:48→22:06)
[2017-07-15] MEDS: MIRALAX *UNIT DOSE* 17GM PACKET PO SCH (08:50)
[2017-07-15] MEDS: TRIAMCINOLONE ACET 0.1% OINTMENT 15 GM TOP SCH ×2 (08:50→22:07)
[2017-07-15] MEDS: SENOKOT S TAB PO SCH ×2 (08:51→22:06)
[2017-07-15] MEDS: SODIUM CHLORIDE 0.9% INJ 10 ML SYR IV SCH (08:52)
[2017-07-15] MEDS: ENOXAPARIN 40 MG/0.4 ML SYRINGE (J1650) SC SCH (13:20)
[2017-07-15 14:00] VITALS: BP 124/84
--- NOTE | 2017-07-15 18:40 | IPNPDOC ---
Subjective Date Seen The patient was seen on 07/15/17. Subjective Chief Complaint/HPI The patient is a 47-year-old female admitted with a reason for visit of Uti, Abdominal Pain. Events since last encounter Patient remains uncomfortable despite escalating pain regimen. She continues to have lower abd pain and L sided flank pain. Patient was evaluated by AWNING ASSEMBLER who was considering resection of the L ovary secondary to tumor like growth on imaging. However, the operation was cancelled after talking to the various providers on the case. Constitutional: Denies: Chills, Fever, Night Sweats Pulmonary: Denies: Dyspnea, Cough Cardiovascular: Denies: Chest Pain, Palpitations, Orthopnea, Paroxysmal Noc. Dyspnea, Lt Headedness Gastrointestinal: Reports: Abdominal Pain (LLQ>RLQ), Denies: Nausea, Vomiting, Diarrhea, Constipation Genitourinary: Denies: Dysuria, Frequency, Incontinence, Retention Psych: Reports: Mood Normal, Denies: Depression, Memory Issues Objective Physical Examination General Exam: Positive: Alert, No Acute Distress (quite emphatically of abdominal pain. She states that it is so intense she cannot move.), Mild Distress Chest Exam: Positive: Clear to auscultation, Normal air movement Heart Exam: Positive: Rate Normal, Regular Rhythm, Normal S1, Normal S2, Negative: Murmurs, Rubs Abdomen Exam: Positive: Normal bowel sounds, Tenderness (to palpation in the lower abd) Skin Exam: Positive: Rash (Erythema of bilateral cheeks and hands noted, healing from chemotherapy as stated by patient.) Neuro Exam: Positive: Normal Speech, Sensation Intact Psych Exam: Positive: Mental status NL, Mood NL Assessment /Plan Problems (1) Ovarian mass, left Status: Chronic Problem Specific Plan: Consult Specialist Problem Text: : Surgical procedure cancelled. Risk of surgery may outweigh benefit. Patient will continued to be followed by AWNING ASSEMBLER. 07/14/2017: Possible surgical excision by Dr. Barnard planned for Saturday. 07/13/17: Possible surgical excision discussed with patient planned for Saturday pending oncology input. 07/12/17: Noted on MRI of the pelvis, 3.4 x 3.3 x 4.4 cm. UNDER BASTER was consulted. Pelvic US was ordered to further classify the mass. (2) Abdominal pain Status: Acute Response to Treatment: Stable Discussed With: Nurse, Patient Problem Specific Plan: Consult Specialist, Monitor Clinically, Repeat Labs Problem Text: 07/15/2017: Patient continues to be uncomfortable. Cont current pain regimen. Oncology has been consulted, appreciate input. 07/14/2017: As patient is continuing to complain of pain, her Roxanol was increased to 20 mg every hour. She is also told to take it every hour until she gets ahead of pain, because apparently she has not been taking the Roxanol every hour. Continue with MS Contin 60/60/45. Valium is still ordered 1 mg every 4 hours when necessary. 07/13/2017: Continue current pain regimen of MS Contin 60/60/45 and Roxanol 15 q1h. Valium 1mg q4hp. 07/11/17: Continue MS Contin 60/60/45 and Roxanol 15 q1h. No adjustment to pain medication today. 07/09/2017: increased Roxanol 10 q2H to 15 q1H prn given "no benefit" c 10 mg Long discussion held with patient and family on trip to [place] scheduled for 07/10/17 in the am. Reviewed risks given illness, pain and sedation.confusion with medication. Advised against trip at this time. Patient would like to see how today goes and consider DC later in the day. 07/08/2017- Because of her excessive sedation and hallucinations with current pain regimen, we will reduce her night dose of MS Contin to 45 mg. The remaining doses will continue at 60 mg throughout the day. She will continue with Roxanol q2h PRN for breakthrough pain. If pain control is adequate throughout today, I believe it is reasonable to have the patient discharged tomorrow morning. Patient understands that she is becoming more tolerant towards stronger doses of medications and that complete resolution of pain is unrealistic. 07/07/17 - The fentanyl didn't really work for her. It took her pain down to perhaps 7/10 at the best. We discussed options and I will put her back on MS Contin which seemed to work better for her than anything. I will put her on MS Contin 60mg TID with Roxanol 10mg SL Q2h prn breakthrough pain. Will see how this works for her. 07/06/2017- anticipate discharge pending adequate pain control. We will start transitioning her off of IV pain medications. We will start trial of fentanyl patch and Roxanol. 07/05 - Pt mgmt adjusted per Dr San yesterday. She is on MS Contin 30 mg q8, will change to 45 mg, cont IV 6 mg q2h, she used 66 mg of IV morphine in the last 24 hours. 07/04 - Pt cont to c/o poor pain control, Ace LAW, spoke with Pain Mgmt this morning, who rec increased the morphine IV 6 mg from every 3 h to every 2 h as needed for pain relief. I have made this change as requested. 07/03 - Pt was seen by pain management who gave MSIR 30 mg one time, started morphine 2mg q4 prn for breakthrough pain, started OxyContin 20 mg three times a day, and started valium 5 mg every 6 hours as needed. Pain management discussed possibly increasing the morphine to 4mg q4h prn. Pt continues have abd pain, and feels pain meds not covering her pain. Will increase the morphine to 4 mg q 4hrs per pain mgmt's recommendation. Also will have nursing contact pain mgmt to notify that pt's pain is not controlled to see if they can reassess and give additional input. 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 She appears comfortable in bed, converses appropriate, and there is no guarding of the abdomen. I will address this further with my attending today. Dr Smith has seen the pt, rec medical mgmt, not surgical intervention appropriate. Rec clear liquids for 2 meals then advance her diet as tolerated. She is eager to eat. (3) UTI (urinary tract infection) Status: Resolved Problem Text: 07/12/17: Continue Rocephin, day #3/3; discontinue after today's dose. Patient continues to urinate, no urinary symptoms. 07/11/17: patient had urinary retention last night, symptoms had resolved today. Continue Rocephin 1gm IV q24hr day #2. 07/10/17: started on Rocephin 1 gm IV q 24 hours. Pyridium for bladder spasms. 07/09: D2 levofloxacin; levofloxacin discontinued due to development of rash 07/02/17 UCX from her nephrostomy Enterobacter cloaca and faecalis-both sens to levo 07/02/17 BCX x 2 NG (4) Facial rash Status: Acute Problem Text: Improving. Patient is tolerating well. Cont Benadryl. 07/11/17: continue with benadryl. She continues to have facial rash that is tolerable. 07/10/17: Benadryl 25 mg po q 6 hrs ordered. 07/09/17 progressive since 07/09 AM - possible drug reaction to levofloxacin, which was discontinued on 07/09/17; apply triamcinolone 0.1 mg BID (5) Irritable bowel syndrome Status: Chronic Discussed With: Patient Problem Text: Patient had MRI of the pelvis and abd. Will defer to gastroenterology input. 07/11/17: May consider the addition of Movantic or Relistor, will defer to gastroenterology input. Mixed type; chronic; likely worsened by chronic narcotic use 07/10/17: Diazepam decreased to 1 mg due to significant sedation 07/09/17: increase hyoscyamine 0.5 to QID (MDD is 1.5 mg), decrease diazepam 2.5 q6H prn during day (5 at night) (6) Metastatic colon cancer in female Status: Chronic Response to Treatment: Stable Problem Specific Plan: Monitor Clinically Problem Text: Follows with Onc in outpt setting - Dr. Mueller. Onc was consulted. (7) Tachycardia Status: Acute Discussed With: Nurse, Patient Problem Text: She continues to have a mild, probably physiologic from pain, tachycardia. Continue to monitor. (8) History of hydronephrosis Status: Chronic Response to Treatment: Stable Problem Specific Plan: Monitor Clinically Problem Text: Has stent in place, scan appears without any persistent hydronephrosis. Plan/VTE VTE Prophylaxis Ordered?: Yes VS, I&O, 24H, Fishbone Vital Signs/I&O Vital Signs Date Time Temp Pulse Resp B/P (MAP) Pulse Ox O2 Delivery O2 Flow Rate FiO2 07/15/17 18:09 18 Room Air 07/15/17 14:00 98.1 98 124/84 (97) 95 07/14/17 21:35 95 I&O- Last 24 Hours up to 6 AM 07/16/17 06:00 Output Total 450 ml Balance -450 ml GME ATTESTATION GME ATTESTATION My preceptor for this patient encounter was physically present in the building during the encounter and was fully available. As needed, all aspects of the patient interview, examination, medical decision making process, and medical care plan development were reviewed and approved by the preceptor. Preceptor is aware and concurs with the plan as stated in the body of this note and will attest to such by his/her cosignature. SAMANTHA VARMA DO Jul 15, 2017 18:37
[2017-07-15 20:00] VITALS: BP 124/84
[2017-07-15] MEDS: MORPHINE 15 MG SA TAB PO SCH (22:05)
[2017-07-15] MEDS: DULoxetine 30 MG CAP (CYMBALTA) PO SCH (22:06)
[2017-07-15] MEDS: MULTIVITAMINS/MINERALS THERAP 1 TAB PO SCH (22:06)
[2017-07-16] MEDS: HYOSCYAMINE SULFATE 0.125 MG SUBL TABLET SL SCH ×4 (01:22→18:20)
[2017-07-16] MEDS: PHENAZOPYRIDINE 100 MG TAB PO SCH ×3 (01:22→16:50)
[2017-07-16] MEDS: diazePAM 2 MG TAB PO PRN ×5 (01:22→22:20)
[2017-07-16] MEDS: MORPHINE 10MG/0.5ML ORAL CONCENTRATE SOLUTION U/D SL PRN ×8 (01:23→22:25)
[2017-07-16] MEDS: MORPHINE 30 MG SA TAB PO SCH ×3 (05:32→22:21)
[2017-07-16 06:00] VITALS: BP 125/83
[2017-07-16 06:41] LABS: MEAN CORPUSCULAR HEMOGLOBIN 30.4 pg (27.0-33.0); MEAN CORPUSCULAR HGB CONC 31.4 g/dl (32.0-36.5); MEAN CORPUSCULAR VOLUME 96.6 fl (80.0-96.0); PLATELET COUNT, AUTOMATED 350 10^3/uL (150-450); RED CELL DISTRIBUTION WIDTH 16.9 % (11.5-14.5); WHITE BLOOD COUNT 10.8 10^3/uL (4.0-10.0)
[2017-07-16 07:01] LABS: ALBUMIN 2.2 GM/DL (3.2-5.2); ALBUMIN/GLOBULIN RATIO 0.67 (1.00-1.93); ALKALINE PHOSPHATASE 96 U/L (45-117); ALT/SGPT 14 U/L (12-78); ANION GAP 8 MEQ/L (8-16); AST/SGOT 18 U/L (7-37); BILIRUBIN,TOTAL 0.3 MG/DL (0.2-1.0); BLOOD UREA NITROGEN 6 MG/DL (7-18); CALCIUM LEVEL 8.8 MG/DL (8.5-10.1); CARBON DIOXIDE LEVEL 28 MEQ/L (21-32); CHLORIDE LEVEL 105 MEQ/L (98-107); CREATININE FOR GFR 0.66 MG/DL (0.55-1.02); GLOMERULAR FILTRATION RATE > 60.0 (>58); GLUCOSE, FASTING 123 MG/DL (70-105); POTASSIUM SERUM 3.8 MEQ/L (3.5-5.1); SODIUM LEVEL 141 MEQ/L (136-145); TOTAL PROTEIN 5.5 GM/DL (6.4-8.2)
--- NOTE | 2017-07-16 07:58 | IPN ---
DATE: 07/15/2017 Tresa was seen in [address] [place] [address]. Barnard saw her earlier today. He and I discussed the case. He feels that the risks of surgery outweigh potential benefit and is advising against left oophorectomy. She also has left lower quadrant/left pelvic pain that she wants me to evaluate today as well. No fever or chills. PHYSICAL EXAMINATION: VITAL SIGNS: Per flow sheet. LUNGS: Clear. HEART: Regular rhythm. ABDOMEN: Soft. Tender in the left lower quadrant, mostly just above the pelvic rim on the left. It feels full in this area. She has left nephrostomy tube. EXTREMITIES: No peripheral edema. LABORATORY DATA: No laboratories since 07/10/2017. ASSESSMENT: 1. Left lower quadrant pain. 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 Suspect that she has metastatic disease there. It seems high for ovarian pain. 2. Ovarian mass on the left, probably metastatic. Dr. Barnard advises against surgery. The patient and I discussed this at length. She is disappointed but agrees with the decision. She would like to talk to Dr. Mueller to see whether there might be chemotherapy route to go that might address this new finding. 3. Abdominal pain. We will adjust her medications as necessary to control her pain in the face of her terminal condition. 4. Polymicrobial urinary tract infection (UTI). She finished Rocephin for this.
[2017-07-16] MEDS: ENOXAPARIN 40 MG/0.4 ML SYRINGE (J1650) SC SCH (09:00)
[2017-07-16] MEDS: SODIUM CHLORIDE 0.9% INJ 10 ML SYR IV SCH (09:00)
[2017-07-16] MEDS: PANTOPRAZOLE 40MG TAB (PROTONIX) PO SCH (09:20)
[2017-07-16] MEDS: DOCUSATE SODIUM 100 MG CAP PO SCH ×2 (09:20→22:21)
[2017-07-16] MEDS: CETIRIZINE (ZyrTEC) 10 MG TAB PO SCH (09:20)
[2017-07-16] MEDS: PROPRANOLOL 20 MG TAB PO SCH ×2 (09:20→22:22)
[2017-07-16] MEDS: SENOKOT S TAB PO SCH ×2 (09:21→22:21)
[2017-07-16] MEDS: MIRALAX *UNIT DOSE* 17GM PACKET PO SCH (09:21)
[2017-07-16] MEDS: TRIAMCINOLONE ACET 0.1% OINTMENT 15 GM TOP SCH ×2 (09:22→22:23)
--- NOTE | 2017-07-16 10:41 | IPN ---
DATE OF SERVICE: 07/16/2017 Tresa is seen on [address]. Continues to have abdominal pain. I think this is related to her metastatic malignancy. She still seems to be searching for a "answer" to her abdominal pain. She was seen by the pain clinic earlier in this hospitalization. That was 2 weeks ago and asked them to come back to see if maybe she might benefit from maybe some type of a nerve block that may help with her pain. PHYSICAL EXAMINATION: Vital signs stable. General appearance: Chronically well appearing. Lungs: Clear. Heart: Regular rhythm. Abdomen: Soft, tender both lower quadrants, before it was left lower quadrant. No peripheral edema. LABS: CBC, CMP unremarkable. PLAN: Will reconsult pain clinic. I asked Dr. Mueller to come see her. She has questions about ongoing chemotherapy regimens. Increase her MS Contin to 60 mg three times daily her Roxanol. Patient was concerned about achieving enough pain control to go home but then also concerned about taking so much narcotic that she is not able to go back to work. I told her that unfortunately, I think it is unlikely she is going to go home without significant amount of opiate and that reasonable goal would be to go home with less pain and to anticipate her return to work in the near future.
[2017-07-16 14:00] VITALS: BP 109/71
[2017-07-16] MEDS: SIMETHICONE 80 MG CHEW TAB PO PRN (20:40)
[2017-07-16 22:00] VITALS: BP 125/69
[2017-07-16] MEDS: MULTIVITAMINS/MINERALS THERAP 1 TAB PO SCH (22:21)
[2017-07-16] MEDS: DULoxetine 30 MG CAP (CYMBALTA) PO SCH (22:22)
[2017-07-17] MEDS: PHENAZOPYRIDINE 100 MG TAB PO SCH ×3 (01:15→18:30)
[2017-07-17] MEDS: HYOSCYAMINE SULFATE 0.125 MG SUBL TABLET SL SCH ×4 (01:15→18:30)
[2017-07-17] MEDS: diazePAM 2 MG TAB PO PRN ×3 (02:31→13:33)
[2017-07-17] MEDS: MORPHINE 10MG/0.5ML ORAL CONCENTRATE SOLUTION U/D SL PRN ×6 (02:31→15:01)
[2017-07-17 06:00] VITALS: BP 116/70
[2017-07-17] MEDS: SIMETHICONE 80 MG CHEW TAB PO PRN (06:57)
[2017-07-17] MEDS: MIRALAX *UNIT DOSE* 17GM PACKET PO SCH (08:39)
[2017-07-17] MEDS: CETIRIZINE (ZyrTEC) 10 MG TAB PO SCH (08:40)
[2017-07-17] MEDS: PANTOPRAZOLE 40MG TAB (PROTONIX) PO SCH (08:40)
[2017-07-17] MEDS: PROPRANOLOL 20 MG TAB PO SCH ×2 (08:40→20:43)
[2017-07-17] MEDS: SENOKOT S TAB PO SCH ×2 (08:42→20:41)
[2017-07-17] MEDS: DOCUSATE SODIUM 100 MG CAP PO SCH ×2 (08:42→20:41)
[2017-07-17] MEDS: MORPHINE 30 MG SA TAB PO SCH ×3 (08:42→20:42)
[2017-07-17] MEDS: ENOXAPARIN 40 MG/0.4 ML SYRINGE (J1650) SC SCH (08:42)
[2017-07-17] MEDS: SODIUM CHLORIDE 0.9% INJ 10 ML SYR IV SCH (08:43)
[2017-07-17] MEDS: TRIAMCINOLONE ACET 0.1% OINTMENT 15 GM TOP SCH ×2 (08:43→20:43)
--- NOTE | 2017-07-17 09:29 | IPN ---
DATE OF SERVICE: 07/17/2017 Tresa is stable from yesterday. No real change. She was seen by Dr. Mueller. I appreciate her discussing plans with the patient. There is now outpatient oral chemo regimen that they plan to initiate after discharge. Patient's left lower abdominal/left pelvic pain persists. She has a numb feeling over her left ilioinguinal area and then upon deeper palpation has a deep fairly severe pain near a palpable mass. PHYSICAL EXAMINATION: Vital signs stable. Afebrile. Abdomen tender left lower quadrant. Soft tissue mass palpable. Otherwise unchanged. PLAN: I called Reena Polanco from the pain clinic, we discussed the case. I have asked her to and see if there might be an intervention, an injection, etc, that might help this ilioinguinal pain. I have been titrating up her MS Contin, increasing the dose of Valium that she takes as it seems to be helping some with the pain as well. Ultimately I would like to try to discharge her near the end of the week if possible and she has an outpatient chemo regimen she is going to be starting with Dr. Mueller.
--- NOTE | 2017-07-17 11:45 | CR ---
DATE OF CONSULTATION: 07/16/2017 REASON FOR REFERRAL: Metastatic colorectal cancer with disease progression. HISTORY OF PRESENT ILLNESS: Tresa is a 47-year-old woman who was initially diagnosed with colon cancer back in 2013. Since then, she has had at least two lines of chemotherapy, initially with FOLFOX and bevacizumab, followed by maintenance capecitabine chemotherapy. With disease progression, she was started on bevacizumab and FOLFIRI chemotherapy and subsequently switched to panitumumab and FOLFIRI chemotherapy. The latter was her most recent chemotherapy regimen. She was admitted to the hospital this time on 07/02/2017 for significant abdominal pain. Imaging studies showed liver metastases, a left ovarian mass, as well as a left internal iliac mass that had been present from before. Medical oncology was consulted for a discussion on additional systemic treatment options. On physical examination, Tresa was lying comfortably on bed, not in distress , but she did have an episode of significant abdominal pain while I was talking to her. She had increased facial hair. No oral mucositis. Abdomen was soft, nontender, no guarding. Extremities - no calf swelling, no calf tenderness, and no pedal edema. IMPRESSION AND PLAN: I discussed with Tresa that at this point, she needs pain management. Dr. Hodgson has been managing her pain with morphine and oxycodone, as well as diazepam. I discussed with Tresa that the next treatment option to be considered since her last imaging studies did show disease progression would be Lonsurf. This is an oral medication with risks that include mucositis, diarrhea, as well as cytopenias. It was agreed that we will go ahead and ask her insurance company for approval for this drug. In the meantime, I suggested continuing with pain management and increasing her dose of narcotic analgesics. Thank you very much for informing me of her admission. cc: Kyle Hodgson MD [facility]
[2017-07-17 14:00] VITALS: BP 111/80
[2017-07-17] MEDS ORDERED: TRIAMCINOLONE ACETONIDE SUSP 40 MG/ML VIAL (J3301) As Ordered ONE (16:07)
[2017-07-17] MEDS ORDERED: BUPIVACAINE HCL 0.25% 30 ML VIAL As Ordered ONE (16:08)
[2017-07-17] MEDS ORDERED: BUPIVACAINE HCL 0.25% 10 ML VIAL As Ordered ONE (16:08)
[2017-07-17] MEDS: DULoxetine 30 MG CAP (CYMBALTA) PO SCH (20:41)
[2017-07-17] MEDS: MULTIVITAMINS/MINERALS THERAP 1 TAB PO SCH (20:41)
[2017-07-17 22:00] VITALS: BP 114/73
[2017-07-18] MEDS: PHENAZOPYRIDINE 100 MG TAB PO SCH ×3 (00:48→16:45)
[2017-07-18] MEDS: HYOSCYAMINE SULFATE 0.125 MG SUBL TABLET SL SCH ×4 (00:48→18:15)
[2017-07-18] MEDS: diazePAM 2 MG TAB PO PRN ×4 (01:11→21:48)
[2017-07-18] MEDS: MORPHINE 10MG/0.5ML ORAL CONCENTRATE SOLUTION U/D SL PRN ×7 (01:14→21:49)
[2017-07-18 06:00] VITALS: BP 106/72
[2017-07-18] MEDS: SODIUM CHLORIDE 0.9% INJ 10 ML SYR IV SCH (09:00)
[2017-07-18] MEDS: ENOXAPARIN 40 MG/0.4 ML SYRINGE (J1650) SC SCH (09:00)
[2017-07-18] MEDS: MORPHINE 30 MG SA TAB PO SCH ×3 (09:08→21:45)
[2017-07-18] MEDS: PROPRANOLOL 20 MG TAB PO SCH ×2 (09:08→21:45)
[2017-07-18] MEDS: DOCUSATE SODIUM 100 MG CAP PO SCH ×2 (09:10→21:46)
[2017-07-18] MEDS: CETIRIZINE (ZyrTEC) 10 MG TAB PO SCH (09:10)
[2017-07-18] MEDS: MIRALAX *UNIT DOSE* 17GM PACKET PO SCH (09:10)
[2017-07-18] MEDS: PANTOPRAZOLE 40MG TAB (PROTONIX) PO SCH (09:11)
[2017-07-18] MEDS: SENOKOT S TAB PO SCH ×2 (09:11→21:46)
[2017-07-18] MEDS: TRIAMCINOLONE ACET 0.1% OINTMENT 15 GM TOP SCH ×2 (09:12→21:46)
[2017-07-18 14:00] VITALS: BP 100/57
--- NOTE | 2017-07-18 15:50 | IPNPDOC ---
Subjective Date Seen The patient was seen on 07/18/17. Subjective Chief Complaint/HPI The patient is a 47-year-old female admitted with a reason for visit of Uti, Abdominal Pain. Events since last encounter Patient's pain regimen has been adjusted. Patient does remain uncomfortable. Does not think that the pain is improved. Patient has been seen by pain management yesterday. Was given a L ilioinguinal nerve block. Pt reports that she did not have relief from the nerve block. Constitutional: Denies: Chills, Fever, Night Sweats Cardiovascular: Denies: Chest Pain, Palpitations, Orthopnea, Paroxysmal Noc. Dyspnea, Lt Headedness Gastrointestinal: Reports: Abdominal Pain, Other Symptoms (has not moved her bowels in 1 wk), Denies: Nausea, Vomiting, Diarrhea, Constipation Objective Physical Examination General Exam: Positive: Alert, No Acute Distress ENT Exam: Positive: Mucous membr. moist/pink Chest Exam: Positive: Clear to auscultation, Normal air movement Heart Exam: Positive: Regular Rhythm Telemetry: Positive: Tachycardia Abdomen Exam: Positive: Normal bowel sounds, Soft, Tenderness (diffusely with gentle palpation. It is difficult to tell, but I think it is decreasing some.) Extremity Exam: Negative: Edema Skin Exam: Positive: Rash (Erythema of bilateral cheeks and hands noted, healing from chemotherapy as stated by patient.) Neuro Exam: Positive: Normal Speech, Sensation Intact Psych Exam: Positive: Mental status NL, Mood NL Assessment /Plan Problems (1) Abdominal pain Status: Acute Response to Treatment: Stable Discussed With: Nurse, Patient Problem Specific Plan: Consult Specialist, Monitor Clinically, Repeat Labs Problem Text: 07/18/2017: s/p L ilioinguinal nerve block. No changes to pain. Currently on MS Contin 60 TID; Roxanol 20mg q1hp; and Valium 2mg q4hp. 07/07/17 - The fentanyl did not work very well for her. I put her back on MS Contin with MSIR for breakthrough and we will have to carefully titrate for the right dose. - anticipate discharge pending adequate pain control. We will start transitioning her off of IV pain medications. We will start trial of fentanyl patch and Roxanol. 07/05 - Pt mgmt adjusted per Dr San yesterday. She is on MS Contin 30 mg q8, will change to 45 mg, cont IV 6 mg q2h, she used 66 mg of IV morphine in the last 24 hours. 07/04 - Pt cont to c/o poor pain control, Ace [employer], spoke with Pain Mgmt this morning, who rec increased the morphine IV 6 mg from every 3 h to every 2 h as needed for pain relief. I have made this change as requested. 07/03 - Pt was seen by pain management who gave MSIR 30 mg one time, started morphine 2mg q4 prn for breakthrough pain, started OxyContin 20 mg three times a day, and started valium 5 mg every 6 hours as needed. Pain management discussed possibly increasing the morphine to 4mg q4h prn. Pt continues have abd pain, and feels pain meds not covering her pain. Will increase the morphine to 4 mg q 4hrs per pain mgmt's recommendation. Also will have nursing contact pain mgmt to notify that pt's pain is not controlled to see if they can reassess and give additional input. Pt with intactable abd pain on MET[employer] morphine which she is tolerating, she has maxed out her dose and c/o poor pain control, however on exam the only potential indication for poor pain control is tachycardia. She appears comfortable in bed, converses appropriate, and there is no guarding of the abdomen. I will address this further with my attending today. Dr Smith has seen the pt, rec medical mgmt, not surgical intervention appropriate. Rec clear liquids for 2 meals then advance her diet as tolerated. She is eager to eat. (2) Metastatic colon cancer in female Status: Chronic Response to Treatment: Stable Problem Specific Plan: Monitor Clinically Problem Text: Follows with Onc in outpt setting. Was seen by oncology, they plan on starting her on possible Lonsurf regimen as outpatient (3) History of hydronephrosis Status: Chronic Response to Treatment: Stable Problem Specific Plan: Monitor Clinically Problem Text: Has stent in place, scan appears without any persistent hydronephrosis. (4) UTI (urinary tract infection) Status: Resolved (5) Hypomagnesemia Status: Acute Problem Specific Plan: Monitor Clinically, Repeat Labs Problem Text: Her magnesium levels are back in the normal range. No change her current regimen. (6) Tachycardia Status: Acute Discussed With: Nurse, Patient Problem Text: I believe that much of this tachycardia is physiologic from her pain. Were working on pain control. Plan/VTE VTE Prophylaxis Ordered?: Yes VS, I&O, 24H, Fishbone Vital Signs/I&O Vital Signs Date Time Temp Pulse Resp B/P (MAP) Pulse Ox O2 Delivery O2 Flow Rate FiO2 07/18/17 09:12 14 07/18/17 09:08 104 106/72 07/18/17 06:00 99.3 92 Room Air 07/16/17 01:23 92.0 07/15/17 19:43 91 GME ATTESTATION GME ATTESTATION My preceptor for this patient encounter was physically present in the building during the encounter and was fully available. As needed, all aspects of the patient interview, examination, medical decision making process, and medical care plan development were reviewed and approved by the preceptor. Preceptor is aware and concurs with the plan as stated in the body of this note and will attest to such by his/her cosignature. SAMANTHA VARMA DO Jul 18, 2017 10:40
[2017-07-18] MEDS: MULTIVITAMINS/MINERALS THERAP 1 TAB PO SCH (21:46)
[2017-07-18] MEDS: DULoxetine 30 MG CAP (CYMBALTA) PO SCH (21:46)
[2017-07-18 22:00] VITALS: BP 125/80
[2017-07-19] MEDS: HYOSCYAMINE SULFATE 0.125 MG SUBL TABLET SL SCH ×4 (00:51→18:40)
[2017-07-19] MEDS: PHENAZOPYRIDINE 100 MG TAB PO SCH ×3 (00:51→16:31)
[2017-07-19] MEDS: MORPHINE 10MG/0.5ML ORAL CONCENTRATE SOLUTION U/D SL PRN ×6 (06:07→21:05)
[2017-07-19] MEDS: diazePAM 2 MG TAB PO PRN ×3 (08:11→21:01)
[2017-07-19] MEDS: PANTOPRAZOLE 40MG TAB (PROTONIX) PO SCH (08:11)
[2017-07-19] MEDS: DOCUSATE SODIUM 100 MG CAP PO SCH ×2 (08:11→21:01)
[2017-07-19] MEDS: MIRALAX *UNIT DOSE* 17GM PACKET PO SCH (08:11)
[2017-07-19] MEDS: PROPRANOLOL 20 MG TAB PO SCH ×2 (08:11→21:04)
[2017-07-19] MEDS: MORPHINE 30 MG SA TAB PO SCH ×3 (08:12→21:02)
[2017-07-19] MEDS: CETIRIZINE (ZyrTEC) 10 MG TAB PO SCH (08:12)
[2017-07-19] MEDS: SENOKOT S TAB PO SCH ×2 (08:12→21:01)
[2017-07-19] MEDS: SODIUM CHLORIDE 0.9% INJ 10 ML SYR IV SCH (08:13)
[2017-07-19] MEDS: ENOXAPARIN 40 MG/0.4 ML SYRINGE (J1650) SC SCH (08:13)
[2017-07-19] MEDS: TRIAMCINOLONE ACET 0.1% OINTMENT 15 GM TOP SCH ×2 (08:47→21:05)
[2017-07-19 14:00] VITALS: BP 141/69
[2017-07-19 15:44] LABS: ANION GAP 6 MEQ/L (8-16); BLOOD UREA NITROGEN 6 MG/DL (7-18); CARBON DIOXIDE LEVEL 29 MEQ/L (21-32); CHLORIDE LEVEL 107 MEQ/L (98-107); CREATININE FOR GFR 0.66 MG/DL (0.55-1.02); GLOMERULAR FILTRATION RATE > 60.0 (>58); GLUCOSE, FASTING 120 MG/DL (70-105); POTASSIUM SERUM 3.7 MEQ/L (3.5-5.1); SODIUM LEVEL 142 MEQ/L (136-145)
[2017-07-19] MEDS: KCL 20MEQ in NS 1000ML 1,000 ML IV SCH (16:31)
[2017-07-19] MEDS: MULTIVITAMINS/MINERALS THERAP 1 TAB PO SCH (21:01)
[2017-07-19] MEDS: DULoxetine 30 MG CAP (CYMBALTA) PO SCH (21:02)
[2017-07-19 22:00] VITALS: BP 116/70
[2017-07-20] MEDS: PHENAZOPYRIDINE 100 MG TAB PO SCH ×4 (00:27→23:19)
[2017-07-20] MEDS: HYOSCYAMINE SULFATE 0.125 MG SUBL TABLET SL SCH ×5 (00:27→23:23)
[2017-07-20] MEDS: KCL 20MEQ in NS 1000ML 1,000 ML IV SCH ×3 (00:28→17:45)
[2017-07-20] MEDS: MORPHINE 10MG/0.5ML ORAL CONCENTRATE SOLUTION U/D SL PRN ×4 (03:37→14:06)
[2017-07-20 05:47] LABS: BASO # 0.1 10^3/uL (0.0-0.2); BASO % 0.6 % (0.0-1.0); EOS # 0.7 10^3/uL (0.0-0.50); IMMATURE GRANULOCYTE % 0.3 % (0-0); LYMPH # 1.2 10^3/uL (1.5-4.5); LYMPH % 11.1 % (24.0-44.0); MEAN CORPUSCULAR HEMOGLOBIN 29.7 pg (27.0-33.0); MEAN CORPUSCULAR HGB CONC 30.6 g/dl (32.0-36.5); MEAN CORPUSCULAR VOLUME 97.3 fl (80.0-96.0); MONO % 9.3 % (0.0-5.0); NEUTROPHILS # 7.5 10^3/uL (1.8-7.7); NEUTROPHILS % 71.7 % (36.0-66.0); PLATELET COUNT, AUTOMATED 303 10^3/uL (150-450); RED CELL DISTRIBUTION WIDTH 16.3 % (11.5-14.5); WHITE BLOOD COUNT 10.4 10^3/uL (4.0-10.0)
[2017-07-20 06:00] VITALS: BP_SYST 121; BP_SYST 127; BP_DIAS 72; BP_DIAS 88
[2017-07-20 06:23] LABS: ANION GAP 7 MEQ/L (8-16); BLOOD UREA NITROGEN 4 MG/DL (7-18); CARBON DIOXIDE LEVEL 26 MEQ/L (21-32); CHLORIDE LEVEL 111 MEQ/L (98-107); CREATININE FOR GFR 0.57 MG/DL (0.55-1.02); GLOMERULAR FILTRATION RATE > 60.0 (>58); GLUCOSE, FASTING 100 MG/DL (70-105); POTASSIUM SERUM 4.1 MEQ/L (3.5-5.1); SODIUM LEVEL 144 MEQ/L (136-145)
[2017-07-20] MEDS: SODIUM CHLORIDE 0.9% INJ 10 ML SYR IV SCH (09:00)
[2017-07-20] MEDS: ENOXAPARIN 40 MG/0.4 ML SYRINGE (J1650) SC SCH (09:00)
[2017-07-20] MEDS: CETIRIZINE (ZyrTEC) 10 MG TAB PO SCH (09:28)
[2017-07-20] MEDS: diazePAM 2 MG TAB PO PRN ×3 (09:28→19:57)
[2017-07-20] MEDS: MORPHINE 30 MG SA TAB PO SCH ×3 (09:28→19:58)
[2017-07-20] MEDS: PROPRANOLOL 20 MG TAB PO SCH ×2 (09:28→19:57)
[2017-07-20] MEDS: PANTOPRAZOLE 40MG TAB (PROTONIX) PO SCH (09:28)
[2017-07-20] MEDS: DOCUSATE SODIUM 100 MG CAP PO SCH ×3 (09:29→21:00)
[2017-07-20] MEDS: SENOKOT S TAB PO SCH ×3 (09:29→21:00)
[2017-07-20] MEDS: MIRALAX *UNIT DOSE* 17GM PACKET PO SCH (09:29)
[2017-07-20] MEDS: TRIAMCINOLONE ACET 0.1% OINTMENT 15 GM TOP SCH ×2 (09:30→20:00)
[2017-07-20 14:00] VITALS: BP 123/97
--- NOTE | 2017-07-20 14:00 | IPN ---
DATE OF SERVICE: 07/19/2017 Patient was seen on 07/19/2017 on [facility]. She was quite sedated yesterday. We adjusted her pain medications and when I went to see her, she was very drowsy and speech was a little thick and slurred. Vitals were stable. Lungs clear. Heart: Regular rhythm. Abdomen: Soft, tender in the same area of the left lower quadrant. There is no peripheral edema. Labs were ordered and her medications have been recently adjusted. Increasing the frequency of her MS Contin to three times daily. We are waiting to see how she does with that.
[2017-07-20] MEDS ORDERED: ANUSOL HC CREAM 30GM TOP PRN (18:45)
[2017-07-20] MEDS: MULTIVITAMINS/MINERALS THERAP 1 TAB PO SCH (19:57)
[2017-07-20] MEDS: DULoxetine 30 MG CAP (CYMBALTA) PO SCH (19:57)
[2017-07-20 22:00] VITALS: BP 129/84
[2017-07-21] MEDS: KCL 20MEQ in NS 1000ML 1,000 ML IV SCH ×2 (05:49→16:11)
[2017-07-21] MEDS: HYOSCYAMINE SULFATE 0.125 MG SUBL TABLET SL SCH ×3 (05:49→16:16)
[2017-07-21] MEDS: MORPHINE 10MG/0.5ML ORAL CONCENTRATE SOLUTION U/D SL PRN ×3 (05:55→16:08)
[2017-07-21 06:00] VITALS: BP 124/92
[2017-07-21] MEDS: ENOXAPARIN 40 MG/0.4 ML SYRINGE (J1650) SC SCH (08:59)
[2017-07-21] MEDS: SODIUM CHLORIDE 0.9% INJ 10 ML SYR IV SCH (09:00)
[2017-07-21] MEDS: TRIAMCINOLONE ACET 0.1% OINTMENT 15 GM TOP SCH ×2 (09:00→21:00)
[2017-07-21] MEDS: MIRALAX *UNIT DOSE* 17GM PACKET PO SCH (09:00)
[2017-07-21] MEDS: SENOKOT S TAB PO SCH ×2 (09:00→21:00)
[2017-07-21] MEDS: PHENAZOPYRIDINE 100 MG TAB PO SCH ×2 (09:02→16:07)
[2017-07-21] MEDS: CETIRIZINE (ZyrTEC) 10 MG TAB PO SCH (09:02)
[2017-07-21] MEDS: PANTOPRAZOLE 40MG TAB (PROTONIX) PO SCH (09:02)
[2017-07-21] MEDS: MORPHINE 30 MG SA TAB PO SCH ×3 (09:02→20:44)
[2017-07-21] MEDS: diazePAM 2 MG TAB PO PRN ×2 (09:03→16:07)
[2017-07-21] MEDS: DOCUSATE SODIUM 100 MG CAP PO SCH ×2 (09:03→21:00)
[2017-07-21] MEDS: PROPRANOLOL 20 MG TAB PO SCH ×2 (09:04→20:43)
--- NOTE | 2017-07-21 11:35 | IPNPDOC ---
Subjective Date Seen The patient was seen on 07/21/17. Subjective Chief Complaint/HPI The patient is a 47-year-old female admitted with a reason for visit of Uti, Abdominal Pain. Events since last encounter Patient states that her new pain medication regimen is working for her, though the morphine makes her lose her train of thought. She is complaining that her left foot feels funny, and she has noticed swelling. She has refused her lovenox for about the last 5 days, and she has a history of superficial blood clots in both upper extremities. Constitutional: Denies: Chills, Fever Pulmonary: Denies: Dyspnea, Cough Cardiovascular: Denies: Chest Pain, Palpitations Gastrointestinal: Reports: Abdominal Pain, Diarrhea, Denies: Constipation Genitourinary: Denies: Dysuria, Frequency, Incontinence Objective Physical Examination General Exam: Positive: Alert, No Acute Distress ENT Exam: Positive: Mucous membr. moist/pink Chest Exam: Positive: Clear to auscultation, Normal air movement Heart Exam: Positive: Regular Rhythm Abdomen Exam: Positive: BS Hyperactive, Soft, Tenderness (Exquisite pain to gentle palpation. Patient visibly flinches.) Extremity Exam: Positive: Edema (Left foot has some edema when compared to the right, only up to the ankle) Neuro Exam: Positive: Normal Speech, Sensation Intact Psych Exam: Positive: Mental status NL, Mood NL, Other (Expresses some confusion and losing train of thought, probably from pain medication) Assessment /Plan Problems (1) Edema of left foot Status: Acute Problem Text: Patient states that over the last day she has developed a "funny feeling" in her left leg. She states that she feels her left foot is swollen. On examination her left foot is swollen when compared to the right, and she does have a history of superficial blood clots in both upper extremities. Patient has been refusing her lovenox for the past 4-5 days, and probably has a DVT. I have ordered a STAT Left LE US. If she does not want to be anticoagulated with Lovenox, Eliquis 10 mg BID may be considered. (2) Abdominal pain Status: Acute Response to Treatment: Stable Discussed With: Nurse, Patient Problem Specific Plan: Consult Specialist, Monitor Clinically, Repeat Labs Problem Text: Patient is currently receiving Ms contin 90 mg TID, roxenol 20 mg q1H, and Valium 2 mg q4H for pain. This regimen seems to be working for her right now. (3) Metastatic colon cancer in female Status: Chronic Response to Treatment: Stable Problem Specific Plan: Monitor Clinically Problem Text: Follows with Onc in outpt setting. Was seen by oncology, they plan on starting her on possible Lonsurf regimen as outpatient (4) History of hydronephrosis Status: Chronic Response to Treatment: Stable Problem Specific Plan: Monitor Clinically Problem Text: Has stent in place, scan appears without any persistent hydronephrosis. (5) UTI (urinary tract infection) Status: Resolved (6) Hypomagnesemia Status: Acute Problem Specific Plan: Monitor Clinically, Repeat Labs Problem Text: Her magnesium levels are back in the normal range. No change her current regimen. (7) Tachycardia Status: Acute Discussed With: Nurse, Patient Problem Text: I believe that much of this tachycardia is physiologic from her pain. Were working on pain control. Plan/VTE VTE Prophylaxis Ordered?: Yes VS, I&O, 24H, Fishbone Vital Signs/I&O Vital Signs Date Time Temp Pulse Resp B/P (MAP) Pulse Ox O2 Delivery O2 Flow Rate FiO2 07/21/17 09:16 77 18 07/21/17 09:04 124/92 07/21/17 09:02 Room Air 07/21/17 06:00 97.7 93 07/16/17 01:23 92.0 07/15/17 19:43 91 CEDRICK PALMER DO Jul 21, 2017 11:34
[2017-07-21 14:00] VITALS: BP 133/86
[2017-07-21] MEDS: DULoxetine 30 MG CAP (CYMBALTA) PO SCH (20:43)
[2017-07-21] MEDS: MULTIVITAMINS/MINERALS THERAP 1 TAB PO SCH (20:43)
[2017-07-21] MEDS: diphenhydrAMINE 25 MG CAP PO PRN (20:44)
[2017-07-21 22:00] VITALS: BP 125/77
[2017-07-22] MEDS: PHENAZOPYRIDINE 100 MG TAB PO SCH ×3 (00:40→19:00)
[2017-07-22] MEDS: HYOSCYAMINE SULFATE 0.125 MG SUBL TABLET SL SCH ×4 (00:40→19:01)
[2017-07-22] MEDS: diazePAM 2 MG TAB PO PRN ×4 (00:44→21:41)
[2017-07-22] MEDS: MORPHINE 10MG/0.5ML ORAL CONCENTRATE SOLUTION U/D SL PRN ×6 (00:46→21:49)
[2017-07-22 06:00] VITALS: BP 123/80
--- NOTE | 2017-07-22 06:15 | REP ---
LEFT LOWER EXTREMITY DOPPLER VENOUS ULTRASOUND: 07/21/2017. Comparison: None. Clinical history: Left lower extremity swelling, evaluate for DVT. Technique: The deep venous system of the left lower extremity is evaluated with hancock scale imaging, compression ultrasound, color imaging and duplex Doppler interrogation. Examination from the groin through the popliteal fossa into the proximal calf. Findings: There is full compressibility from the common femoral vein in the inguinal region through the popliteal vein. Color imaging confirms patency throughout the course of the deep venous system. There is respiratory variation and augmented flow at all levels. Impression: 1. No Doppler venous ultrasound evidence of DVT in the left lower extremity. Signed by Yifan Balbuena MD 07/21/2017 01:35 P
--- NOTE | 2017-07-22 06:17 | IPN ---
DATE: 07/20/2017 Tresa is still having pain. She is having some urinary retention now as well. She voided but had a residual of over 300 mL. She is opting for intermittent catheterization versus a Alejandro. She feels "swelling" in her left lower abdomen. Did not respond to the ilioinguinal nerve block done recently. She feels that her pain medications are wearing off too soon. She is on 60 mg of MS Contin three times a day and then uses Roxanol for breakthrough pain. I increased the dose of her Valium, though she is still not up to the 5 mg dose advised by the pain clinic. PHYSICAL EXAMINATION: Afebrile, vital signs stable. Left lower quadrant is tender and she feels full on the left area above the pelvic rim, the right side is less tender. LABORATORY DATA: White count is 10.4, hemoglobin 9.9, and platelets 303. Sodium 144, potassium 4.1, BUN 6, creatinine 0.5, glucose 100. IMPRESSION: 1. Urinary retention, probably from the narcotics. Will do intermittent clean catheterization and will send urine for urinalysis and culture and sensitivity (C and S). 2. Chronic pain related to metastatic colon cancer. I will adjust her analgesics. Will stay on the same dose of Valium for now. She was fairly sedated the last few days after I increased the dose, I do not want to increase her opiate and her Valium at the same time.
[2017-07-22] MEDS: PROPRANOLOL 20 MG TAB PO SCH ×2 (08:21→21:40)
[2017-07-22] MEDS: CETIRIZINE (ZyrTEC) 10 MG TAB PO SCH (08:21)
[2017-07-22] MEDS: PANTOPRAZOLE 40MG TAB (PROTONIX) PO SCH (08:21)
[2017-07-22] MEDS: DOCUSATE SODIUM 100 MG CAP PO SCH (08:21)
[2017-07-22] MEDS: SENOKOT S TAB PO SCH ×2 (08:22→21:42)
[2017-07-22] MEDS: ENOXAPARIN 40 MG/0.4 ML SYRINGE (J1650) SC SCH (08:22)
[2017-07-22] MEDS: SODIUM CHLORIDE 0.9% INJ 10 ML SYR IV SCH (08:24)
[2017-07-22] MEDS: TRIAMCINOLONE ACET 0.1% OINTMENT 15 GM TOP SCH ×2 (08:25→21:00)
[2017-07-22] MEDS: MIRALAX *UNIT DOSE* 17GM PACKET PO SCH ×2 (08:25→21:48)
[2017-07-22] MEDS: MORPHINE 30 MG SA TAB PO SCH ×3 (09:12→21:41)
[2017-07-22 14:22] VITALS: BP 145/96
[2017-07-22] MEDS ORDERED: FLEET ENEMA PR PRN (17:45)
--- NOTE | 2017-07-22 20:31 | IPNPDOC ---
Subjective Date Seen The patient was seen on 07/22/17. Subjective Chief Complaint/HPI The patient is a 47-year-old female admitted with a reason for visit of Uti, Abdominal Pain. Events since last encounter Patient has better control of pain today with the recent increases in pain medications. Patient reports no urinary retention or incontinence today. Patient has loose stools despite being on opioid medications. Patient has some swelling in the LLE. Has US completed that was negative for DVT. General: Denies: ROS Unobtainable, Chills, Night Sweats, Fatigue, Malaise, Normal Appetite, Other Symptoms Constitutional: Denies: Chills, Fever, Night Sweats Pulmonary: Denies: Dyspnea, Cough Cardiovascular: Denies: Chest Pain, Palpitations, Orthopnea, Paroxysmal Noc. Dyspnea, Lt Headedness Gastrointestinal: Reports: Abdominal Pain (Left side worse than right.), Other Symptoms (loose stools), Denies: Nausea, Vomiting, Diarrhea, Constipation Genitourinary: Denies: Dysuria, Frequency, Incontinence, Retention Musculoskeletal: Reports: Leg Pain (L leg) Objective Physical Examination General Exam: Positive: Alert, No Acute Distress ENT Exam: Positive: Mucous membr. moist/pink Chest Exam: Positive: Clear to auscultation, Normal air movement Heart Exam: Positive: Regular Rhythm Abdomen Exam: Positive: BS Hyperactive, Soft, Tenderness (Exquisite pain to gentle palpation. Patient visibly flinches.) Extremity Exam: Positive: Edema (Left foot has some edema when compared to the right, only up to the ankle) Neuro Exam: Positive: Normal Speech, Sensation Intact Psych Exam: Positive: Mental status NL, Mood NL, Other (Expresses some confusion and losing train of thought, probably from pain medication) Assessment /Plan Problems (1) Abdominal pain Status: Acute Response to Treatment: Stable Discussed With: Nurse, Patient Problem Specific Plan: Consult Specialist, Monitor Clinically, Repeat Labs Problem Text: Patient is currently receiving Ms contin 90 mg TID, roxenol 20 mg q1H, and Valium 2 mg q4H for pain. This regimen seems to be working for her right now. (2) Edema of left foot Status: Acute Problem Text: 07/22/17: Patient has less swelling in her LLE today. She does complain of some discomfort. US neg for DVT. Patient is not on anticoagulation. She was encouraged to ambulate. Compression stockings may be considered if swelling continues. 07/21/17: Patient states that over the last day she has developed a "funny feeling" in her left leg. She states that she feels her left foot is swollen. On examination her left foot is swollen when compared to the right, and she does have a history of superficial blood clots in both upper extremities. Patient has been refusing her lovenox for the past 4-5 days, and probably has a DVT. I have ordered a STAT Left LE US. If she does not want to be anticoagulated with Lovenox, Eliquis 10 mg BID may be considered. (3) Metastatic colon cancer in female Status: Chronic Response to Treatment: Stable Problem Specific Plan: Monitor Clinically Problem Text: Follows with Onc in outpt setting. Was seen by oncology, they plan on starting her on possible Lonsurf regimen as outpatient (4) History of hydronephrosis Status: Chronic Response to Treatment: Stable Problem Specific Plan: Monitor Clinically Problem Text: Has stent in place, scan appears without any persistent hydronephrosis. (5) UTI (urinary tract infection) Status: Resolved (6) Hypomagnesemia Status: Acute Problem Specific Plan: Monitor Clinically, Repeat Labs Problem Text: Her magnesium levels are back in the normal range. No change her current regimen. (7) Tachycardia Status: Acute Discussed With: Nurse, Patient Problem Text: I believe that much of this tachycardia is physiologic from her pain. Were working on pain control. Plan/VTE VTE Prophylaxis Ordered?: Yes Plan Possible discharge home tomorrow of Sat pending adequate pain control. VS, I&O, 24H, Fishbone Vital Signs/I&O Vital Signs Date Time Temp Pulse Resp B/P (MAP) Pulse Ox O2 Delivery O2 Flow Rate FiO2 07/22/17 16:56 18 Room Air 07/22/17 14:22 97.8 93 145/96 (112) 98 07/21/17 16:07 18.0 I&O- Last 24 Hours up to 6 AM 07/23/17 06:00 Intake Total 630 ml Output Total 1050 ml Balance -420 ml GME ATTESTATION GME ATTESTATION My preceptor for this patient encounter was physically present in the building during the encounter and was fully available. As needed, all aspects of the patient interview, examination, medical decision making process, and medical care plan development were reviewed and approved by the preceptor. Preceptor is aware and concurs with the plan as stated in the body of this note and will attest to such by his/her cosignature. SAMANTHA VARMA DO Jul 22, 2017 20:31
[2017-07-22] MEDS: MULTIVITAMINS/MINERALS THERAP 1 TAB PO SCH (21:41)
[2017-07-22] MEDS: DULoxetine 30 MG CAP (CYMBALTA) PO SCH (21:41)
[2017-07-22 22:00] VITALS: BP 124/80
[2017-07-23] MEDS: HYOSCYAMINE SULFATE 0.125 MG SUBL TABLET SL SCH ×4 (00:27→17:37)
[2017-07-23] MEDS: PHENAZOPYRIDINE 100 MG TAB PO SCH ×3 (00:27→17:37)
[2017-07-23] MEDS: MORPHINE 10MG/0.5ML ORAL CONCENTRATE SOLUTION U/D SL PRN ×8 (00:31→21:54)
[2017-07-23] MEDS: diazePAM 2 MG TAB PO PRN ×5 (02:07→21:51)
[2017-07-23 06:00] VITALS: BP 118/72
[2017-07-23] MEDS: CETIRIZINE (ZyrTEC) 10 MG TAB PO SCH (08:37)
[2017-07-23] MEDS: SODIUM CHLORIDE 0.9% INJ 10 ML SYR IV SCH (08:37)
[2017-07-23] MEDS: MIRALAX *UNIT DOSE* 17GM PACKET PO SCH ×2 (08:37→21:51)
[2017-07-23] MEDS: ENOXAPARIN 40 MG/0.4 ML SYRINGE (J1650) SC SCH (08:37)
[2017-07-23] MEDS: SENOKOT S TAB PO SCH ×3 (08:38→21:51)
[2017-07-23] MEDS: MORPHINE 30 MG SA TAB PO SCH ×3 (08:38→21:52)
[2017-07-23] MEDS: PANTOPRAZOLE 40MG TAB (PROTONIX) PO SCH (08:38)
[2017-07-23] MEDS: PROPRANOLOL 20 MG TAB PO SCH ×2 (08:39→21:51)
[2017-07-23] MEDS: TRIAMCINOLONE ACET 0.1% OINTMENT 15 GM TOP SCH ×2 (08:39→21:00)
--- NOTE | 2017-07-23 13:40 | IPNPDOC ---
Subjective Date Seen The patient was seen on 07/23/17. Subjective Chief Complaint/HPI The patient is a 47-year-old female admitted with a reason for visit of Uti, Abdominal Pain. Events since last encounter Continues with difficulty with pain management. Having trouble realizing unable to return to work in near future due to medical illness. Has appt in 2 weeks for chemotx with oncology, Dr. Mueller. Constitutional: Denies: Chills, Fever, Night Sweats Skin: Denies: Rash, Lesions, Breakdown Pulmonary: Denies: Dyspnea, Cough Cardiovascular: Denies: Chest Pain, Palpitations, Orthopnea, Paroxysmal Noc. Dyspnea, Lt Headedness Gastrointestinal: Reports: Abdominal Pain, Constipation Objective Physical Examination General Exam: Positive: Alert, No Acute Distress ENT Exam: Positive: Mucous membr. moist/pink Chest Exam: Positive: Clear to auscultation, Normal air movement Heart Exam: Positive: Regular Rhythm Abdomen Exam: Positive: BS Hyperactive, Soft, Tenderness (Exquisite pain to gentle palpation. Patient visibly flinches.) Extremity Exam: Positive: Edema (Left foot has some edema when compared to the right, only up to the ankle) Neuro Exam: Positive: Normal Speech, Sensation Intact Psych Exam: Positive: Mental status NL, Mood NL, Other (Expresses some confusion and losing train of thought, probably from pain medication) Assessment /Plan Problems (1) Abdominal pain Status: Acute Response to Treatment: Stable Discussed With: Nurse, Patient Problem Specific Plan: Consult Specialist, Monitor Clinically, Repeat Labs Problem Text: Patient is currently receiving Ms contin 90 mg TID, roxenol 20 mg q1H, and Valium 2 mg q4H for pain. This regimen seems to be working for her right now. (2) Edema of left foot Status: Acute Problem Text: 07/22/17: Patient has less swelling in her LLE today. She does complain of some discomfort. US neg for DVT. Patient is not on anticoagulation. She was encouraged to ambulate. Compression stockings may be considered if swelling continues. 07/21/17: Patient states that over the last day she has developed a "funny feeling" in her left leg. She states that she feels her left foot is swollen. On examination her left foot is swollen when compared to the right, and she does have a history of superficial blood clots in both upper extremities. Patient has been refusing her lovenox for the past 4-5 days, and probably has a DVT. I have ordered a STAT Left LE US. If she does not want to be anticoagulated with Lovenox, Eliquis 10 mg BID may be considered. (3) Metastatic colon cancer in female Status: Chronic Response to Treatment: Stable Problem Specific Plan: Monitor Clinically Problem Text: Follows with Onc in outpt setting. Was seen by oncology, they plan on starting her on possible Lonsurf regimen as outpatient (4) History of hydronephrosis Status: Chronic Response to Treatment: Stable Problem Specific Plan: Monitor Clinically Problem Text: c/o RIGHT flank pain. Will image with US. Has stent in place, scan appears without any persistent hydronephrosis. (5) UTI (urinary tract infection) Status: Resolved (6) Hypomagnesemia Status: Acute Problem Specific Plan: Monitor Clinically, Repeat Labs Problem Text: Her magnesium levels are back in the normal range. No change her current regimen. (7) Tachycardia Status: Acute Discussed With: Nurse, Patient Problem Text: I believe that much of this tachycardia is physiologic from her pain. Were working on pain control. Plan/VTE VTE Prophylaxis Ordered?: Yes VS, I&O, 24H, Fishbone Vital Signs/I&O Vital Signs Date Time Temp Pulse Resp B/P (MAP) Pulse Ox O2 Delivery O2 Flow Rate FiO2 07/23/17 13:12 16 93 Room Air 07/23/17 08:39 94 118/72 07/22/17 22:00 97.4 97.4 07/21/17 16:07 18.0 I&O- Last 24 Hours up to 6 AM 07/24/17 06:00 Intake Total 590 ml Output Total 300 ml Balance 290 ml Marcy Moffett [employer] REPRESENTATIVE Jul 23, 2017 13:40
[2017-07-23 14:00] VITALS: BP 116/66
--- NOTE | 2017-07-23 14:22 | REP ---
CT Head without contrast HISTORY: colon carcinoma COMPARISON: None There is no intraparenchymal hemorrhage, acute infarct, mass or midline shift. The ventricular system and cortical sulci are dilated consistent with minimal volume loss. There is no extra cerebral collection. There is no fracture. The visualized sinuses are clear. IMPRESSION: Minimal volume loss. Signed by Michael Hyde MD 07/23/2017 02:13 P
[2017-07-23] MEDS: DULoxetine 30 MG CAP (CYMBALTA) PO SCH (21:51)
[2017-07-23] MEDS: MULTIVITAMINS/MINERALS THERAP 1 TAB PO SCH (21:51)
[2017-07-23 22:00] VITALS: BP 125/80
--- NOTE | 2017-07-23 22:03 | REP ---
Renal ultrasound: The right kidney measures 9.5 x 5.5 x 3.9 cm is in the low normal size range. Left kidney measures 7.6 x 3.6 x 4.0 centimeters and is in the atrophic size range. The echogenicity of the renal cortex on the right is normal. The echogenicity of the left renal cortex is increased compatible with medical renal disease and is diffusely thinned. There is no hydronephrosis, calculus, mass or cyst on the right on the left. Visualization of the left kidney is technically difficult because of a nephrostomy bandage on the overlying skin surface. A right pleural effusion is incidentally identified. Bladder ultrasound: No bladder wall polyps or masses are identified. Impression: Atrophic left kidney. Otherwise, negative renal ultrasound. No hydronephrosis. Signed by Tio Rolon MD 07/23/2017 09:54 P
[2017-07-24] MEDS: HYOSCYAMINE SULFATE 0.125 MG SUBL TABLET SL SCH ×4 (00:12→18:37)
[2017-07-24] MEDS: PHENAZOPYRIDINE 100 MG TAB PO SCH ×3 (00:12→17:05)
[2017-07-24] MEDS: MORPHINE 10MG/0.5ML ORAL CONCENTRATE SOLUTION U/D SL PRN ×6 (05:28→21:14)
[2017-07-24 06:00] VITALS: BP 120/76
[2017-07-24] MEDS: ENOXAPARIN 40 MG/0.4 ML SYRINGE (J1650) SC SCH ×2 (08:10→08:21)
[2017-07-24] MEDS: PANTOPRAZOLE 40MG TAB (PROTONIX) PO SCH (08:11)
[2017-07-24] MEDS: SENOKOT S TAB PO SCH ×2 (08:11→21:10)
[2017-07-24] MEDS: PROPRANOLOL 20 MG TAB PO SCH ×2 (08:11→21:10)
[2017-07-24] MEDS: TRIAMCINOLONE ACET 0.1% OINTMENT 15 GM TOP SCH ×2 (08:11→21:00)
[2017-07-24] MEDS: CETIRIZINE (ZyrTEC) 10 MG TAB PO SCH (08:11)
[2017-07-24] MEDS: MIRALAX *UNIT DOSE* 17GM PACKET PO SCH ×2 (08:11→21:10)
[2017-07-24] MEDS: MORPHINE 30 MG SA TAB PO SCH ×3 (08:12→21:13)
[2017-07-24] MEDS: diazePAM 2 MG TAB PO PRN ×4 (08:12→21:11)
[2017-07-24 14:00] VITALS: BP 99/56
[2017-07-24 17:30] VITALS: BP 119/77
[2017-07-24] MEDS: MULTIVITAMINS/MINERALS THERAP 1 TAB PO SCH (21:10)
[2017-07-24] MEDS: DULoxetine 30 MG CAP (CYMBALTA) PO SCH (21:10)
[2017-07-24 22:00] VITALS: BP 115/76
[2017-07-25] MEDS: PHENAZOPYRIDINE 100 MG TAB PO SCH ×3 (00:05→17:45)
[2017-07-25] MEDS: HYOSCYAMINE SULFATE 0.125 MG SUBL TABLET SL SCH ×4 (00:05→17:45)
[2017-07-25] MEDS: diazePAM 2 MG TAB PO PRN ×5 (04:00→21:43)
[2017-07-25] MEDS: MORPHINE 10MG/0.5ML ORAL CONCENTRATE SOLUTION U/D SL PRN ×6 (04:01→21:48)
[2017-07-25 06:00] VITALS: BP 110/74
--- NOTE | 2017-07-25 06:09 | REP ---
CHEST X-RAY, PA AND LATERAL: 07/24/2017. Clinical history: Pleural effusion. Comparison: 10/09/2016, CT chest 06/07/2017. Findings: Two views of the chest show an indwelling left subclavian port catheter with tip in SVC at the right atrium. There has developed a small left pleural effusion blunting the CP angle on the frontal and lateral view. The right CP angle is sharply defined. There is no right effusion. Some minor apical pleural parenchymal scarring noted. Emphysematous changes mid and upper lung zone. No dense consolidation. Heart size not grossly enlarged. Aorta is mildly tortuous. Airway intact and bony thorax shows no compression deformity. No destructive lesion. Nephrostomy tube overlies the left upper quadrant. Impression: 1. Small left pleural effusion on the frontal and lateral views, new since CT in late May. Right lung clear. No infiltrate or right effusion. Bullous emphysematous changes and apical fibrotic change. Signed by Yifan Balbuena MD 07/25/2017 10:03 A
[2017-07-25 07:03] LABS: BASO % 0.3 % (0.0-1.0); EOS # 0.6 10^3/uL (0.0-0.50); EOS % 4.9 % (0.0-3.0); IMMATURE GRANULOCYTE % 0.3 % (0-0); LYMPH # 1.2 10^3/uL (1.5-4.5); LYMPH % 9.3 % (24.0-44.0); MEAN CORPUSCULAR HEMOGLOBIN 29.2 pg (27.0-33.0); MEAN CORPUSCULAR HGB CONC 30.7 g/dl (32.0-36.5); MEAN CORPUSCULAR VOLUME 95.2 fl (80.0-96.0); MONO # 0.7 10^3/uL (0.0-0.8); MONO % 5.6 % (0.0-5.0); NEUTROPHILS # 10.1 10^3/uL (1.8-7.7); NEUTROPHILS % 79.6 % (36.0-66.0); PLATELET COUNT, AUTOMATED 293 10^3/uL (150-450); RED CELL DISTRIBUTION WIDTH 16.1 % (11.5-14.5); WHITE BLOOD COUNT 12.8 10^3/uL (4.0-10.0)
[2017-07-25 07:19] LABS: ALBUMIN/GLOBULIN RATIO 0.63 (1.00-1.93); ALKALINE PHOSPHATASE 80 U/L (45-117); ALT/SGPT 13 U/L (12-78); ANION GAP 5 MEQ/L (8-16); AST/SGOT 32 U/L (7-37); BILIRUBIN,TOTAL 0.3 MG/DL (0.2-1.0); BLOOD UREA NITROGEN 4 MG/DL (7-18); CALCIUM LEVEL 8.4 MG/DL (8.5-10.1); CARBON DIOXIDE LEVEL 29 MEQ/L (21-32); CHLORIDE LEVEL 109 MEQ/L (98-107); CREATININE FOR GFR 0.51 MG/DL (0.55-1.02); GLOMERULAR FILTRATION RATE > 60.0 (>58); GLUCOSE, FASTING 91 MG/DL (70-105); POTASSIUM SERUM 3.8 MEQ/L (3.5-5.1); SODIUM LEVEL 143 MEQ/L (136-145); TOTAL PROTEIN 5.2 GM/DL (6.4-8.2)
[2017-07-25] MEDS: ENOXAPARIN 40 MG/0.4 ML SYRINGE (J1650) SC SCH (09:09)
[2017-07-25] MEDS: PROPRANOLOL 20 MG TAB PO SCH ×2 (09:11→21:45)
[2017-07-25] MEDS: PANTOPRAZOLE 40MG TAB (PROTONIX) PO SCH (09:11)
[2017-07-25] MEDS: MIRALAX *UNIT DOSE* 17GM PACKET PO SCH ×2 (09:11→21:43)
[2017-07-25] MEDS: CETIRIZINE (ZyrTEC) 10 MG TAB PO SCH (09:11)
[2017-07-25] MEDS: TRIAMCINOLONE ACET 0.1% OINTMENT 15 GM TOP SCH ×2 (09:12→21:51)
[2017-07-25] MEDS: SENOKOT S TAB PO SCH ×2 (09:12→21:44)
[2017-07-25] MEDS: MORPHINE 30 MG SA TAB PO SCH ×3 (09:12→21:47)
[2017-07-25 14:00] VITALS: BP 104/69
--- NOTE | 2017-07-25 17:29 | REP ---
Left tib-fib series: Four views. History: Left smith pain. Findings: Four views of the left tibia and fibula show no evidence of fracture or subluxation. No bony destructive lesion or periosteal reaction seen. Impression: Negative left tib-fib radiographs. Signed by Rodo Aguirre MD 07/25/2017 05:30 P
[2017-07-25] MEDS: DULoxetine 30 MG CAP (CYMBALTA) PO SCH (21:44)
[2017-07-25] MEDS: diphenhydrAMINE 25 MG CAP PO PRN (21:44)
[2017-07-25] MEDS: MULTIVITAMINS/MINERALS THERAP 1 TAB PO SCH (21:45)
[2017-07-25 22:00] VITALS: BP 106/67
[2017-07-26] MEDS: PHENAZOPYRIDINE 100 MG TAB PO SCH ×2 (01:41→08:29)
[2017-07-26] MEDS: diazePAM 2 MG TAB PO PRN ×4 (01:41→17:34)
[2017-07-26] MEDS: MORPHINE 10MG/0.5ML ORAL CONCENTRATE SOLUTION U/D SL PRN ×7 (01:42→17:35)
[2017-07-26 06:00] VITALS: BP 126/75
--- NOTE | 2017-07-26 06:12 | IPNPDOC ---
Subjective Date Seen The patient was seen on 07/25/17. Subjective Chief Complaint/HPI The patient is a 47-year-old female admitted with a reason for visit of Uti, Abdominal Pain. Events since last encounter Patient seen at bedside today. She appears more awake compared to prior encounters. She continues to complain of abdominal pain, currently 8 out of 10 on a pain scale. Pain is worse especially in the left groin area. Patient had recent x-ray of the left lower extremity, negative for acute injury. Constitutional: Denies: Chills, Fever, Night Sweats Pulmonary: Denies: Dyspnea, Cough Cardiovascular: Denies: Chest Pain, Palpitations, Orthopnea, Paroxysmal Noc. Dyspnea, Lt Headedness Gastrointestinal: Reports: Abdominal Pain (worse on left), Denies: Nausea, Vomiting, Diarrhea, Constipation Objective Physical Examination General Exam: Positive: Alert, No Acute Distress ENT Exam: Positive: Mucous membr. moist/pink Chest Exam: Positive: Clear to auscultation, Normal air movement Heart Exam: Positive: Regular Rhythm Abdomen Exam: Positive: BS Hyperactive, Soft, Tenderness (Exquisite pain to gentle palpation. Patient visibly flinches.) Extremity Exam: Positive: Edema (Left foot has some edema when compared to the right, only up to the ankle) Neuro Exam: Positive: Normal Speech, Sensation Intact Psych Exam: Positive: Mental status NL, Mood NL, Other (Expresses some confusion and losing train of thought, probably from pain medication) Assessment /Plan Problems (1) Abdominal pain Status: Acute Response to Treatment: Stable Discussed With: Nurse, Patient Problem Specific Plan: Consult Specialist, Monitor Clinically, Repeat Labs Problem Text: Patient is currently receiving Ms contin 90 mg TID, Roxanol 20 mg q1H, and Valium 2 mg q4H for pain. This regimen seems to be working for her right now. (2) Edema of left foot Status: Acute Problem Text: 07/25/17: Tibia/fibula x-ray series: Negative left tib-fib radiographs. Less swelling in the LLE today. 07/22/17: Patient has less swelling in her LLE today. She does complain of some discomfort. US neg for DVT. Patient is not on anticoagulation. She was encouraged to ambulate. Compression stockings may be considered if swelling continues. 07/21/17: Patient states that over the last day she has developed a "funny feeling" in her left leg. She states that she feels her left foot is swollen. On examination her left foot is swollen when compared to the right, and she does have a history of superficial blood clots in both upper extremities. Patient has been refusing her lovenox for the past 4-5 days, and probably has a DVT. I have ordered a STAT Left LE US. If she does not want to be anticoagulated with Lovenox, Eliquis 10 mg BID may be considered. (3) Metastatic colon cancer in female Status: Chronic Response to Treatment: Stable Problem Specific Plan: Monitor Clinically Problem Text: Follows with Onc in outpt setting. Was seen by oncology, they plan on starting her on possible Lonsurf regimen as outpatient (4) History of hydronephrosis Status: Chronic Response to Treatment: Stable Problem Specific Plan: Monitor Clinically Problem Text: c/o RIGHT flank pain. Will image with US. Has stent in place, scan appears without any persistent hydronephrosis. (5) UTI (urinary tract infection) Status: Resolved (6) Hypomagnesemia Status: Acute Problem Specific Plan: Monitor Clinically, Repeat Labs Problem Text: Her magnesium levels are back in the normal range. No change her current regimen. (7) Tachycardia Status: Acute Discussed With: Nurse, Patient Problem Text: I believe that much of this tachycardia is physiologic from her pain. Were working on pain control. Plan/VTE VTE Prophylaxis Ordered?: Yes VS, I&O, 24H, Fishbone Vital Signs/I&O Vital Signs Date Time Temp Pulse Resp B/P (MAP) Pulse Ox O2 Delivery O2 Flow Rate FiO2 07/26/17 04:08 85 20 92 07/26/17 03:38 Room Air 07/25/17 22:00 98.3 106/67 (80) 07/21/17 16:07 18.0 Laboratory Data 24H LABS Laboratory Tests 2 07/25/17 06:50: Immature Granulocyte % (Auto) 0.3H, White Blood Count 12.8H, Red Blood Count 3.32L, Hemoglobin 9.7L, Hematocrit 31.6L, Mean Corpuscular Volume 95.2, Mean Corpuscular Hemoglobin 29.2, Mean Corpuscular Hemoglobin Concent 30.7L, Red Cell Distribution Width 16.1H, Platelet Count 293, Neutrophils (%) (Auto) 79.6H , Lymphocytes (%) (Auto) 9.3L, Monocytes (%) (Auto) 5.6H, Eosinophils (%) (Auto ) 4.9H, Basophils (%) (Auto) 0.3, Neutrophils # (Auto) 10.1H, Lymphocytes # ( Auto) 1.2L, Monocytes # (Auto) 0.7, Eosinophils # (Auto) 0.6H, Basophils # (Auto ) 0.0, Immature Granulocyte # (Auto) 0.0, Nucleated Red Blood Cells % (auto) 0.0 , Anion Gap 5L, Glomerular Filtration Rate > 60.0, Blood Urea Nitrogen 4L, Creatinine 0.51L, Sodium Level 143, Potassium Level 3.8, Chloride Level 109H, Carbon Dioxide Level 29, Calcium Level 8.4L, Aspartate Amino Transf (AST/SGOT) 32, Alanine Aminotransferase (ALT/SGPT) 13, Lactate Dehydrogenase 492H, Alkaline Phosphatase 80, Total Bilirubin 0.3, Total Protein 5.2L, Albumin 2.0L, Albumin/Globulin Ratio 0.63L CBC/BMP Laboratory Tests 07/25/17 06:50 Red Blood Count 3.32 L, Mean Corpuscular Volume 95.2, Mean Corpuscular Hemoglobin 29.2, Mean Corpuscular Hemoglobin Concent 30.7 L, Red Cell Distribution Width 16.1 H, Neutrophils (%) (Auto) 79.6 H, Lymphocytes (%) (Auto ) 9.3 L, Monocytes (%) (Auto) 5.6 H, Eosinophils (%) (Auto) 4.9 H, Basophils (% ) (Auto) 0.3, Neutrophils # (Auto) 10.1 H, Lymphocytes # (Auto) 1.2 L, Monocytes # (Auto) 0.7, Eosinophils # (Auto) 0.6 H, Basophils # (Auto) 0.0, Calcium Level 8.4 L, Aspartate Amino Transf (AST/SGOT) 32, Alanine Aminotransferase (ALT/SGPT) 13, Lactate Dehydrogenase 492 H, Alkaline Phosphatase 80, Total Bilirubin 0.3, Total Protein 5.2 L, Albumin 2.0 L GME ATTESTATION GME ATTESTATION My preceptor for this patient encounter was physically present in the building during the encounter and was fully available. As needed, all aspects of the patient interview, examination, medical decision making process, and medical care plan development were reviewed and approved by the preceptor. Preceptor is aware and concurs with the plan as stated in the body of this note and will attest to such by his/her cosignature. SAMANTHA VARMA DO Jul 26, 2017 06:12
[2017-07-26] MEDS: HYOSCYAMINE SULFATE 0.125 MG SUBL TABLET SL SCH ×5 (06:29→23:43)
[2017-07-26] MEDS: PROPRANOLOL 20 MG TAB PO SCH ×2 (08:29→20:51)
[2017-07-26] MEDS: PANTOPRAZOLE 40MG TAB (PROTONIX) PO SCH (08:29)
[2017-07-26] MEDS: MIRALAX *UNIT DOSE* 17GM PACKET PO SCH ×2 (08:29→20:53)
[2017-07-26] MEDS: CETIRIZINE (ZyrTEC) 10 MG TAB PO SCH (08:29)
[2017-07-26] MEDS: MORPHINE 30 MG SA TAB PO SCH ×3 (08:30→20:53)
[2017-07-26] MEDS: TRIAMCINOLONE ACET 0.1% OINTMENT 15 GM TOP SCH ×2 (08:31→20:56)
[2017-07-26] MEDS: SENOKOT S TAB PO SCH ×2 (08:31→20:52)
[2017-07-26] MEDS: diphenhydrAMINE 25 MG CAP PO PRN (10:37)
[2017-07-26 14:43] VITALS: BP 125/86
[2017-07-26 14:53] LABS: LDH, BODY FLUID 130 U/L (NOT ESTABLISHED); TOTAL PROTEIN, BODY FLUID 2.1 G/DL (NOT ESTABLISHED)
[2017-07-26 14:55] LABS: BF MONONUCLEAR CELL % 72.9 % (0-0); BF POLYMORPHONUCLEAR CELL % 27.1 % (0-0); RBC BODY FLUID 2 10^3/uL (<2); WBC BODY FLUID 2775 /uL (0-10)
[2017-07-26 14:59] LABS: BF DIFF IF INDICATED? YES (NO)
--- NOTE | 2017-07-26 15:07 | REP ---
Chest x-ray: Two views. History: Status post thoracentesis. Comparison study: July 24, 2017. Findings: The patient is status post left thoracentesis. There is improvement noted in the pleural angle blunting posteriorly. A small quantity of air is seen in the posterior pleural space on the lateral radiograph. No significant pneumothorax is seen. An Dyhmid-U-Klyx catheter is noted with its tip in the expected location of the superior vena cava from the left side. There is a pigtail drainage catheter in the left upper quadrant consistent with a percutaneous nephrostomy tube. Lungs are otherwise well inflated and clear. Impression: Status post left thoracentesis. No significant pneumothorax seen. Signed by Rodo Aguirre MD 07/26/2017 04:51 P
--- NOTE | 2017-07-26 17:00 | REP ---
ULTRASOUND GUIDED LEFT THORACENTESIS: The procedure was performed under the direct supervision of Dr. Aguirre. The risks and benefits of the procedure were explained to the patient and informed consent was obtained. The left pleural effusion was localized using ultrasound guidance. The skin was prepped and draped in a sterile fashion. 1% Lidocaine was used as a local anesthetic. Using ultrasound guidance an 8-Spanish [id number] catheter was inserted using trocar technique. 340 mL of clear yellow fluid was withdrawn and sent to the lab. The patient tolerated the procedure well and there were no immediate complications. Reviewed by MARY ALICE Rivera 07/26/2017 05:19 PEdited and Signed by Rodo Aguirre MD 07/26/2017 05:35 P
[2017-07-26] MEDS: DULoxetine 30 MG CAP (CYMBALTA) PO SCH (20:52)
[2017-07-26] MEDS: MULTIVITAMINS/MINERALS THERAP 1 TAB PO SCH (20:56)
[2017-07-26 22:00] VITALS: BP 120/66
--- NOTE | 2017-07-26 22:07 | IPNPDOC ---
Subjective Date Seen The patient was seen on 07/26/17. Subjective Chief Complaint/HPI The patient is a 47-year-old female admitted with a reason for visit of Uti, Abdominal Pain. Events since last encounter Patient seen at bedside in the afternoon. Today, patient continues to have pain in her lower abdomen. Pain is still worse in the left groin area. Does not feel that her pain control is adequate. She is wanting good control of her pain for at least 1.5 days before she feels ready to be discharged. She states that she still wants to work. She is also concerned that she will not be able to drive. She is also eating very little, as she does not have a good appetite. Patient seems tired today, did not seem focused on her conversation. General: Denies: Chills, Night Sweats, Fatigue, Malaise Pulmonary: Denies: Dyspnea, Cough Cardiovascular: Denies: Chest Pain, Palpitations, Orthopnea, Paroxysmal Noc. Dyspnea, Lt Headedness Gastrointestinal: Reports: Abdominal Pain, Denies: Nausea, Vomiting, Diarrhea, Constipation Objective Physical Examination General Exam: Positive: Alert, No Acute Distress ENT Exam: Positive: Mucous membr. moist/pink Chest Exam: Positive: Clear to auscultation, Normal air movement Heart Exam: Positive: Regular Rhythm Abdomen Exam: Positive: BS Hyperactive, Soft, Tenderness (Exquisite pain to gentle palpation. Patient visibly flinches.) Extremity Exam: Positive: Edema (Left foot has some edema when compared to the right, only up to the ankle) Neuro Exam: Positive: Normal Speech, Sensation Intact Psych Exam: Positive: Mental status NL, Mood NL, Other (Expresses some confusion and losing train of thought, probably from pain medication) Assessment /Plan Problems (1) Abdominal pain Status: Acute Response to Treatment: Stable Discussed With: Nurse, Patient Problem Specific Plan: Consult Specialist, Monitor Clinically, Repeat Labs Problem Text: Patient is currently receiving Ms contin 90 mg TID, Roxanol 20 mg q1H, and Valium 2 mg q4H for pain. Despite escalating regimen, patient still reports intolerable pain. Patient does not want to be discharged until her pain can be controlled for a period of time. (2) Metastatic colon cancer in female Status: Chronic Response to Treatment: Stable Problem Specific Plan: Monitor Clinically Problem Text: Follows with Onc in outpt setting. Was seen by oncology, they plan on starting her on possible Lonsurf regimen as outpatient (3) Edema of left foot Status: Acute Problem Text: 07/25/17: Tibia/fibula x-ray series: Negative left tib-fib radiographs. Less swelling in the LLE today. 07/22/17: Patient has less swelling in her LLE today. She does complain of some discomfort. US neg for DVT. Patient is not on anticoagulation. She was encouraged to ambulate. Compression stockings may be considered if swelling continues. 07/21/17: Patient states that over the last day she has developed a "funny feeling" in her left leg. She states that she feels her left foot is swollen. On examination her left foot is swollen when compared to the right, and she does have a history of superficial blood clots in both upper extremities. Patient has been refusing her lovenox for the past 4-5 days, and probably has a DVT. I have ordered a STAT Left LE US. If she does not want to be anticoagulated with Lovenox, Eliquis 10 mg BID may be considered. (4) History of hydronephrosis Status: Chronic Response to Treatment: Stable Problem Specific Plan: Monitor Clinically Problem Text: c/o RIGHT flank pain. Will image with US. Has stent in place, scan appears without any persistent hydronephrosis. (5) UTI (urinary tract infection) Status: Resolved (6) Hypomagnesemia Status: Acute Problem Specific Plan: Monitor Clinically, Repeat Labs Problem Text: Her magnesium levels are back in the normal range. No change her current regimen. (7) Tachycardia Status: Acute Discussed With: Nurse, Patient Problem Text: I believe that much of this tachycardia is physiologic from her pain. Were working on pain control. Plan/VTE VTE Prophylaxis Ordered?: Yes VS, I&O, 24H, Fishbone Vital Signs/I&O Vital Signs Date Time Temp Pulse Resp B/P (MAP) Pulse Ox O2 Delivery O2 Flow Rate FiO2 07/26/17 20:53 97 14 99 Room Air 07/26/17 20:51 125/86 07/26/17 14:43 98.7 07/21/17 16:07 18.0 I&O- Last 24 Hours up to 6 AM 07/27/17 06:00 Intake Total 240 ml Output Total 1160 ml Balance -920 ml GME ATTESTATION GME ATTESTATION My preceptor for this patient encounter was physically present in the building during the encounter and was fully available. As needed, all aspects of the patient interview, examination, medical decision making process, and medical care plan development were reviewed and approved by the preceptor. Preceptor is aware and concurs with the plan as stated in the body of this note and will attest to such by his/her cosignature. SAMANTHA VARMA DO Jul 26, 2017 22:07
[2017-07-27] MEDS: MORPHINE 10MG/0.5ML ORAL CONCENTRATE SOLUTION U/D SL PRN ×6 (03:04→16:51)
[2017-07-27] MEDS: diazePAM 2 MG TAB PO PRN ×5 (04:05→20:39)
[2017-07-27] MEDS: HYOSCYAMINE SULFATE 0.125 MG SUBL TABLET SL SCH ×3 (05:40→17:48)
[2017-07-27 06:00] VITALS: BP 116/74
[2017-07-27] MEDS: PANTOPRAZOLE 40MG TAB (PROTONIX) PO SCH (08:38)
[2017-07-27] MEDS: SENOKOT S TAB PO SCH ×2 (08:38→20:39)
[2017-07-27] MEDS: MIRALAX *UNIT DOSE* 17GM PACKET PO SCH ×2 (08:39→20:38)
[2017-07-27] MEDS: PROPRANOLOL 20 MG TAB PO SCH ×2 (08:39→20:39)
[2017-07-27] MEDS: CETIRIZINE (ZyrTEC) 10 MG TAB PO SCH (08:39)
[2017-07-27] MEDS: MORPHINE 30 MG SA TAB PO SCH ×3 (08:40→20:40)
[2017-07-27] MEDS: TRIAMCINOLONE ACET 0.1% OINTMENT 15 GM TOP SCH ×2 (09:00→20:41)
[2017-07-27] MEDS: ENOXAPARIN 40 MG/0.4 ML SYRINGE (J1650) SC SCH (10:47)
--- NOTE | 2017-07-27 17:12 | IPNPDOC ---
Subjective Date Seen The patient was seen on 07/27/17. Subjective Chief Complaint/HPI The patient is a 47-year-old female admitted with a reason for visit of Uti, Abdominal Pain. Constitutional: Denies: Chills Eyes: Reports: Pain ENT: Denies: Head Aches Pulmonary: Denies: Dyspnea, Cough Cardiovascular: Denies: Chest Pain, Palpitations Gastrointestinal: Denies: Nausea, Vomiting Genitourinary: Denies: Dysuria Objective Physical Examination General Exam: Positive: Alert, No Acute Distress ENT Exam: Positive: Mucous membr. moist/pink Chest Exam: Positive: Clear to auscultation, Normal air movement Heart Exam: Positive: Regular Rhythm Abdomen Exam: Positive: BS Hyperactive, Soft, Tenderness (Exquisite pain to gentle palpation. Patient visibly flinches.) Extremity Exam: Positive: Edema (Left foot has some edema when compared to the right, only up to the ankle) Neuro Exam: Positive: Normal Speech, Sensation Intact Psych Exam: Positive: Mental status NL, Mood NL, Other (Expresses some confusion and losing train of thought, probably from pain medication) Assessment /Plan Problems (1) Abdominal pain Status: Acute Response to Treatment: Stable Discussed With: Nurse, Patient Problem Specific Plan: Consult Specialist, Monitor Clinically, Repeat Labs Problem Text: Patient is currently receiving Ms contin 90 mg TID, Roxanol 20 mg q1H, and Valium 2 mg q4H for pain. Despite escalating regimen, patient still reports intolerable pain. Patient does not want to be discharged until her pain can be controlled for a period of time. (2) Metastatic colon cancer in female Status: Chronic Response to Treatment: Stable Problem Specific Plan: Monitor Clinically Problem Text: Follows with Onc in outpt setting. Was seen by oncology, they plan on starting her on possible Lonsurf regimen as outpatient (3) Edema of left foot Status: Acute Problem Text: 07/25/17: Tibia/fibula x-ray series: Negative left tib-fib radiographs. Less swelling in the LLE today. 07/22/17: Patient has less swelling in her LLE today. She does complain of some discomfort. US neg for DVT. Patient is not on anticoagulation. She was encouraged to ambulate. Compression stockings may be considered if swelling continues. 07/21/17: Patient states that over the last day she has developed a "funny feeling" in her left leg. She states that she feels her left foot is swollen. On examination her left foot is swollen when compared to the right, and she does have a history of superficial blood clots in both upper extremities. Patient has been refusing her lovenox for the past 4-5 days, and probably has a DVT. I have ordered a STAT Left LE US. If she does not want to be anticoagulated with Lovenox, Eliquis 10 mg BID may be considered. (4) History of hydronephrosis Status: Chronic Response to Treatment: Stable Problem Specific Plan: Monitor Clinically Problem Text: c/o RIGHT flank pain. Will image with US. Has stent in place, scan appears without any persistent hydronephrosis. Plan/VTE VTE Prophylaxis Ordered?: Yes VS, I&O, 24H, Fishbone Vital Signs/I&O Vital Signs Date Time Temp Pulse Resp B/P (MAP) Pulse Ox O2 Delivery O2 Flow Rate FiO2 07/27/17 16:51 14 07/27/17 12:24 Room Air 07/27/17 08:39 85 116/74 07/27/17 06:00 97.9 93 07/21/17 16:07 18.0 Abraham Bui M.D. Jul 27, 2017 17:12
--- NOTE | 2017-07-27 17:17 | IPNPDOC ---
Subjective Date Seen The patient was seen on 07/27/17. Subjective Chief Complaint/HPI The patient is a 47-year-old female admitted with a reason for visit of Uti, Abdominal Pain. Objective Physical Examination General Exam: Positive: Alert, No Acute Distress ENT Exam: Positive: Mucous membr. moist/pink Chest Exam: Positive: Clear to auscultation, Normal air movement Heart Exam: Positive: Regular Rhythm Abdomen Exam: Positive: BS Hyperactive, Soft, Tenderness (Exquisite pain to gentle palpation. Patient visibly flinches.) Extremity Exam: Positive: Edema (Left foot has some edema when compared to the right, only up to the ankle) Neuro Exam: Positive: Normal Speech, Sensation Intact Psych Exam: Positive: Mental status NL, Mood NL, Other (Expresses some confusion and losing train of thought, probably from pain medication) Assessment /Plan Problems (1) Abdominal pain Status: Acute Response to Treatment: Stable Discussed With: Nurse, Patient Problem Specific Plan: Consult Specialist, Monitor Clinically, Repeat Labs Problem Text: Patient is currently receiving MS Contin 90 mg TID, Roxanol 20 mg q1H, and Valium 2 mg q4H for pain-per [facility]-despite escalating regimen, patient still reports intolerable pain and when we have shorten the MS Contin intervals, she develops dangerous oversedation Patient does not want to be discharged until her pain can be controlled for a period of time. (2) Metastatic colon cancer in female Status: Chronic Response to Treatment: Stable Problem Specific Plan: Monitor Clinically Problem Text: 07/16 Dr. Mueller consult-given progression on FOLFIRI; plan is po Lonsurf on discharge (3) Edema of left foot Status: Acute Problem Text: 07/25/17: Tibia/fibula x-ray series: Negative left tib-fib radiographs. Less swelling in the LLE today. 07/22/17: Patient has less swelling in her LLE today. She does complain of some discomfort. US neg for DVT. Patient is not on anticoagulation. She was encouraged to ambulate. Compression stockings may be considered if swelling continues. 07/21/17: Patient states that over the last day she has developed a "funny feeling" in her left leg. She states that she feels her left foot is swollen. On examination her left foot is swollen when compared to the right, and she does have a history of superficial blood clots in both upper extremities. Patient has been refusing her lovenox for the past 4-5 days, and probably has a DVT. I have ordered a STAT Left LE US. If she does not want to be anticoagulated with Lovenox, Eliquis 10 mg BID may be considered. (4) History of hydronephrosis Status: Chronic Response to Treatment: Stable Problem Specific Plan: Monitor Clinically Problem Text: c/o RIGHT flank pain. Will image with US. Has stent in place, scan appears without any persistent hydronephrosis. (5) Anemia Status: Chronic Response to Treatment: Stable Problem Text: ACD 07/25 hgb stable at 9.7 (6) Physical deconditioning Status: Chronic Response to Treatment: Stable Problem Text: 07/23 PT 3rd evaluation still feels patient is safe for dc home- no PT intervention needed (7) Pleural effusion Status: Acute Response to Treatment: Stable, Improving Problem Text: 07/26 sp L thoracentesis of 340 cc clear yellow fluid 07/26 cytology P Plan/VTE VTE Prophylaxis Ordered?: Yes VS, I&O, 24H, Fishbone Vital Signs/I&O Vital Signs Date Time Temp Pulse Resp B/P (MAP) Pulse Ox O2 Delivery O2 Flow Rate FiO2 07/27/17 16:51 14 07/27/17 12:24 Room Air 07/27/17 08:39 85 116/74 07/27/17 06:00 97.9 93 07/21/17 16:07 18.0 Abraham Bui M.D. Jul 27, 2017 17:17
[2017-07-27] MEDS: MULTIVITAMINS/MINERALS THERAP 1 TAB PO SCH (20:38)
[2017-07-27] MEDS: diphenhydrAMINE 25 MG CAP PO PRN (20:38)
[2017-07-27] MEDS: DULoxetine 30 MG CAP (CYMBALTA) PO SCH (20:39)
[2017-07-27 22:00] VITALS: BP 117/77
[2017-07-28] MEDS: diazePAM 2 MG TAB PO PRN ×5 (03:07→21:24)
[2017-07-28] MEDS: MORPHINE 10MG/0.5ML ORAL CONCENTRATE SOLUTION U/D SL PRN ×5 (03:08→16:35)
[2017-07-28] MEDS: HYOSCYAMINE SULFATE 0.125 MG SUBL TABLET SL SCH ×5 (05:34→23:57)
[2017-07-28 06:00] VITALS: BP 129/85
[2017-07-28 06:11] LABS: BASO % 0.3 % (0.0-1.0); EOS # 0.6 10^3/uL (0.0-0.50); EOS % 7.7 % (0.0-3.0); IMMATURE GRANULOCYTE % 0.4 % (0-0); LYMPH # 1.2 10^3/uL (1.5-4.5); LYMPH % 15.9 % (24.0-44.0); MEAN CORPUSCULAR HEMOGLOBIN 28.7 pg (27.0-33.0); MEAN CORPUSCULAR HGB CONC 30.1 g/dl (32.0-36.5); MEAN CORPUSCULAR VOLUME 95.3 fl (80.0-96.0); MONO # 0.5 10^3/uL (0.0-0.8); MONO % 7.3 % (0.0-5.0); NEUTROPHILS % 68.4 % (36.0-66.0); PLATELET COUNT, AUTOMATED 324 10^3/uL (150-450); RED CELL DISTRIBUTION WIDTH 15.9 % (11.5-14.5); WHITE BLOOD COUNT 7.3 10^3/uL (4.0-10.0)
[2017-07-28 06:27] LABS: ALBUMIN 2.2 GM/DL (3.2-5.2); ALBUMIN/GLOBULIN RATIO 0.63 (1.00-1.93); ALKALINE PHOSPHATASE 89 U/L (45-117); ALT/SGPT 12 U/L (12-78); ANION GAP 7 MEQ/L (8-16); AST/SGOT 23 U/L (7-37); BILIRUBIN,TOTAL 0.2 MG/DL (0.2-1.0); BLOOD UREA NITROGEN 2 MG/DL (7-18); CALCIUM LEVEL 8.9 MG/DL (8.5-10.1); CARBON DIOXIDE LEVEL 30 MEQ/L (21-32); CHLORIDE LEVEL 106 MEQ/L (98-107); CREATININE FOR GFR 0.53 MG/DL (0.55-1.02); GLOMERULAR FILTRATION RATE > 60.0 (>58); GLUCOSE, FASTING 97 MG/DL (70-105); POTASSIUM SERUM 3.8 MEQ/L (3.5-5.1); SODIUM LEVEL 143 MEQ/L (136-145); TOTAL PROTEIN 5.7 GM/DL (6.4-8.2)
[2017-07-28] MEDS: SENOKOT S TAB PO SCH ×2 (08:15→21:24)
[2017-07-28] MEDS: PANTOPRAZOLE 40MG TAB (PROTONIX) PO SCH (08:15)
[2017-07-28] MEDS: ENOXAPARIN 40 MG/0.4 ML SYRINGE (J1650) SC SCH (08:16)
[2017-07-28] MEDS: PROPRANOLOL 20 MG TAB PO SCH ×2 (08:16→21:23)
[2017-07-28] MEDS: CETIRIZINE (ZyrTEC) 10 MG TAB PO SCH (08:16)
[2017-07-28] MEDS: MIRALAX *UNIT DOSE* 17GM PACKET PO SCH ×2 (08:16→21:23)
[2017-07-28] MEDS: TRIAMCINOLONE ACET 0.1% OINTMENT 15 GM TOP SCH ×2 (08:17→21:25)
[2017-07-28] MEDS: MORPHINE 30 MG SA TAB PO SCH ×3 (08:18→21:25)
[2017-07-28 14:00] VITALS: BP 117/76
--- NOTE | 2017-07-28 16:28 | IPNPDOC ---
Subjective Date Seen The patient was seen on 07/28/17. Subjective Chief Complaint/HPI The patient is a 47-year-old female admitted with a reason for visit of Uti, Abdominal Pain. Constitutional: Denies: Chills, Fever Eyes: Reports: Pain (chronic generalized abdominal ) Pulmonary: Denies: Dyspnea, Cough Cardiovascular: Denies: Chest Pain Gastrointestinal: Denies: Nausea, Vomiting Genitourinary: Denies: Dysuria Objective Physical Examination General Exam: Positive: Alert, No Acute Distress ENT Exam: Positive: Mucous membr. moist/pink Chest Exam: Positive: Clear to auscultation, Normal air movement Heart Exam: Positive: Regular Rhythm Abdomen Exam: Positive: BS Hyperactive, Soft, Tenderness (Exquisite pain to gentle palpation. Patient visibly flinches.) Extremity Exam: Positive: Edema (Left foot has some edema when compared to the right, only up to the ankle) Neuro Exam: Positive: Normal Speech, Sensation Intact Psych Exam: Positive: Mental status NL, Mood NL, Other (Expresses some confusion and losing train of thought, probably from pain medication) Assessment /Plan Problems (1) Abdominal pain Status: Acute Response to Treatment: Stable Discussed With: Nurse, Patient Problem Specific Plan: Consult Specialist, Monitor Clinically, Repeat Labs Problem Text: Favor starting MAINTENANCE ANALYST to determine total daily dose required-could consider intrathecal administration once determined given intolerable delay with high dose multi-drug oral regimen-would dw Dr. Daniels Patient is currently receiving MS Contin 90 mg TID, Roxanol 20 mg q1H, and Valium 2 mg q4H for pain-per [facility]-despite escalating regimen, patient still reports intolerable pain and when we have shorten the MS Contin intervals, she develops dangerous oversedation Patient does not want to be discharged until her pain can be controlled for a period of time (2) Metastatic colon cancer in female Status: Chronic Response to Treatment: Stable Problem Specific Plan: Monitor Clinically Problem Text: 07/16 Dr. Mueller consult-given progression on FOLFIRI; plan is po Lonsurf on discharge (3) History of hydronephrosis Status: Chronic Response to Treatment: Stable Problem Specific Plan: Monitor Clinically Problem Text: 07/28 stable BUN/cr Has stent in place, scan appears without any persistent hydronephrosis. (4) Anemia Status: Chronic Response to Treatment: Stable Problem Text: ACD 07/28 10.4 07/25 hgb stable at 9.7 (5) Physical deconditioning Status: Chronic Response to Treatment: Stable Problem Text: 07/23 PT 3rd evaluation still feels patient is safe for dc home- no PT intervention needed (6) Pleural effusion Status: Acute Response to Treatment: Stable, Improving Problem Text: 07/26 sp L thoracentesis of 340 cc clear yellow fluid 07/26 cytology P (7) Protein-calorie malnutrition, severe Status: Chronic Problem Text: Encouraged supplementation 07/28 albumin 2.2 Plan/VTE VTE Prophylaxis Ordered?: Yes VS, I&O, 24H, Fishbone Vital Signs/I&O Vital Signs Date Time Temp Pulse Resp B/P (MAP) Pulse Ox O2 Delivery O2 Flow Rate FiO2 07/28/17 13:19 14 07/28/17 10:26 Room Air 07/28/17 08:16 87 129/85 07/28/17 06:05 96 07/28/17 06:00 98.1 I&O- Last 24 Hours up to 6 AM 07/29/17 06:00 Intake Total 120 ml Output Total 525 ml Balance -405 ml Laboratory Data 24H LABS Laboratory Tests 2 07/28/17 05:55: Immature Granulocyte % (Auto) 0.4H, White Blood Count 7.3, Red Blood Count 3.62L , Hemoglobin 10.4L, Hematocrit 34.5L, Mean Corpuscular Volume 95.3, Mean Corpuscular Hemoglobin 28.7, Mean Corpuscular Hemoglobin Concent 30.1L, Red Cell Distribution Width 15.9H, Platelet Count 324, Neutrophils (%) (Auto) 68.4H , Lymphocytes (%) (Auto) 15.9L, Monocytes (%) (Auto) 7.3H, Eosinophils (%) (Auto ) 7.7H, Basophils (%) (Auto) 0.3, Neutrophils # (Auto) 5.0, Lymphocytes # (Auto ) 1.2L, Monocytes # (Auto) 0.5, Eosinophils # (Auto) 0.6H, Basophils # (Auto) 0.0, Immature Granulocyte # (Auto) 0.0, Nucleated Red Blood Cells % (auto) 0.0, Anion Gap 7L, Glomerular Filtration Rate > 60.0, Blood Urea Nitrogen 2L, Creatinine 0.53L, Sodium Level 143, Potassium Level 3.8, Chloride Level 106, Carbon Dioxide Level 30, Calcium Level 8.9, Aspartate Amino Transf (AST/SGOT) 23 , Alanine Aminotransferase (ALT/SGPT) 12, Alkaline Phosphatase 89, Total Bilirubin 0.2, Total Protein 5.7L, Albumin 2.2L, Albumin/Globulin Ratio 0.63L CBC/BMP Laboratory Tests 07/28/17 05:55 Red Blood Count 3.62 L, Mean Corpuscular Volume 95.3, Mean Corpuscular Hemoglobin 28.7, Mean Corpuscular Hemoglobin Concent 30.1 L, Red Cell Distribution Width 15.9 H, Neutrophils (%) (Auto) 68.4 H, Lymphocytes (%) (Auto ) 15.9 L, Monocytes (%) (Auto) 7.3 H, Eosinophils (%) (Auto) 7.7 H, Basophils (% ) (Auto) 0.3, Neutrophils # (Auto) 5.0, Lymphocytes # (Auto) 1.2 L, Monocytes # (Auto) 0.5, Eosinophils # (Auto) 0.6 H, Basophils # (Auto) 0.0, Calcium Level 8.9, Aspartate Amino Transf (AST/SGOT) 23, Alanine Aminotransferase (ALT/SGPT) 12, Alkaline Phosphatase 89, Total Bilirubin 0.2, Total Protein 5.7 L, Albumin 2.2 L Abraham Bui M.D. Jul 28, 2017 16:28
[2017-07-28] MEDS: MULTIVITAMINS/MINERALS THERAP 1 TAB PO SCH (21:24)
[2017-07-28] MEDS: DULoxetine 30 MG CAP (CYMBALTA) PO SCH (21:24)
[2017-07-28 22:00] VITALS: BP 121/79
[2017-07-29] MEDS: diazePAM 2 MG TAB PO PRN ×4 (03:42→21:50)
[2017-07-29] MEDS: MORPHINE 10MG/0.5ML ORAL CONCENTRATE SOLUTION U/D SL PRN ×4 (03:43→17:11)
[2017-07-29] MEDS: HYOSCYAMINE SULFATE 0.125 MG SUBL TABLET SL SCH ×3 (05:43→17:11)
[2017-07-29] MEDS: diphenhydrAMINE 25 MG CAP PO PRN (05:45)
[2017-07-29 06:00] VITALS: BP 120/78
[2017-07-29] MEDS: MORPHINE 30 MG SA TAB PO SCH ×3 (08:13→21:52)
--- NOTE | 2017-07-29 08:57 | IPNPDOC ---
Subjective Date Seen The patient was seen on 07/29/17. Subjective Chief Complaint/HPI The patient is a 47-year-old female admitted with a reason for visit of Uti, Abdominal Pain. Events since last encounter Pt this morning has concerns about her current level of pain control. She would like to be pain free and she is not. She has breakthrough pain despite her current pain regimen. She would like to be able to go home but will not until she is pain free. She would like to go back to work. She feels as though the only thing we ([facility] team) are doing for her is treating her pain and not adequately but that we have failed to find the cause of her pain and treat that appropriately. She feels cancer isn't the cause of her pain. Nursing and aide separately report that the pt sleeps most of the day and night only waking to request pain medication. She is often drowsy and falling asleep when they are present in the room. General: Reports: Fatigue Constitutional: Denies: Fever Pulmonary: Denies: Dyspnea, Cough Cardiovascular: Denies: Chest Pain Gastrointestinal: Reports: Abdominal Pain, Denies: Nausea, Vomiting Psych: Reports: Depression Objective Physical Examination General Exam: Positive: No Acute Distress (Pt appears comfortable, she is drowsy and struggles to keep her eyes open while I am in the room. ), Negative: Alert ENT Exam: Positive: Mucous membr. moist/pink Chest Exam: Positive: Clear to auscultation, Normal air movement Heart Exam: Positive: Regular Rhythm Abdomen Exam: Positive: Normal bowel sounds, Soft, Tenderness (Pain with gentle palpation diffusely) Extremity Exam: Positive: Edema (Trace L pedal edema, ) Neuro Exam: Positive: Normal Speech, Sensation Intact Psych Exam: Positive: Other (Her statements are often repetitive, she lacks ability to participate in conversation, likely due to sedation.), Negative: Mental status NL, Mood NL (mood is low) Assessment /Plan Problems (1) Abdominal pain Status: Acute Response to Treatment: Stable Discussed With: Nurse, Patient Problem Specific Plan: Consult Specialist, Monitor Clinically, Repeat Labs Problem Text: 07/29 - I reviewed her administration records of Pain Meds and her sats. Currently the MS Contin is the max dose she has been on, she has been on lower doses with increased frequency of the Valium, (sedation occured). She is using Roxanol 5-6 times daily (every 2-3h during the day), more frequency during the day then will go 6-8 hours spans in the evening and early hours of the morning without (sleeping). Valium 2 mg q4h is consistently being administered 5 times daily, with a longer stretch again in the evening and early education teacher hours. She was previously on 5 mg q6h but there was sedation assoc with this and mtp doses were required to be held, therefore it was backed down to 1 mg and now up to 2 mg with narrowing of the frequency of administration. Nursing reports no notable signs of pain. I also reviewed with her the testing that has been done since she has been here to include BW and imaging as well as testing that has been done in the recent past (prior to admission). We also talked about her recent consultation with Dr Mueller. It appears as though for improved pain control, she could increase the frequency of administration of Roxanol - this likely would be disruptive to sleep (if sleeping, pain likely controlled), and would increase risk for oversedation. At this point she is already quite sedated. 07/28 Favor starting ORAL SURGERY ASSISTANT to determine total daily dose required-could consider intrathecal administration once determined given intolerable delay with high dose multi-drug oral regimen-would dw Dr. Daniels Patient is currently receiving MS Contin 90 mg TID, Roxanol 20 mg q1H, and Valium 2 mg q4H for pain-per [facility]-despite escalating regimen, patient still reports intolerable pain and when we have shorten the MS Contin intervals, she develops dangerous oversedation Patient does not want to be discharged until her pain can be controlled for a period of time (2) Metastatic colon cancer in female Status: Chronic Response to Treatment: Stable Problem Specific Plan: Monitor Clinically Problem Text: 07/16 Dr. Mueller consult-given progression on FOLFIRI; plan is po Lonsurf on discharge (3) History of hydronephrosis Status: Chronic Response to Treatment: Stable Problem Specific Plan: Monitor Clinically Problem Text: 07/28 stable BUN/cr Has stent in place, scan appears without any persistent hydronephrosis. (4) Anemia Status: Chronic Response to Treatment: Stable Problem Text: ACD 07/28 10.4 07/25 hgb stable at 9.7 (5) Physical deconditioning Status: Chronic Response to Treatment: Stable Problem Text: 07/23 PT 3rd evaluation still feels patient is safe for dc home- no PT intervention needed (6) Pleural effusion Status: Acute Response to Treatment: Stable, Improving Problem Text: 07/29 - await path results. 07/26 sp L thoracentesis of 340 cc clear yellow fluid 07/26 cytology P (7) Protein-calorie malnutrition, severe Status: Chronic Problem Text: Encouraged supplementation 07/28 albumin 2.2 Plan/VTE VTE Prophylaxis Ordered?: Yes VS, I&O, 24H, Fishbone Vital Signs/I&O Vital Signs Date Time Temp Pulse Resp B/P (MAP) Pulse Ox O2 Delivery O2 Flow Rate FiO2 07/29/17 08:14 16 98 07/29/17 06:00 97.5 88 120/78 (92) Room Air CAITLIN BREAUX PA-C Jul 29, 2017 08:57
[2017-07-29] MEDS: ENOXAPARIN 40 MG/0.4 ML SYRINGE (J1650) SC SCH (09:00)
[2017-07-29] MEDS: PANTOPRAZOLE 40MG TAB (PROTONIX) PO SCH (09:38)
[2017-07-29] MEDS: SENOKOT S TAB PO SCH ×2 (09:38→21:50)
[2017-07-29] MEDS: CETIRIZINE (ZyrTEC) 10 MG TAB PO SCH (09:38)
[2017-07-29] MEDS: PROPRANOLOL 20 MG TAB PO SCH ×2 (09:39→21:52)
[2017-07-29] MEDS: MIRALAX *UNIT DOSE* 17GM PACKET PO SCH ×2 (09:40→21:50)
[2017-07-29] MEDS: TRIAMCINOLONE ACET 0.1% OINTMENT 15 GM TOP SCH ×2 (09:40→21:00)
[2017-07-29 09:53] VITALS: BP 122/84
--- NOTE | 2017-07-29 12:20 | IPN ---
DATE: 07/29/2017 I spoke at length with Tresa. This note supplements Andria Toscano's note from earlier today. Essentially Tresa is asking for something I do not think we can achieve - she wants "total control" of her pain with no sedation. 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 She also wants to start her new chemo regimen which is going to require her to be seen as an outpatient by Dr. Mueller, the patient has an appointment for 08/01/2017. Today we discussed the excessive sedation that occurs when she received her valium. We are going to be reducing the dose of that from 2 mg every 4 hours to 1 mg every 6 hours. Continue same dose of her narcotics. I asked physical therapy to work with her and work towards a planned discharge date of 07/31/2017 so she can see oncology 08/01/2017.
[2017-07-29] MEDS: MULTIVITAMINS/MINERALS THERAP 1 TAB PO SCH (21:00)
[2017-07-29] MEDS: DULoxetine 30 MG CAP (CYMBALTA) PO SCH (21:51)
[2017-07-29 22:00] VITALS: BP 115/56
[2017-07-30] MEDS: HYOSCYAMINE SULFATE 0.125 MG SUBL TABLET SL SCH ×4 (00:36→16:11)
[2017-07-30] MEDS: MORPHINE 10MG/0.5ML ORAL CONCENTRATE SOLUTION U/D SL PRN ×4 (02:24→11:09)
[2017-07-30 06:00] VITALS: BP 137/73
[2017-07-30] MEDS: MIRALAX *UNIT DOSE* 17GM PACKET PO SCH ×2 (09:22→22:00)
[2017-07-30] MEDS: ENOXAPARIN 40 MG/0.4 ML SYRINGE (J1650) SC SCH (09:22)
[2017-07-30] MEDS: CETIRIZINE (ZyrTEC) 10 MG TAB PO SCH (09:23)
[2017-07-30] MEDS: diazePAM 2 MG TAB PO PRN ×3 (09:24→22:41)
[2017-07-30] MEDS: PANTOPRAZOLE 40MG TAB (PROTONIX) PO SCH (09:24)
[2017-07-30] MEDS: MORPHINE 30 MG SA TAB PO SCH ×3 (09:24→22:43)
[2017-07-30] MEDS: PROPRANOLOL 20 MG TAB PO SCH ×2 (09:24→22:41)
[2017-07-30] MEDS: SENOKOT S TAB PO SCH ×2 (09:25→22:41)
[2017-07-30] MEDS: TRIAMCINOLONE ACET 0.1% OINTMENT 15 GM TOP SCH ×2 (09:25→22:00)
--- NOTE | 2017-07-30 10:51 | IPNPDOC ---
Subjective Date Seen The patient was seen on 07/30/17. Subjective Chief Complaint/HPI The patient is a 47-year-old female admitted with a reason for visit of Uti, Abdominal Pain. Events since last encounter Pt this remains with the same concerns. She doesn't want to go home until she is pain free. She also states that if she goes home, he son who has previously helped her has started a second job during the day and isn't available to help her and drive [employer] to [employer]. She tells me she dozes off easily due to her allergies, it makes it difficult for her to keep her eyes open General: Reports: Fatigue Constitutional: Denies: Chills, Fever Pulmonary: Denies: Dyspnea, Cough Cardiovascular: Denies: Chest Pain, Palpitations Gastrointestinal: Reports: Abdominal Pain, Denies: Nausea, Vomiting Neurological: Reports: Weakness Psych: Reports: Mood Normal Objective Physical Examination General Exam: Positive: No Acute Distress (Pt appears comfortable, she is drowsy, but she is able to keep her eyes open a bit more today.), Negative: Alert ENT Exam: Positive: Mucous membr. moist/pink Chest Exam: Positive: Clear to auscultation, Normal air movement Heart Exam: Positive: Regular Rhythm Abdomen Exam: Positive: Normal bowel sounds, Soft, Tenderness (Pain with gentle palpation diffusely) Extremity Exam: Positive: Edema (Trace L pedal edema, ) Neuro Exam: Positive: Normal Speech, Sensation Intact Psych Exam: Positive: Other (Her statements are often repetitive, she lacks ability to participate in conversation, likely due to sedation.), Negative: Mental status NL, Mood NL (mood is low) Assessment /Plan Problems (1) Abdominal pain Status: Acute Response to Treatment: Stable Discussed With: Nurse, Patient Problem Specific Plan: Consult Specialist, Monitor Clinically, Repeat Labs Problem Text: 07/30 Today we revisited the conversation that we had yesterday. Her Valium was decreased yesterday d/t sedation, and her sedation does seem to be a bit better today. She wants the liquid morphine change to pill form before going home, we talked about this not being necessary this is a medication she can go home and manage at home in the current formulation. I spoke with [facility] about coordination of transportation for the pt, she has an appt 08/01. 07/29 - I reviewed her administration records of Pain Meds and her sats. Currently the MS Contin is the max dose she has been on, she has been on lower doses with increased frequency of the Valium, (sedation occured). She is using Roxanol 5-6 times daily (every 2-3h during the day), more frequency during the day then will go 6-8 hours spans in the evening and early hours of the morning without (sleeping). Valium 2 mg q4h is consistently being administered 5 times daily, with a longer stretch again in the evening and bread molder hours. She was previously on 5 mg q6h but there was sedation assoc with this and mtp doses were required to be held, therefore it was backed down to 1 mg and now up to 2 mg with narrowing of the frequency of administration. Nursing reports no notable signs of pain. I also reviewed with her the testing that has been done since she has been here to include BW and imaging as well as testing that has been done in the recent past (prior to admission). We also talked about her recent consultation with Dr Mueller. It appears as though for improved pain control, she could increase the frequency of administration of Roxanol - this likely would be disruptive to sleep (if sleeping, pain likely controlled), and would increase risk for oversedation. At this point she is already quite sedated. 07/28 Favor starting RADIOLOGIST to determine total daily dose required-could consider intrathecal administration once determined given intolerable delay with high dose multi-drug oral regimen-would valerie Daniels Patient is currently receiving MS Contin 90 mg TID, Roxanol 20 mg q1H, and Valium 2 mg q4H for pain-per [facility]-despite escalating regimen, patient still reports intolerable pain and when we have shorten the MS Contin intervals, she develops dangerous oversedation Patient does not want to be discharged until her pain can be controlled for a period of time (2) Metastatic colon cancer in female Status: Chronic Response to Treatment: Stable Problem Specific Plan: Monitor Clinically Problem Text: 07/16 Dr. Mueller consult-given progression on FOLFIRI; plan is po Lonsurf on discharge (3) History of hydronephrosis Status: Chronic Response to Treatment: Stable Problem Specific Plan: Monitor Clinically Problem Text: 07/28 stable BUN/cr Has stent in place, scan appears without any persistent hydronephrosis. (4) Anemia Status: Chronic Response to Treatment: Stable Problem Text: ACD 07/28 10.4 07/25 hgb stable at 9.7 (5) Physical deconditioning Status: Chronic Response to Treatment: Stable Problem Text: 07/23 PT 3rd evaluation still feels patient is safe for dc home- no PT intervention needed (6) Pleural effusion Status: Acute Response to Treatment: Stable, Improving Problem Text: 07/29 - await path results. 07/26 sp L thoracentesis of 340 cc clear yellow fluid 07/26 cytology P (7) Protein-calorie malnutrition, severe Status: Chronic Problem Text: Encouraged supplementation 07/28 albumin 2.2 Plan/VTE VTE Prophylaxis Ordered?: Yes VS, I&O, 24H, Fishbone Vital Signs/I&O Vital Signs Date Time Temp Pulse Resp B/P (MAP) Pulse Ox O2 Delivery O2 Flow Rate FiO2 07/30/17 10:00 16 07/30/17 09:24 74 137/73 07/30/17 06:59 Room Air 07/30/17 06:00 98.3 100 CAITLIN BREAUX PA-C Jul 30, 2017 10:51
--- NOTE | 2017-07-30 13:48 | IPN ---
DATE: 07/30/2017 This note supplements the note from Andria Toscano from today. I spoke with [facility] ([facility]) and arrangements were made for discharge tomorrow. They have communicated with her . They also called the oncologist and it turns out Tresa does not have an appointment on , 08/01/2017, as she thought she did. The nurse navigator has become involved and we now have an appointment set up with Dr. Mueller for 08/01/2017, so that part is taken care of. I have adjusted her pain medications today. She still does not feel she has adequate pain relief. 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 She also is on Valium at a reduced dose of 1 mg every 6 hours, which I think is still causing quite a bit of sedation. I think it is unlikely she would be able to return to work, but she does not want to give up on that in the hope of working again. Short term goal is to get her into Dr. Mueller so she can talk about different chemotherapy regimens. Discussion of palliative hospice was engaged in yesterday and rejected by the patient.
[2017-07-30 14:00] VITALS: BP 105/74
[2017-07-30] MEDS: MORPHINE 30 MG TAB **MSIR PO PRN (17:05)
[2017-07-30] MEDS ORDERED: KETOROLAC 30 MG/ML VIAL (J1885) IV PRN (18:30)
[2017-07-30 22:00] VITALS: BP 114/79
[2017-07-30] MEDS: DULoxetine 30 MG CAP (CYMBALTA) PO SCH (22:41)
[2017-07-30] MEDS: MULTIVITAMINS/MINERALS THERAP 1 TAB PO SCH (22:41)
[2017-07-31] MEDS: HYOSCYAMINE SULFATE 0.125 MG SUBL TABLET SL SCH ×4 (00:59→18:18)
[2017-07-31] MEDS: MORPHINE 30 MG TAB **MSIR PO PRN ×4 (01:02→18:19)
[2017-07-31 06:00] VITALS: BP 116/80
[2017-07-31] MEDS ORDERED: SIME80TA PO (08:16)
[2017-07-31] MEDS ORDERED: TRIA1OI TOP (08:16)
[2017-07-31] MEDS ORDERED: DIPH25CA PO (08:16)
[2017-07-31] MEDS ORDERED: SUCR1TA PO (08:16)
[2017-07-31] MEDS ORDERED: DIAZ2TAB PO (08:16)
[2017-07-31] MEDS ORDERED: MORP30TASA PO (08:16)
[2017-07-31] MEDS ORDERED: MSIR30TA PO (08:16)
[2017-07-31] MEDS ORDERED: PROC5TA PO (08:16)
[2017-07-31] MEDS ORDERED: PROC1CRE5 TOP (08:16)
[2017-07-31] MEDS ORDERED: HYOS125TA SL (08:16)
[2017-07-31] MEDS ORDERED: PROP20TA PO (08:16)
[2017-07-31] MEDS ORDERED: PANT40TA2 PO (08:16)
[2017-07-31] MEDS ORDERED: PEG1POW PO (08:16)
[2017-07-31] MEDS ORDERED: VITMTA PO (08:16)
[2017-07-31] MEDS ORDERED: SENN1TAB2 PO (08:16)
[2017-07-31] MEDS ORDERED: DULO30CA PO (08:16)
[2017-07-31] MEDS: SENOKOT S TAB PO SCH ×2 (08:26→20:48)
[2017-07-31] MEDS: PROPRANOLOL 20 MG TAB PO SCH ×2 (08:26→20:49)
[2017-07-31] MEDS: MORPHINE 30 MG SA TAB PO SCH ×3 (08:27→20:52)
[2017-07-31] MEDS: ENOXAPARIN 40 MG/0.4 ML SYRINGE (J1650) SC SCH (08:27)
[2017-07-31] MEDS: CETIRIZINE (ZyrTEC) 10 MG TAB PO SCH (08:27)
[2017-07-31] MEDS: MIRALAX *UNIT DOSE* 17GM PACKET PO SCH ×2 (08:27→20:52)
[2017-07-31] MEDS: PANTOPRAZOLE 40MG TAB (PROTONIX) PO SCH (08:27)
[2017-07-31] MEDS: TRIAMCINOLONE ACET 0.1% OINTMENT 15 GM TOP SCH ×2 (08:28→20:53)
[2017-07-31] MEDS: diphenhydrAMINE 25 MG CAP PO PRN (08:33)
--- NOTE | 2017-07-31 08:45 | DSES ---
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 SECONDARY DIAGNOSES: 1. Chronic pain secondary to metastatic cancer and irritable bowel syndrome. 2. History of hydronephrosis with urostomy tube. 3. Anemia. 4. Protein calorie malnutrition with physical deconditioning. 5. Pleural effusion. HISTORY: Tresa Goff has metastatic colon cancer. She was admitted with intractable pain. Dr. Mueller is her oncologist and Dr. Sung her grape picker. She had a nephrostomy tube placed in September. She has a history of irritable bowel syndrome (IBS) with severe abdominal pain and has metastatic colon cancer with metastases to liver, lung and left inguinal area. She has history of hypertension and reflux. HOSPITAL COURSE: She was admitted to a medical bed. She was seen by Dr. Barnard who did not feel the patient would benefit from gynecological surgical intervention to the left ovarian metastasis. I also discussed the case with other surgeons informally and the consensus opinion was she was not a good candidate for surgery. She was seen by Dr. Mueller, her oncologist, and plans have been made for a regimen of LONSURF after discharge. The rest of the hospitalization essentially was adjusting pain medications. She has a lot of anxiety and becomes anxious over her pain. We tried to give her some Valium, but it caused excessive sedation. 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 She also wants "total pain relief". We spent several visits discussing the fact at this point we do not have medications to relieve her pain that won't cause sedation and that it is unlikely that she is going to be able to return to her work and achieve a goal of pain relief. Today, she feels appropriate for discharge. Her most recent lab work was unremarkable. Hemoglobin is stable at 10.4. Her discharge has been arranged through the nurse navigator and she has an appointment set up tomorrow to see Dr. Mueller. Her medicines on discharge are Valium 1 mg every 6 hours as needed for anxiety, Benadryl 25 mg every 6 hours as needed, Cymbalta 60 mg daily, hyoscyamine 0.125 mg tablets 0.5 mg every 6 hours as needed, morphine sulfate 90 mg three times a day (three of 30 mg tablets three times a day), morphine IR 30 mg tablets every 4 hours as needed with maximum dose of 6, multivitamin, Protonix 40 mg daily, MiraLAX a packet twice a day, Senokot-Plus twice a day, prochlorperazine 10 mg every 6 hours as needed, Proctozone cream four times a day as needed, propranolol 40 mg twice a day, simethicone 80 mg four times a day, Carafate 1 gram before meals as needed, triamcinolone ointment twice a day, Cytotec 100 mcg four times a day. Activity as tolerated. Diet as tolerated. Followup in our office next week. Followup with Dr. Mueller tomorrow at 3:00 p.m.
[2017-07-31 14:00] VITALS: BP 109/70
[2017-07-31] MEDS: diazePAM 2 MG TAB PO PRN (18:18)
[2017-07-31] MEDS: MULTIVITAMINS/MINERALS THERAP 1 TAB PO SCH (20:48)
[2017-07-31] MEDS: DULoxetine 30 MG CAP (CYMBALTA) PO SCH (20:48)
[2017-07-31 22:00] VITALS: BP 111/74
[2017-08-01] MEDS: HYOSCYAMINE SULFATE 0.125 MG SUBL TABLET SL SCH ×3 (00:14→11:35)
[2017-08-01] MEDS: diazePAM 2 MG TAB PO PRN ×2 (02:56→08:59)
[2017-08-01] MEDS: MORPHINE 30 MG TAB **MSIR PO PRN ×2 (02:57→11:36)
[2017-08-01 06:00] VITALS: BP 113/76
[2017-08-01] MEDS: MORPHINE 30 MG SA TAB PO SCH (09:00)
[2017-08-01] MEDS: ENOXAPARIN 40 MG/0.4 ML SYRINGE (J1650) SC SCH (09:00)
[2017-08-01] MEDS: PANTOPRAZOLE 40MG TAB (PROTONIX) PO SCH (09:00)
[2017-08-01] MEDS: CETIRIZINE (ZyrTEC) 10 MG TAB PO SCH (09:00)
[2017-08-01] MEDS: SENOKOT S TAB PO SCH (09:00)
[2017-08-01 09:01] VITALS: BP 113/76
[2017-08-01] MEDS: MIRALAX *UNIT DOSE* 17GM PACKET PO SCH (09:01)
[2017-08-01] MEDS: diphenhydrAMINE 25 MG CAP PO PRN (09:01)
[2017-08-01] MEDS: PROPRANOLOL 20 MG TAB PO SCH (09:01)
[2017-08-01] MEDS: TRIAMCINOLONE ACET 0.1% OINTMENT 15 GM TOP SCH (09:02)
--- NOTE | 2017-08-01 09:18 | IPNPDOC ---
Subjective Date Seen The patient was seen on 08/01/17. Subjective Chief Complaint/HPI The patient is a 47-year-old female admitted with a reason for visit of Uti, Abdominal Pain. Events since last encounter Pt anxious about her pending d/c. Hoped for her d/c yesterday however her insurance denied her morphine rx for coverage for both the med and the quantity. PFS working on prior auth. General: Reports: Fatigue Constitutional: Denies: Chills, Fever Pulmonary: Denies: Dyspnea, Cough Cardiovascular: Denies: Chest Pain, Palpitations Gastrointestinal: Reports: Abdominal Pain, Denies: Nausea, Vomiting Objective Physical Examination General Exam: Positive: No Acute Distress (Pt appears comfortable.), Negative: Alert ENT Exam: Positive: Mucous membr. moist/pink Chest Exam: Positive: Clear to auscultation, Normal air movement Heart Exam: Positive: Regular Rhythm Abdomen Exam: Positive: Normal bowel sounds, Soft, Tenderness (Pain with gentle palpation diffusely) Extremity Exam: Positive: Edema (Trace L pedal edema, ) Neuro Exam: Positive: Normal Speech, Sensation Intact Psych Exam: Positive: Other (Her statements are often repetitive, she lacks ability to participate in conversation, likely due to sedation.), Negative: Mental status NL, Mood NL (mood is low) Assessment /Plan Problems (1) Abdominal pain Status: Acute Response to Treatment: Stable Discussed With: Nurse, Patient Problem Specific Plan: Consult Specialist, Monitor Clinically, Repeat Labs Problem Text: 08/01 - Planned for d/c 07/31 - await prior auth on meds, if obtained today, pt will be d/c today. 07/30 Today we revisited the conversation that we had yesterday. Her Valium was decreased yesterday d/t sedation, and her sedation does seem to be a bit better today. She wants the liquid morphine change to pill form before going home, we talked about this not being necessary this is a medication she can go home and manage at home in the current formulation. I spoke with PFS about coordination of transportation for the pt, she has an appt 08/01. 07/29 - I reviewed her administration records of Pain Meds and her sats. Currently the MS Contin is the max dose she has been on, she has been on lower doses with increased frequency of the Valium, (sedation occured). She is using Roxanol 5-6 times daily (every 2-3h during the day), more frequency during the day then will go 6-8 hours spans in the evening and early hours of the morning without (sleeping). Valium 2 mg q4h is consistently being administered 5 times daily, with a longer stretch again in the evening and early childhood director hours. She was previously on 5 mg q6h but there was sedation assoc with this and mtp doses were required to be held, therefore it was backed down to 1 mg and now up to 2 mg with narrowing of the frequency of administration. Nursing reports no notable signs of pain. I also reviewed with her the testing that has been done since she has been here to include BW and imaging as well as testing that has been done in the recent past (prior to admission). We also talked about her recent consultation with Dr Mueller. It appears as though for improved pain control, she could increase the frequency of administration of Roxanol - this likely would be disruptive to sleep (if sleeping, pain likely controlled), and would increase risk for oversedation. At this point she is already quite sedated. 07/28 Favor starting GL[employer] MACHINE TENDER to determine total daily dose required-could consider intrathecal administration once determined given intolerable delay with high dose multi-drug oral regimen-would dw Dr. Daniels Patient is currently receiving MS Contin 90 mg TID, Roxanol 20 mg q1H, and Valium 2 mg q4H for pain-per [facility]-despite escalating regimen, patient still reports intolerable pain and when we have shorten the MS Contin intervals, she develops dangerous oversedation Patient does not want to be discharged until her pain can be controlled for a period of time (2) Metastatic colon cancer in female Status: Chronic Response to Treatment: Stable Problem Specific Plan: Monitor Clinically Problem Text: 07/16 Dr. Mueller consult-given progression on FOLFIRI; plan is po [place] on discharge (3) History of hydronephrosis Status: Chronic Response to Treatment: Stable Problem Specific Plan: Monitor Clinically Problem Text: 07/28 stable BUN/cr Has stent in place, scan appears without any persistent hydronephrosis. (4) Anemia Status: Chronic Response to Treatment: Stable Problem Text: ACD 07/28 10.4 07/25 hgb stable at 9.7 (5) Physical deconditioning Status: Chronic Response to Treatment: Stable Problem Text: 07/23 PT 3rd evaluation still feels patient is safe for dc home- no PT intervention needed (6) Pleural effusion Status: Acute Response to Treatment: Stable, Improving Problem Text: 07/29 - await path results. 07/26 sp L thoracentesis of 340 cc clear yellow fluid 07/26 cytology P (7) Protein-calorie malnutrition, severe Status: Chronic Problem Text: Encouraged supplementation 07/28 albumin 2.2 Plan/VTE VTE Prophylaxis Ordered?: Yes VS, I&O, 24H, Fishbone Vital Signs/I&O Vital Signs Date Time Temp Pulse Resp B/P (MAP) Pulse Ox O2 Delivery O2 Flow Rate FiO2 08/01/17 09:01 86 113/76 08/01/17 09:00 14 08/01/17 07:46 Room Air 08/01/17 06:00 97.5 97 I&O- Last 24 Hours up to 6 AM 08/02/17 05:59 Intake Total 0 ml Output Total 0 ml Balance 0 ml CAITLIN BREAUX PA-C Aug 01, 2017 09:18
== END 2017-08-01 14:43 | disposition home or self-care (01) | DRG 947 ==
LOC: M ED 18:51 → M ED INP 07-02 01:01 → M ICU 07-02 05:09 → M MS4PR 07-09 15:45 → M MS5PR 07-10 15:25
PROVIDERS: ADMIT Hospitalist; ATTEND Family Medicine
PROC: 0T25X0Z Change Drainage Device in Kidney, External Approach (ICD-10-PCS; principal; 2017-07-04)
PROC: 0W9B3ZX Drainage of Left Pleural Cavity, Percutaneous Approach, Diagnostic (ICD-10-PCS; 2017-07-26)
DX: G89.3 Neoplasm related pain (acute) (chronic) (principal); E43 Unspecified severe protein-calorie malnutrition; C78.7 Secondary malignant neoplasm of liver and intrahepatic bile duct; C78.00 Secondary malignant neoplasm of unspecified lung; N39.0 Urinary tract infection, site not specified; C18.9 Malignant neoplasm of colon, unspecified; C56.2 Malignant neoplasm of left ovary; C79.89 Secondary malignant neoplasm of other specified sites; J90 Pleural effusion, not elsewhere classified; N13.30 Unspecified hydronephrosis; K58.2 Mixed irritable bowel syndrome; I10 Essential (primary) hypertension; E78.5 Hyperlipidemia, unspecified; Z90.49 Acquired absence of other specified parts of digestive tract; Z93.6 Other artificial openings of urinary tract status; G62.2 Polyneuropathy due to other toxic agents; T45.1X5A Adverse effect of antineoplastic and immunosuppressive drugs, initial encounter; Z79.891 Long term (current) use of opiate analgesic; Z79.899 Other long term (current) drug therapy; F41.9 Anxiety disorder, unspecified; F32.9 Major depressive disorder, single episode, unspecified; Z98.0 Intestinal bypass and anastomosis status; F17.210 Nicotine dependence, cigarettes, uncomplicated; D64.9 Anemia, unspecified; R60.0 Localized edema; E83.42 Hypomagnesemia; R00.0 Tachycardia, unspecified; R33.9 Retention of urine, unspecified; R21 Rash and other nonspecific skin eruption

== ENCOUNTER → 2017-10-11 | Outpatient (REF) ==
[2017-10-11 15:22] LABS: APPEARANCE, URINE CLOUDY (CLEAR); BACTERIA, URINE AUTO 2+ (NEGATIVE); BILIRUBIN, URINE AUTO NEGATIVE (NEGATIVE); BLOOD, URINE BLOOD 2+ (NEGATIVE); COLOR, URINE YELLOW (YELLOW); GLUCOSE, URINE (UA) AUTO NEGATIVE (NEGATIVE); KETONE, URINE AUTO NEGATIVE (NEGATIVE); LEUKOCYTE ESTERASE, URINE AUTO 3+ (NEGATIVE); MUCUS, URINE SMALL (NEGATIVE); NITRITE, URINE AUTO NEGATIVE (NEGATIVE); PROTEIN, URINE AUTO 1+ mg/dL (NEGATIVE); RBC, URINE AUTO 16 /HPF (0-3); SPECIFIC GRAVITY URINE AUTO 1.006 (1.002-1.035); SQUAMOUS EPITHELIAL CELL UR AU 0 /HPF (0-6); UROBILINOGEN, URINE AUTO 0.2 mg/dL (0.0-2.0); WBC, URINE AUTO TNTC /HPF (0-3)
== END ==
LOC: M LAB REF 15:08
DX: Z00.00 Encounter for general adult medical examination without abnormal findings (principal)